=== PATIENT | male | born 1940 | race Caucasian/White ===

== ENCOUNTER 2020-01-12 14:33 | Emergency (ER) | payer MEDICARE, BC ==
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
[2020-01-12] MEDS ORDERED: Heparin Sodium 5,000 Units/ML Vial IVPUSH STA (18:16)
[2020-01-12] MEDS ORDERED: Heparin Sodium/D5W 25,000 UNITS/500 ML BAG IV SCH (18:30)
== END 2020-01-12 19:45 | disposition left against medical advice (07) ==
LOC: JD.ED 14:33
DX: I48.91 Unspecified atrial fibrillation (principal); N50.89 Other specified disorders of the male genital organs; R53.81 Other malaise; R60.0 Localized edema; E66.9 Obesity, unspecified; Z68.41 Body mass index [BMI] 40.0-44.9, adult; Z88.1 Allergy status to other antibiotic agents; Z91.012 Allergy to eggs; Z91.018 Allergy to other foods; Z87.891 Personal history of nicotine dependence
CPT/HCPCS: 36415; 51798; 80053; 81001; 82550; 83735; 84443; 85007; 85027; 85730; 93005; 93010; 99284; 99285

== ENCOUNTER 2020-01-13 11:36 | Inpatient (IN) | payer MEDICARE, BC ==
[2020-01-13] MEDS ORDERED: Sodium Chloride 0.9% 10 ML Syringe FLUSH PRN (12:09)
--- NOTE | 2020-01-13 12:40 | EDM.PDOC ---
ED HPI GENERAL MEDICAL PROBLEM - General Chief Complaint: General Stated Complaint: AFIB Time Seen by Provider: 01/13/20 12:04 Source of Information: Reports: Patient History Limitations: Reports: Other (Pt is slow to respond and confused at times ) - History of Present Illness INITIAL COMMENTS - FREE TEXT/NARRATIVE: Ger Lee is a 79 male who presents to the emergency room for admission for recent onset atrial fibrillation. Patient was seen and evaluated yesterday for generalized weakness shortness of breath and scrotal edema. He was found to have a new onset of atrial fibrillation and was recommended that he be admitted. However the patient elected to leave AMA without further work-up or treatment. He presents today with chief complaints of being more short of breath and "is ready to be admitted and treated." Patient is slow to respond to questions he appears to be somewhat confused. He denies chest pain but reports that he is short of breath if he walks short distances. Patient does have a past medical history of obesity and a malignant melanoma on his left thigh which he had excision and radiation treatment. Patient does report having a history of weakness which has progressively gotten worse over the past 2 years. He does admit to falling and is not able to get up afterwards. He does have an abrasion noted to his left knee. He reports that he fell again recently causing the abrasion. Patient also reports that he developed swelling in the scrotum with difficulty urinating a few weeks ago. Patient was seen at the [facility] yesterday and was instructed to come to the emergency room where he was evaluated yesterday. He denies any chest pain sinus congestion, fever, cough, fever or chills. He reports he does not have any pain unless he sits for long periods of time and then has testicular pain. Patient is hemodynamically stable at this time afebrile saturations 96% on room air, monitoring and evaluation advisor reveals atrial fib rate of 110. Onset: Unknown/Unsure Severity: Mild Improves with: Reports: None Worsens with: Reports: Breathing, Movement Associated Symptoms: Reports: Confusion, Shortness of Breath, Weakness. 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 1 dose TOP DAILY PRN 01/12/20 [History] Past Medical History Cardiovascular History: Reports: Hypertension Other Cardiovascular History: pts states this HTN was from the 80s and he is not on any medications Genitourinary History: Reports: Renal Calculus Endocrine/Metabolic History: Reports: Obesity/BMI 30+ Oncologic (Cancer) History: Reports: Malignant Melanoma - Past Surgical History HEENT Surgical History: Reports: Oral Surgery, Tonsillectomy Male Surgical History: Reports: Lithotripsy (ESWL) Oncologic Surgical History: Reports: Other (See Below) Dermatological Surgical History: Reports: Skin Biopsy, Other (See Below) Social & Family History - Tobacco Use Smoking Status *Q: Never Smoker - Recreational Drug Use Recreational Drug Use: No - Living Situation & Occupation Living situation: Reports: , with Spouse Occupation: Retired ED ROS GENERAL - Review of Systems Review Of Systems: See Below Constitutional: Reports: Weakness, Fatigue. Denies: Fever, Chills HEENT: Reports: Hearing Loss Respiratory: Reports: Shortness of Breath Cardiovascular: Reports: Edema. Denies: Chest Pain Endocrine: Reports: Fatigue GI/Abdominal: Denies: Constipation, Diarrhea, Nausea, Vomiting : Reports: Other (swollen scrotum) Skin: Reports: Other (old left knee abrasion) Neurological: Reports: Confusion, Weakness. Denies: Dizziness, Syncope, Change in Speech Psychiatric: Reports: Confusion Hematologic/Lymphatic: Reports: No Symptoms Immunologic: Reports: No Symptoms ED EXAM, GENERAL - Physical Exam Exam: See Below Exam Limited By: No Limitations General Appearance: Alert, WD/WN, No Apparent Distress, Other (Patient is slow to respond and appears confused at times) Throat/Mouth: Normal Inspection, Normal Lips, Normal Teeth, Normal Gums, Normal Oropharynx, Normal Voice, No Airway Compromise Head: Atraumatic, Normocephalic Neck: Normal Inspection, Supple, Non-Tender, Full Range of Motion Respiratory/Chest: No Respiratory Distress, Lungs Clear, Normal Breath Sounds, No Accessory Muscle Use, Chest Non-Tender Cardiovascular: Normal Peripheral Pulses, No Gallop, No JVD, No Murmur, No Rub, Irregularly Irregular, Other (Atrial fib with RVR rate 115) GI/Abdominal: Normal Bowel Sounds, Soft, Non-Tender (Male) Exam: Scrotal Swelling, Other (penile swelling) Back Exam: Normal Inspection, Full Range of Motion Extremities: Non-Tender, Normal Capillary Refill, Pedal Edema (+ 3 ) Neurological: Alert, Oriented, Slow to Respond Psychiatric: Normal Affect, Normal Mood Skin Exam: Warm, Dry, Intact, Normal Color, No Rash, Other (old left knee abrasion) Lymphatic: No Adenopathy EKG INTERPRETATION EKG Date: 01/13/20 Time: 12:03 Rhythm: A-Fib Rate (Beats/Min): 136 Course - Vital Signs Last Recorded V/S: Last Vital Signs Temp 97.8 F 01/13/20 12:01 Pulse 115 H 01/13/20 12:01 Resp 17 01/13/20 12:01 BP 133/75 01/13/20 12:01 Pulse Ox 93 L 01/13/20 12:01 - Orders/Labs/Meds Orders: Active Orders 24 hr Category Date Time Status Sodium Chloride 0.9% [Saline Flush] Med 01/13/20 12:09 Active 10 ml FLUSH ASDIRECTED PRN Saline Lock Insert [OM.PC] Routine Oth 01/13/20 12:09 Ordered Medication Orders Sodium Chloride (Saline Flush) 10 ml FLUSH ASDIRECTED PRN PRN Reason: Keep Vein Open Last Admin: 01/13/20 12:19 Dose: 10 ml Labs: Laboratory Tests 01/13/20 01/13/20 01/13/20 Range/Units 12:17 12:17 12:17 WBC 13.83 H (4.23-9.07) K/mm3 RBC 5.62 (4.63-6.08) M/mm3 Hgb 16.0 (13.7-17.5) gm/dl Hct 48.1 (40.1-51.0) % MCV 85.6 (79.0-92.2) fl MCH 28.5 (25.7-32.2) pg MCHC 33.3 (32.2-35.5) g/dl RDW Std Deviation 43.7 (35.1-43.9) fL Plt Count 388 H (163-337) K/mm3 MPV 9.8 (9.4-12.3) fl Neut % (Auto) 81.9 H (34.0-67.9) % Lymph % (Auto) 7.4 L (21.8-53.1) % Stanley % (Auto) 8.7 (5.3-12.2) % Eos % (Auto) 1.0 (0.8-7.0) Baso % (Auto) 0.3 (0.1-1.2) % Neut # (Auto) 11.34 H (1.78-5.38) K/mm3 Lymph # (Auto) 1.02 L (1.32-3.57) K/mm3 Stanley # (Auto) 1.20 H (0.30-0.82) K/mm3 Eos # (Auto) 0.14 (0.04-0.54) K/mm3 Baso # (Auto) 0.04 (0.01-0.08) K/mm3 Manual Slide Review Abnormal smear PT 11.0 (9.7-12.0) SECONDS INR 1.01 Sodium 138 (136-145) mEq/L Potassium 3.9 (3.5-5.1) mEq/L Chloride 101 (98-107) mEq/L Carbon Dioxide 26 (21-32) mEq/L Anion Gap 14.9 (5-15) BUN 18 (7-18) mg/dL Creatinine 1.1 (0.7-1.3) mg/dL Est Cr Clr Drug Dosing 60.75 mL/min Estimated GFR (MDRD) > 60 (>60) mL/min BUN/Creatinine Ratio 16.4 (14-18) Glucose 144 H (83-115) mg/dL Calcium 9.1 (8.5-10.1) mg/dL Total Bilirubin 1.1 H (0.2-1.0) mg/dL AST 32 (15-37) U/L ALT 47 (16-63) U/L Alkaline Phosphatase 64 (46-116) U/L Total Protein 7.2 (6.4-8.2) g/dl Albumin 3.4 (3.4-5.0) g/dl Globulin 3.8 gm/dL Albumin/Globulin Ratio 0.9 L (1-2) Meds: Medications Generic Name Dose Route Start Last Admin Trade Name Freq PRN Reason Stop Dose Admin Sodium Chloride 10 ml 01/13/20 12:09 01/13/20 12:19 Saline Flush FLUSH 10 ml ASDIRECTED PRN Administration Keep Vein Open Discontinued Medications Generic Name Dose Route Start Last Admin Trade Name Radha PRN Reason Stop Dose Admin Rivaroxaban 10 mg 01/13/20 13:12 01/13/20 13:26 Xarelto PO 01/13/20 13:13 10 mg ONETIME ONE Administration - Re-Assessments/Exams Free Text/Narrative Re-Assessment/Exam: 01/13/20 1230 Ger Lee is a 79-year-old male who presents the emergency room for evaluation and treatment of new onset atrial fibrillation. The patient was seen and evaluated yesterday for progressively worsening weakness for the past 2 years. He presented with chief complaints of swollen scrotum and decreased urine output. He was seen and evaluated at that time and recommended that he be admitted for new onset atrial fibrillation. The patient elected to leave [facility]. He presents today wanting to be evaluated and treated. He denies chest pain but does report being short of breath. Patient reports having increased weakness and edema to his lower extremities which has been progressively getting worse over the past 2 years. Patient does admit to having multiple falls resulting in abrasion to his left knee. I will order an EKG, CBC, Chem-7 and PT/INR. I did consult Dr. Sneha Marroquin to evaluate patient for admission for new set atrial fibrillation. Patient is in agreement for admission at this time. 01/13/20 13:[address] Marroquin she will admit patient. I will start on Xarelto 10 mg. BBC is 13.83 this is down from yesterday. H&H is 16.0 and 48.1 platelet count 388, PT 11 INR 1.01, sodium 138, potassium 3.9, chloride 101, CO2 26, BUN 18, creatinine 1.1 and glucose 144. He is stable at time of admission. Departure - Departure Time of Disposition: 13:18 Disposition: Admitted As Inpatient 66 Condition: Good Clinical Impression: Atrial fibrillation Qualifiers: Atrial fibrillation type: unspecified Qualified Code(s): I48.91 - Unspecified atrial fibrillation - Discharge Information Referrals: PCP,None [Primary Care Provider] - Forms: ED Department Discharge Sepsis Event Note - Evaluation Sepsis Screening Result: No Definite Risk - Focused Exam Vital Signs: Vital Signs Temp Pulse Resp BP Pulse Ox 01/13/20 12:01 97.8 F 115 H 17 133/75 93 L Date Exam was Performed: 01/13/20 Time Exam was Performed: 14:11 - My Orders Last 24 Hours: My Active Orders 01/13/20 12:09 Sodium Chloride 0.9% [Saline Flush] 10 ml FLUSH ASDIRECTED PRN Saline Lock Insert [OM.PC] Routine - Assessment/Plan Last 24 Hours: My Active Orders 01/13/20 12:09 Sodium Chloride 0.9% [Saline Flush] 10 ml FLUSH ASDIRECTED PRN Saline Lock Insert [OM.PC] Routine
[2020-01-13] MEDS ORDERED: Rivaroxaban 10 MG Tab PO ONE (13:12)
--- NOTE | 2020-01-13 15:05 | PCM.HP.2 ---
H&P History of Present Illness - General Date of Service: 01/13/20 Admit Problem/Dx: Admission Diagnosis/Problem Admission Diagnosis/Problem Atrial fibrillation - History of Present Illness Initial Comments - Free Text/Narative: --Patient is a very poor historian-- This is a 79 year old male with past medical history of hypotension who comes to the ED stating he has been having increasinf frequency of falls secondary to leg weaknes, last fall yesterday. Last night he got up and was unable to get up from bed. 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 1 dose TOP DAILY PRN 01/12/20 [History] Past Medical History Cardiovascular History: Reports: Hypertension Other Cardiovascular History: pts states this HTN was from the 80s and he is not on any medications Genitourinary History: Reports: Renal Calculus Endocrine/Metabolic History: Reports: Obesity/BMI 30+ Oncologic (Cancer) History: Reports: Malignant Melanoma - Past Surgical History HEENT Surgical History: Reports: Oral Surgery, Tonsillectomy Male Surgical History: Reports: Lithotripsy (ESWL) Oncologic Surgical History: Reports: Other (See Below) Dermatological Surgical History: Reports: Skin Biopsy, Other (See Below) Social & Family History - Tobacco Use Smoking Status *Q: Never Smoker - Recreational Drug Use Recreational Drug Use: No - Living Situation & Occupation Living situation: Reports: , with Spouse Occupation: Retired H&P Review of Systems - Review of Systems: Review Of Systems: Unable To Obtain Reason Not Obtained: Patient does not give any clear answers to any question Exam - Exam Exam: See Below - Vital Signs Vital Signs: Last Vital Signs Temp 97.8 F 01/13/20 12:01 Pulse 115 H 01/13/20 12:01 Resp 17 01/13/20 12:01 BP 133/75 01/13/20 12:01 Pulse Ox 93 L 01/13/20 12:01 Weight: 145.15 kg - Exam Quality Assessment: Other (CONFOUNDED BY BODY HABITUS). No: Supplemental Oxygen General: Alert, Oriented, Cooperative. No: Mild Distress HEENT: Conjunctiva Clear, Mucosa Moist & [place] Lungs: Decreased Breath Sounds. No: Crackles, Rales, Rhonchi, Rub, Stridor, Wheezing Cardiovascular: Regular Rate, Irregular Rhythm, Bradycardia, Tachycardia. No: Systolic Murmur, Diastolic Murmur, Rubs, Gallop/S3, Gallop/S4 GI/Abdominal Exam: Distended. No: Guarding, Rigid, Rebound, Tender Extremities: Other (BL LE edema, worse on left, scar tissue is evident on medial left thigh, non-pitting on L foot but 2+ on lef; RLE 2+ pitting edema ) Skin: Other (unkept, flaking throughout the toes, onychogryphosis, ) - Patient Data Result Diagrams: 01/13/20 12:17 01/13/20 12:17 Sepsis Event Note - Evaluation Sepsis Screening Result: No Definite Risk - Focused Exam Vital Signs: Vital Signs Temp Pulse Resp BP Pulse Ox 01/13/20 12:01 97.8 F 115 H 17 133/75 93 L Date Exam was Performed: 01/13/20 Time Exam was Performed: 18:05 - Problem List (1) Atrial fibrillation with rapid ventricular response SNOMED Code(s): 430852296471171 ICD Code: I48.91 - UNSPECIFIED ATRIAL FIBRILLATION Status: Acute Current Visit: Yes (2) Hypoalbuminemia SNOMED Code(s): 792469175 ICD Code: E88.09 - OTH DISORDERS OF PLASMA-PROTEIN METABOLISM, NEC Status: Acute Current Visit: Yes (3) Weakness generalized SNOMED Code(s): 55842702 ICD Code: R53.1 - WEAKNESS Status: Acute Current Visit: Yes (4) Frequent falls SNOMED Code(s): 905851807 ICD Code: R29.6 - REPEATED FALLS Status: Acute Current Visit: Yes (5) New onset atrial fibrillation SNOMED Code(s): 37337469 ICD Code: I48.91 - UNSPECIFIED ATRIAL FIBRILLATION Status: Acute Current Visit: No (6) Physical deconditioning SNOMED Code(s): 33348258512179 ICD Code: R53.81 - OTHER MALAISE Status: Acute Current Visit: No (7) Scrotal edema SNOMED Code(s): 99000700 ICD Code: N50.89 - OTHER SPECIFIED DISORDERS OF THE MALE GENITAL ORGANS Status: Acute Current Visit: No (8) Hypertension SNOMED Code(s): 74723412 ICD Code: I10 - ESSENTIAL (PRIMARY) HYPERTENSION Status: Acute Current Visit: Yes (9) Lymphedema of left lower extremity SNOMED Code(s): 50795512012667939 ICD Code: I89.0 - LYMPHEDEMA, NOT ELSEWHERE CLASSIFIED Status: Acute Current Visit: Yes (10) Bilateral lower extremity edema SNOMED Code(s): 687212322, 29465090, 128586071 ICD Code: R60.0 - LOCALIZED EDEMA Status: Acute Current Visit: No Problem List Initiated/Reviewed/Updated: Yes Assessment/Plan Comment:: New onset atrial fibrillation with rapid ventricular response Scrotal edema Bilateral lower extremity edema Lymphedema of left lower extremity Came in yesterday complaining of scrotal edema but left AMA Today with complaint of generalized weakness and inability to ambulate on his own He does have worsening lower extremity edema, left edema is chronic as per patient In ED was found to have HR 144 PLAN - Start Xarelto - Echocardiogram - Lasix 40mg IV BID - Strict I/O - Daily weights Hypertension BP on admission 129/70 Does not take any medications PLAN - Monitor BP with VS - PRN Hydralazine Frequent falls Physical deconditioning Weakness generalized Hypoalbuminemia Progressively worsening weakness Unable to ambulate Prior to this ambulated with 2 canes (since 80's) Unable to obtain information regarding his eating habits and sleep PLAN - B12, folic acid and MMA level - Prealbumin level - Dietary evaluation with malnutrition screen PROPHYLAXIS DVT- Xarelto GI- not indicated CODE STATUS: FULL CODE, entered by default since I was unable to get clear answer from him DISPOSITION: Patient will be admitted for IV diuresis, nutritional evaluation as well as PT/ OT evaluation with possible need for placement on discharge - Mortality Measure Prognosis:: Poor
[2020-01-13] MEDS ORDERED: Ondansetron 4 MG/2 ML SDV IV PRN (15:06)
[2020-01-13] MEDS ORDERED: Acetaminophen 325 MG Tab PO PRN (15:06)
[2020-01-13] MEDS ORDERED: Ondansetron 4 MG Tab.DIS PO PRN (15:06)
[2020-01-13 16:21] LABS: HEMOGLOBIN A1C 6.4 % (4.50-6.20)
[2020-01-13] MEDS ORDERED: Furosemide 20 MG/2 ML VIAL IVPUSH ONE (17:40)
[2020-01-14] MEDS: Furosemide 40 MG/4 ML VIAL IVPUSH SCH ×2 (06:46→15:13)
--- NOTE | 2020-01-14 08:40 | PCM.PN ---
- General Info Date of Service: 01/14/20 Admission Dx/Problem (Free Text): Admission Diagnosis/Problem Admission Diagnosis/Problem Atrial fibrillation Subjective Update: Patient was seen by me at the bedside and the case was discussed with Dr. Marroquin. Patient reports he feels improved since time of admission. In fact, he states he wants to go home today, and threatens to leave AMA. He complains of some dizziness but otherwise the rest of his review of system is negative. He remains obviously fluid overloaded with 3-4+ pitting edema in the lower extremity bilaterally, but breath sounds are cleared. VS are stable. ECHO is pending. No acute issues reported overnight. Functional Status: Reports: Pain Controlled - Review of Systems General: Reports: No Symptoms, Weakness, Other (Dizziness) HEENT: Reports: No Symptoms Pulmonary: Reports: No Symptoms Cardiovascular: Reports: No Symptoms Gastrointestinal: Reports: No Symptoms Genitourinary: Reports: No Symptoms Musculoskeletal: Reports: No Symptoms Skin: Reports: No Symptoms Neurological: Reports: Dizziness, Difficulty Walking, Weakness Psychiatric: Reports: Other (Threatens to leave AMA) - Patient Data Vitals - Most Recent: Last Vital Signs Temp 97.7 F 01/14/20 04:11 Pulse 93 01/14/20 04:11 Resp 16 01/14/20 04:11 BP 118/68 01/14/20 04:11 Pulse Ox 94 L 01/14/20 04:11 Weight - Most Recent: 333 lb 6.4 oz I&O - Last 24 Hours: Intake & Output 01/13/20 01/14/20 01/14/20 22:59 06:59 14:59 Intake Total 60 200 Output Total 200 600 Balance -140 -400 Lab Results Last 24 Hours: Laboratory Results - last 24 hr 01/13/20 01/13/20 01/13/20 Range/Units 12:17 12:17 12:17 WBC 13.83 H (4.23-9.07) K/mm3 RBC 5.62 (4.63-6.08) M/mm3 Hgb 16.0 (13.7-17.5) gm/dl Hct 48.1 (40.1-51.0) % MCV 85.6 (79.0-92.2) fl MCH 28.5 (25.7-32.2) pg MCHC 33.3 (32.2-35.5) g/dl RDW Std Deviation 43.7 (35.1-43.9) fL Plt Count 388 H (163-337) K/mm3 MPV 9.8 (9.4-12.3) fl Neut % (Auto) 81.9 H (34.0-67.9) % Lymph % (Auto) 7.4 L (21.8-53.1) % [place] % (Auto) 8.7 (5.3-12.2) % Eos % (Auto) 1.0 (0.8-7.0) Baso % (Auto) 0.3 (0.1-1.2) % Neut # (Auto) 11.34 H (1.78-5.38) K/mm3 Lymph # (Auto) 1.02 L (1.32-3.57) K/mm3 [place] # (Auto) 1.20 H (0.30-0.82) K/mm3 Eos # (Auto) 0.14 (0.04-0.54) K/mm3 Baso # (Auto) 0.04 (0.01-0.08) K/mm3 Manual Slide Review Abnormal smear PT 11.0 (9.7-12.0) SECONDS INR 1.01 Sodium 138 (136-145) mEq/L Potassium 3.9 (3.5-5.1) mEq/L Chloride 101 (98-107) mEq/L Carbon Dioxide 26 (21-32) mEq/L Anion Gap 14.9 (5-15) BUN 18 (7-18) mg/dL Creatinine 1.1 (0.7-1.3) mg/dL Est Cr Clr Drug Dosing 60.75 mL/min Estimated GFR (MDRD) > 60 (>60) mL/min BUN/Creatinine Ratio 16.4 (14-18) Glucose 144 H (83-115) mg/dL Hemoglobin A1c (4.50-6.20) % Calcium 9.1 (8.5-10.1) mg/dL Phosphorus (2.6-4.7) mg/dL Magnesium (1.8-2.4) mg/dl Total Bilirubin 1.1 H (0.2-1.0) mg/dL AST 32 (15-37) U/L ALT 47 (16-63) U/L Alkaline Phosphatase 64 (46-116) U/L Total Protein 7.2 (6.4-8.2) g/dl Albumin 3.4 (3.4-5.0) g/dl Globulin 3.8 gm/dL Albumin/Globulin Ratio 0.9 L (1-2) Vitamin B12 (193-986) pg/ml Folate (8.6-58.9) ng/mL Urine Color (Yellow) Urine Appearance (Clear) Urine pH (5.0-8.0) Ur Specific [place] (1.005-1.030) Urine Protein (Negative) Urine Glucose (UA) (Negative) Urine Ketones (Negative) Urine Occult Blood (Negative) Urine Nitrite (Negative) Urine Bilirubin (Negative) Urine Urobilinogen (0.2-1.0) Ur Leukocyte Esterase (Negative) Urine RBC (0-5) /hpf Urine WBC (0-5) /hpf Ur Squamous Epith Cells (0-5) /hpf Urine Bacteria (FEW) /hpf Urine Mucus (FEW) /hpf 01/13/20 01/13/20 01/13/20 Range/Units 16:00 16:00 18:19 WBC (4.23-9.07) K/mm3 RBC (4.63-6.08) M/mm3 Hgb (13.7-17.5) gm/dl Hct (40.1-51.0) % MCV (79.0-92.2) fl MCH (25.7-32.2) pg MCHC (32.2-35.5) g/dl RDW Std Deviation (35.1-43.9) fL Plt Count (163-337) K/mm3 MPV (9.4-12.3) fl Neut % (Auto) (34.0-67.9) % Lymph % (Auto) (21.8-53.1) % [place] % (Auto) (5.3-12.2) % Eos % (Auto) (0.8-7.0) Baso % (Auto) (0.1-1.2) % Neut # (Auto) (1.78-5.38) K/mm3 Lymph # (Auto) (1.32-3.57) K/mm3 [place] # (Auto) (0.30-0.82) K/mm3 Eos # (Auto) (0.04-0.54) K/mm3 Baso # (Auto) (0.01-0.08) K/mm3 Manual Slide Review PT (9.7-12.0) SECONDS INR Sodium (136-145) mEq/L Potassium (3.5-5.1) mEq/L Chloride (98-107) mEq/L Carbon Dioxide (21-32) mEq/L Anion Gap (5-15) BUN (7-18) mg/dL Creatinine (0.7-1.3) mg/dL Est Cr Clr Drug Dosing mL/min Estimated GFR (MDRD) (>60) mL/min BUN/Creatinine Ratio (14-18) Glucose (83-115) mg/dL Hemoglobin A1c 6.40 H (4.50-6.20) % Calcium (8.5-10.1) mg/dL Phosphorus (2.6-4.7) mg/dL Magnesium (1.8-2.4) mg/dl Total Bilirubin (0.2-1.0) mg/dL AST (15-37) U/L ALT (16-63) U/L Alkaline Phosphatase (46-116) U/L Total Protein (6.4-8.2) g/dl Albumin (3.4-5.0) g/dl Globulin gm/dL Albumin/Globulin Ratio (1-2) Vitamin B12 711 (193-986) pg/ml Folate 3.6 L (8.6-58.9) ng/mL Urine Color Yellow (Yellow) Urine Appearance Clear (Clear) Urine pH 6.0 (5.0-8.0) Ur Specific [place] > or = 1.030 (1.005-1.030) Urine Protein Negative (Negative) Urine Glucose (UA) Negative (Negative) Urine Ketones Trace H (Negative) Urine Occult Blood 1+ H (Negative) Urine Nitrite Negative (Negative) Urine Bilirubin Negative (Negative) Urine Urobilinogen 1.0 (0.2-1.0) Ur Leukocyte Esterase 1+ H (Negative) Urine RBC 5-10 H (0-5) /hpf Urine WBC 10-20 H (0-5) /hpf Ur Squamous Epith Cells 0-5 (0-5) /hpf Urine Bacteria Few (FEW) /hpf Urine Mucus Few (FEW) /hpf 05/02/20 05/02/20 Range/Units 06:02 06:02 WBC 9.71 H (4.23-9.07) K/mm3 RBC 5.61 (4.63-6.08) M/mm3 Hgb 16.2 (13.7-17.5) gm/dl Hct 48.4 (40.1-51.0) % MCV 86.3 (79.0-92.2) fl MCH 28.9 (25.7-32.2) pg MCHC 33.5 (32.2-35.5) g/dl RDW Std Deviation 44.9 H (35.1-43.9) fL Plt Count 348 H (163-337) K/mm3 MPV 9.8 (9.4-12.3) fl Neut % (Auto) 72.5 H (34.0-67.9) % Lymph % (Auto) 13.0 L (21.8-53.1) % [place] % (Auto) 11.4 (5.3-12.2) % Eos % (Auto) 2.2 (0.8-7.0) Baso % (Auto) 0.3 (0.1-1.2) % Neut # (Auto) 7.04 H (1.78-5.38) K/mm3 Lymph # (Auto) 1.26 L (1.32-3.57) K/mm3 [place] # (Auto) 1.11 H (0.30-0.82) K/mm3 Eos # (Auto) 0.21 (0.04-0.54) K/mm3 Baso # (Auto) 0.03 (0.01-0.08) K/mm3 Manual Slide Review PT (9.7-12.0) SECONDS INR Sodium 140 (136-145) mEq/L Potassium 3.8 (3.5-5.1) mEq/L Chloride 103 (98-107) mEq/L Carbon Dioxide 28 (21-32) mEq/L Anion Gap 12.8 (5-15) BUN 16 (7-18) mg/dL Creatinine 1.1 (0.7-1.3) mg/dL Est Cr Clr Drug Dosing 60.75 mL/min Estimated GFR (MDRD) > 60 (>60) mL/min BUN/Creatinine Ratio 14.5 (14-18) Glucose 128 H (83-115) mg/dL Hemoglobin A1c (4.50-6.20) % Calcium 9.1 (8.5-10.1) mg/dL Phosphorus 4.5 (2.6-4.7) mg/dL Magnesium 2.1 (1.8-2.4) mg/dl Total Bilirubin (0.2-1.0) mg/dL AST (15-37) U/L ALT (16-63) U/L Alkaline Phosphatase (46-116) U/L Total Protein (6.4-8.2) g/dl Albumin (3.4-5.0) g/dl Globulin gm/dL Albumin/Globulin Ratio (1-2) Vitamin B12 (193-986) pg/ml Folate (8.6-58.9) ng/mL Urine Color (Yellow) Urine Appearance (Clear) Urine pH (5.0-8.0) Ur Specific [place] (1.005-1.030) Urine Protein (Negative) Urine Glucose (UA) (Negative) Urine Ketones (Negative) Urine Occult Blood (Negative) Urine Nitrite (Negative) Urine Bilirubin (Negative) Urine Urobilinogen (0.2-1.0) Ur Leukocyte Esterase (Negative) Urine RBC (0-5) /hpf Urine WBC (0-5) /hpf Ur Squamous Epith Cells (0-5) /hpf Urine Bacteria (FEW) /hpf Urine Mucus (FEW) /hpf Med Orders - Current: Current Medications Acetaminophen (Tylenol) 650 mg PO Q4H PRN PRN Reason: Pain (Mild 1-3)/fever Furosemide (Lasix) 40 mg IVPUSH BIDDIURETIC [facility] Last Admin: 01/14/20 06:46 Dose: 40 mg Nystatin (Nystop) 0 gm TOP BID [facility] Ondansetron HCl (Zofran Odt) 4 mg PO Q6H PRN PRN Reason: nausea, able to take PO Ondansetron HCl (Zofran) 4 mg IV Q6H PRN PRN Reason: Nausea/Vomiting Rivaroxaban (Xarelto) 20 mg PO DAILY [facility] Sodium Chloride (Saline Flush) 10 ml FLUSH ASDIRECTED PRN PRN Reason: Keep Vein Open Last Admin: 01/13/20 12:19 Dose: 10 ml Discontinued Medications Furosemide (Lasix) 40 mg IVPUSH ONETIME ONE Stop: 01/13/20 17:41 Last Admin: 01/13/20 18:06 Dose: 40 mg Furosemide (Lasix) 40 mg IVPUSH BID [facility] Rivaroxaban (Xarelto) 10 mg PO ONETIME ONE Stop: 01/13/20 13:13 Last Admin: 01/13/20 13:26 Dose: 10 mg Comments:: Labs remain pending this morning. Will review upon resulting - Exam General: Alert, Oriented, Cooperative HEENT: Pupils Equal, Pupils Reactive, Mucous Membr. Moist/[place] Neck: Supple Lungs: Clear to Auscultation, Normal Respiratory Effort Cardiovascular: Regular Rate, Regular Rhythm GI/Abdominal Exam: Normal Bowel Sounds, Soft, Non-Tender (Male) Exam: Deferred Back Exam: Normal Inspection Extremities: Pedal Edema (3-4+ bilaterally ) Skin: Warm, Dry, Intact Neurological: No New Focal Deficit Psy/Mental Status: Alert, Normal Affect, Normal Mood Sepsis Event Note - Evaluation Sepsis Screening Result: No Definite Risk - Focused Exam Vital Signs: Vital Signs Temp Pulse Resp BP Pulse Ox 01/14/20 04:11 97.7 F 93 16 118/68 94 L 01/14/20 00:30 97.2 F 91 20 143/82 H 93 L 01/13/20 22:30 97.7 F Date Exam was Performed: 01/14/20 Time Exam was Performed: 08:34 - Problem List Review Problem List Initiated/Reviewed/Updated: Yes - My Orders Last 24 Hours: My Active Orders 01/15/20 05:00 CBC WITH AUTO DIFF [HEME] Routine COMPREHENSIVE METABOLIC PN,CMP [CHEM] Routine - Assessment Assessment:: New onset atrial fibrillation with rapid ventricular response Scrotal edema bilateral lower extremity edema lymphedema of left lower extremity HTN Physical deconditioning/weakness - Plan Plan:: New onset atrial fibrillation with rapid ventricular response Scrotal edema Bilateral lower extremity edema Lymphedema of left lower extremity Came in 2 days ago complaining of scrotal edema but left AMA Remains with generalized weakness and inability to ambulate on his own Remains with pitting edema in the lower extremities, left edema is chronic as per patient In ED was found to have HR 144, but has improved since admission with no recurrent events PLAN - Continue Xarelto - Echocardiogram pending - Continue Lasix 40mg IV BID, and may considere Metolazone 10 mg PO x1 today for further diuresis - Replace electrolytes as needed - Strict I/O - Daily weights Hypertension BP on admission 129/70, BP remains stable Does not take any medications PLAN - Continue to monitor BP with VS - PRN Hydralazine Frequent falls Physical deconditioning Weakness generalized Hypoalbuminemia Progressively worsening weakness Unable to ambulate Prior to this ambulated with 2 canes (since 's) Unable to obtain information regarding his eating habits and sleep PLAN - B12 711, Folate 3.6 - Prealbumin level pending - Dietary evaluation with malnutrition screen Folate deficiency Folate 3.6 PLAN - Start folic acid 1 mg po daily PROPHYLAXIS DVT- Xarelto GI- not indicated CODE STATUS: FULL CODE, entered by default since I was unable to get clear answer from him DISPOSITION: Patient remains fluid overloaded, and debilitated. Will continue IV diuresis, nutritional evaluation as well as PT/OT evaluation with possible need for placement on discharge
[2020-01-14] MEDS: Rivaroxaban 10 MG Tab PO SCH (08:41)
[2020-01-14] MEDS: Nystatin Topical Powder 15 GM Bottle TOP SCH ×2 (08:44→21:29)
[2020-01-14] MEDS ORDERED: Furosemide 40 MG/4 ML VIAL IVPUSH SCH (09:00)
[2020-01-14] MEDS ORDERED: Rivaroxaban 10 MG Tab PO SCH (09:00)
[2020-01-14] MEDS: Folic Acid 1 MG Tab PO SCH (10:24)
[2020-01-15] MEDS: Furosemide 40 MG/4 ML VIAL IVPUSH SCH ×2 (06:35→14:18)
[2020-01-15] MEDS: Folic Acid 1 MG Tab PO SCH (08:33)
[2020-01-15] MEDS: Rivaroxaban 10 MG Tab PO SCH (08:33)
[2020-01-15] MEDS ORDERED: Potassium Chloride 20 MEQ Tab.ER PO ONE (09:21)
--- NOTE | 2020-01-15 09:31 | PCM.PN ---
- General Info Date of Service: 01/15/20 Admission Dx/Problem (Free Text): Patient was seen by me at the bedside, and the case was consulted with Dr. Marroquin. Patient is improving since time of admission. He is more awake, alert , and oriented. He is now ambulating with the use of a walker, but he is still requiring some assistance- 1 person assist. His breath sound are clear but remains with pitting edema 1-2+ bilaterally. WBC trended down to WNL. Patient is found deficient in vitamin D- 16.8. Will start cholecalciferol 5000 units daily today. Potassium 3.4 which will be corrected. ECHO shows normal LVEF, 60- 65%. VS are relatively stable. No BM since time of admssion but flatus per nursing staff- will try soap lora enema with mineral X1 and consider lactulose 30 ml x 1. No acute issues reported overnight. Functional Status: Reports: Pain Controlled, Tolerating Diet, Ambulating (with walker ) - Review of Systems General: Reports: No Symptoms, Weakness, Fatigue HEENT: Reports: No Symptoms Pulmonary: Reports: No Symptoms Cardiovascular: Reports: No Symptoms Gastrointestinal: Reports: Constipation, Flatus Genitourinary: Reports: No Symptoms Musculoskeletal: Reports: No Symptoms Skin: Reports: No Symptoms Neurological: Reports: No Symptoms Psychiatric: Reports: No Symptoms - Patient Data Vitals - Most Recent: Last Vital Signs Temp 97.5 F 01/15/20 08:34 Pulse 77 01/15/20 08:34 Resp 16 01/15/20 08:34 BP 123/71 01/15/20 08:34 Pulse Ox 94 L 01/15/20 08:34 Weight - Most Recent: 322 lb 12.8 oz I&O - Last 24 Hours: Intake & Output 01/14/20 01/15/20 01/15/20 22:59 06:59 14:59 Intake Total 1040 500 Output Total 850 Balance 190 500 Med Orders - Current: Current Medications Acetaminophen (Tylenol) 650 mg PO Q4H PRN PRN Reason: Pain (Mild 1-3)/fever Cholecalciferol (Vitamin D3) 5,000 unit PO DAILY [facility] Folic Acid (Folic Acid) 1 mg PO DAILY [facility] Last Admin: 01/15/20 08:33 Dose: 1 mg Furosemide (Lasix) 40 mg IVPUSH BIDDIURETIC ULYSSES Last Admin: 01/15/20 06:35 Dose: 40 mg Nystatin (Nystop) 0 gm TOP BID [facility] Last Admin: 01/14/20 21:29 Dose: 1 applic Ondansetron HCl (Zofran Odt) 4 mg PO Q6H PRN PRN Reason: nausea, able to take PO Ondansetron HCl (Zofran) 4 mg IV Q6H PRN PRN Reason: Nausea/Vomiting Rivaroxaban (Xarelto) 20 mg PO DAILY [facility] Last Admin: 01/15/20 08:33 Dose: 20 mg Sodium Chloride (Saline Flush) 10 ml FLUSH ASDIRECTED PRN PRN Reason: Keep Vein Open Last Admin: 01/13/20 12:19 Dose: 10 ml - Exam General: Alert, Oriented, Cooperative HEENT: Pupils Equal, Pupils Reactive, EOMI Neck: Supple, Trachea Midline Lungs: Clear to Auscultation, Normal Respiratory Effort Cardiovascular: Regular Rate, Regular Rhythm GI/Abdominal Exam: Normal Bowel Sounds, Soft, Non-Tender, No Distention (Male) Exam: Deferred Extremities: Normal Inspection, Non-Tender, Pedal Edema Skin: Warm, Dry, Intact Neurological: No New Focal Deficit Psy/Mental Status: Alert, Normal Affect, Normal Mood Sepsis Event Note - Evaluation Sepsis Screening Result: No Definite Risk - Focused Exam Vital Signs: Vital Signs Temp Pulse Resp BP Pulse Ox 01/15/20 08:34 97.5 F 77 16 123/71 94 L 01/15/20 02:31 98.1 F 105 H 14 136/76 94 L Date Exam was Performed: 01/15/20 Time Exam was Performed: 09:24 - Problem List Review Problem List Initiated/Reviewed/Updated: Yes - My Orders Last 24 Hours: My Active Orders 01/14/20 09:00 Folic Acid 1 mg PO DAILY 01/15/20 09:30 Cholecalciferol (Vitamin D3) [Vitamin D3] 5,000 unit PO DAILY - Assessment Assessment:: New onset atrial fibrillation with rapid ventricular response Scrotal edema bilateral lower extremity edema lymphedema of left lower extremity HTN Physical deconditioning/weakness - Plan Plan:: New onset atrial fibrillation with rapid ventricular response Scrotal edema Bilateral lower extremity edema Lymphedema of left lower extremity Came in 2 days ago complaining of scrotal edema but left AMA Remains with generalized weakness and inability to ambulate on his own Remains with pitting edema in the lower extremities, left edema is chronic as per patient In ED was found to have HR 144, but has improved since admission with no recurrent events ECHO shows normal LVEF, 60-65% PLAN - Continue Xarelto - Continue Lasix 40mg IV BID - Replace electrolytes as needed - Strict I/O - Daily weights Hypertension BP on admission 129/70, BP remains stable- today 136/76 Does not take any medications PLAN - Continue to monitor BP with VS - PRN Hydralazine Frequent falls Physical deconditioning Weakness generalized Hypoalbuminemia Progressively worsening weakness Unable to ambulate Prior to this ambulated with 2 canes (since 's) Unable to obtain information regarding his eating habits and sleep PLAN - B12 711, Folate 3.6 - Prealbumin level pending - Dietary evaluation with malnutrition screen - OT/PT assessment and treatment - Case management consultation for possible LTCF placement Folate deficiency Folate 3.6 PLAN - Continue folic acid 1 mg po daily Vitamin D deficiency Vitamin D 16.8 PLAN - Start cholecalciferol 5000 units daily PROPHYLAXIS DVT- Xarelto GI- not indicated CODE STATUS: FULL CODE, entered by default since I was unable to get clear answer from him DISPOSITION: Patient remains fluid overloaded with pitting edema +1 bilaterally but improved since admission. Remains weak and debilitated but already ambulating with the use of walker. PT/OT assessment and case management consultation prior to discharge. Anticipate hospital discharge within 24-48 hours.
[2020-01-15] MEDS: Cholecalciferol (Vitamin D3) 5,000 UNIT Tab PO SCH (11:28)
[2020-01-15] MEDS: Nystatin Topical Powder 15 GM Bottle TOP SCH ×2 (11:28→20:50)
[2020-01-15] MEDS ORDERED: Diltiazem 50 MG/10 ML SDV IVPUSH ONE (18:55)
[2020-01-16] MEDS: Furosemide 40 MG/4 ML VIAL IVPUSH SCH ×2 (07:29→14:16)
--- NOTE | 2020-01-16 08:26 | PCM.PN ---
- General Info Date of Service: 01/16/20 Admission Dx/Problem (Free Text): Atrial Fibrillation Subjective Update: In to see Ger. Patient also examined by Dr. Marroquin. BM 01/15/20 after soap suds enema Reports feeing need to void but unable Nursing has been monitoring output but patient is incontinent Nursing reports significant incontinent urine output. Noted increased weakness over past 12-24 hrs. Functional Status: Reports: Pain Controlled, Tolerating Diet, Ambulating, Urinating (incontinent ), New Symptoms - Review of Systems General: Reports: Weakness. Denies: Fever, Fatigue, Malaise, Chills HEENT: Reports: No Symptoms Pulmonary: Reports: No Symptoms. Denies: Shortness of Breath, Cough, Sputum Cardiovascular: Reports: Edema. Denies: Chest Pain Gastrointestinal: Reports: No Symptoms. Denies: Abdominal Pain, Constipation, Diarrhea, Nausea, Vomiting Genitourinary: Reports: Incontinence, Other (Feels like he has retained urine) Musculoskeletal: Reports: No Symptoms Skin: Reports: No Symptoms. Denies: Cyanosis Neurological: Reports: Confusion (occasionally ), Difficulty Walking, Weakness, Gait Disturbance Psychiatric: Reports: No Symptoms - Patient Data Vitals - Most Recent: Last Vital Signs Temp 97.9 F 01/15/20 20:36 Pulse 76 01/15/20 20:36 Resp 22 H 01/15/20 20:36 BP 97/84 01/15/20 20:36 Pulse Ox 92 L 01/15/20 20:36 Weight - Most Recent: 136 lb 4.8 oz I&O - Last 24 Hours: Intake & Output 01/15/20 01/16/20 01/16/20 22:59 06:59 14:59 Intake Total 720 150 Output Total 200 Balance 720 -50 Lab Results Last 24 Hours: Laboratory Results - last 24 hr 01/16/20 01/16/20 Range/Units 05:35 05:35 WBC 8.75 (4.23-9.07) K/mm3 RBC 5.71 (4.63-6.08) M/mm3 Hgb 15.9 (13.7-17.5) gm/dl Hct 48.5 (40.1-51.0) % MCV 84.9 (79.0-92.2) fl MCH 27.8 (25.7-32.2) pg MCHC 32.8 (32.2-35.5) g/dl RDW Std Deviation 42.4 (35.1-43.9) fL Plt Count 387 H (163-337) K/mm3 MPV 9.9 (9.4-12.3) fl Neut % (Auto) 70.8 H (34.0-67.9) % Lymph % (Auto) 14.7 L (21.8-53.1) % Hughes % (Auto) 10.6 (5.3-12.2) % Eos % (Auto) 3.0 (0.8-7.0) Baso % (Auto) 0.3 (0.1-1.2) % Neut # (Auto) 6.19 H (1.78-5.38) K/mm3 Lymph # (Auto) 1.29 L (1.32-3.57) K/mm3 Hughes # (Auto) 0.93 H (0.30-0.82) K/mm3 Eos # (Auto) 0.26 (0.04-0.54) K/mm3 Baso # (Auto) 0.03 (0.01-0.08) K/mm3 Sodium 140 (136-145) mEq/L Potassium 3.5 (3.5-5.1) mEq/L Chloride 101 (98-107) mEq/L Carbon Dioxide 29 (21-32) mEq/L Anion Gap 13.5 (5-15) BUN 23 H (7-18) mg/dL Creatinine 1.2 (0.7-1.3) mg/dL Est Cr Clr Drug Dosing 44.36 mL/min Estimated GFR (MDRD) 59 (>60) mL/min BUN/Creatinine Ratio 19.2 H (14-18) Glucose 127 H (83-115) mg/dL Calcium 9.0 (8.5-10.1) mg/dL Total Bilirubin 1.0 (0.2-1.0) mg/dL AST 39 H (15-37) U/L ALT 50 (16-63) U/L Alkaline Phosphatase 56 (46-116) U/L Total Protein 6.8 (6.4-8.2) g/dl Albumin 3.2 L (3.4-5.0) g/dl Globulin 3.6 gm/dL Albumin/Globulin Ratio 0.9 L (1-2) Bogdan Results Last 24 Hours: Microbiology 01/13/20 18:19 Urine Culture - Final Urine, Clean Catch MIXED CHEYANNE SUGGESTIVE OF CONTAMINATION. Med Orders - Current: Current Medications Acetaminophen (Tylenol) 650 mg PO Q4H PRN PRN Reason: Pain (Mild 1-3)/fever Cholecalciferol (Vitamin D3) 5,000 unit PO DAILY [facility] Last Admin: 01/15/20 11:28 Dose: 5,000 unit Folic Acid (Folic Acid) 1 mg PO DAILY [facility] Last Admin: 01/15/20 08:33 Dose: 1 mg Furosemide (Lasix) 40 mg IVPUSH BIDDIURETIC [facility] Last Admin: 01/16/20 07:29 Dose: 40 mg Nystatin (Nystop) 0 gm TOP BID [facility] Last Admin: 01/15/20 20:50 Dose: 1 applic Ondansetron HCl (Zofran Odt) 4 mg PO Q6H PRN PRN Reason: nausea, able to take PO Ondansetron HCl (Zofran) 4 mg IV Q6H PRN PRN Reason: Nausea/Vomiting Potassium Chloride (Klor-Con M20) 40 meq PO BID [facility] Stop: 01/16/20 21:01 Rivaroxaban (Xarelto) 20 mg PO DAILY [facility] Last Admin: 01/15/20 08:33 Dose: 20 mg Sodium Chloride (Saline Flush) 10 ml FLUSH ASDIRECTED PRN PRN Reason: Keep Vein Open Last Admin: 01/13/20 12:19 Dose: 10 ml Discontinued Medications Diltiazem HCl (Cardizem) 35 mg IVPUSH ONETIME ONE Stop: 01/15/20 18:56 Last Admin: 01/15/20 20:14 Dose: 35 mg Furosemide (Lasix) 40 mg IVPUSH ONETIME ONE Stop: 01/13/20 17:41 Last Admin: 01/13/20 18:06 Dose: 40 mg Furosemide (Lasix) 40 mg IVPUSH BID [facility] Potassium Chloride (Klor-Con M20) 40 meq PO ONETIME ONE Stop: 01/15/20 09:22 Last Admin: 01/15/20 11:29 Dose: 40 meq Rivaroxaban (Xarelto) 10 mg PO ONETIME ONE Stop: 01/13/20 13:13 Last Admin: 05/01/20 13:26 Dose: 10 mg - Exam Quality Assessment: DVT Prophylaxis General: Alert, Cooperative, No Acute Distress. No: Oriented (waxes and wanes. ) HEENT: Pupils Equal, Pupils Reactive Neck: Supple, Trachea Midline Lungs: Clear to Auscultation, Normal Respiratory Effort Cardiovascular: Regular Rate, Regular Rhythm GI/Abdominal Exam: Normal Bowel Sounds, Soft, Non-Tender, No Distention (Male) Exam: Other (Improved testicular edema ) Back Exam: Decreased Range of Motion Extremities: Non-Tender, Pedal Edema (improved. Chronic lymphedema in left leg 2 /2 melanoma resection. ), Limited Range of Motion, Other (Scattered bruising and healing wounds throughout extremites. Discoloration to back of left thigh. ) Peripheral Pulses: 0: Dorsalis Pedis (L), Dorsalis Pedis (R) Skin: Warm, Dry Wound/Incisions: Other (multiple healing wounds throughout arms and legs) Neurological: No New Focal Deficit Psy/Mental Status: Alert Sepsis Event Note - Evaluation Sepsis Screening Result: No Definite Risk - Focused Exam Vital Signs: Vital Signs Temp Pulse Resp BP Pulse Ox 01/15/20 20:36 97.9 F 76 22 H 97/84 92 L 01/15/20 20:34 76 136/113 H 93 L Date Exam was Performed: 01/16/20 Time Exam was Performed: 11:47 - Problem List & Annotations (1) Atrial fibrillation SNOMED Code(s): 95842822 Code(s): I48.91 - UNSPECIFIED ATRIAL FIBRILLATION Status: Acute Priority : Medium Current Visit: Yes Qualifiers: Atrial fibrillation type: unspecified Qualified Code(s): I48.91 - Unspecified atrial fibrillation (2) Atrial fibrillation with rapid ventricular response SNOMED Code(s): 075516404208517 Code(s): I48.91 - UNSPECIFIED ATRIAL FIBRILLATION Status: Resolved Priority: High Current Visit: Yes (3) Frequent falls SNOMED Code(s): 581752737 Code(s): R29.6 - REPEATED FALLS Status: Chronic Priority: High Current Visit: Yes (4) Hypertension SNOMED Code(s): 44579887 Code(s): I10 - ESSENTIAL (PRIMARY) HYPERTENSION Status: Chronic Priority : Medium Current Visit: No Qualifiers: Hypertension type: unspecified Qualified Code(s): I10 - Essential (primary ) hypertension (5) Hypoalbuminemia SNOMED Code(s): 760173400 Code(s): E88.09 - OTH DISORDERS OF PLASMA-PROTEIN METABOLISM, NEC Status: Acute Priority: Medium Current Visit: Yes (6) Lymphedema of left lower extremity SNOMED Code(s): 83436439031020011 Code(s): I89.0 - LYMPHEDEMA, NOT ELSEWHERE CLASSIFIED Status: Chronic Priority: Medium Current Visit: Yes (7) Weakness generalized SNOMED Code(s): 34992743 Code(s): R53.1 - WEAKNESS Status: Acute Priority: High Current Visit: Yes (8) Bilateral lower extremity edema SNOMED Code(s): 530966264, 98403085, 591700901 Code(s): R60.0 - LOCALIZED EDEMA Status: Acute Priority: High Current Visit: Yes (9) New onset atrial fibrillation SNOMED Code(s): 19747236 Code(s): I48.91 - UNSPECIFIED ATRIAL FIBRILLATION Status: Acute Priority : High Current Visit: Yes (10) Physical deconditioning SNOMED Code(s): 87892607050693 Code(s): R53.81 - OTHER MALAISE Status: Acute Priority: High Current Visit: Yes (11) Scrotal edema SNOMED Code(s): 80707235 Code(s): N50.89 - OTHER SPECIFIED DISORDERS OF THE MALE GENITAL ORGANS Status: Acute Priority: High Current Visit: Yes - Problem List Review Problem List Initiated/Reviewed/Updated: Yes - My Orders Last 24 Hours: My Active Orders 01/16/20 09:00 Potassium Chloride [Klor-Con M20] 40 meq PO BID - Assessment Assessment:: New onset atrial fibrillation with rapid ventricular response Scrotal edema bilateral lower extremity edema lymphedema of left lower extremity HTN Physical deconditioning/weakness - Plan Plan:: New onset atrial fibrillation with rapid ventricular response Scrotal edema Bilateral lower extremity edema Lymphedema of left lower extremity Came in on 01/12/20 ago complaining of scrotal edema but left AMA Remains with generalized weakness and inability to ambulate on his own Remains with pitting edema in the lower extremities, left edema is chronic as per patient In ED was found to have HR 144, Has been up to 140's with activity on floor in A -fib ECHO shows normal LVEF, 60-65% PLAN - Continue Xarelto - Continue Lasix 40mg IV BID - Replace electrolytes as needed - Strict I/O - Daily weights - Start 30mg Cardizem Q8Hr for rate control Hypertension BP on admission 129/70, BP remains stable- today 97/84 Does not take any medications PLAN - Continue to monitor BP with VS - Caution with starting Cardizem - PRN Hydralazine Frequent falls Physical deconditioning Weakness generalized Hypoalbuminemia Progressively worsening weakness Unable to ambulate Prior to this ambulated with 2 canes (since 's) Unable to obtain information regarding his eating habits and sleep PLAN - B12 711, Folate 3.6 - Prealbumin level pending - Dietary evaluation with malnutrition screen - OT/PT assessment and treatment - Case management consultation for possible LTCF placement - 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 Remains weak and debilitated ambulating to bathroom and with therapies. PT/OT assessment and case management consultation prior to discharge. Anticipate hospital discharge within 24-48 hours. COVID-19 test ordered due to SNF requirements. No current concerns or symptoms for COVID-19.
[2020-01-16] MEDS: Rivaroxaban 10 MG Tab PO SCH (08:28)
[2020-01-16] MEDS: Potassium Chloride 20 MEQ Tab.ER PO SCH ×2 (08:28→21:13)
[2020-01-16] MEDS: Folic Acid 1 MG Tab PO SCH (08:29)
[2020-01-16] MEDS: Cholecalciferol (Vitamin D3) 5,000 UNIT Tab PO SCH (08:29)
[2020-01-16] MEDS: Nystatin Topical Powder 15 GM Bottle TOP SCH ×2 (08:32→21:13)
[2020-01-16] MEDS: Diltiazem IR 30 MG Tab PO SCH ×2 (11:30→17:14)
[2020-01-17] MEDS: Diltiazem IR 30 MG Tab PO SCH ×3 (01:56→17:16)
[2020-01-17] MEDS: Furosemide 40 MG Tab PO SCH ×2 (06:04→13:45)
--- NOTE | 2020-01-17 07:24 | PCM.PN ---
- General Info Date of Service: 01/17/20 Admission Dx/Problem (Free Text): Atrial Fibrillation Subjective Update: Last BM today No patient concerns Pending COVID testing Sleeping ok Functional Status: Reports: Pain Controlled, Tolerating Diet, Ambulating, Urinating. Denies: New Symptoms - Review of Systems General: Reports: No Symptoms, Weakness. Denies: Fever, Fatigue, Malaise, Chills HEENT: Reports: No Symptoms. Denies: Headaches, Sore Throat Pulmonary: Reports: No Symptoms. Denies: Shortness of Breath, Cough, Wheezing Cardiovascular: Reports: Edema (Chronic left foot lymphedema ). Denies: Chest Pain, Palpitations Gastrointestinal: Reports: No Symptoms. Denies: Abdominal Pain, Constipation, Diarrhea, Nausea, Vomiting Genitourinary: Reports: No Symptoms. Denies: Pain Musculoskeletal: Reports: No Symptoms Skin: Reports: No Symptoms. Denies: Cyanosis Neurological: Reports: Confusion (comes and goes ), Difficulty Walking, Weakness , Gait Disturbance Psychiatric: Reports: No Symptoms - Patient Data Vitals - Most Recent: Last Vital Signs Temp 97.9 F 01/17/20 00:53 Pulse 87 01/17/20 00:53 Resp 18 01/17/20 00:53 BP 112/87 01/17/20 00:53 Pulse Ox 93 L 01/17/20 00:53 Weight - Most Recent: 318 lb I&O - Last 24 Hours: Intake & Output 01/16/20 01/17/20 01/17/20 22:59 06:59 14:59 Intake Total 240 400 Output Total 200 Balance 240 200 Bogdan Results Last 24 Hours: Microbiology 01/13/20 18:19 Urine Culture - Final Urine, Clean Catch MIXED [place]NE SUGGESTIVE OF CONTAMINATION. Med Orders - Current: Current Medications Acetaminophen (Tylenol) 650 mg PO Q4H PRN PRN Reason: Pain (Mild 1-3)/fever Cholecalciferol (Vitamin D3) 5,000 unit PO DAILY [facility] Last Admin: 01/16/20 08:29 Dose: 5,000 unit Diltiazem HCl (Cardizem) 30 mg PO Q8H [facility] Last Admin: 01/17/20 01:56 Dose: 30 mg Folic Acid (Folic Acid) 1 mg PO DAILY [facility] Last Admin: 01/16/20 08:29 Dose: 1 mg Furosemide (Lasix) 40 mg PO BIDDIURETIC [facility] Last Admin: 01/17/20 06:04 Dose: 40 mg Nystatin (Nystop) 0 gm TOP BID [facility] Last Admin: 01/16/20 21:13 Dose: 1 applic Ondansetron HCl (Zofran Odt) 4 mg PO Q6H PRN PRN Reason: nausea, able to take PO Ondansetron HCl (Zofran) 4 mg IV Q6H PRN PRN Reason: Nausea/Vomiting Rivaroxaban (Xarelto) 20 mg PO DAILY [facility] Last Admin: 01/16/20 08:28 Dose: 20 mg Sodium Chloride (Saline Flush) 10 ml FLUSH ASDIRECTED PRN PRN Reason: Keep Vein Open Last Admin: 01/13/20 12:19 Dose: 10 ml Temazepam (Restoril) 15 mg PO BEDTIME [facility] Discontinued Medications Diltiazem HCl (Cardizem) 35 mg IVPUSH ONETIME ONE Stop: 01/15/20 18:56 Last Admin: 01/15/20 20:14 Dose: 35 mg Furosemide (Lasix) 40 mg IVPUSH ONETIME ONE Stop: 01/13/20 17:41 Last Admin: 01/13/20 18:06 Dose: 40 mg Furosemide (Lasix) 40 mg IVPUSH BID [facility] Furosemide (Lasix) 40 mg IVPUSH BIDDIURETIC [facility] Last Admin: 01/16/20 14:16 Dose: 40 mg Potassium Chloride (Klor-Con M20) 40 meq PO ONETIME ONE Stop: 01/15/20 09:22 Last Admin: 01/15/20 11:29 Dose: 40 meq Potassium Chloride (Klor-Con M20) 40 meq PO BID [facility] Stop: 01/16/20 21:01 Last Admin: 01/16/20 21:13 Dose: 40 meq Rivaroxaban (Xarelto) 10 mg PO ONETIME ONE Stop: 01/13/20 13:13 Last Admin: 01/13/20 13:26 Dose: 10 mg - Exam Quality Assessment: DVT Prophylaxis. No: Supplemental Oxygen General: Alert, Cooperative. No: Oriented (at times but waxes and wanes ) HEENT: Pupils Equal, Pupils Reactive Neck: Supple, Trachea Midline Lungs: Clear to Auscultation, Normal Respiratory Effort Cardiovascular: Irregular Rhythm GI/Abdominal Exam: Normal Bowel Sounds, Soft, Non-Tender, No Distention, No Abnormal Bruit (Male) Exam: Deferred Extremities: Non-Tender, Pedal Edema (L>R - much improved ) Skin: Warm, Dry, Intact, Ecchymosis (scattered ) Neurological: No New Focal Deficit Psy/Mental Status: Alert Sepsis Event Note - Evaluation Sepsis Screening Result: No Definite Risk - Focused Exam Vital Signs: Vital Signs Temp Pulse Resp BP Pulse Ox 01/17/20 00:53 97.9 F 87 18 112/87 93 L 01/16/20 21:07 97.5 F 103 H 20 122/61 93 L Date Exam was Performed: 01/17/20 Time Exam was Performed: 13:20 - Problem List & Annotations (1) Atrial fibrillation SNOMED Code(s): 75054234 Code(s): I48.91 - UNSPECIFIED ATRIAL FIBRILLATION Status: Acute Priority : Medium Current Visit: Yes Qualifiers: Atrial fibrillation type: unspecified Qualified Code(s): I48.91 - Unspecified atrial fibrillation (2) Atrial fibrillation with rapid ventricular response SNOMED Code(s): 123943546148727 Code(s): I48.91 - UNSPECIFIED ATRIAL FIBRILLATION Status: Resolved Priority: High Current Visit: Yes (3) Frequent falls SNOMED Code(s): 941092897 Code(s): R29.6 - REPEATED FALLS Status: Chronic Priority: High Current Visit: Yes (4) Hypertension SNOMED Code(s): 25089731 Code(s): I10 - ESSENTIAL (PRIMARY) HYPERTENSION Status: Chronic Priority : Medium Current Visit: No Qualifiers: Hypertension type: unspecified Qualified Code(s): I10 - Essential (primary ) hypertension (5) Hypoalbuminemia SNOMED Code(s): 513004425 Code(s): E88.09 - [facility] DISORDERS OF PLASMA-PROTEIN METABOLISM, NEC Status: Acute Priority: Medium Current Visit: Yes (6) Lymphedema of left lower extremity SNOMED Code(s): 79396311168289597 Code(s): I89.0 - LYMPHEDEMA, NOT ELSEWHERE CLASSIFIED Status: Chronic Priority: Medium Current Visit: Yes (7) Weakness generalized SNOMED Code(s): 55737184 Code(s): R53.1 - WEAKNESS Status: Acute Priority: High Current Visit: Yes (8) Bilateral lower extremity edema SNOMED Code(s): 339136163, 66173215, 559773499 Code(s): R60.0 - LOCALIZED EDEMA Status: Acute Priority: High Current Visit: Yes (9) New onset atrial fibrillation SNOMED Code(s): 92588041 Code(s): I48.91 - UNSPECIFIED ATRIAL FIBRILLATION Status: Acute Priority : High Current Visit: Yes (10) Physical deconditioning SNOMED Code(s): 59991621617450 Code(s): R53.81 - OTHER MALAISE Status: Acute Priority: High Current Visit: Yes (11) Scrotal edema SNOMED Code(s): 09852321 Code(s): N50.89 - OTHER SPECIFIED DISORDERS OF THE MALE GENITAL ORGANS Status: Acute Priority: High Current Visit: Yes - Problem List Review Problem List Initiated/Reviewed/Updated: Yes - My Orders Last 24 Hours: My Active Orders 01/16/20 Dinner Gluten Free Diet [DIET] 01/17/20 07:16 BASIC METABOLIC PANEL,BMP [CHEM] Routine MAGNESIUM [CHEM] Routine PHOSPHORUS [CHEM] Routine - Assessment Assessment:: New onset atrial fibrillation with rapid ventricular response Scrotal edema bilateral lower extremity edema lymphedema of left lower extremity HTN Physical deconditioning/weakness - Plan Plan:: New onset atrial fibrillation with rapid ventricular response Scrotal edema Bilateral lower extremity edema Lymphedema of left lower extremity Came in on 01/12/20 ago complaining of scrotal edema but left AMA Remains with generalized weakness and inability to ambulate on his own Remains with pitting edema in the lower extremities, left edema is chronic as per patient In ED was found to have HR 144, Has been up to 140's with activity on floor in A -fib ECHO shows normal LVEF, 60-65% Down 13 lbs today PLAN - Continue Xarelto - Continue Lasix 40mg IV BID - Replace electrolytes as needed - Strict I/O - Daily weights - Start 30mg Cardizem Q8Hr for rate control Hypertension BP on admission 129/70, BP remains stable- today 97/84 Does not take any medications PLAN - Continue to monitor BP with VS - Caution with starting Cardizem - PRN Hydralazine Frequent falls Physical deconditioning Weakness generalized Hypoalbuminemia Progressively worsening weakness Unable to ambulate Prior to this ambulated with 2 canes (since 80's) Unable to obtain information regarding his eating habits and 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 PLAN - B12 711, Folate 3.6 - Prealbumin level pending - Dietary evaluation with malnutrition screen - OT/PT assessment and treatment - Case management consultation for possible SNF placement Folate deficiency Folate 3.6 PLAN - Continue folic acid 1 mg po daily Vitamin D deficiency Vitamin D 16.8 PLAN - Start cholecalciferol 5000 units daily PROPHYLAXIS DVT- Xarelto GI- not indicated CODE STATUS: FULL CODE, entered by default since I was unable to get clear answer from him DISPOSITION: Patient remains fluid overloaded with pitting edema +1 bilaterally but improved since admission. Remains weak and debilitated ambulating to bathroom and with therapies. PT/OT assessment and case management consultation prior to discharge. Anticipate hospital discharge within 24-48 hours. COVID-19 test x2 ordered due to SNF requirements. No current concerns or symptoms for COVID-19. LOS>96 due to SNF placement, Need for negative COVID-19 tests due to SNF requirement.
[2020-01-17] MEDS: Rivaroxaban 10 MG Tab PO SCH (08:18)
[2020-01-17] MEDS: Potassium Chloride 20 MEQ Tab.ER PO SCH ×2 (08:19→20:31)
[2020-01-17] MEDS: Cholecalciferol (Vitamin D3) 5,000 UNIT Tab PO SCH (08:19)
[2020-01-17] MEDS: Folic Acid 1 MG Tab PO SCH (08:19)
[2020-01-17] MEDS: Nystatin Topical Powder 15 GM Bottle TOP SCH ×2 (09:14→20:32)
[2020-01-17] MEDS: Temazepam 15 MG Cap PO SCH (20:33)
[2020-01-18] MEDS: Diltiazem IR 30 MG Tab PO SCH ×3 (03:38→17:24)
[2020-01-18] MEDS: Furosemide 20 MG Tab PO SCH ×2 (06:35→13:40)
--- NOTE | 2020-01-18 09:19 | PCM.DCSUM1 ---
Discharge Summary - Hospital Course HPI Initial Comments: --Patient is a very poor historian-- This is a 79 year old male with past medical history of hypotension who comes to the ED stating he has been having increasinf frequency of falls secondary to leg weaknes, last fall yesterday. Last night he got up and was unable to get up from bed. Unable to get any more information Diagnosis: Stroke: No - Discharge Data Discharge Date: 01/18/20 (Admit date: 01/13/20) Discharge Disposition: DC/Tfer to SNF 03 Condition: Good - Referral to Home Health Primary Care Physician: PCP None - Discharge Diagnosis/Problem(s) (1) Atrial fibrillation SNOMED Code(s): 48042037 ICD Code: I48.91 - UNSPECIFIED ATRIAL FIBRILLATION Status: Acute Priority : Medium Current Visit: Yes Qualifiers: Atrial fibrillation type: unspecified Qualified Code(s): I48.91 - Unspecified atrial fibrillation (2) Atrial fibrillation with rapid ventricular response SNOMED Code(s): 159866836866211 ICD Code: I48.91 - UNSPECIFIED ATRIAL FIBRILLATION Status: Resolved Priority: High Current Visit: Yes (3) Frequent falls SNOMED Code(s): 463119517 ICD Code: R29.6 - REPEATED FALLS Status: Chronic Priority: High Current Visit: Yes (4) Hypertension SNOMED Code(s): 80795937 ICD Code: I10 - ESSENTIAL (PRIMARY) HYPERTENSION Status: Chronic Priority : Medium Current Visit: No Qualifiers: Hypertension type: unspecified Qualified Code(s): I10 - Essential (primary ) hypertension (5) Hypoalbuminemia SNOMED Code(s): 636883509 ICD Code: E88.09 - OTH DISORDERS OF PLASMA-PROTEIN METABOLISM, NEC Status: Acute Priority: Medium Current Visit: Yes (6) Lymphedema of left lower extremity SNOMED Code(s): 06093774169879545 ICD Code: I89.0 - LYMPHEDEMA, NOT ELSEWHERE CLASSIFIED Status: Chronic Priority: Medium Current Visit: Yes (7) Weakness generalized SNOMED Code(s): 82895666 ICD Code: R53.1 - WEAKNESS Status: Acute Priority: High Current Visit: Yes (8) Bilateral lower extremity edema SNOMED Code(s): 502231228, 35344981, 667669881 ICD Code: R60.0 - LOCALIZED EDEMA Status: Acute Priority: High Current Visit: Yes (9) New onset atrial fibrillation SNOMED Code(s): 18478963 ICD Code: I48.91 - UNSPECIFIED ATRIAL FIBRILLATION Status: Acute Priority : High Current Visit: Yes (10) Physical deconditioning SNOMED Code(s): 69923359923661 ICD Code: R53.81 - OTHER MALAISE Status: Acute Priority: High Current Visit: Yes (11) Scrotal edema SNOMED Code(s): 49492201 ICD Code: N50.89 - OTHER SPECIFIED DISORDERS OF THE MALE GENITAL ORGANS Status: Acute Priority: High Current Visit: Yes - Patient Summary/Data Consults: Consultations 01/13/20 15:06 Consult to Case Management/Real Estate Loan Processor [CONS] Routine Consult to Supervisor Money Room [CONS] Routine OT Evaluation and Treatment [CONS] Routine PT Evaluation and Treatment [CONS] Routine 01/13/20 15:13 MACHINE STRIPPER Eval and Treat [MACHINE STRIPPER Evaluation and Treatment] [CONS] Routine Labs Pending at D/C: Methylmalonic acid Recommended Follow-up Testing/Procedures: Follow-up with PCP within 5-7 days of discharge, sooner if needed. -Recommend re-check CBC, CMP, Magnesium and phosphorous at that appointment -Recommend review patients weight and BP logs at that time. Hospital Course: Ger was admitted to the floor due to significant edema and new onset A. fib with RVR noted in the ED. He had significant bilateral lower extremity edema and scrotal edema. He does report chronic left lower extremity lymphedema however this was much more severe than normal. Was on no prior heart agents or diuretics. He started on Xarelto and 40 mg twice daily IV push Lasix. This was gently decreased and ultimately he will be discharged on 20 mg twice daily Lasix. His edema did significantly improve. His A. fib did tend to come and go and was noted to resolve in the ED with minimal intervention. He was started on 30 mg Cardizem every 8 hour for rate control as he was noted to be in the low 100s on the floor, increasing significantly when he got up to go the bathroom, etc. Good rate control was achieved with this. His potassium did remain low and he was started on 40 mEq twice daily potassium. This will continue for 4 days. Blood pressure remained stable. He was instructed to take his weight daily and blood pressure twice a day, recording this in a journal and bring this with to all medical appointments. He was given a as needed 20 mg dose of Lasix which she should take if he notices a 2 pound weight gain in 1 day or 5 pounds in 1 week. He was instructed to contact his primary care provider after taking this medication. Ultimately lost 12 pounds while here. While here patient was also noted to have had several falls from his 's report. He is been very weak and struggling with ambulation. He did work with PT/OT who recommended SNF placement for rehab stay. His reported that she was unable to care for him at home anymore and supported this plan. Ger was reluctant but ultimately did agree to this plan. MACHINE STRIPPER cog eval was obtained showing moderate impairment and recommending assistance with all ADLs. He was noted to have a mental status that did wax and wane, with confusion in the evenings suggestive of sundowning. His albumin was low and dietary was brought in. 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 This should continue at SNF. Folate was low at 3.6 and he was started on 1 mg p.o. daily folic supplementation. Vitamin D was also obtained and was low at 16.8. He was started on 5000 units daily. COVID testing was obtained and was negative. There were no concerns of any symptoms, however [facility] was requiring this prior to admission of the patient. Initially there was some confusion it was believed that there would need to be 2- COVID test however [place] ultimately decided that one negative test would be fine. Rapid test was obtained and was negative. We should note that PCR testing was obtained and sent and the results of that had not returned. He was instructed to follow-up with his primary care provider within 5 to 7 days, or sooner if needed. He should elevate his extremities when not ambulating. PT/OT should continue at SNF. He was started on vitamin D supplementation, Cardizem 30 mg p.o. q. 8, folic acid, Lasix, and 4 days of BID potassium supplementation as noted prior. He was started on 20 mg daily Xarelto for clot prevention due to his proximal A. fib. He was also started on nystatin and this was prescribed on discharge. And rechecking CBC, CMP, magnesium, and phosphorus at follow-up appointment with PCP. Also recommend PCP review patient's blood pressure and weight journal. Patient was instructed to contact primary care provider or return the emergency room should symptoms return or worsen. He was discharged to [facility] today. - Patient Instructions Diet: Heart Healthy Diet Diet, Other: Gluten free diet Activity: As Tolerated Driving: Do Not Drive Showering/Bathing: May Shower Notify Provider of: Fever, Increased Pain, Nausea and/or Vomiting Other/Special Instructions: Follow-up with primary care provider within 5-7 days of discharge, sooner if needed. Take all new medications as precribed. Take blood pressure twice daily and record it in a journal. Take this with to all medical appointments. Weigh yourself daily. If you notice a 2lb weight gain over a day or a 5lb weight gain over a week take the extra 20mg of lasix as prescribed and contact your primary care provider. Elevate your extremities whenever possible. Should symptoms return or worsen contact your primary care provider or return to the emergency department. - Discharge Plan *PRESCRIPTION DRUG MONITORING PROGRAM REVIEWED*: No *COPY OF PRESCRIPTION DRUG MONITORING REPORT IN PATIENT DAVINA: No Prescriptions/Med Rec: Cholecalciferol (Vitamin D3) [Vitamin D3] 5,000 unit PO DAILY #20 tablet Diltiazem IR [Cardizem] 30 mg PO Q8H #90 tablet Folic Acid 1 mg PO DAILY #20 tablet Furosemide [Lasix] 20 mg PO ASDIRECTED PRN #5 tab PRN Reason: Swelling Furosemide [Lasix] 20 mg PO BIDDIURETIC #60 tablet Nystatin [Nystop] 1 gm TOP BID #3 bottle Potassium Chloride [Klor-Con M20] 40 meq PO BID #8 tab.er Rivaroxaban [Xarelto] 20 mg PO DAILY #30 tablet Home Medications: Home Meds Incident Manager Lotion 1 dose TOP DAILY PRN 01/12/20 [History] Cholecalciferol (Vitamin D3) [Vitamin D3] 5,000 unit PO DAILY #20 tablet [Rx] Diltiazem IR [Cardizem] 30 mg PO Q8H #90 tablet 01/18/20 [Rx] Folic Acid 1 mg PO DAILY #20 tablet 01/18/20 [Rx] Furosemide [Lasix] 20 mg PO ASDIRECTED PRN #5 tab 01/18/20 [Rx] Furosemide [Lasix] 20 mg PO BIDDIURETIC #60 tablet 01/18/20 [Rx] Nystatin [Nystop] 1 gm TOP BID #3 bottle 01/18/20 [Rx] Potassium Chloride [Klor-Con M20] 40 meq PO BID #8 tab.er 01/18/20 [Rx] Rivaroxaban [Xarelto] 20 mg PO DAILY #30 tablet 01/18/20 [Rx] Oxygen Therapy Mode: Room Air Forms: ED Department Discharge Referrals: Tyler Drake MD [Physician] - 01/25/20 10:30 am (please attend the scheduled follow up appointment with your primary care provider as listed) - Discharge Summary/Plan Comment DC Time >30 min.: Yes (45 mins ) - General Info Date of Service: 01/18/20 Admission Dx/Problem (Free Text: Atrial Fibrillation Functional Status: Reports: Pain Controlled, Tolerating Diet, Ambulating, Urinating. Denies: New Symptoms - Review of Systems General: Reports: Weakness. Denies: Fever, Fatigue, Malaise, Chills HEENT: Reports: No Symptoms. Denies: Headaches, Sore Throat Pulmonary: Reports: No Symptoms. Denies: Shortness of Breath, Cough, Sputum, Wheezing Cardiovascular: Reports: Edema. Denies: Chest Pain, Palpitations, Dyspnea on Exertion Gastrointestinal: Reports: No Symptoms. Denies: Abdominal Pain, Constipation, Diarrhea, Nausea, Vomiting Genitourinary: Reports: No Symptoms. Denies: Pain Musculoskeletal: Reports: No Symptoms Skin: Reports: Bruising (scattered ). Denies: Cyanosis Neurological: Reports: Confusion, Difficulty Walking, Weakness, Gait Disturbance Psychiatric: Reports: No Symptoms - Patient Data Vitals - Most Recent: Last Vital Signs Temp 97.3 F 01/18/20 07:40 Pulse 78 01/18/20 07:40 Resp 18 01/18/20 07:40 BP 109/67 01/18/20 07:40 Pulse Ox 94 L 01/18/20 07:40 Weight - Most Recent: 319 lb 14.4 oz I&O - Last 24 hours: Intake & Output 01/17/20 01/18/20 01/18/20 22:59 06:59 14:59 Intake Total 2050 600 Output Total 600 Balance 1450 600 Lab Results - Last 24 hrs: Laboratory Results - last 24 hr 01/16/20 01/18/20 Range/Units 05:35 05:56 Sodium 139 (136-145) mEq/L Potassium 3.9 (3.5-5.1) mEq/L Chloride 102 (98-107) mEq/L Carbon Dioxide 27 (21-32) mEq/L Anion Gap 13.9 (5-15) BUN 24 H (7-18) mg/dL Creatinine 1.0 (0.7-1.3) mg/dL Est Cr Clr Drug Dosing 66.82 mL/min Estimated GFR (MDRD) > 60 (>60) mL/min BUN/Creatinine Ratio 24.0 H (14-18) Glucose 133 H (83-115) mg/dL Calcium 9.0 (8.5-10.1) mg/dL Prealbumin 17.5 (17.0-34.0) mg/dL Med Orders - Current: Current Medications Acetaminophen (Tylenol) 650 mg PO Q4H PRN PRN Reason: Pain (Mild 1-3)/fever Cholecalciferol (Vitamin D3) 5,000 unit PO DAILY [facility] Last Admin: 01/17/20 08:19 Dose: 5,000 unit Diltiazem HCl (Cardizem) 30 mg PO Q8H [facility] Last Admin: 01/18/20 03:38 Dose: 30 mg Folic Acid (Folic Acid) 1 mg PO DAILY [facility] Last Admin: 01/17/20 08:19 Dose: 1 mg Furosemide (Lasix) 20 mg PO BIDDIURETIC [facility] Last Admin: 01/18/20 06:35 Dose: 20 mg Nystatin (Nystop) 0 gm TOP BID [facility] Last Admin: 01/17/20 20:32 Dose: 1 applic Ondansetron HCl (Zofran Odt) 4 mg PO Q6H PRN PRN Reason: nausea, able to take PO Ondansetron HCl (Zofran) 4 mg IV Q6H PRN PRN Reason: Nausea/Vomiting Potassium Chloride (Klor-Con M20) 40 meq PO BID [facility] Last Admin: 01/17/20 20:31 Dose: 40 meq Rivaroxaban (Xarelto) 20 mg PO DAILY [facility] Last Admin: 01/17/20 08:18 Dose: 20 mg Sodium Chloride (Saline Flush) 10 ml FLUSH ASDIRECTED PRN PRN Reason: Keep Vein Open Last Admin: 01/13/20 12:19 Dose: 10 ml Temazepam (Restoril) 15 mg PO BEDTIME [facility] Last Admin: 01/17/20 20:33 Dose: 15 mg Discontinued Medications Diltiazem HCl (Cardizem) 35 mg IVPUSH ONETIME ONE Stop: 01/15/20 18:56 Last Admin: 01/15/20 20:14 Dose: 35 mg Furosemide (Lasix) 40 mg IVPUSH ONETIME ONE Stop: 01/13/20 17:41 Last Admin: 01/13/20 18:06 Dose: 40 mg Furosemide (Lasix) 40 mg IVPUSH BID [facility] Furosemide (Lasix) 40 mg IVPUSH BIDDIURETIC [facility] Last Admin: 01/16/20 14:16 Dose: 40 mg Furosemide (Lasix) 40 mg PO BIDDIURETIC [facility] Last Admin: 01/17/20 13:45 Dose: 40 mg Potassium Chloride (Klor-Con M20) 40 meq PO ONETIME ONE Stop: 01/15/20 09:22 Last Admin: 01/15/20 11:29 Dose: 40 meq Potassium Chloride (Klor-Con M20) 40 meq PO BID [facility] Stop: 01/16/20 21:01 Last Admin: 01/16/20 21:13 Dose: 40 meq Rivaroxaban (Xarelto) 10 mg PO ONETIME ONE Stop: 01/13/20 13:13 Last Admin: 01/13/20 13:26 Dose: 10 mg - Exam Quality Assessment: Reports: DVT Prophylaxis. Denies: Supplemental Oxygen General: Reports: Alert, Cooperative, No Acute Distress. Denies: Oriented ( waxes and wanes ) HEENT: Reports: Pupils Equal, Pupils Reactive, Mucous Membr. Moist/[place]: Reports: Supple, Trachea Midline Lungs: Reports: Clear to Auscultation, Normal Respiratory Effort Cardiovascular: Reports: Irregular Rhythm GI/Abdominal Exam: Normal Bowel Sounds, Soft, Non-Tender, No Distention (Male) Exam: Deferred Rectal (Males) Exam: Deferred Extremities: Normal Inspection, Normal Range of Motion, Pedal Edema Skin: Reports: Warm, Dry, Intact, Ecchymosis (scattered ), Other (Scattered healing wounds, this is especially evident on legs. ) Neurological: Reports: No New Focal Deficit Psy/Mental Status: Reports: Alert, Other (Noted confusion that does wax and wane. This is especially apparent in the evening.) *Q Meaningful Use (DIS) - VTE *Q VTE Anticoagulation Contraindications: Medical/Procedure Contrai
[2020-01-18] MEDS: Folic Acid 1 MG Tab PO SCH (09:46)
[2020-01-18] MEDS: Rivaroxaban 10 MG Tab PO SCH (09:47)
[2020-01-18] MEDS: Potassium Chloride 20 MEQ Tab.ER PO SCH ×2 (09:47→21:13)
[2020-01-18] MEDS: Cholecalciferol (Vitamin D3) 5,000 UNIT Tab PO SCH (09:47)
[2020-01-18] MEDS: Nystatin Topical Powder 15 GM Bottle TOP SCH ×2 (10:00→21:16)
[2020-01-18] MEDS: Temazepam 15 MG Cap PO SCH (21:13)
[2020-01-19] MEDS: Diltiazem IR 30 MG Tab PO SCH ×2 (04:31→09:37)
[2020-01-19] MEDS: Furosemide 20 MG Tab PO SCH ×2 (06:33→13:43)
[2020-01-19] MEDS: Folic Acid 1 MG Tab PO SCH (09:35)
[2020-01-19] MEDS: Cholecalciferol (Vitamin D3) 5,000 UNIT Tab PO SCH (09:36)
[2020-01-19] MEDS: Rivaroxaban 10 MG Tab PO SCH (09:36)
[2020-01-19] MEDS: Potassium Chloride 20 MEQ Tab.ER PO SCH (09:37)
[2020-01-19] MEDS: Nystatin Topical Powder 15 GM Bottle TOP SCH (09:43)
--- NOTE | 2020-01-19 11:48 | PCM.PN ---
- General Info Date of Service: 01/19/20 Admission Dx/Problem (Free Text): Atrial Fibrillation Functional Status: Reports: Pain Controlled, Tolerating Diet, Ambulating (to restroom), Urinating. Denies: New Symptoms - Review of Systems General: Reports: Weakness (improving ), Fatigue. Denies: Fever, Malaise, Chills HEENT: Reports: No Symptoms. Denies: Headaches, Sore Throat Pulmonary: Reports: No Symptoms. Denies: Shortness of Breath, Cough, Sputum, Wheezing Cardiovascular: Reports: Edema. Denies: Chest Pain, Palpitations Gastrointestinal: Reports: No Symptoms. Denies: Abdominal Pain, Constipation, Diarrhea, Nausea, Vomiting Genitourinary: Reports: No Symptoms. Denies: Pain Musculoskeletal: Reports: No Symptoms Skin: Reports: No Symptoms. Denies: Cyanosis Neurological: Reports: Confusion (waxes and wanes ), Difficulty Walking, Weakness, Gait Disturbance Psychiatric: Reports: No Symptoms - Patient Data Vitals - Most Recent: Last Vital Signs Temp 97.7 F 01/19/20 08:33 Pulse 72 01/19/20 08:33 Resp 16 01/19/20 08:33 BP 116/56 L 01/19/20 08:33 Pulse Ox 94 L 01/19/20 08:33 Weight - Most Recent: 319 lb 1.6 oz I&O - Last 24 Hours: Intake & Output 01/18/20 01/19/20 01/19/20 22:59 06:59 14:59 Intake Total 1080 600 540 Output Total 200 Balance 880 600 540 Lab Results Last 24 Hours: Laboratory Results - last 24 hr 01/16/20 Range/Units 11:08 COVID-19 PCR Not detected (NOT DETECT) Med Orders - Current: Current Medications Acetaminophen (Tylenol) 650 mg PO Q4H PRN PRN Reason: Pain (Mild 1-3)/fever Cholecalciferol (Vitamin D3) 5,000 unit PO DAILY [facility] Last Admin: 01/19/20 09:36 Dose: 5,000 unit Diltiazem HCl (Cardizem) 30 mg PO Q8H [facility] Last Admin: 01/19/20 09:37 Dose: 30 mg Folic Acid (Folic Acid) 1 mg PO DAILY [facility] Last Admin: 01/19/20 09:35 Dose: 1 mg Furosemide (Lasix) 20 mg PO BIDDIURETIC [facility] Last Admin: 01/19/20 06:33 Dose: 20 mg Nystatin (Nystop) 0 gm TOP BID [facility] Last Admin: 01/19/20 09:43 Dose: 1 applic Ondansetron HCl (Zofran Odt) 4 mg PO Q6H PRN PRN Reason: nausea, able to take PO Ondansetron HCl (Zofran) 4 mg IV Q6H PRN PRN Reason: Nausea/Vomiting Potassium Chloride (Klor-Con M20) 40 meq PO BID [facility] Last Admin: 01/19/20 09:37 Dose: 40 meq Rivaroxaban (Xarelto) 20 mg PO DAILY [facility] Last Admin: 01/19/20 09:36 Dose: 20 mg Sodium Chloride (Saline Flush) 10 ml FLUSH ASDIRECTED PRN PRN Reason: Keep Vein Open Last Admin: 01/13/20 12:19 Dose: 10 ml Temazepam (Restoril) 15 mg PO BEDTIME [facility] Last Admin: 01/18/20 21:13 Dose: 15 mg Discontinued Medications Diltiazem HCl (Cardizem) 35 mg IVPUSH ONETIME ONE Stop: 01/15/20 18:56 Last Admin: 01/15/20 20:14 Dose: 35 mg Furosemide (Lasix) 40 mg IVPUSH ONETIME ONE Stop: 01/13/20 17:41 Last Admin: 01/13/20 18:06 Dose: 40 mg Furosemide (Lasix) 40 mg IVPUSH BID [facility] Furosemide (Lasix) 40 mg IVPUSH BIDDIURETIC [facility] Last Admin: 01/16/20 14:16 Dose: 40 mg Furosemide (Lasix) 40 mg PO BIDDIURETIC [facility] Last Admin: 01/17/20 13:45 Dose: 40 mg Potassium Chloride (Klor-Con M20) 40 meq PO ONETIME ONE Stop: 01/15/20 09:22 Last Admin: 01/15/20 11:29 Dose: 40 meq Potassium Chloride (Klor-Con M20) 40 meq PO BID [facility] Stop: 01/16/20 21:01 Last Admin: 01/16/20 21:13 Dose: 40 meq Rivaroxaban (Xarelto) 10 mg PO ONETIME ONE Stop: 01/13/20 13:13 Last Admin: 01/13/20 13:26 Dose: 10 mg - Exam Quality Assessment: DVT Prophylaxis. No: Supplemental Oxygen, Urine Catheter General: Alert, Oriented (Waxes and wanes but currently orientated ), Cooperative, No Acute Distress HEENT: Pupils Equal, Pupils Reactive Neck: Supple, Trachea Midline Lungs: Clear to Auscultation, Normal Respiratory Effort Cardiovascular: Regular Rate, Regular Rhythm GI/Abdominal Exam: Normal Bowel Sounds, Soft, Non-Tender, No Organomegaly, No Distention (Male) Exam: Deferred Extremities: Pedal Edema (improved L>R (Chronic left leg lymphedema) ), Other ( Scattered buruising and scabs - especially prevelent on lower extremities. ). No: Increased Warmth, Redness Skin: Warm, Dry, Intact, Ecchymosis (scattered ) Neurological: No New Focal Deficit Psy/Mental Status: Alert Sepsis Event Note - Evaluation Sepsis Screening Result: No Definite Risk - Focused Exam Vital Signs: Vital Signs Temp Pulse Resp BP Pulse Ox 01/19/20 08:33 97.7 F 72 16 116/56 L 94 L 01/19/20 04:31 97.9 F 74 16 125/58 L 92 L Date Exam was Performed: 01/19/20 Time Exam was Performed: 11:39 - Problem List & Annotations (1) Atrial fibrillation SNOMED Code(s): 08838683 Code(s): I48.91 - UNSPECIFIED ATRIAL FIBRILLATION Status: Acute Priority : Medium Current Visit: Yes Qualifiers: Atrial fibrillation type: unspecified Qualified Code(s): I48.91 - Unspecified atrial fibrillation (2) Atrial fibrillation with rapid ventricular response SNOMED Code(s): 846938747100182 Code(s): I48.91 - UNSPECIFIED ATRIAL FIBRILLATION Status: Resolved Priority: High Current Visit: Yes (3) Frequent falls SNOMED Code(s): 108684329 Code(s): R29.6 - REPEATED FALLS Status: Chronic Priority: High Current Visit: Yes (4) Hypertension SNOMED Code(s): 48588230 Code(s): I10 - ESSENTIAL (PRIMARY) HYPERTENSION Status: Chronic Priority : Medium Current Visit: No Qualifiers: Hypertension type: unspecified Qualified Code(s): I10 - Essential (primary ) hypertension (5) Hypoalbuminemia SNOMED Code(s): 285585279 Code(s): E88.09 - OTH DISORDERS OF PLASMA-PROTEIN METABOLISM, NEC Status: Acute Priority: Medium Current Visit: Yes (6) Lymphedema of left lower extremity SNOMED Code(s): 71399479037648693 Code(s): I89.0 - LYMPHEDEMA, NOT ELSEWHERE CLASSIFIED Status: Chronic Priority: Medium Current Visit: Yes (7) Weakness generalized SNOMED Code(s): 84696705 Code(s): R53.1 - WEAKNESS Status: Acute Priority: High Current Visit: Yes (8) Bilateral lower extremity edema SNOMED Code(s): 256351787, 39153788, 507847851 Code(s): R60.0 - LOCALIZED EDEMA Status: Acute Priority: High Current Visit: Yes (9) New onset atrial fibrillation SNOMED Code(s): 04308086 Code(s): I48.91 - UNSPECIFIED ATRIAL FIBRILLATION Status: Acute Priority : High Current Visit: Yes (10) Physical deconditioning SNOMED Code(s): 72368990952758 Code(s): R53.81 - OTHER MALAISE Status: Acute Priority: High Current Visit: Yes (11) Scrotal edema SNOMED Code(s): 00780701 Code(s): N50.89 - OTHER SPECIFIED DISORDERS OF THE MALE GENITAL ORGANS Status: Acute Priority: High Current Visit: Yes - Problem List Review Problem List Initiated/Reviewed/Updated: Yes - Assessment Assessment:: New onset atrial fibrillation with rapid ventricular response Scrotal edema bilateral lower extremity edema lymphedema of left lower extremity HTN Physical deconditioning/weakness - Plan Plan:: New onset atrial fibrillation with rapid ventricular response Scrotal edema Bilateral lower extremity edema Lymphedema of left lower extremity Came in on 01/12/20 ago complaining of scrotal edema but left AMA Remains with generalized weakness and inability to ambulate on his own Remains with pitting edema in the lower extremities, left edema is chronic as per patient In ED was found to have HR 144, Has been up to 140's with activity on floor in A -fib ECHO shows normal LVEF, 60-65% PLAN - Continue Xarelto - Continue Lasix 20 mg PO BID - 40mg PO potassium as ordered - Monitor I/O - Daily weights - Continue 30mg Cardizem Q8Hr for rate control Hypertension BP on admission 129/70, BP remains stable- today 116/56 Does not take any medications PLAN - Continue to monitor BP with VS - Caution with starting Cardizem - PRN Hydralazine Frequent falls Physical deconditioning Weakness generalized Hypoalbuminemia Progressively worsening weakness Unable to ambulate other than to bathroom Prior to this ambulated with 2 canes (since 80's) Unable to obtain information regarding his eating habits and sleep CANDY BUTCHER cog evaluation shows moderate impairment - recommending assistance with all ADLs. PLAN - B12 711, Folate 3.6 - Prealbumin level pending - Dietary evaluation with malnutrition screen - OT/PT assessment and treatment - Case management consultation for possible SNF placement Folate deficiency Folate 3.6 PLAN - Continue folic acid 1 mg po daily Vitamin D deficiency Vitamin D 16.8 PLAN - Start cholecalciferol 5000 units daily PROPHYLAXIS DVT- Xarelto GI- not indicated CODE STATUS: FULL CODE, entered by default since I was unable to get clear answer from him DISPOSITION: Patient is improved and cleared for discharge. COVID-19 test x2 obtained and negative due to SNF requirements. No current concerns or symptoms for COVID-19. Original plan was for patient to discharge on 01/19/20 but bed was lost due to issues outside our control. He will remain hospitalized until bed opens up. Hopeful for discharge in next 24 hours. LOS>96 due to SNF placement, loss of bed availability.
--- NOTE | 2020-01-19 12:36 | PCM.DCSUM1 ---
Discharge Summary - Hospital Course HPI Initial Comments: --Patient is a very poor historian-- This is a 79 year old male with past medical history of hypotension who comes to the ED stating he has been having increasinf frequency of falls secondary to leg weaknes, last fall yesterday. Last night he got up and was unable to get up from bed. Unable to get any more information Diagnosis: Stroke: No - Discharge Data Discharge Date: 01/19/20 (Admit date: 01/13/20) Discharge Disposition: DC/Tfer to SNF 03 Condition: Good - Referral to Home Health Primary Care Physician: PCP None - Discharge Diagnosis/Problem(s) (1) Atrial fibrillation SNOMED Code(s): 57099105 ICD Code: I48.91 - UNSPECIFIED ATRIAL FIBRILLATION Status: Acute Priority : Medium Current Visit: Yes Qualifiers: Atrial fibrillation type: unspecified Qualified Code(s): I48.91 - Unspecified atrial fibrillation (2) Atrial fibrillation with rapid ventricular response SNOMED Code(s): 958790195453696 ICD Code: I48.91 - UNSPECIFIED ATRIAL FIBRILLATION Status: Resolved Priority: High Current Visit: Yes (3) Frequent falls SNOMED Code(s): 262709870 ICD Code: R29.6 - REPEATED FALLS Status: Acute Priority: High Current Visit: Yes (4) Hypertension SNOMED Code(s): 78187037 ICD Code: I10 - ESSENTIAL (PRIMARY) HYPERTENSION Status: Chronic Priority : Medium Current Visit: No Qualifiers: Hypertension type: unspecified Qualified Code(s): I10 - Essential (primary ) hypertension (5) Hypoalbuminemia SNOMED Code(s): 466403353 ICD Code: E88.09 - OTH DISORDERS OF PLASMA-PROTEIN METABOLISM, NEC Status: Acute Priority: Medium Current Visit: Yes (6) Lymphedema of left lower extremity SNOMED Code(s): 38911885454061173 ICD Code: I89.0 - LYMPHEDEMA, NOT ELSEWHERE CLASSIFIED Status: Chronic Priority: Medium Current Visit: Yes (7) Weakness generalized SNOMED Code(s): 51803167 ICD Code: R53.1 - WEAKNESS Status: Acute Priority: High Current Visit: Yes (8) Bilateral lower extremity edema SNOMED Code(s): 930865070, 51564499, 965094030 ICD Code: R60.0 - LOCALIZED EDEMA Status: Acute Priority: High Current Visit: Yes (9) New onset atrial fibrillation SNOMED Code(s): 88394695 ICD Code: I48.91 - UNSPECIFIED ATRIAL FIBRILLATION Status: Acute Priority : High Current Visit: Yes (10) Physical deconditioning SNOMED Code(s): 72561302118542 ICD Code: R53.81 - OTHER MALAISE Status: Acute Priority: High Current Visit: Yes (11) Scrotal edema SNOMED Code(s): 81788117 ICD Code: N50.89 - OTHER SPECIFIED DISORDERS OF THE MALE GENITAL ORGANS Status: Acute Priority: High Current Visit: Yes - Patient Summary/Data Consults: Consultations 01/13/20 15:06 Consult to Case Management/Corporate Quality Assurance Manager [CONS] Routine Consult to Ampoule Sealer [CONS] Routine OT Evaluation and Treatment [CONS] Routine PT Evaluation and Treatment [CONS] Routine 01/13/20 15:13 ROBOTICS SPECIALIST Eval and Treat [ROBOTICS SPECIALIST Evaluation and Treatment] [CONS] Routine Labs Pending at D/C: Methylmalonic acid Recommended Follow-up Testing/Procedures: Follow-up with PCP within 5-7 days of discharge. Sooner if needed. Hospital Course: Ger was admitted to the floor due to significant edema and new onset A. fib with RVR noted in the ED. He had significant bilateral lower extremity edema and scrotal edema. He does report chronic left lower extremity lymphedema however this was much more severe than normal. Was on no prior heart agents or diuretics. He started on Xarelto and 40 mg twice daily IV push Lasix. This was gently decreased and ultimately he will be discharged on 20 mg twice daily Lasix. His edema did significantly improve. His A. fib did tend to come and go and was noted to resolve in the ED with minimal intervention. He was started on 30 mg Cardizem every 8 hour for rate control as he was noted to be in the low 100s on the floor, increasing significantly when he got up to go the bathroom, etc. Good rate control was achieved with this. His potassium did remain low and he was started on 40 mEq twice daily potassium. This will be decreased to 40mEq daily and continue for 3 days on discharge. Blood pressure remained stable. He was instructed to take his weight daily and blood pressure twice a day, recording this in a journal and bring this with to all medical appointments. He was given a as needed 20 mg dose of Lasix which she should take if he notices a 2 pound weight gain in 1 day or 5 pounds in 1 week. He was instructed to contact his primary care provider after taking this medication. Ultimately lost 12 pounds while here. While here patient was also noted to have had several falls from his 's report. He is been very weak and struggling with ambulation. He did work with PT/OT who recommended SNF placement for rehab stay. His reported that she was unable to care for him at home anymore and supported this plan. Ger was reluctant but ultimately did agree to this plan. ROBOTICS SPECIALIST cog eval was obtained showing moderate impairment and recommending assistance with all ADLs. He was noted to have a mental status that did wax and wane, with confusion in the evenings suggestive of sundowning. His albumin was low and dietary was brought in. 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 This should continue at SNF. Folate was low at 3.6 and he was started on 1 mg p.o. daily folic supplementation. Vitamin D was also obtained and was low at 16.8. He was started on 5000 units daily. COVID testing was obtained and was negative. There were no concerns of any symptoms, however group home was requiring this prior to admission of the patient. Initially there was some confusion it was believed that there would need to be 2- COVID test however [facility] ultimately decided that one negative test would be fine. Rapid test was obtained and was negative. PCR testing was obtained and was negative as well. He was instructed to follow-up with his primary care provider within 5 to 7 days, or sooner if needed. He should elevate his extremities when not ambulating. PT/OT should continue at SNF. He was started on vitamin D supplementation, Cardizem 30 mg p.o. q. 8, folic acid, Lasix, and 3 days of potassium supplementation as noted prior. He was started on 20 mg daily Xarelto for clot prevention due to his proximal A. fib. He was also started on nystatin and this was prescribed on discharge. Recommend rechecking CBC, CMP, magnesium, and phosphorus at follow-up appointment with PCP. Also recommend PCP review patient's blood pressure and weight journal. Patient was instructed to contact primary care provider or return the emergency room should symptoms return or worsen. Of Note: Original plan was for discharge on 01/18/2020, however due to situations be under control with bed availability at the group home this discharge was ultimately canceled. He remained admitted to the medical floor overnight and was ultimately accepted today, 01/19/2020 up to [facility] in [place]. He was ultimately discharged today. - Patient Instructions Diet: Heart Healthy Diet Diet, Other: Gluten free diet Activity: As Tolerated Driving: Do Not Drive Showering/Bathing: May Shower Notify Provider of: Fever, Increased Pain, Nausea and/or Vomiting Other/Special Instructions: Follow-up with primary care provider within 5-7 days of discharge, sooner if needed. Take all new medications as precribed. Take blood pressure twice daily and record it in a journal. Take this with to all medical appointments. Weigh yourself daily. If you notice a 2lb weight gain over a day or a 5lb weight gain over a week take the extra 20mg of lasix as prescribed and contact your primary care provider. Elevate your extremities whenever possible. Should symptoms return or worsen contact your primary care provider or return to the emergency department. - Discharge Plan *PRESCRIPTION DRUG MONITORING PROGRAM REVIEWED*: No *COPY OF PRESCRIPTION DRUG MONITORING REPORT IN PATIENT DAVINA: No Prescriptions/Med Rec: Cholecalciferol (Vitamin D3) [Vitamin D3] 5,000 unit PO DAILY #20 tablet Diltiazem IR [Cardizem] 30 mg PO Q8H #90 tablet Folic Acid 1 mg PO DAILY #20 tablet Furosemide [Lasix] 20 mg PO ASDIRECTED PRN #5 tab PRN Reason: Swelling Furosemide [Lasix] 20 mg PO BIDDIURETIC #60 tablet Nystatin [Nystop] 1 gm TOP BID #3 bottle Potassium Chloride [Klor-Con M20] 40 meq PO DAILY #3 tab.er Rivaroxaban [Xarelto] 20 mg PO DAILY #30 tablet Home Medications: Home Meds Cycle Specialist Lotion 1 dose TOP DAILY PRN 01/12/20 [History] Cholecalciferol (Vitamin D3) [Vitamin D3] 5,000 unit PO DAILY #20 tablet [Rx] Diltiazem IR [Cardizem] 30 mg PO Q8H #90 tablet 01/18/20 [Rx] Folic Acid 1 mg PO DAILY #20 tablet 01/18/20 [Rx] Furosemide [Lasix] 20 mg PO ASDIRECTED PRN #5 tab 01/18/20 [Rx] Furosemide [Lasix] 20 mg PO BIDDIURETIC #60 tablet 01/18/20 [Rx] Nystatin [Nystop] 1 gm TOP BID #3 bottle 01/18/20 [Rx] Rivaroxaban [Xarelto] 20 mg PO DAILY #30 tablet 01/18/20 [Rx] Potassium Chloride [Klor-Con M20] 40 meq PO DAILY #3 tab.er 01/19/20 [Rx] Oxygen Therapy Mode: Room Air Forms: ED Department Discharge Referrals: Tyler Drake MD [Physician] - 01/25/20 10:30 am (please attend the scheduled follow up appointment with your primary care provider as listed) - Discharge Summary/Plan Comment DC Time >30 min.: Yes (45 mins ) - General Info Date of Service: 01/19/20 Admission Dx/Problem (Free Text: Atrial Fibrillation Functional Status: Reports: Pain Controlled, Tolerating Diet, Ambulating (To bathroom but minimally ), Urinating. Denies: New Symptoms - Review of Systems General: Reports: Weakness, Fatigue. Denies: Fever, Malaise, Chills HEENT: Reports: No Symptoms. Denies: Headaches, Sore Throat Pulmonary: Reports: No Symptoms. Denies: Shortness of Breath, Cough, Sputum, Wheezing Cardiovascular: Reports: Edema. Denies: Chest Pain, Palpitations Gastrointestinal: Reports: No Symptoms. Denies: Abdominal Pain, Constipation, Diarrhea, Nausea, Vomiting Genitourinary: Reports: No Symptoms. Denies: Pain Musculoskeletal: Reports: No Symptoms Skin: Reports: No Symptoms. Denies: Cyanosis Neurological: Reports: Confusion (waxes and wanes ), Difficulty Walking, Weakness, Gait Disturbance Psychiatric: Reports: No Symptoms - Patient Data Vitals - Most Recent: Last Vital Signs Temp 97.7 F 01/19/20 08:33 Pulse 72 01/19/20 08:33 Resp 16 01/19/20 08:33 BP 116/56 L 01/19/20 08:33 Pulse Ox 94 L 01/19/20 08:33 Weight - Most Recent: 319 lb 1.6 oz I&O - Last 24 hours: Intake & Output 05/03/0301/19/20 01/19/20 22:59 06:59 14:59 Intake Total 1080 600 540 Output Total 200 Balance 880 600 540 Lab Results - Last 24 hrs: Laboratory Results - last 24 hr 01/16/20 Range/Units 11:08 COVID-19 PCR Not detected (NOT DETECT) Med Orders - Current: Current Medications Acetaminophen (Tylenol) 650 mg PO Q4H PRN PRN Reason: Pain (Mild 1-3)/fever Cholecalciferol (Vitamin D3) 5,000 unit PO DAILY [facility] Last Admin: 01/19/20 09:36 Dose: 5,000 unit Diltiazem HCl (Cardizem) 30 mg PO Q8H [facility] Last Admin: 01/19/20 09:37 Dose: 30 mg Folic Acid (Folic Acid) 1 mg PO DAILY [facility] Last Admin: 01/19/20 09:35 Dose: 1 mg Furosemide (Lasix) 20 mg PO BIDDIURETIC [facility] Last Admin: 01/19/20 06:33 Dose: 20 mg Nystatin (Nystop) 0 gm TOP BID [facility] Last Admin: 01/19/20 09:43 Dose: 1 applic Ondansetron HCl (Zofran Odt) 4 mg PO Q6H PRN PRN Reason: nausea, able to take PO Ondansetron HCl (Zofran) 4 mg IV Q6H PRN PRN Reason: Nausea/Vomiting Potassium Chloride (Klor-Con M20) 40 meq PO BID [facility] Last Admin: 01/19/20 09:37 Dose: 40 meq Rivaroxaban (Xarelto) 20 mg PO DAILY [facility] Last Admin: 01/19/20 09:36 Dose: 20 mg Sodium Chloride (Saline Flush) 10 ml FLUSH ASDIRECTED PRN PRN Reason: Keep Vein Open Last Admin: 01/13/20 12:19 Dose: 10 ml Temazepam (Restoril) 15 mg PO BEDTIME [facility] Last Admin: 01/18/20 21:13 Dose: 15 mg Discontinued Medications Diltiazem HCl (Cardizem) 35 mg IVPUSH ONETIME ONE Stop: 01/15/20 18:56 Last Admin: 01/15/20 20:14 Dose: 35 mg Furosemide (Lasix) 40 mg IVPUSH ONETIME ONE Stop: 01/13/20 17:41 Last Admin: 01/13/20 18:06 Dose: 40 mg Furosemide (Lasix) 40 mg IVPUSH BID ULYSSES Furosemide (Lasix) 40 mg IVPUSH BIDDIURETIC [facility] Last Admin: 01/16/20 14:16 Dose: 40 mg Furosemide (Lasix) 40 mg PO BIDDIURETIC [facility] Last Admin: 01/17/20 13:45 Dose: 40 mg Potassium Chloride (Klor-Con M20) 40 meq PO ONETIME ONE Stop: 01/15/20 09:22 Last Admin: 01/15/20 11:29 Dose: 40 meq Potassium Chloride (Klor-Con M20) 40 meq PO BID ULYSSES Stop: 01/16/20 21:01 Last Admin: 01/16/20 21:13 Dose: 40 meq Rivaroxaban (Xarelto) 10 mg PO ONETIME ONE Stop: 01/13/20 13:13 Last Admin: 01/13/20 13:26 Dose: 10 mg - Exam Quality Assessment: Reports: DVT Prophylaxis General: Reports: Alert, Oriented, Cooperative HEENT: Reports: Pupils Equal, Pupils Reactive, Mucous Membr. Moist/[place]: Reports: Supple, Trachea Midline Lungs: Reports: Clear to Auscultation, Normal Respiratory Effort Cardiovascular: Reports: Regular Rate, Regular Rhythm GI/Abdominal Exam: Normal Bowel Sounds, Soft, Non-Tender, No Distention (Male) Exam: Deferred Rectal (Males) Exam: Deferred Extremities: Non-Tender, Pedal Edema (Left > right. Chronic left lymphedema. ), Other (Scattered bruising and scabs present bilaterally on lower extremities ) Skin: Reports: Warm, Dry, Intact, Ecchymosis (Scattered ) Neurological: Reports: No New Focal Deficit Psy/Mental Status: Reports: Alert *Q Meaningful Use (DIS) - VTE *Q VTE Anticoagulation Contraindications: Medical/Procedure Contrai
== END 2020-01-19 14:57 | DRG 309 ==
LOC: JD.ED 11:36 → JD.MS 14:22 → JD.ED 14:39 → JD.MS 01-19 12:32
PROVIDERS: ADMIT Internal Medicine; ATTEND Internal Medicine
DX: I48.91 Unspecified atrial fibrillation (principal); I48.0 Paroxysmal atrial fibrillation; Z68.41 Body mass index [BMI] 40.0-44.9, adult; Z92.3 Personal history of irradiation; Z87.442 Personal history of urinary calculi; N50.89 Other specified disorders of the male genital organs; R53.1 Weakness; R29.6 Repeated falls; S80.212A Abrasion, left knee, initial encounter; W19.XXXA Unspecified fall, initial encounter; I89.0 Lymphedema, not elsewhere classified; Z11.59 Encounter for screening for other viral diseases; Z91.02 Food additives allergy status; E88.09 Other disorders of plasma-protein metabolism, not elsewhere classified; R53.81 Other malaise; E66.9 Obesity, unspecified; E55.9 Vitamin D deficiency, unspecified; E53.8 Deficiency of other specified B group vitamins; Z88.1 Allergy status to other antibiotic agents; Z91.012 Allergy to eggs; Z91.018 Allergy to other foods; Z85.820 Personal history of malignant melanoma of skin
CPT/HCPCS: 36415; 80048; 80053; 81001; 82306; 82607; 82746; 83036; 83735; 83921; 84100; 84134; 85025; 85610; 87086; 92523-GN; 93005; 93010; 93306; 97110-GO; 97110-GP; 97162-GP; 97167-GO; 97530-GO; 97530-GP; 97535-GO; 99285; 99285-25; A9270-GY; J1940; J3490; U0002

== ENCOUNTER 2020-03-11 22:15 | Inpatient (IN) | payer MEDICARE, BC ==
--- NOTE | 2020-03-11 22:33 | EDM.PDOC ---
ED HPI GENERAL MEDICAL PROBLEM - General Chief Complaint: General Stated Complaint: [facility] Time Seen by Provider: 03/11/20 22:33 - History of Present Illness INITIAL COMMENTS - FREE TEXT/NARRATIVE: 79-year-old male presents the emergency room with multiple problems. He is brought in by EMS from home. Main problem is the patient just cannot take care of himself he recently was discharged from [facility] and he just is not able to take care of himself he has difficulty getting out of the chair at times he slides out of the chair. He is unable to care for himself and he is too much for his to handle. He has had increased swelling in his groin and in the perineal area. Patient denies any pain or discomfort he just is very weak he says at times he can get up out of the chair but does not have any energy to go anywhere. At other times he just slides out of the chair. Patient denies hitting his head. - Related Data Allergies Allergy/AdvReac Type Severity Reaction Status Date / Time ciprofloxacin [From Cipro] AdvReac Severe Other Verified 03/11/20 22:23 gluten AdvReac Severe Pain Verified 03/11/20 22:23 Home Meds: Home Meds Feltmaker And Weigher Lotion 1 dose TOP DAILY PRN 01/12/20 [History] Cholecalciferol (Vitamin D3) [Vitamin D3] 5,000 unit PO DAILY #20 tablet 01/18/20 [Rx] Folic Acid 1 mg PO DAILY #20 tablet 01/18/20 [Rx] Nystatin [Nystop] 1 gm TOP BID #3 bottle 01/18/20 [Rx] Rivaroxaban [Xarelto] 20 mg PO DAILY #30 tablet 01/18/20 [Rx] Furosemide [Lasix] 20 mg PO QPM 03/11/20 [History] Furosemide [Lasix] 40 mg PO QAM 03/11/20 [History] Potassium Chloride [Klor-Con M20] 20 meq PO DAILY 03/11/20 [History] dilTIAZem HCL [Cardizem] 120 mg PO DAILY 03/11/20 [History] Past Medical History Cardiovascular History: Reports: Afib, Hypertension Other Cardiovascular History: pts states this HTN was from the 80s and he is not on any medications Respiratory History: Reports: None Gastrointestinal History: Reports: Hemorrhoids Genitourinary History: Reports: Renal Calculus Musculoskeletal History: Reports: Back Pain, Chronic Other Musculoskeletal History: since , walks with cane. Psychiatric History: Reports: Other (See Below) Other Psychiatric History: confusion Endocrine/Metabolic History: Reports: Obesity/BMI 30+ Oncologic (Cancer) History: Reports: Malignant Melanoma - Infectious Disease History Infectious Disease History: Reports: None - Past Surgical History HEENT Surgical History: Reports: Oral Surgery, Tonsillectomy Male Surgical History: Reports: Lithotripsy ([facility]) Oncologic Surgical History: Reports: Other (See Below) Dermatological Surgical History: Reports: Skin Biopsy, Other (See Below) Social & Family History - Tobacco Use Smoking Status *Q: Former Smoker Used Tobacco, but Quit: Yes Month/Year Tobacco Last Used: 1959 - Caffeine Use Caffeine Use: Reports: Coffee Caffeine Use Comment: states was drinking Pepsi everyday - Recreational Drug Use Recreational Drug Use: No - Living Situation & Occupation Living situation: Reports: , with Spouse Occupation: Retired ED ROS GENERAL - Review of Systems Review Of Systems: See Below Constitutional: Reports: Malaise, Weakness, Fatigue HEENT: Reports: No Symptoms Respiratory: Reports: No Symptoms Cardiovascular: Reports: No Symptoms Endocrine: Reports: No Symptoms GI/Abdominal: Reports: No Symptoms : Reports: Other (He has some irritation down here from unable to clean himself in the area properly) Musculoskeletal: Reports: Muscle Pain, Muscle Stiffness Neurological: Reports: No Symptoms Psychiatric: Reports: No Symptoms ED EXAM, GENERAL - Physical Exam Exam: See Below Exam Limited By: Other (He is very slow to move around and seems very stiff it was difficult for him to sit up in the exam table and needed 2 person to assist) General Appearance: Alert, No Apparent Distress Eye Exam: Bilateral Eye: Normal Inspection Ears: Normal External Exam, Normal Canal, Hearing Grossly Normal, Normal TMs Nose: Normal Inspection, Normal Mucosa, No Blood Throat/Mouth: Normal Inspection, Normal Lips, Normal Teeth, Normal Gums, Normal Oropharynx, Normal Voice, No Airway Compromise Head: Atraumatic, Normocephalic Respiratory/Chest: No Respiratory Distress, Lungs Clear, Normal Breath Sounds, Other (He had a few basilar crackles that cleared with deep inspiration) Cardiovascular: Normal Peripheral Pulses, Regular Rate, Rhythm, Other (He has pedal and lower extremity edema). No: No Edema GI/Abdominal: Normal Bowel Sounds, Soft, Non-Tender (Male) Exam: Other (He is overdue for fazal-care lots of drainage in the folds) Extremities: Pedal Edema Course - Vital Signs Last Recorded V/S: Last Vital Signs Temp 37.4 C 03/11/20 22:19 Pulse 83 03/11/20 22:19 Resp 21 H 03/11/20 22:19 BP 127/85 03/11/20 22:19 Pulse Ox 94 L 03/11/20 22:19 - Orders/Labs/Meds Orders: Active Orders 24 hr Category Date Time Status EKG Documentation Completion [RC] STAT Care 03/11/20 22:51 Active Ortez Catheter Insertion [Insert Urinary Catheter] [OM. Care 03/12/20 01:15 Ordered PC] Q24H Urinary Catheter Assessment [RC] ASDIRECTED Care 03/12/20 01:08 Active Chest 1V Frontal [CR] Stat Exams 03/11/20 22:57 Taken Head wo Cont [CT] Stat Exams 03/12/20 00:05 Taken Labs: Laboratory Tests 03/11/20 03/11/20 03/12/20 Range/Units 23:56 23:56 01:15 WBC 18.17 H (4.23-9.07) K/mm3 RBC 5.59 (4.63-6.08) M/mm3 Hgb 15.9 (13.7-17.5) gm/dl Hct 48.1 (40.1-51.0) % MCV 86.0 (79.0-92.2) fl MCH 28.4 (25.7-32.2) pg MCHC 33.1 (32.2-35.5) g/dl RDW Std Deviation 44.5 H (35.1-43.9) fL Plt Count 329 (163-337) K/mm3 MPV 9.6 (9.4-12.3) fl Neut % (Auto) 86.0 H (34.0-67.9) % Lymph % (Auto) 4.8 L (21.8-53.1) % [place] % (Auto) 7.9 (5.3-12.2) % Eos % (Auto) 0.6 L (0.8-7.0) Baso % (Auto) 0.3 (0.1-1.2) % Neut # (Auto) 15.62 H (1.78-5.38) K/mm3 Lymph # (Auto) 0.88 L (1.32-3.57) K/mm3 [place] # (Auto) 1.44 H (0.30-0.82) K/mm3 Eos # (Auto) 0.11 (0.04-0.54) K/mm3 Baso # (Auto) 0.05 (0.01-0.08) K/mm3 Manual Slide Review Abnormal smear Sodium 137 (136-145) mEq/L Potassium 3.7 (3.5-5.1) mEq/L Chloride 100 (98-107) mEq/L Carbon Dioxide 28 (21-32) mEq/L Anion Gap 12.7 (5-15) BUN 13 (7-18) mg/dL Creatinine 1.1 (0.7-1.3) mg/dL Est Cr Clr Drug Dosing 62.55 mL/min Estimated GFR (MDRD) > 60 (>60) mL/min BUN/Creatinine Ratio 11.8 L (14-18) Glucose 146 H (83-115) mg/dL Calcium 9.6 (8.5-10.1) mg/dL Total Bilirubin 1.0 (0.2-1.0) mg/dL AST 30 (15-37) U/L ALT 44 (16-63) U/L Alkaline Phosphatase 72 (46-116) U/L Troponin I < 0.017 (0.00-0.056) ng/mL Total Protein 7.3 (6.4-8.2) g/dl Albumin 3.2 L (3.4-5.0) g/dl Globulin 4.1 gm/dL Albumin/Globulin Ratio 0.8 L (1-2) Urine Color Yellow (Yellow) Urine Appearance Clear (Clear) Urine pH 7.0 (5.0-8.0) Ur Specific [place] 1.025 (1.005-1.030) Urine Protein Negative (Negative) Urine Glucose (UA) Negative (Negative) Urine Ketones Negative (Negative) Urine Occult Blood 1+ H (Negative) Urine Nitrite Negative (Negative) Urine Bilirubin Negative (Negative) Urine Urobilinogen 1.0 (0.2-1.0) Ur Leukocyte Esterase Negative (Negative) Urine RBC 0-5 (0-5) /hpf Urine WBC 0-5 (0-5) /hpf Ur Epithelial Cells Not seen (0-5) /hpf Urine Bacteria Few (FEW) /hpf Urine Mucus Not seen (FEW) /hpf - Re-Assessments/Exams Free Text/Narrative Re-Assessment/Exam: 03/12/20 03:54 Work-up is essentially unremarkable he is got an elevated white count. He is in desperate need of appropriate fazal-care. Situation discussed with Dr. Marroquin the patient will be placed on observation Departure - Departure Time of Disposition: 03:54 Disposition: Refer to Observation Clinical Impression: Failure to thrive in adult - Discharge Information Forms: ED Department Discharge Sepsis Event Note (ED) - Evaluation Sepsis Screening Result: No Definite Risk - Focused Exam Vital Signs: Vital Signs Temp Pulse Resp BP Pulse Ox 03/11/20 22:19 37.4 C 83 21 H 127/85 94 L - My Orders Last 24 Hours: My Active Orders 03/11/20 22:51 EKG Documentation Completion [RC] STAT 03/11/20 22:57 Chest 1V Frontal [CR] Stat 03/12/20 00:05 Head wo Cont [CT] Stat 03/12/20 01:08 Urinary Catheter Assessment [RC] ASDIRECTED 03/12/20 01:15 Ortez Catheter Insertion [Insert Urinary Catheter] [OM.PC] Q24H - Assessment/Plan Last 24 Hours: My Active Orders 03/11/20 22:51 EKG Documentation Completion [RC] STAT 03/11/20 22:57 Chest 1V Frontal [CR] Stat 03/12/20 00:05 Head wo Cont [CT] Stat 03/12/20 01:08 Urinary Catheter Assessment [RC] ASDIRECTED 03/12/20 01:15 Ortez Catheter Insertion [Insert Urinary Catheter] [OM.PC] Q24H
[2020-03-12] MEDS ORDERED: Furosemide 20 MG Tab PO SCH ×3 (08:00→18:00)
[2020-03-12] MEDS ORDERED: Ondansetron 4 MG/2 ML SDV IV PRN (08:30)
--- NOTE | 2020-03-12 08:33 | PCM.HP.2 ---
H&P History of Present Illness - General Date of Service: 03/12/20 Admit Problem/Dx: Admission Diagnosis/Problem Admission Diagnosis/Problem Failure to thrive Source of Information: Patient, Old Records, Provider, RN, RN Notes Reviewed History Limitations: Reports: No Limitations - History of Present Illness Initial Comments - Free Text/Narative: Ger Lee is a 9-year-old male who presents to ED on 03/11/2020 via a [facility] with multiple medical problems. Reports biggest complaint is that he cannot take care of himself. He was recently discharged from [facility] and he oftentimes cannot get out of his chair, and is unable to care for himself. He reports he is too much for his to handle. He also notes increased swelling in his groin and needle area. Denies any pain or discomfort but says he is weak and cannot get out of the chair because he has no energy. Denies hitting his head. Of note, patient was hospitalized from 01/12/2022 01/19/2020 due to A. fib with RVR. Time he was started on Xarelto, vitamin D supplementation, Cardizem, folic acid, and Lasix. He was also prescribed nystatin for his groin vitamin D supplementation. At that time he was diuresed while here and lost 12 pounds. During that visit he was also noted to be very weak and have several falls due to difficulty with ambulation. PT/OT at that time recommended SNF placement. [facility] cog eval was obtained showing moderate impairment and recommending assistance with all ADLs. He was noted to have worsening confusion in the evening. 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 The ED he was afebrile with a temp of 37.4. Pulse was 83. Respirations were 21. Blood pressure 127/85. Pulse ox 94%. WBC was noted to be elevated 18.7. CBC was unremarkable. Electrolytes looked good and troponin was negative. Albumin is slightly low at 3.2. UA was negative. Head CT was obtained showing generalized atrophy but no acute intracranial abnormality. Chest x-ray was obtained showing slight within the left lung base but nothing acute. Ortez was placed in ED. He carries 3 of A. fib, hypertension not requiring any medications. Hemorrhoi ds, chronic back pain, obesity, malignant melanoma. He is a former smoker. PCP is Dr. Drake. He is subsequently admitted to the medical floor inpatient status for failure to thrive and need for SNF placement. - Related Data Allergies/Adverse Reactions: Allergies Allergy/AdvReac Type Severity Reaction Status Date / Time ciprofloxacin [From Cipro] AdvReac Intermediate Other Verified 03/12/20 10:57 gluten AdvReac Intermediate Pain Verified 03/12/20 10:57 Home Medications: Home Meds Inlayer Silver Lotion 1 dose TOP DAILY PRN 01/12/20 [History] Cholecalciferol (Vitamin D3) [Vitamin D3] 5,000 unit PO DAILY #20 tablet 01/18/20 [Rx] Folic Acid 1 mg PO DAILY #20 tablet 01/18/20 [Rx] Nystatin [Nystop] 1 gm TOP BID #3 bottle 01/18/20 [Rx] Rivaroxaban [Xarelto] 20 mg PO DAILY #30 tablet 01/18/20 [Rx] Furosemide [Lasix] 20 mg PO 1400 03/11/20 [History] Furosemide [Lasix] 40 mg PO QAM 03/11/20 [History] Potassium Chloride [Klor-Con M20] 20 meq PO DAILY 03/11/20 [History] dilTIAZem HCL [Cardizem] 120 mg PO DAILY 03/11/20 [History] Past Medical History HEENT History: Reports: Impaired Vision, Other (See Below) Other HEENT History: wears glasses Cardiovascular History: Reports: Afib, Hypertension Other Cardiovascular History: pts states this HTN was from the 80s and he is not on any medications Respiratory History: Reports: None Gastrointestinal History: Reports: Hemorrhoids Genitourinary History: Reports: Renal Calculus Musculoskeletal History: Reports: Back Pain, Chronic Other Musculoskeletal History: since , walks with cane. Psychiatric History: Reports: Other (See Below) Other Psychiatric History: confusion Endocrine/Metabolic History: Reports: Obesity/BMI 30+ Do You Have Enough Pump Supplies for Your Hospital Stay: No Do You Give Correction Boluses or Sliding Scale: No Hematologic History: Reports: B12 Deficiency Oncologic (Cancer) History: Reports: Malignant Melanoma Dermatologic History: Reports: Other (See Below) - Infectious Disease History Infectious Disease History: Reports: None - Past Surgical History HEENT Surgical History: Reports: Oral Surgery, Tonsillectomy Cardiovascular Surgical History: Reports: None GI Surgical History: Reports: None Male Surgical History: Reports: Lithotripsy (ESWL) Musculoskeletal Surgical History: Reports: None Oncologic Surgical History: Reports: None, Other (See Below) Dermatological Surgical History: Reports: Skin Biopsy, Other (See Below) Social & Family History - Family History Family Medical History: Noncontributory - Tobacco Use Smoking Status *Q: Unknown Ever Smoked Used Tobacco, but Quit: Yes Month/Year Tobacco Last Used: 1959 Second Hand Smoke Exposure: No - Caffeine Use Caffeine Use: Reports: Coffee Caffeine Use Comment: states was drinking Pepsi everyday - Recreational Drug Use Recreational Drug Use: No - Living Situation & Occupation Living situation: Reports: , with Spouse Occupation: Retired H&P Review of Systems - Review of Systems: Review Of Systems: See Below General: Reports: Malaise, Weakness, Fatigue. Denies: Fever, Chills HEENT: Reports: No Symptoms. Denies: Headaches Pulmonary: Reports: No Symptoms. Denies: Shortness of Breath, Wheezing, Pleuritic Chest Pain, Cough, Sputum Cardiovascular: Reports: Edema. Denies: Chest Pain, Palpitations, Dyspnea on Exertion Gastrointestinal: Reports: No Symptoms. Denies: Abdominal Pain, Constipation, Diarrhea, Nausea, Vomiting Genitourinary: Reports: Other (Irritation ) Musculoskeletal: Reports: No Symptoms Skin: Reports: No Symptoms. Denies: Cyanosis Psychiatric: Reports: No Symptoms. Denies: Confusion Neurological: Reports: Confusion (mild), Difficulty Walking, Weakness, Gait Disturbance. Denies: Dizziness, Numbness, Seizure, Syncope, Tingling, Tremors, Trouble Speaking Hematologic/Lymphatic: Reports: No Symptoms Immunologic: Reports: No Symptoms Exam - Exam Exam: See Below - Vital Signs Vital Signs: Last Vital Signs Temp 98.4 F 03/12/20 05:20 Pulse 90 03/12/20 05:20 Resp 24 H 03/12/20 05:20 BP 137/51 L 03/12/20 05:20 Pulse Ox 95 03/12/20 05:20 Weight: 327 lb 6.4 oz - Exam Quality Assessment: Urinary Catheter, DVT Prophylaxis, Skin Breakdown (groin ) General: Alert, Oriented (mild confusion noted ), Cooperative. No: Mild Di stress HEENT: Conjunctiva Clear, Hearing Intact, Mucosa Moist & [place], Posterior Pharynx Clear, PERRLA Neck: Supple, Trachea Midline Lungs: Clear to Auscultation, Normal Respiratory Effort, Decreased Breath Sounds Cardiovascular: Regular Rate, Regular Rhythm GI/Abdominal Exam: Normal Bowel Sounds, Soft, Non-Tender, No Distention (Male) Exam: Scrotal Swelling (mild), Other (Significant redness and excoriatoin to groin. Very foul odor. ) Rectal (Males) Exam: Deferred Back Exam: Decreased Range of Motion Extremities: Non-Tender, Pedal Edema (Significant peadal and lower extremity), Limited Range of Motion, Other (Bilateral lower extremity discoloration ) Skin: Warm, Dry, Intact, Other (Irritation to scrotal and perineal area. ) Neurological: Cranial Nerves Intact (Grossly ) Neuro Extensive - Mental Status: Alert, Oriented x3 (But mild confusion noted ). No: Normal Cognition - Patient Data Lab Results Last 24 hrs: Laboratory Results - last 24 hr 03/11/20 03/11/20 03/12/20 Range/Units 23:56 23:56 01:15 WBC 18.17 H (4.23-9.07) K/mm3 RBC 5.59 (4.63-6.08) M/mm3 Hgb 15.9 (13.7-17.5) gm/dl Hct 48.1 (40.1-51.0) % MCV 86.0 (79.0-92.2) fl MCH 28.4 (25.7-32.2) pg MCHC 33.1 (32.2-35.5) g/dl RDW Std Deviation 44.5 H (35.1-43.9) fL Plt Count 329 (163-337) K/mm3 MPV 9.6 (9.4-12.3) fl Neut % (Auto) 86.0 H (34.0-67.9) % Lymph % (Auto) 4.8 L (21.8-53.1) % [place] % (Auto) 7.9 (5.3-12.2) % Eos % (Auto) 0.6 L (0.8-7.0) Baso % (Auto) 0.3 (0.1-1.2) % Neut # (Auto) 15.62 H (1.78-5.38) K/mm3 Lymph # (Auto) 0.88 L (1.32-3.57) K/mm3 [place] # (Auto) 1.44 H (0.30-0.82) K/mm3 Eos # (Auto) 0.11 (0.04-0.54) K/mm3 Baso # (Auto) 0.05 (0.01-0.08) K/mm3 Manual Slide Review Abnormal smear Sodium 137 (136-145) mEq/L Potassium 3.7 (3.5-5.1) mEq/L Chloride 100 (98-107) mEq/L Carbon Dioxide 28 (21-32) mEq/L Anion Gap 12.7 (5-15) BUN 13 (7-18) mg/dL Creatinine 1.1 (0.7-1.3) mg/dL Est Cr Clr Drug Dosing 62.55 mL/min Estimated GFR (MDRD) > 60 (>60) mL/min BUN/Creatinine Ratio 11.8 L (14-18) Glucose 146 H (83-115) mg/dL Calcium 9.6 (8.5-10.1) mg/dL Total Bilirubin 1.0 (0.2-1.0) mg/dL AST 30 (15-37) U/L ALT 44 (16-63) U/L Alkaline Phosphatase 72 (46-116) U/L Troponin I < 0.017 (0.00-0.056) ng/mL Total Protein 7.3 (6.4-8.2) g/dl Albumin 3.2 L (3.4-5.0) g/dl Globulin 4.1 gm/dL Albumin/Globulin Ratio 0.8 L (1-2) Urine Color Yellow (Yellow) Urine Appearance Clear (Clear) Urine pH 7.0 (5.0-8.0) Ur Specific [place] 1.025 (1.005-1.030) Urine Protein Negative (Negative) Urine Glucose (UA) Negative (Negative) Urine Ketones Negative (Negative) Urine Occult Blood 1+ H (Negative) Urine Nitrite Negative (Negative) Urine Bilirubin Negative (Negative) Urine Urobilinogen 1.0 (0.2-1.0) Ur Leukocyte Esterase Negative (Negative) Urine RBC 0-5 (0-5) /hpf Urine WBC 0-5 (0-5) /hpf Ur Epithelial Cells Not seen (0-5) /hpf Urine Bacteria Few (FEW) /hpf Urine Mucus Not seen (FEW) /hpf SARS-CoV-2 RNA (RT-PCR) (NEGATIVE) 03/12/20 03/12/20 Range/Units 04:10 07:35 WBC 11.95 H (4.23-9.07) K/mm3 RBC 5.16 (4.63-6.08) M/mm3 Hgb 14.9 (13.7-17.5) gm/dl Hct 44.6 (40.1-51.0) % MCV 86.4 (79.0-92.2) fl MCH 28.9 (25.7-32.2) pg MCHC 33.4 (32.2-35.5) g/dl RDW Std Deviation 45.0 H (35.1-43.9) fL Plt Count 337 (163-337) K/mm3 MPV 9.6 (9.4-12.3) fl Neut % (Auto) 80.0 H (34.0-67.9) % Lymph % (Auto) 8.5 L (21.8-53.1) % [place] % (Auto) 9.7 (5.3-12.2) % Eos % (Auto) 1.2 (0.8-7.0) Baso % (Auto) 0.2 (0.1-1.2) % Neut # (Auto) 9.56 H (1.78-5.38) K/mm3 Lymph # (Auto) 1.02 L (1.32-3.57) K/mm3 [place] # (Auto) 1.16 H (0.30-0.82) K/mm3 Eos # (Auto) 0.14 (0.04-0.54) K/mm3 Baso # (Auto) 0.02 (0.01-0.08) K/mm3 Manual Slide Review Sodium (136-145) mEq/L Potassium (3.5-5.1) mEq/L Chloride (98-107) mEq/L Carbon Dioxide (21-32) mEq/L Anion Gap (5-15) BUN (7-18) mg/dL Creatinine (0.7-1.3) mg/dL Est Cr Clr Drug Dosing mL/min Estimated GFR (MDRD) (>60) mL/min BUN/Creatinine Ratio (14-18) Glucose (83-115) mg/dL Calcium (8.5-10.1) mg/dL Total Bilirubin (0.2-1.0) mg/dL AST (15-37) U/L ALT (16-63) U/L Alkaline Phosphatase (46-116) U/L Troponin I (0.00-0.056) ng/mL Total Protein (6.4-8.2) g/dl Albumin (3.4-5.0) g/dl Globulin gm/dL Albumin/Globulin Ratio (1-2) Urine Color (Yellow) Urine Appearance (Clear) Urine pH (5.0-8.0) Ur Specific [place] (1.005-1.030) Urine Protein (Negative) Urine Glucose (UA) (Negative) Urine Ketones (Negative) Urine Occult Blood (Negative) Urine Nitrite (Negative) Urine Bilirubin (Negative) Urine Urobilinogen (0.2-1.0) Ur Leukocyte Esterase (Negative) Urine RBC (0-5) /hpf Urine WBC (0-5) /hpf Ur Epithelial Cells (0-5) /hpf Urine Bacteria (FEW) /hpf Urine Mucus (FEW) /hpf SARS-CoV-2 RNA (RT-PCR) Negative (NEGATIVE) Result Diagrams: 03/12/20 07:35 03/11/20 23:56 Sepsis Event Note - Evaluation Sepsis Screening Result: No Definite Risk - Focused Exam Vital Signs: Vital Signs Temp Temp Pulse Pulse Resp BP BP 03/12/20 05:20 98.4 F 90 24 H 137/51 L 03/12/20 05:09 88 16 148/90 H 03/11/20 22:19 99.3 F 83 21 H 127/85 Pulse Ox 03/12/20 05:20 95 03/12/20 05:09 96 03/11/20 22:19 94 L Date Exam was Performed: 03/12/20 Time Exam was Performed: 14:01 - Problem List (1) Hospital admission due to social situation SNOMED Code(s): 470646078 ICD Code: Z60.9 - PROBLEM RELATED TO SOCIAL ENVIRONMENT, UNSPECIFIED Status: Acute Priority: High Current Visit: Yes (2) Failure to thrive in adult SNOMED Code(s): 293132999 ICD Code: R62.7 - ADULT FAILURE TO THRIVE Status: Acute Priority: High Current Visit: Yes (3) Atrial fibrillation SNOMED Code(s): 18779467 ICD Code: I48.91 - UNSPECIFIED ATRIAL FIBRILLATION Status: Chronic Priority: Medium Current Visit: No Qualifiers: Atrial fibrillation type: unspecified Qualified Code(s): I48.91 - Unspecified atrial fibrillation (4) Bilateral lower extremity edema SNOMED Code(s): 777258740, 22183276, 007069792 ICD Code: R60.0 - LOCALIZED EDEMA Status: Chronic Priority: Medium Current Visit: No (5) Frequent falls SNOMED Code(s): 499159347 ICD Code: R29.6 - REPEATED FALLS Status: Acute Priority: High Current Visit: Yes (6) Hypoalbuminemia SNOMED Code(s): 748468634 ICD Code: E88.09 - OTH DISORDERS OF PLASMA-PROTEIN METABOLISM, NEC Status: Chronic Priority: Medium Current Visit: No (7) Physical deconditioning SNOMED Code(s): 59844803088026 ICD Code: R53.81 - OTHER MALAISE Status: Acute Priority: High Current Visit: Yes (8) Scrotal edema SNOMED Code(s): 45824340 ICD Code: N50.89 - OTHER SPECIFIED DISORDERS OF THE MALE GENITAL ORGANS Status: Chronic Priority: Medium Current Visit: Yes (9) Weakness generalized SNOMED Code(s): 65828746 ICD Code: R53.1 - WEAKNESS Status: Chronic Priority: High Current Visit: Yes (10) Hypertension SNOMED Code(s): 53016062 ICD Code: I10 - ESSENTIAL (PRIMARY) HYPERTENSION Status: Chronic Priority: Medium Current Visit: No Qualifiers: Hypertension type: unspecified Qualified Code(s): I10 - Essential (primary) hypertension (11) Lymphedema of left lower extremity SNOMED Code(s): 70397478351660695 ICD Code: I89.0 - LYMPHEDEMA, NOT ELSEWHERE CLASSIFIED Status: Chronic Priority: Medium Current Visit: No (12) Chronic back pain SNOMED Code(s): 848602625 ICD Code: M54.9 - DORSALGIA, UNSPECIFIED; G89.29 - OTHER CHRONIC PAIN Status: Chronic Priority: Medium Current Visit: No Qualifiers: Back pain location: back pain in unspecified location Back pain laterality: unspecified Qualified Code(s): M54.9 - Dorsalgia, unspecified; G89.29 - Other chronic pain (13) Obesity SNOMED Code(s): 146095209, 288336229 ICD Code: E66.9 - OBESITY, UNSPECIFIED Status: Acute Current Visit: Yes Qualifiers: Obesity type: unspecified obesity type Obesity classification: adult class 3 (BMI >= 40) Serious obesity comorbidity presence: unspecified whether serious comorbidity present Body mass index: BMI 40.0-44.9 Qualified Code(s): E66.01 - Morbid (severe) obesity due to excess calories; Z68.41 - Body mass index (BMI) 40.0-44.9, adult (14) Cellulitis of perineum SNOMED Code(s): 50069563 ICD Code: L03.315 - CELLULITIS OF PERINEUM Status: Acute Priority: High Current Visit: Yes Problem List Initiated/Reviewed/Updated: Yes Orders Last 24hrs: Active Orders 24 hr Category Date Time Status Admission Status [Patient Status] [ADT] Routine ADT 03/12/20 04:11 Active Ortez Catheter Insertion [Insert Urinary Catheter] [OM. Care 03/12/20 01:15 Ordered PC] Q24H Height and Weight [RC] DAILY Care 03/12/20 08:30 Ordered Intake and Output [RC] QSHIFT Care 03/12/20 08:31 Ordered Oxygen Therapy [RC] PRN Care 03/12/20 08:30 Ordered Up With Assistance [RC] ASDIRECTED Care 03/12/20 06:28 Active Urinary Catheter Assessment [RC] ASDIRECTED Care 03/12/20 01:08 Active VTE/DVT Education [RC] PER UNIT ROUTINE Care 03/12/20 08:30 Ordered Vital Signs [RC] Q4H Care 03/12/20 08:30 Ordered Consult to Case Management/Fixer Boarding Room [CONS] Cons 03/12/20 08:30 Ordered Routine Consult to Spiritual Care [CONS] Routine Cons 03/12/20 08:30 Ordered OT Evaluation and Treatment [CONS] Routine Cons 03/12/20 08:30 Ordered PT Evaluation and Treatment [CONS] Routine Cons 03/12/20 08:30 Ordered Regular Diet [DIET] Diet 03/12/20 Breakfast Active Chest 1V Frontal [CR] Stat Exams 03/11/20 22:57 Taken Head wo Cont [CT] Stat Exams 03/12/20 00:05 Taken CBC WITH AUTO DIFF [HEME] Routine Lab 03/12/20 07:35 Results Cholecalciferol (Vitamin D3) [Vitamin D3] Med 03/12/20 09:00 Ordered 5,000 unit PO DAILY Diltiazem [Cardizem CD] Med 03/12/20 09:00 Active 120 mg PO DAILY Folic Acid Med 03/12/20 09:00 Active 1 mg PO DAILY Furosemide [Lasix] Med 03/12/20 18:00 Active 20 mg PO QPM Furosemide [Lasix] Med 03/12/20 08:00 Active 40 mg PO QAM Nystatin [Nystop] Med 03/12/20 09:00 Active 0 gm TOP BID Ondansetron [Zofran] Med 03/12/20 08:30 Ordered 4 mg IV Q6H PRN Potassium Chloride [Klor-Con M20] Med 03/12/20 09:00 Active 20 meq PO DAILY Rivaroxaban [Xarelto] Med 03/12/20 09:00 Active 20 mg PO DAILY Medication Orders Cholecalciferol (Vitamin D3) 5,000 unit PO DAILY ULYSSES Diltiazem HCl (Cardizem Cd) 120 mg PO DAILY ULYSSES Folic Acid (Folic Acid) 1 mg PO DAILY ULYSSES Furosemide (Lasix) 20 mg PO QPM ULYSSES Furosemide (Lasix) 40 mg PO QAM ULYSSES Nystatin (Nystop) 0 gm TOP BID ULYSSES Ondansetron HCl (Zofran) 4 mg IV Q6H PRN PRN Reason: Nausea/Vomiting Potassium Chloride (Klor-Con M20) 20 meq PO DAILY ULYSSES Rivaroxaban (Xarelto) 20 mg PO DAILY ULYSSES Assessment/Plan Comment:: Hospital admission due to social situation Failure to thrive in adult Physical deconditioning Weakness generalized Frequent falls Hypoalbuminemia Chronic back pain Presented to ED on 03/11/20 with multiple complaints Stated cannot take care of him anymore, generalized weakness, unable to get up form chair Hospitalized 01/13/20-01/19/20 with similar symptoms, A-fib with RVR; Discharged to [facility] Discharged from [facility] last week Albumin 3.2 on admission History of moderate cognitive deficient noted on [facility] cog evaluation during last admission. Were recommending assistance with all ADS at that time. PLAN - PT/OT - Radiology Assistant consult - Consult CM/SW for discharge planning - SNF placement Cellulitis of perineum Bilateral lower extremity edema Lymphedema of left lower extremity Scrotal edema Obesity On home Cardizem and Lasix History of significant scrotal edema Very red, excoriated, and foul smelling perineal area Significant pedal and lower extremity edema Mild scrotal edema- carries hx/o significant scrotal edema Ortez catheter in place BMI of 44.4 Discharge weight was 319lbs on 01/19/20. Admission weight of 327lbs On home 40mg AM and 20mg PO Lasix Echo from 01/13/20 showed normal LVEF of 60-65% PLAN - Given history of recent SNF residence, Leukocytosis and obvious inflammation in groin will start vancomycin - pharmacy to dose - Obtain procalcitonin from admission blood and Q48 hrs - Increase Lasix to 40mg BID - Monitor electrolytes - Ortez in place for I&O measuring, to keep perineal area dry - Monitor daily weights, I&Os - Radiology Assistant consult - Elevate extremities Atrial fibrillation Hypertension On home Cardizem, Xarelto and Lasix BP 137/51 on admission PLAN - Increase Lasix as above - Continue home Cardizem and Xarelto - No need for telemetry at this time DVT propylaxis: Home Xarelto GI Prophylaxis: Not indicated Code Status: Full code (Confirmed with patient on 03/12/20) PCP: Dr. Drake Social: Recently discharged from [facility] back home. reports he is too much for her to handle at home. Disposition: Admit to inpatient for SNF placement and treatment of perineal cellulitis with IV Antibiotics. - Mortality Measure Prognosis:: Good
[2020-03-12] MEDS ORDERED: Nystatin Topical Powder 15 GM Bottle TOP SCH (09:00)
[2020-03-12] MEDS ORDERED: Potassium Chloride 20 MEQ Tab.ER PO SCH (09:00)
[2020-03-12] MEDS: Rivaroxaban 10 MG Tab PO SCH (09:13)
[2020-03-12] MEDS: Folic Acid 1 MG Tab PO SCH (09:14)
[2020-03-12] MEDS: Diltiazem 120 MG Cap.CD PO SCH (09:17)
[2020-03-12] MEDS: Nystatin Topical Powder 15 GM Bottle TOP SCH ×2 (09:18→21:45)
[2020-03-12] MEDS: Cholecalciferol (Vitamin D3) 5,000 UNIT Tab PO SCH (09:29)
--- NOTE | 2020-03-12 09:49 | CT ---
Head CT Technique: Multiple axial sections through the brain were obtained. Intravenous contrast was not utilized. Comparison: No prior intracranial imaging is available. Findings: Ventricles along with basal cisterns and sulci over the convexities are mildly prominent. No abnormal parenchymal densities are seen. No evidence of intracranial hemorrhage. No midline shift or mass-effect is seen. Bone window settings were reviewed. Mild mucosal thickening is noted within the ethmoid sinuses. No acute mastoid sinus findings are seen. No acute calvarial abnormality is appreciated. Mild atherosclerotic calcification is seen within the carotid siphon. Impression: 1. Generalized atrophy. 2. No acute intracranial abnormality is appreciated. Diagnostic code #2 This report was dictated in MDT I agree with preliminary report from [facility], finalized on 03/12/20, 4:04 AM Central Daylight Time
--- NOTE | 2020-03-12 09:49 | CR ---
Chest: Portable view of the chest was obtained. Comparison: Prior chest x-ray of 04/18/12. Heart size and mediastinum are within normal limits for portable technique. Lungs are clear with no acute parenchymal change. Slight scarring is noted within the left base. Bony structures are grossly intact. Impression: 1. Slight scarring within the left base. 2. Nothing acute is appreciated on portable chest x-ray. Diagnostic code #2 This report was dictated in MDT
[2020-03-12] MEDS ORDERED: Furosemide 40 MG/4 ML VIAL IVPUSH ONE (12:30)
[2020-03-12] MEDS ORDERED: Vancomycin 2 GM in Sodium Chloride 0.9% 500 ML IV ONE ×2 (13:00→15:00)
[2020-03-12] MEDS: Furosemide 20 MG/2 ML VIAL IVPUSH ONE ×2 (13:17→14:59)
[2020-03-12] MEDS: Furosemide 40 MG/4 ML VIAL IVPUSH SCH (15:54)
--- NOTE | 2020-03-12 15:57 | PCM.SN.2 ---
- Free Text/Narrative Note: Anesthesia Note: Start: 1430 Stop: 1545 IV start requested by nursing staff. 3 attempts noted without US guidance, patient sleeping during attempts. 1 attempt noted via US guidance, with 20 gauge to left upper arm. Blood return noted and site flushed with 30ml's of Normal saline.
[2020-03-12] MEDS ORDERED: Lidocaine 1% 4 ML ONE (16:01)
[2020-03-13] MEDS: Vancomycin 1 GM, Vancomycin 500 MG in Sodium Chloride 0.9% 500 ML IV SCH ×2 (03:36→15:33)
[2020-03-13] MEDS: Furosemide 40 MG/4 ML VIAL IVPUSH SCH ×2 (05:11→13:01)
--- NOTE | 2020-03-13 07:19 | PCM.PN ---
- General Info Date of Service: 03/13/20 Admission Dx/Problem (Free Text): Admission Diagnosis/Problem Admission Diagnosis/Problem Failure to thrive Subjective Update: Last BM is unknown Reports he feels better today Slept pretty good. Much more alert and interactive. Functional Status: Reports: Pain Controlled, Tolerating Diet, Ambulating, Urinating. Denies: New Symptoms - Review of Systems General: Reports: Weakness (improving ). Denies: Fever, Fatigue, Malaise, Chills HEENT: Reports: No Symptoms. Denies: Headaches, Sore Throat Pulmonary: Reports: No Symptoms. Denies: Shortness of Breath, Cough, Sputum, Wheezing Cardiovascular: Reports: Edema. Denies: Chest Pain, Palpitations, Dyspnea on Exertion Gastrointestinal: Reports: No Symptoms. Denies: Abdominal Pain, Constipation, Diarrhea, Nausea, Vomiting Genitourinary: Reports: Other (Continued groin irritation ). Denies: Pain Musculoskeletal: Reports: No Symptoms Skin: Reports: No Symptoms. Denies: Cyanosis Neurological: Reports: Confusion (occasional ), Difficulty Walking (2/2 weakness ), Weakness, Gait Disturbance. Denies: Dizziness, Headache, Numbness, Tingling Psychiatric: Reports: No Symptoms - Patient Data Vitals - Most Recent: Last Vital Signs Temp 98.1 F 03/13/20 03:41 Pulse 84 03/13/20 03:41 Resp 16 03/13/20 03:41 BP 125/67 03/13/20 03:41 Pulse Ox 93 L 03/13/20 03:41 Weight - Most Recent: 318 lb 3.2 oz I&O - Last 24 Hours: Intake & Output 03/12/20 03/13/20 03/13/20 22:59 06:59 14:59 Intake Total 1160 700 Output Total 3000 900 Balance -1840 -200 Lab Results Last 24 Hours: Laboratory Results - last 24 hr 03/12/20 03/13/20 03/13/20 Range/Units 07:35 05:43 05:43 WBC 11.95 H 11.29 H (4.23-9.07) K/mm3 RBC 5.16 5.10 (4.63-6.08) M/mm3 Hgb 14.9 14.5 (13.7-17.5) gm/dl Hct 44.6 44.3 (40.1-51.0) % MCV 86.4 86.9 (79.0-92.2) fl MCH 28.9 28.4 (25.7-32.2) pg MCHC 33.4 32.7 (32.2-35.5) g/dl RDW Std Deviation 45.0 H 44.4 H (35.1-43.9) fL Plt Count 337 339 H (163-337) K/mm3 MPV 9.6 9.9 (9.4-12.3) fl Neut % (Auto) 80.0 H 77.1 H (34.0-67.9) % Lymph % (Auto) 8.5 L 10.2 L (21.8-53.1) % [place] % (Auto) 9.7 9.7 (5.3-12.2) % Eos % (Auto) 1.2 2.3 (0.8-7.0) Baso % (Auto) 0.2 0.3 (0.1-1.2) % Neut # (Auto) 9.56 H 8.72 H (1.78-5.38) K/mm3 Lymph # (Auto) 1.02 L 1.15 L (1.32-3.57) K/mm3 [place] # (Auto) 1.16 H 1.09 H (0.30-0.82) K/mm3 Eos # (Auto) 0.14 0.26 (0.04-0.54) K/mm3 Baso # (Auto) 0.02 0.03 (0.01-0.08) K/mm3 Manual Slide Review Abnormal smear Sodium 139 (136-145) mEq/L Potassium 3.5 (3.5-5.1) mEq/L Chloride 102 (98-107) mEq/L Carbon Dioxide 28 (21-32) mEq/L Anion Gap 12.5 (5-15) BUN 15 (7-18) mg/dL Creatinine 1.0 (0.7-1.3) mg/dL Est Cr Clr Drug Dosing 68.80 mL/min Estimated GFR (MDRD) > 60 (>60) mL/min BUN/Creatinine Ratio 15.0 (14-18) Glucose 131 H (83-115) mg/dL Calcium 8.9 (8.5-10.1) mg/dL Phosphorus 4.0 (2.6-4.7) mg/dL Magnesium 1.9 (1.8-2.4) mg/dl Med Orders - Current: Current Medications Cholecalciferol (Vitamin D3) 5,000 unit PO DAILY [facility] Last Admin: 03/12/20 09:29 Dose: 5,000 unit Documented by: Diltiazem HCl (Cardizem Cd) 120 mg PO DAILY [facility] Last Admin: 03/12/20 09:17 Dose: 120 mg Documented by: Folic Acid (Folic Acid) 1 mg PO DAILY [facility] Last Admin: 03/12/20 09:14 Dose: 1 mg Documented by: Furosemide (Lasix) 40 mg IVPUSH BIDDIURETIC [facility] Last Admin: 03/13/20 05:11 Dose: 40 mg Documented by: Vancomycin HCl 1 gm/Vancomycin HCl 500 mg/ Sodium Chloride 500 mls @ 250 mls/hr IV Q12H [facility] Last Admin: 03/13/20 03:36 Dose: 250 mls/hr Documented by: Nystatin (Nystop) 0 gm TOP BID [facility] Last Admin: 03/12/20 21:45 Dose: 1 applic Documented by: Ondansetron HCl (Zofran) 4 mg IV Q6H PRN PRN Reason: Nausea/Vomiting Rivaroxaban (Xarelto) 20 mg PO DAILY [facility] Last Admin: 03/12/20 09:13 Dose: 20 mg Documented by: Vancomycin HCl (Pharmacy To Dose - Vancomycin) 0 dose .XX ASDIRECTED PRN PRN Reason: RX TO DOSE VANCOMYCIN Discontinued Medications Furosemide (Lasix) 20 mg PO QPM [facility] Furosemide (Lasix) 40 mg PO QAM [facility] Last Admin: 03/12/20 09:14 Dose: 40 mg Documented by: Furosemide (Lasix) 20 mg PO DAILY@1400 [facility] Furosemide (Lasix) 40 mg PO QAM [facility] Furosemide (Lasix) 40 mg IVPUSH NOW ONE Stop: 03/12/20 12:31 Furosemide (Lasix) 20 mg IVPUSH NOW ONE Stop: 03/12/20 12:31 Last Admin: 03/12/20 14:59 Dose: Not Given Documented by: Vancomycin HCl 2 gm/ Sodium (Chloride) 500 mls @ 250 mls/hr IV ONETIME ONE Stop: 03/12/20 14:59 Last Admin: 03/12/20 15:53 Dose: Not Given Documented by: Vancomycin HCl 2 gm/ Sodium (Chloride) 500 mls @ 250 mls/hr IV ONETIME ONE Stop: 03/12/20 16:59 Last Admin: 03/12/20 15:57 Dose: 250 mls/hr Documented by: Lidocaine HCl (Xylocaine-Mpf 1%) Confirm Administered Dose 4 mls @ as directed .ROUTE .STK-MED ONE Stop: 03/12/20 16:02 Potassium Chloride (Klor-Con M20) 20 meq PO DAILY [facility] Last Admin: 03/12/20 09:17 Dose: 20 meq Documented by: - Exam Quality Assessment: Urine Catheter, DVT Prophylaxis General: Alert, Oriented (mostly ), Cooperative, No Acute Distress HEENT: Pupils Equal, Pupils Reactive, Mucous Membr. Moist/Two Strike Neck: Supple, Trachea Midline Lungs: Clear to Auscultation, Normal Respiratory Effort Cardiovascular: Regular Rate, Regular Rhythm GI/Abdominal Exam: Normal Bowel Sounds, Soft, Non-Tender, No Distention (Male) Exam: Scrotal Swelling, Other (continued excoriatoin to groin with foul smelling drainage. Nursing provided shower to the patient ) Back Exam: Normal Inspection, Decreased Range of Motion Extremities: Pedal Edema (significant ), Limited Range of Motion Skin: Warm, Dry, Intact Neurological: No New Focal Deficit Psy/Mental Status: Alert, Normal Affect Sepsis Event Note - Evaluation Sepsis Screening Result: No Definite Risk - Focused Exam Vital Signs: Vital Signs Temp Pulse Resp BP Pulse Ox 03/13/20 03:41 98.1 F 84 16 125/67 93 L 03/13/20 00:35 98.8 F 76 24 H 149/74 H 95 03/12/20 20:40 97.2 F 77 20 141/68 H 95 Date Exam was Performed: 03/13/20 Time Exam was Performed: 13:23 - Problem List & Annotations (1) Hospital admission due to social situation SNOMED Code(s): 216623461 Code(s): Z60.9 - PROBLEM RELATED TO SOCIAL ENVIRONMENT, UNSPECIFIED Status: Acute Priority: High Current Visit: Yes (2) Failure to thrive in adult SNOMED Code(s): 319813401 Code(s): R62.7 - ADULT FAILURE TO THRIVE Status: Acute Priority: High Current Visit: Yes (3) Atrial fibrillation SNOMED Code(s): 07592201 Code(s): I48.91 - UNSPECIFIED ATRIAL FIBRILLATION Status: Chronic Priority: Medium Current Visit: No Qualifiers: Atrial fibrillation type: unspecified Qualified Code(s): I48.91 - Unspecified atrial fibrillation (4) Bilateral lower extremity edema SNOMED Code(s): 423629731, 84048375, 870149353 Code(s): R60.0 - LOCALIZED EDEMA Status: Chronic Priority: Medium Current Visit: No (5) Frequent falls SNOMED Code(s): 636838973 Code(s): R29.6 - REPEATED FALLS Status: Acute Priority: High Current Visit: Yes (6) Hypoalbuminemia SNOMED Code(s): 468658343 Code(s): E88.09 - OTH DISORDERS OF PLASMA-PROTEIN METABOLISM, NEC Status: Chronic Priority: Medium Current Visit: No (7) Physical deconditioning SNOMED Code(s): 34078458263789 Code(s): R53.81 - OTHER MALAISE Status: Acute Priority: High Current Visit: Yes (8) Scrotal edema SNOMED Code(s): 23859422 Code(s): N50.89 - OTHER SPECIFIED DISORDERS OF THE MALE GENITAL ORGANS Status: Chronic Priority: Medium Current Visit: Yes (9) Weakness generalized SNOMED Code(s): 90430916 Code(s): R53.1 - WEAKNESS Status: Chronic Priority: High Current Visit: Yes (10) Hypertension SNOMED Code(s): 36738552 Code(s): I10 - ESSENTIAL (PRIMARY) HYPERTENSION Status: Chronic Priority: Medium Current Visit: No Qualifiers: Hypertension type: unspecified Qualified Code(s): I10 - Essential (primary) hypertension (11) Lymphedema of left lower extremity SNOMED Code(s): 96068186849186555 Code(s): I89.0 - LYMPHEDEMA, NOT ELSEWHERE CLASSIFIED Status: Chronic Priority: Medium Current Visit: No (12) Chronic back pain SNOMED Code(s): 409082562 Code(s): M54.9 - DORSALGIA, UNSPECIFIED; G89.29 - OTHER CHRONIC PAIN Status: Chronic Priority: Medium Current Visit: No Qualifiers: Back pain location: back pain in unspecified location Back pain laterality: unspecified Qualified Code(s): M54.9 - Dorsalgia, unspecified; G89.29 - Other chronic pain (13) Obesity SNOMED Code(s): 605042229, 053430155 Code(s): E66.9 - OBESITY, UNSPECIFIED Status: Acute Current Visit: Yes Qualifiers: Obesity type: unspecified obesity type Obesity classification: adult class 3 (BMI >= 40) Serious obesity comorbidity presence: unspecified whether serious comorbidity present Body mass index: BMI 40.0-44.9 Qualified Code(s): E66.01 - Morbid (severe) obesity due to excess calories; Z68.41 - Body mass index (BMI) 40.0-44.9, adult (14) Cellulitis of perineum SNOMED Code(s): 02775066 Code(s): L03.315 - CELLULITIS OF PERINEUM Status: Acute Priority: High Current Visit: Yes - Problem List Review Problem List Initiated/Reviewed/Updated: Yes - My Orders Last 24 Hours: My Active Orders 03/12/20 08:30 Height and Weight [RC] 04 Oxygen Therapy [RC] PRN VTE/DVT Education [RC] PER UNIT ROUTINE Vital Signs [RC] Q4HR Consult to Case Management/Cosmetic Sales Assistant [CONS] Routine Consult to Spiritual Care [CONS] Routine OT Evaluation and Treatment [CONS] Routine PT Evaluation and Treatment [CONS] Routine Ondansetron [Zofran] 4 mg IV Q6H PRN 03/12/20 08:31 Intake and Output [RC] 04,16 03/12/20 09:00 Cholecalciferol (Vitamin D3) [Vitamin D3] 5,000 unit PO DAILY 03/12/20 10:17 Consult to Fringing Machine Operator [CONS] Routine 03/12/20 12:30 Pharmacy to Dose - Vancomycin 0 dose .XX ASDIRECTED PRN 03/12/20 12:33 PROCALCITONIN [REF] Routine 03/12/20 14:00 Furosemide [Lasix] 40 mg IVPUSH BIDDIURETIC Code Status [Resuscitation Status] Routine 03/12/20 14:04 Elevate Extremity [RC] BID 03/12/20 Dinner Heart Healthy Diet [DIET] 03/13/20 03:00 Vancomycin 1 gm Vancomycin 500 mg Sodium Chloride 0.9% [Normal Saline] 500 ml IV Q12H 03/14/20 08:00 PROCALCITONIN [REF] Routine 03/14/20 14:00 VANCOMYCIN TROUGH [CHEM] Timed - Plan Plan:: Hospital admission due to social situation Failure to thrive in adult Physical deconditioning Weakness generalized Frequent falls Hypoalbuminemia Chronic back pain Presented to ED on 03/11/20 with multiple complaints Stated cannot take care of him anymore, generalized weakness, unable to get up form chair Hospitalized 01/13/20-01/19/20 with similar symptoms, A-fib with RVR; Discharged to [facility] Discharged from [facility] last week Albumin 3.2 on admission History of moderate cognitive deficient noted on [employer]IVER cog evaluation during last admission. Were recommending assistance with all ADS at that time. PLAN - PT/OT - Fringing Machine Operator consult - Consult CM/SW for discharge planning - SNF placement Cellulitis of perineum Bilateral lower extremity edema Lymphedema of left lower extremity Scrotal edema Obesity On home Cardizem and Lasix History of significant scrotal edema Very red, excoriated, and foul smelling perineal area Significant pedal and lower extremity edema Mild scrotal edema- carries hx/o significant scrotal edema Ortez catheter in place BMI of 44.4 Discharge weight was 319lbs on 01/19/20. Admission weight of 327lbs On home 40mg AM and 20mg PO Lasix Echo from 01/13/20 showed normal LVEF of 60-65% PLAN - Given history of recent SNF residence, Leukocytosis and obvious inflammation in groin will continue vancomycin - pharmacy to dose - Obtain procalcitonin repeat tomorrow - Continue Lasix 40mg BID - Monitor electrolytes - Ortez in place for I&O measuring, to keep perineal area dry - Monitor daily weights, I&Os - Fringing Machine Operator consult - Elevate extremities Atrial fibrillation Hypertension On home Cardizem, Xarelto and Lasix BP 137/51 on admission; Trend 149-115/79-51 PLAN - Increase Lasix as above - Continue home Cardizem and Xarelto - No need for telemetry at this time DVT propylaxis: Home Xarelto GI Prophylaxis: Not indicated Code Status: Full code (Confirmed with patient on 03/12/20) PCP: Dr. Drake Social: Recently discharged from [facility] back home. reports he is too much for her to handle at home. Disposition: Admit to inpatient for SNF placement and treatment of perineal cellulitis with IV Antibiotics. Will require COVID-19 screen prior to placement.
[2020-03-13] MEDS ORDERED: Furosemide 40 MG Tab PO SCH (08:00)
[2020-03-13] MEDS: Rivaroxaban 10 MG Tab PO SCH (08:52)
[2020-03-13] MEDS: Diltiazem 120 MG Cap.CD PO SCH (08:52)
[2020-03-13] MEDS: Cholecalciferol (Vitamin D3) 5,000 UNIT Tab PO SCH (08:53)
[2020-03-13] MEDS: Folic Acid 1 MG Tab PO SCH (08:54)
[2020-03-13] MEDS: Nystatin Topical Powder 15 GM Bottle TOP SCH ×2 (08:54→23:18)
[2020-03-13] MEDS ORDERED: Magnesium Hydroxide 400 MG/5 ML Susp 30 ML Cup PO ONE (12:07)
[2020-03-14] MEDS: Vancomycin 1 GM, Vancomycin 500 MG in Sodium Chloride 0.9% 500 ML IV SCH (03:37)
[2020-03-14] MEDS: Furosemide 40 MG/4 ML VIAL IVPUSH SCH ×2 (08:33→16:30)
[2020-03-14] MEDS: Diltiazem 120 MG Cap.CD PO SCH (08:33)
[2020-03-14] MEDS: Cholecalciferol (Vitamin D3) 5,000 UNIT Tab PO SCH (08:34)
[2020-03-14] MEDS: Rivaroxaban 10 MG Tab PO SCH (08:34)
[2020-03-14] MEDS: Nystatin Topical Powder 15 GM Bottle TOP SCH ×2 (08:35→21:22)
[2020-03-14] MEDS: Folic Acid 1 MG Tab PO SCH (08:42)
--- NOTE | 2020-03-14 14:29 | PCM.PN ---
- General Info Date of Service: 03/14/20 Admission Dx/Problem (Free Text): Admission Diagnosis/Problem Admission Diagnosis/Problem Failure to thrive Functional Status: Reports: Pain Controlled, Tolerating Diet, Ambulating, Urinating. Denies: New Symptoms - Review of Systems General: Reports: No Symptoms, Weakness. Denies: Fever, Fatigue, Malaise, Chills HEENT: Reports: No Symptoms. Denies: Headaches, Sore Throat Pulmonary: Reports: No Symptoms. Denies: Shortness of Breath, Pleuritic Chest Pain, Cough, Sputum, Wheezing Cardiovascular: Reports: No Symptoms. Denies: Chest Pain, Palpitations, Edema Gastrointestinal: Reports: No Symptoms. Denies: Abdominal Pain, Constipation, Diarrhea, Nausea, Vomiting Genitourinary: Reports: No Symptoms. Denies: Pain Musculoskeletal: Reports: No Symptoms Skin: Reports: No Symptoms. Denies: Cyanosis Neurological: Reports: Confusion, Difficulty Walking, Weakness, Gait Disturbance. Denies: Headache, Numbness, Pre-Existing Deficit, Syncope, Tingling Psychiatric: Reports: No Symptoms - Patient Data Vitals - Most Recent: Last Vital Signs Temp 97.9 F 03/13/20 23:20 Pulse 79 03/14/20 08:33 Resp 22 H 03/13/20 23:20 BP 135/65 03/14/20 08:33 Pulse Ox 97 03/13/20 23:20 Weight - Most Recent: 317 lb 12.8 oz I&O - Last 24 Hours: Intake & Output 03/13/20 03/14/20 03/14/20 22:59 06:59 14:59 Intake Total 1440 600 Output Total 2950 875 Balance -1510 -275 Lab Results Last 24 Hours: Laboratory Results - last 24 hr 03/12/20 03/13/20 03/14/20 Range/Units 12:33 23:40 06:30 WBC 11.27 H (4.23-9.07) K/mm3 RBC 5.23 (4.63-6.08) M/mm3 Hgb 14.6 (13.7-17.5) gm/dl Hct 45.4 (40.1-51.0) % MCV 86.8 (79.0-92.2) fl MCH 27.9 (25.7-32.2) pg MCHC 32.2 (32.2-35.5) g/dl RDW Std Deviation 43.8 (35.1-43.9) fL Plt Count 341 H (163-337) K/mm3 MPV 9.6 (9.4-12.3) fl Neut % (Auto) 77.6 H (34.0-67.9) % Lymph % (Auto) 10.8 L (21.8-53.1) % [place] % (Auto) 6.6 (5.3-12.2) % Eos % (Auto) 4.0 (0.8-7.0) Baso % (Auto) 0.3 (0.1-1.2) % Neut # (Auto) 8.75 H (1.78-5.38) K/mm3 Lymph # (Auto) 1.22 L (1.32-3.57) K/mm3 [place] # (Auto) 0.74 (0.30-0.82) K/mm3 Eos # (Auto) 0.45 (0.04-0.54) K/mm3 Baso # (Auto) 0.03 (0.01-0.08) K/mm3 Sodium (136-145) mEq/L Potassium (3.5-5.1) mEq/L Chloride (98-107) mEq/L Carbon Dioxide (21-32) mEq/L Anion Gap (5-15) BUN (7-18) mg/dL Creatinine (0.7-1.3) mg/dL Est Cr Clr Drug Dosing mL/min Estimated GFR (MDRD) (>60) mL/min BUN/Creatinine Ratio (14-18) Glucose (83-115) mg/dL POC Glucose 97 (83-110) mg/dL Calcium (8.5-10.1) mg/dL Magnesium (1.8-2.4) mg/dl Procalcitonin 0.06 (<0.10) ng/mL 03/14/20 03/14/20 03/14/20 Range/Units 06:30 06:57 11:39 WBC (4.23-9.07) K/mm3 RBC (4.63-6.08) M/mm3 Hgb (13.7-17.5) gm/dl Hct (40.1-51.0) % MCV (79.0-92.2) fl MCH (25.7-32.2) pg MCHC (32.2-35.5) g/dl RDW Std Deviation (35.1-43.9) fL Plt Count (163-337) K/mm3 MPV (9.4-12.3) fl Neut % (Auto) (34.0-67.9) % Lymph % (Auto) (21.8-53.1) % [place] % (Auto) (5.3-12.2) % Eos % (Auto) (0.8-7.0) Baso % (Auto) (0.1-1.2) % Neut # (Auto) (1.78-5.38) K/mm3 Lymph # (Auto) (1.32-3.57) K/mm3 [place] # (Auto) (0.30-0.82) K/mm3 Eos # (Auto) (0.04-0.54) K/mm3 Baso # (Auto) (0.01-0.08) K/mm3 Sodium 139 (136-145) mEq/L Potassium 3.7 (3.5-5.1) mEq/L Chloride 102 (98-107) mEq/L Carbon Dioxide 27 (21-32) mEq/L Anion Gap 13.7 (5-15) BUN 20 H (7-18) mg/dL Creatinine 0.9 (0.7-1.3) mg/dL Est Cr Clr Drug Dosing 76.45 mL/min Estimated GFR (MDRD) > 60 (>60) mL/min BUN/Creatinine Ratio 22.2 H (14-18) Glucose 128 H (83-115) mg/dL POC Glucose 128 H 123 H (83-110) mg/dL Calcium 8.7 (8.5-10.1) mg/dL Magnesium 2.3 (1.8-2.4) mg/dl Procalcitonin (<0.10) ng/mL Med Orders - Current: Current Medications Cholecalciferol (Vitamin D3) 5,000 unit PO DAILY [facility] Last Admin: 03/14/20 08:34 Dose: 5,000 unit Documented by: Diltiazem HCl (Cardizem Cd) 120 mg PO DAILY [facility] Last Admin: 03/14/20 08:33 Dose: 120 mg Documented by: Folic Acid (Folic Acid) 1 mg PO DAILY [facility] Last Admin: 03/14/20 08:42 Dose: 1 mg Documented by: Furosemide (Lasix) 40 mg IVPUSH BIDDIURETIC [facility] Last Admin: 03/14/20 08:33 Dose: 40 mg Documented by: Nystatin (Nystop) 0 gm TOP BID [facility] Last Admin: 03/14/20 08:35 Dose: 1 applic Documented by: Ondansetron HCl (Zofran) 4 mg IV Q6H PRN PRN Reason: Nausea/Vomiting Rivaroxaban (Xarelto) 20 mg PO DAILY [facility] Last Admin: 03/14/20 08:34 Dose: 20 mg Documented by: Discontinued Medications Furosemide (Lasix) 20 mg PO QPM [facility] Furosemide (Lasix) 40 mg PO QAM [facility] Last Admin: 03/12/20 09:14 Dose: 40 mg Documented by: Furosemide (Lasix) 20 mg PO DAILY@1400 [facility] Furosemide (Lasix) 40 mg PO QAM [facility] Furosemide (Lasix) 40 mg IVPUSH NOW ONE Stop: 03/12/20 12:31 Furosemide (Lasix) 20 mg IVPUSH NOW ONE Stop: 03/12/20 12:31 Last Admin: 03/12/20 14:59 Dose: Not Given Documented by: Vancomycin HCl 2 gm/ Sodium (Chloride) 500 mls @ 250 mls/hr IV ONETIME ONE Stop: 03/12/20 14:59 Last Admin: 03/12/20 15:53 Dose: Not Given Documented by: Vancomycin HCl 1 gm/Vancomycin HCl 500 mg/ Sodium Chloride 500 mls @ 250 mls/hr IV Q12H [facility] Last Admin: 03/14/20 03:37 Dose: 250 mls/hr Documented by: Vancomycin HCl 2 gm/ Sodium (Chloride) 500 mls @ 250 mls/hr IV ONETIME ONE Stop: 03/12/20 16:59 Last Admin: 03/12/20 15:57 Dose: 250 mls/hr Documented by: Lidocaine HCl (Xylocaine-Mpf 1%) Confirm Administered Dose 4 mls @ as directed .ROUTE .STK-MED ONE Stop: 03/12/20 16:02 Magnesium Hydroxide (Milk Of Magnesia) 30 ml PO ONETIME ONE Stop: 03/13/20 12:08 Last Admin: 03/13/20 13:01 Dose: 30 ml Documented by: Potassium Chloride (Klor-Con M20) 20 meq PO DAILY [facility] Last Admin: 03/12/20 09:17 Dose: 20 meq Documented by: Vancomycin HCl (Pharmacy To Dose - Vancomycin) 0 dose .XX ASDIRECTED PRN PRN Reason: RX TO DOSE VANCOMYCIN - Exam Quality Assessment: DVT Prophylaxis General: Alert, Cooperative, No Acute Distress. No: Oriented HEENT: Pupils Equal, Pupils Reactive, Mucous Membr. Moist/[place] Neck: Supple, Trachea Midline Lungs: Clear to Auscultation, Normal Respiratory Effort Cardiovascular: Regular Rate, Regular Rhythm GI/Abdominal Exam: Normal Bowel Sounds, Soft, Non-Tender, No Distention (Male) Exam: Deferred Extremities: Non-Tender, Pedal Edema (2-3+), Limited Range of Motion Skin: Warm, Dry, Intact Neurological: No New Focal Deficit Psy/Mental Status: Alert Sepsis Event Note - Evaluation Sepsis Screening Result: No Definite Risk - Focused Exam Vital Signs: Vital Signs Pulse BP 03/14/20 08:33 79 135/65 Date Exam was Performed: 03/14/20 Time Exam was Performed: 14:33 - Problem List & Annotations (1) Hospital admission due to social situation SNOMED Code(s): 802679520 Code(s): Z60.9 - PROBLEM RELATED TO SOCIAL ENVIRONMENT, UNSPECIFIED Status: Acute Priority: High Current Visit: Yes (2) Failure to thrive in adult SNOMED Code(s): 342796385 Code(s): R62.7 - ADULT FAILURE TO THRIVE Status: Acute Priority: High Current Visit: Yes (3) Atrial fibrillation SNOMED Code(s): 76838168 Code(s): I48.91 - UNSPECIFIED ATRIAL FIBRILLATION Status: Chronic Priority: Medium Current Visit: No Qualifiers: Atrial fibrillation type: unspecified Qualified Code(s): I48.91 - Unspecified atrial fibrillation (4) Bilateral lower extremity edema SNOMED Code(s): 543449751, 82457307, 574927756 Code(s): R60.0 - LOCALIZED EDEMA Status: Chronic Priority: Medium Current Visit: No (5) Frequent falls SNOMED Code(s): 176278310 Code(s): R29.6 - REPEATED FALLS Status: Acute Priority: High Current Visit: Yes (6) Hypoalbuminemia SNOMED Code(s): 744987200 Code(s): E88.09 - OTH DISORDERS OF PLASMA-PROTEIN METABOLISM, NEC Status: Chronic Priority: Medium Current Visit: No (7) Physical deconditioning SNOMED Code(s): 34663185658584 Code(s): R53.81 - OTHER MALAISE Status: Acute Priority: High Current Visit: Yes (8) Scrotal edema SNOMED Code(s): 72038724 Code(s): N50.89 - OTHER SPECIFIED DISORDERS OF THE MALE GENITAL ORGANS Sta tus: Chronic Priority: Medium Current Visit: Yes (9) Weakness generalized SNOMED Code(s): 02773650 Code(s): R53.1 - WEAKNESS Status: Chronic Priority: High Current Visit: Yes (10) Hypertension SNOMED Code(s): 39816006 Code(s): I10 - ESSENTIAL (PRIMARY) HYPERTENSION Status: Chronic Priority: Medium Current Visit: No Qualifiers: Hypertension type: unspecified Qualified Code(s): I10 - Essential (primary) hypertension (11) Lymphedema of left lower extremity SNOMED Code(s): 57076704908599729 Code(s): I89.0 - LYMPHEDEMA, NOT ELSEWHERE CLASSIFIED Status: Chronic Priority: Medium Current Visit: No (12) Chronic back pain SNOMED Code(s): 331901065 Code(s): M54.9 - DORSALGIA, UNSPECIFIED; G89.29 - OTHER CHRONIC PAIN Status: Chronic Priority: Medium Current Visit: No Qualifiers: Back pain location: back pain in unspecified location Back pain laterality: unspecified Qualified Code(s): M54.9 - Dorsalgia, unspecified; G89.29 - Other chronic pain (13) Obesity SNOMED Code(s): 659566566, 621163108 Code(s): E66.9 - OBESITY, UNSPECIFIED Status: Acute Current Visit: Yes Qualifiers: Obesity type: unspecified obesity type Obesity classification: adult class 3 (BMI >= 40) Serious obesity comorbidity presence: unspecified whether serious comorbidity present Body mass index: BMI 40.0-44.9 Qualified Code(s): E66.01 - Morbid (severe) obesity due to excess calories; Z68.41 - Body mass index (BMI) 40.0-44.9, adult (14) Cellulitis of perineum SNOMED Code(s): 43339238 Code(s): L03.315 - CELLULITIS OF PERINEUM Status: Acute Priority: High Current Visit: Yes - Problem List Review Problem List Initiated/Reviewed/Updated: Yes - My Orders Last 24 Hours: My Active Orders 03/14/20 06:30 PROCALCITONIN [REF] Routine - Plan Plan:: Hospital admission due to social situation Failure to thrive in adult Physical deconditioning Weakness generalized Frequent falls Hypoalbuminemia Chronic back pain Presented to ED on 03/11/20 with multiple complaints Stated cannot take care of him anymore, generalized weakness, unable to get up form chair Hospitalized 01/13/20-01/19/20 with similar symptoms, A-fib with RVR; Discharged to [facility] Discharged from [facility] last week Albumin 3.2 on admission History of moderate cognitive deficient noted on [employer] cog evaluation during last admission. Were recommending assistance with all ADS at that time. PLAN - PT/OT - Chest Painting And Sealing Supervisor consult - Consult CM/SW for discharge planning - SNF placement Cellulitis of perineum Bilateral lower extremity edema Lymphedema of left lower extremity Scrotal edema Obesity On home Cardizem and Lasix History of significant scrotal edema Very red, excoriated, and foul smelling perineal area Significant pedal and lower extremity edema Mild scrotal edema- carries hx/o significant scrotal edema Ortez catheter in place BMI of 44.4-->41.9 Discharge weight was 319lbs on 01/19/20. Admission weight of 327lbs; Down 10 lbs on 03/14/20 On home 40mg AM and 20mg PO Lasix Echo from 01/13/20 showed normal LVEF of 60-65% PLAN - Switch from vancomycin to PO doxycycline - Obtain procalcitonin repeat today - Continue Lasix 40mg BID - Monitor electrolytes - Ortez in place for I&O measuring, to keep perineal area dry - Monitor daily weights, I&Os - Chest Painting And Sealing Supervisor consult - Elevate extremities Atrial fibrillation Hypertension On home Cardizem, Xarelto and Lasix BP 137/51 on admission PLAN - Increase Lasix as above - Continue home Cardizem and Xarelto - No need for telemetry at this time DVT propylaxis: Home Xarelto GI Prophylaxis: Not indicated Code Status: Full code (Confirmed with patient on 03/12/20) PCP: Dr. Drake Social: Recently discharged from [facility] back home. reports he is too much for her to handle at home. Disposition: Admit to inpatient for SNF placement and treatment of perineal cellulitis with IV Antibiotics. COVID-19 screen pending. No current symptoms.
[2020-03-14] MEDS ORDERED: Furosemide 20 MG Tab PO ONE (14:48)
[2020-03-14] MEDS: Doxycycline 100 MG Cap PO SCH (16:15)
[2020-03-15] MEDS: Doxycycline 100 MG Cap PO SCH ×3 (03:31→23:30)
[2020-03-15] MEDS: Furosemide 20 MG Tab PO SCH (08:14)
[2020-03-15] MEDS: Cholecalciferol (Vitamin D3) 5,000 UNIT Tab PO SCH (08:14)
[2020-03-15] MEDS: Rivaroxaban 10 MG Tab PO SCH (08:14)
[2020-03-15] MEDS: Diltiazem 120 MG Cap.CD PO SCH (08:14)
[2020-03-15] MEDS: Folic Acid 1 MG Tab PO SCH (08:14)
[2020-03-15] MEDS: Nystatin Topical Powder 15 GM Bottle TOP SCH ×2 (08:15→23:40)
--- NOTE | 2020-03-15 10:46 | PCM.PN ---
- General Info Date of Service: 03/15/20 Admission Dx/Problem (Free Text): Admission Diagnosis/Problem Admission Diagnosis/Problem Failure to thrive Functional Status: Reports: Pain Controlled, Tolerating Diet, Ambulating, Urinating. Denies: New Symptoms - Review of Systems General: Reports: Weakness. Denies: Fever, Fatigue, Malaise, Chills HEENT: Reports: No Symptoms. Denies: Headaches, Sore Throat Pulmonary: Reports: No Symptoms. Denies: Shortness of Breath, Cough, Sputum, Wheezing Cardiovascular: Reports: Edema. Denies: Chest Pain, Palpitations, Dyspnea on Exertion Gastrointestinal: Reports: No Symptoms. Denies: Abdominal Pain, Constipation, Diarrhea, Nausea, Vomiting Genitourinary: Reports: No Symptoms. Denies: Pain Musculoskeletal: Reports: No Symptoms Skin: Reports: No Symptoms. Denies: Cyanosis Neurological: Reports: Confusion, Weakness. Denies: Numbness, Tingling, Difficulty Walking, Gait Disturbance Psychiatric: Reports: No Symptoms - Patient Data Vitals - Most Recent: Last Vital Signs Temp 97.9 F 03/15/20 07:50 Pulse 10 L 03/15/20 08:14 Resp 20 03/15/20 07:50 BP 134/90 03/15/20 08:14 Pulse Ox 94 L 03/15/20 07:50 Weight - Most Recent: 313 lb 14.4 oz I&O - Last 24 Hours: Intake & Output 03/14/20 03/15/20 03/15/20 22:59 06:59 14:59 Intake Total 680 400 Output Total 1200 1600 Balance -520 -1200 Lab Results Last 24 Hours: Laboratory Results - last 24 hr 03/14/20 03/14/20 03/15/20 Range/Units 06:30 11:39 01:03 POC Glucose 123 H 95 (83-110) mg/dL Procalcitonin 0.06 (<0.10) ng/mL 03/15/20 Range/Units 06:43 POC Glucose 121 H (83-110) mg/dL Procalcitonin (<0.10) ng/mL Med Orders - Current: Current Medications Cholecalciferol (Vitamin D3) 5,000 unit PO DAILY [facility] Last Admin: 03/15/20 08:14 Dose: 5,000 unit Documented by: Diltiazem HCl (Cardizem Cd) 120 mg PO DAILY [facility] Last Admin: 03/15/20 08:14 Dose: 120 mg Documented by: Doxycycline Hyclate (Vibramycin) 100 mg PO BID [facility] Folic Acid (Folic Acid) 1 mg PO DAILY [facility] Last Admin: 03/15/20 08:14 Dose: 1 mg Documented by: Furosemide (Lasix) 60 mg PO DAILY [facility] Last Admin: 03/15/20 08:14 Dose: 60 mg Documented by: Furosemide (Lasix) 40 mg PO DAILY@1400 [facility] Nystatin (Nystop) 0 gm TOP BID [facility] Last Admin: 03/15/20 08:15 Dose: 1 applic Documented by: Ondansetron HCl (Zofran) 4 mg IV Q6H PRN PRN Reason: Nausea/Vomiting Rivaroxaban (Xarelto) 20 mg PO DAILY [facility] Last Admin: 03/15/20 08:14 Dose: 20 mg Documented by: Discontinued Medications Doxycycline Hyclate (Vibramycin) 100 mg PO Q12H [facility] Last Admin: 03/15/20 03:31 Dose: Not Given Documented by: Furosemide (Lasix) 20 mg PO QPM [facility] Furosemide (Lasix) 40 mg PO QAM [facility] Last Admin: 03/12/20 09:14 Dose: 40 mg Documented by: Furosemide (Lasix) 20 mg PO DAILY@1400 [facility] Furosemide (Lasix) 40 mg PO QAM [facility] Furosemide (Lasix) 40 mg IVPUSH NOW ONE Stop: 03/12/20 12:31 Furosemide (Lasix) 40 mg IVPUSH BIDDIURETIC [facility] Last Admin: 03/14/20 16:30 Dose: Not Given Documented by: Furosemide (Lasix) 20 mg IVPUSH NOW ONE Stop: 03/12/20 12:31 Last Admin: 03/12/20 14:59 Dose: Not Given Documented by: Furosemide (Lasix) 60 mg PO ONETIME ONE Stop: 03/14/20 14:49 Last Admin: 03/14/20 16:16 Dose: 60 mg Documented by: Vancomycin HCl 2 gm/ Sodium (Chloride) 500 mls @ 250 mls/hr IV ONETIME ONE Stop: 03/12/20 14:59 Last Admin: 03/12/20 15:53 Dose: Not Given Documented by: Vancomycin HCl 1 gm/Vancomycin HCl 500 mg/ Sodium Chloride 500 mls @ 250 mls/hr IV Q12H [facility] Last Admin: 03/14/20 03:37 Dose: 250 mls/hr Documented by: Vancomycin HCl 2 gm/ Sodium (Chloride) 500 mls @ 250 mls/hr IV ONETIME ONE Stop: 03/12/20 16:59 Last Admin: 03/12/20 15:57 Dose: 250 mls/hr Documented by: Lidocaine HCl (Xylocaine-Mpf 1%) Confirm Administered Dose 4 mls @ as directed .ROUTE .STK-MED ONE Stop: 03/12/20 16:02 Magnesium Hydroxide (Milk Of Magnesia) 30 ml PO ONETIME ONE Stop: 03/13/20 12:08 Last Admin: 03/13/20 13:01 Dose: 30 ml Documented by: Potassium Chloride (Klor-Con M20) 20 meq PO DAILY [facility] Last Admin: 03/12/20 09:17 Dose: 20 meq Documented by: Vancomycin HCl (Pharmacy To Dose - Vancomycin) 0 dose .XX ASDIRECTED PRN PRN Reason: RX TO DOSE VANCOMYCIN - Exam Quality Assessment: DVT Prophylaxis General: Alert, Oriented (at times ), Cooperative, No Acute Distress HEENT: Pupils Equal, Pupils Reactive, Mucous Membr. Moist/[place] Neck: Supple, Trachea Midline Lungs: Clear to Auscultation, Normal Respiratory Effort Cardiovascular: Regular Rate, Regular Rhythm GI/Abdominal Exam: Normal Bowel Sounds, Soft, Non-Tender, No Distention (Male) Exam: Deferred Extremities: Non-Tender, Pedal Edema Skin: Warm, Dry, Intact Neurological: No New Focal Deficit Psy/Mental Status: Alert Sepsis Event Note - Evaluation Sepsis Screening Result: No Definite Risk - Focused Exam Vital Signs: Vital Signs Temp Pulse Resp BP Pulse Ox 03/15/20 08:14 10 L 134/90 03/15/20 07:50 97.9 F 80 20 134/90 94 L 03/15/20 03:25 97.9 F 86 16 133/69 94 L 03/15/20 00:43 97.9 F 85 18 135/64 96 Date Exam was Performed: 03/15/20 Time Exam was Performed: 11:28 - Problem List & Annotations (1) Hospital admission due to social situation SNOMED Code(s): 281457584 Code(s): Z60.9 - PROBLEM RELATED TO SOCIAL ENVIRONMENT, UNSPECIFIED Status: Acute Priority: High Current Visit: Yes (2) Failure to thrive in adult SNOMED Code(s): 083055597 Code(s): R62.7 - ADULT FAILURE TO THRIVE Status: Acute Priority: High Current Visit: Yes (3) Atrial fibrillation SNOMED Code(s): 64639536 Code(s): I48.91 - UNSPECIFIED ATRIAL FIBRILLATION Status: Chronic Priority: Medium Current Visit: No Qualifiers: Atrial fibrillation type: unspecified Qualified Code(s): I48.91 - Unspecified atrial fibrillation (4) Bilateral lower extremity edema SNOMED Code(s): 234161261, 86418015, 875195660 Code(s): R60.0 - LOCALIZED EDEMA Status: Chronic Priority: Medium Current Visit: No (5) Frequent falls SNOMED Code(s): 504445829 Code(s): R29.6 - REPEATED FALLS Status: Acute Priority: High Current Visit: Yes (6) Hypoalbuminemia SNOMED Code(s): 101835635 Code(s): E88.09 - OTH DISORDERS OF PLASMA-PROTEIN METABOLISM, NEC Status: Chronic Priority: Medium Current Visit: No (7) Physical deconditioning SNOMED Code(s): 98952404802110 Code(s): R53.81 - OTHER MALAISE Status: Acute Priority: High Current Visit: Yes (8) Scrotal edema SNOMED Code(s): 68781403 Code(s): N50.89 - OTHER SPECIFIED DISORDERS OF THE MALE GENITAL ORGANS Status: Chronic Priority: Medium Current Visit: Yes (9) Weakness generalized SNOMED Code(s): 24477236 Code(s): R53.1 - WEAKNESS Status: Chronic Priority: High Current Visit: Yes (10) Hypertension SNOMED Code(s): 59042357 Code(s): I10 - ESSENTIAL (PRIMARY) HYPERTENSION Status: Chronic Priority: Medium Current Visit: No Qualifiers: Hypertension type: unspecified Qualified Code(s): I10 - Essential (primary) hypertension (11) Lymphedema of left lower extremity SNOMED Code(s): 85832972439629524 Code(s): I89.0 - LYMPHEDEMA, NOT ELSEWHERE CLASSIFIED Status: Chronic Priority: Medium Current Visit: No (12) Chronic back pain SNOMED Code(s): 580818000 Code(s): M54.9 - DORSALGIA, UNSPECIFIED; G89.29 - OTHER CHRONIC PAIN Status: Chronic Priority: Medium Current Visit: No Qualifiers: Back pain location: back pain in unspecified location Back pain laterality: unspecified Qualified Code(s): M54.9 - Dorsalgia, unspecified; G89.29 - Other chronic pain (13) Obesity SNOMED Code(s): 921029259, 239117037 Code(s): E66.9 - OBESITY, UNSPECIFIED Status: Acute Current Visit: Yes Qualifiers: Obesity type: unspecified obesity type Obesity classification: adult class 3 (BMI >= 40) Serious obesity comorbidity presence: unspecified whether serious comorbidity present Body mass index: BMI 40.0-44.9 Qualified Code(s): E66.01 - Morbid (severe) obesity due to excess calories; Z68.41 - Body mass index (BMI) 40.0-44.9, adult (14) Cellulitis of perineum SNOMED Code(s): 88999988 Code(s): L03.315 - CELLULITIS OF PERINEUM Status: Acute Priority: High Current Visit: Yes (15) Exposure to COVID-19 virus SNOMED Code(s): 911746957 Code(s): Z20.828 - CONTACT W AND EXPOSURE TO OTH VIRAL COMMUNICABLE DISEASES Status: Acute Priority: High Current Visit: Yes - Problem List Review Problem List Initiated/Reviewed/Updated: Yes - My Orders Last 24 Hours: My Active Orders 03/15/20 09:00 Furosemide [Lasix] 60 mg PO DAILY 03/15/20 09:30 Doxycycline [Vibramycin] 100 mg PO BID 03/15/20 14:00 Furosemide [Lasix] 40 mg PO DAILY@1400 - Plan Plan:: Hospital admission due to social situation Failure to thrive in adult Physical deconditioning Weakness generalized Frequent falls Hypoalbuminemia Chronic back pain Presented to ED on 03/11/20 with multiple complaints Stated cannot take care of him anymore, generalized weakness, unable to get up form chair Hospitalized 01/13/20-01/19/20 with similar symptoms, A-fib with RVR; Discharged to [facility] Discharged from 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 Were recommending assistance with all ADS at that time. PLAN - PT/OT - Machine Tool Operator consult - Consult CM/SW for discharge planning - SNF placement Cellulitis of perineum Bilateral lower extremity edema Lymphedema of left lower extremity Scrotal edema Obesity On home Cardizem and Lasix History of significant scrotal edema Very red, excoriated, and foul smelling perineal area Significant pedal and lower extremity edema Mild scrotal edema- carries hx/o significant scrotal edema Ortez catheter in place BMI of 44.4-->41.9-->41.4 Discharge weight was 319lbs on 01/19/20. Admission weight of 327lbs; Down 10 lbs on 03/14/20 On home 40mg AM and 20mg PO Lasix Echo from 01/13/20 showed normal LVEF of 60-65% Switched from vancomycin to PO doxycycline PLAN - Continue PO doxycycline - Repeat procalcitonin pending - Lasix as ordered - Monitor electrolytes - Ortez in place for I&O measuring, to keep perineal area dry - Monitor daily weights, I&Os - Machine Tool Operator consult - Elevate extremities Atrial fibrillation Hypertension On home Cardizem, Xarelto and Lasix BP 137/51 on admission PLAN - Increase Lasix as above - Continue home Cardizem and Xarelto - No need for telemetry at this time Exposure to COVID-19 Low risk exposure to COVID-19 Admission COVID-[address] [facility] requesting COVID-19 test from [facility] - pending Per Coy - they report they will take patient on Thursday if we have negative state and repeat in-house COVID-19 test No current symptoms or concerns for infection PLAN - Awaiting State COVID-19 test - In-house COVID-19 test prior to discharge Thursday DVT propylaxis: Home Xarelto GI Prophylaxis: Not indicated Code Status: Full code (Confirmed with patient on 03/12/20) PCP: Dr. Drake Social: Recently discharged from [facility] back home. reports he is too much for her to handle at home. Disposition: Admit to inpatient for SNF placement and treatment of perineal cellulitis with IV Antibiotics. COVID-19 screen pending. No current symptoms. LOS >96Hrs pending SNF placement, Repeat COVID-19 testing required by SNF
[2020-03-15] MEDS ORDERED: Haloperidol Lactate 5 MG/ML SDV IM STA (13:13)
[2020-03-15] MEDS ORDERED: LORazepam 2 MG/ML SDV ONE (13:17)
[2020-03-15] MEDS ORDERED: Haloperidol 5 MG Tab PO ONE (13:53)
[2020-03-15] MEDS: Furosemide 40 MG Tab PO SCH (15:41)
[2020-03-15] MEDS: OLANZapine 5 MG Tab PO SCH (23:32)
[2020-03-16] MEDS: Doxycycline 100 MG Cap PO SCH ×2 (09:08→21:17)
[2020-03-16] MEDS: OLANZapine 5 MG Tab PO SCH (09:08)
[2020-03-16] MEDS: Cholecalciferol (Vitamin D3) 5,000 UNIT Tab PO SCH (09:09)
[2020-03-16] MEDS: Diltiazem 120 MG Cap.CD PO SCH (09:09)
[2020-03-16] MEDS: Folic Acid 1 MG Tab PO SCH (09:10)
[2020-03-16] MEDS: Furosemide 20 MG Tab PO SCH (09:10)
[2020-03-16] MEDS: Rivaroxaban 10 MG Tab PO SCH (09:11)
[2020-03-16] MEDS: Nystatin Topical Powder 15 GM Bottle TOP SCH ×2 (09:23→21:16)
--- NOTE | 2020-03-16 09:30 | PCM.PN ---
- General Info Date of Service: 03/16/20 Admission Dx/Problem (Free Text): Admission Diagnosis/Problem Admission Diagnosis/Problem Failure to thrive Subjective Update: Last BM is unknown Reports he feels better today Slept pretty good. Much more alert and interactive. Functional Status: Reports: Pain Controlled, Tolerating Diet, Ambulating, Urinating. Denies: New Symptoms - Review of Systems General: Reports: No Symptoms, Weakness, Fatigue. Denies: Fever, Malaise, Chills HEENT: Reports: No Symptoms. Denies: Headaches, Sore Throat Pulmonary: Reports: No Symptoms. Denies: Shortness of Breath, Pleuritic Chest Pain, Cough, Sputum, Wheezing Cardiovascular: Reports: No Symptoms. Denies: Chest Pain, Palpitations Gastrointestinal: Reports: No Symptoms. Denies: Abdominal Pain, Constipation, Diarrhea, Nausea, Vomiting Genitourinary: Reports: No Symptoms. Denies: Pain Musculoskeletal: Reports: No Symptoms Skin: Reports: No Symptoms. Denies: Cyanosis Neurological: Reports: Confusion, Difficulty Walking, Weakness, Gait Disturbance. Denies: Numbness, Tingling Psychiatric: Reports: No Symptoms - Patient Data Vitals - Most Recent: Last Vital Signs Temp 98.1 F 03/15/20 16:15 Pulse 65 03/16/20 09:09 Resp 16 03/15/20 23:37 BP 128/68 03/16/20 09:09 Pulse Ox 96 03/15/20 23:37 Weight - Most Recent: 313 lb 14.4 oz I&O - Last 24 Hours: Intake & Output 03/15/20 03/16/20 03/16/20 22:59 06:59 14:59 Intake Total 540 0 Output Total 750 200 Balance -210 -200 Lab Results Last 24 Hours: Laboratory Results - last 24 hr 03/13/20 03/15/20 Range/Units 13:53 11:14 POC Glucose 169 H (83-110) mg/dL COVID-19 PCR Not detected (NOT DETECT) Med Orders - Current: Current Medications Cholecalciferol (Vitamin D3) 5,000 unit PO DAILY [facility] Last Admin: 03/16/20 09:09 Dose: 5,000 unit Documented by: Diltiazem HCl (Cardizem Cd) 120 mg PO DAILY [facility] Last Admin: 03/16/20 09:09 Dose: 120 mg Documented by: Doxycycline Hyclate (Vibramycin) 100 mg PO BID [facility] Last Admin: 03/16/20 09:08 Dose: 100 mg Documented by: Folic Acid (Folic Acid) 1 mg PO DAILY [facility] Last Admin: 03/16/20 09:10 Dose: 1 mg Documented by: Furosemide (Lasix) 60 mg PO DAILY [facility] Last Admin: 03/16/20 09:10 Dose: 60 mg Documented by: Furosemide (Lasix) 40 mg PO DAILY@1400 [facility] Last Admin: 03/15/20 15:41 Dose: Not Given Documented by: Nystatin (Nystop) 0 gm TOP BID [facility] Last Admin: 03/16/20 09:23 Dose: 1 applic Documented by: Olanzapine (Zyprexa) 2.5 mg PO BID [facility] Last Admin: 03/16/20 09:08 Dose: 2.5 mg Documented by: Ondansetron HCl (Zofran) 4 mg IV Q6H PRN PRN Reason: Nausea/Vomiting Rivaroxaban (Xarelto) 20 mg PO DAILY [facility] Last Admin: 03/16/20 09:11 Dose: 20 mg Documented by: Discontinued Medications Doxycycline Hyclate (Vibramycin) 100 mg PO Q12H [facility] Last Admin: 03/15/20 03:31 Dose: Not Given Documented by: Furosemide (Lasix) 20 mg PO QPM [facility] Furosemide (Lasix) 40 mg PO QAM [facility] Last Admin: 03/12/20 09:14 Dose: 40 mg Documented by: Furosemide (Lasix) 20 mg PO DAILY@1400 [facility] Furosemide (Lasix) 40 mg PO QAM [facility] Furosemide (Lasix) 40 mg IVPUSH NOW ONE Stop: 03/12/20 12:31 Furosemide (Lasix) 40 mg IVPUSH BIDDIURETIC [facility] Last Admin: 03/14/20 16:30 Dose: Not Given Documented by: Furosemide (Lasix) 20 mg IVPUSH NOW ONE Stop: 03/12/20 12:31 Last Admin: 03/12/20 14:59 Dose: Not Given Documented by: Furosemide (Lasix) 60 mg PO ONETIME ONE Stop: 03/14/20 14:49 Last Admin: 03/14/20 16:16 Dose: 60 mg Documented by: Haloperidol (Haldol) 5 mg PO ONETIME ONE Stop: 03/15/20 13:54 Last Admin: 03/15/20 20:28 Dose: Not Given Documented by: Haloperidol Lactate (Haldol) 2 mg IM ONETIME STA Stop: 03/15/20 13:14 Last Admin: 03/15/20 20:29 Dose: Not Given Documented by: Vancomycin HCl 2 gm/ Sodium (Chloride) 500 mls @ 250 mls/hr IV ONETIME ONE Stop: 03/12/20 14:59 Last Admin: 03/12/20 15:53 Dose: Not Given Documented by: Vancomycin HCl 1 gm/Vancomycin HCl 500 mg/ Sodium Chloride 500 mls @ 250 mls/hr IV Q12H [facility] Last Admin: 03/14/20 03:37 Dose: 250 mls/hr Documented by: Vancomycin HCl 2 gm/ Sodium (Chloride) 500 mls @ 250 mls/hr IV ONETIME ONE Stop: 03/12/20 16:59 Last Admin: 03/12/20 15:57 Dose: 250 mls/hr Documented by: Lidocaine HCl (Xylocaine-Mpf 1%) Confirm Administered Dose 4 mls @ as directed .ROUTE .STK-MED ONE Stop: 03/12/20 16:02 Lorazepam (Ativan) Confirm Administered Dose 4 mg .ROUTE .STK-MED ONE Stop: 03/15/20 13:18 Last Admin: 03/15/20 20:28 Dose: Not Given Documented by: Magnesium Hydroxide (Milk Of Magnesia) 30 ml PO ONETIME ONE Stop: 03/13/20 12:08 Last Admin: 03/13/20 13:01 Dose: 30 ml Documented by: Potassium Chloride (Klor-Con M20) 20 meq PO DAILY [facility] Last Admin: 03/12/20 09:17 Dose: 20 meq Documented by: Vancomycin HCl (Pharmacy To Dose - Vancomycin) 0 dose .XX ASDIRECTED PRN PRN Reason: RX TO DOSE VANCOMYCIN - Exam Quality Assessment: DVT Prophylaxis General: Alert, Cooperative, No Acute Distress. No: Oriented HEENT: Pupils Equal, Pupils Reactive, Mucous Membr. Moist/[place] Neck: Supple, Trachea Midline Lungs: Clear to Auscultation, Normal Respiratory Effort, Decreased Breath Sounds Cardiovascular: Regular Rate, Regular Rhythm GI/Abdominal Exam: Normal Bowel Sounds, Soft, Non-Tender, No Distention (Male) Exam: Deferred Back Exam: Normal Inspection, Full Range of Motion Extremities: Pedal Edema (improved ). No: Leg Pain Peripheral Pulses: 2+: Radial (L), Radial (R), Dorsalis Pedis (L), Dorsalis Pedis (R) Skin: Warm, Dry, Intact Neurological: No New Focal Deficit Psy/Mental Status: Alert. No: Labile Mood, Anxious, Depressed, Agitated Sepsis Event Note - Evaluation Sepsis Screening Result: No Definite Risk - Focused Exam Vital Signs: Vital Signs Pulse Resp BP Pulse Ox 03/16/20 09:09 65 128/68 03/15/20 23:37 82 16 143/78 H 96 Date Exam was Performed: 03/16/20 Time Exam was Performed: 14:29 - Problem List & Annotations (1) Hospital admission due to social situation SNOMED Code(s): 091562804 Code(s): Z60.9 - PROBLEM RELATED TO SOCIAL ENVIRONMENT, UNSPECIFIED Status: Acute Priority: High Current Visit: Yes (2) Failure to thrive in adult SNOMED Code(s): 737293373 Code(s): R62.7 - ADULT FAILURE TO THRIVE Status: Acute Priority: High Current Visit: Yes (3) Atrial fibrillation SNOMED Code(s): 36747702 Code(s): I48.91 - UNSPECIFIED ATRIAL FIBRILLATION Status: Chronic Priority: Medium Current Visit: No Qualifiers: Atrial fibrillation type: unspecified Qualified Code(s): I48.91 - Unspecified atrial fibrillation (4) Bilateral lower extremity edema SNOMED Code(s): 675421274, 18923404, 692646508 Code(s): R60.0 - LOCALIZED EDEMA Status: Chronic Priority: Medium Current Visit: No (5) Frequent falls SNOMED Code(s): 770887757 Code(s): R29.6 - REPEATED FALLS Status: Acute Priority: High Current Visit: Yes (6) Hypoalbuminemia SNOMED Code(s): 829398361 Code(s): E88.09 - OTH DISORDERS OF PLASMA-PROTEIN METABOLISM, NEC Status: Chronic Priority: Medium Current Visit: No (7) Physical deconditioning SNOMED Code(s): 01464213757194 Code(s): R53.81 - OTHER MALAISE Status: Acute Priority: High Current Visit: Yes (8) Scrotal edema SNOMED Code(s): 17655141 Code(s): N50.89 - OTHER SPECIFIED DISORDERS OF THE MALE GENITAL ORGANS Status: Chronic Priority: Medium Current Visit: Yes (9) Weakness generalized SNOMED Code(s): 74187892 Code(s): R53.1 - WEAKNESS Status: Chronic Priority: High Current Visit: Yes (10) Hypertension SNOMED Code(s): 32053408 Code(s): I10 - ESSENTIAL (PRIMARY) HYPERTENSION Status: Chronic Priority: Medium Current Visit: No Qualifiers: Hypertension type: unspecified Qualified Code(s): I10 - Essential (primary) hypertension (11) Lymphedema of left lower extremity SNOMED Code(s): 00204290433646146 Code(s): I89.0 - LYMPHEDEMA, NOT ELSEWHERE CLASSIFIED Status: Chronic Priority: Medium Current Visit: No (12) Chronic back pain SNOMED Code(s): 808233967 Code(s): M54.9 - DORSALGIA, UNSPECIFIED; G89.29 - OTHER CHRONIC PAIN Status: Chronic Priority: Medium Current Visit: No Qualifiers: Back pain location: back pain in unspecified location Back pain laterality: unspecified Qualified Code(s): M54.9 - Dorsalgia, unspecified; G89.29 - Other chronic pain (13) Obesity SNOMED Code(s): 100003896, 771323000 Code(s): E66.9 - OBESITY, UNSPECIFIED Status: Acute Current Visit: Yes Qualifiers: Obesity type: unspecified obesity type Obesity classification: adult class 3 (BMI >= 40) Serious obesity comorbidity presence: unspecified whether serious comorbidity present Body mass index: BMI 40.0-44.9 Qualified Code(s): E66.01 - Morbid (severe) obesity due to excess calories; Z68.41 - Body mass index (BMI) 40.0-44.9, adult (14) Cellulitis of perineum SNOMED Code(s): 08396822 Code(s): L03.315 - CELLULITIS OF PERINEUM Status: Acute Priority: High Current Visit: Yes (15) Exposure to COVID-19 virus SNOMED Code(s): 518428195 Code(s): Z20.828 - CONTACT W AND EXPOSURE TO OTH VIRAL COMMUNICABLE DISEASES Status: Acute Priority: High Current Visit: Yes (16) Acute psychosis SNOMED Code(s): 73450078, 34643798 Code(s): F23 - BRIEF PSYCHOTIC DISORDER Status: Acute Priority: High Current Visit: Yes (17) Confusion SNOMED Code(s): 043224165 Code(s): R41.0 - DISORIENTATION, UNSPECIFIED Status: Chronic Priority: High Current Visit: Yes (18) Hallucination SNOMED Code(s): 7958440 Code(s): R44.3 - HALLUCINATIONS, UNSPECIFIED Status: Acute Priority: High Current Visit: Yes (19) Paranoia SNOMED Code(s): 841249423 Code(s): F22 - DELUSIONAL DISORDERS Status: Acute Priority: High Current Visit: Yes - Problem List Review Problem List Initiated/Reviewed/Updated: Yes - My Orders Last 24 Hours: My Active Orders 03/15/20 09:00 Furosemide [Lasix] 60 mg PO DAILY 03/15/20 09:30 Doxycycline [Vibramycin] 100 mg PO BID 03/15/20 13:57 One To One Therapy [BH] Routine 03/15/20 14:00 Furosemide [Lasix] 40 mg PO DAILY@1400 03/18/20 05:11 BASIC METABOLIC PANEL,BMP [CHEM] Routine CBC WITH AUTO DIFF [HEME] Routine MAGNESIUM [CHEM] Routine 03/18/20 08:00 CORONAVIRUS COVID-19 PCR [facility] Urgent - Plan Plan:: Acute psychosis Contusion Hallucinations Paranoia Acute episode of paranoia on 03/15/20 with hallucinations and refusal to take medications Has been confused since admission but suddenly was not agreeable and was upset reports prior episode at SNF but was able to be talked down by staff Haldol and ativan ordered but not given Attempted to remove whaley catheter himself -> nursing ultimately removed. Threatening legal action, refusing to answer questions 1:1 sitter initiated able to get patient to take medications Started on Zyprexa 2.5mg BID PLAN - Psychiatry consultation - Continue Zyprexa as ordered - Discontinue 1:1 sitter as patient is now agreeable and friendly - Continue to monitor Hospital admission due to social situation Failure to thrive in adult Physical deconditioning Weakness generalized Frequent falls Hypoalbuminemia Chronic back pain Presented to ED on 03/11/20 with multiple complaints Stated cannot take care of him anymore, generalized weakness, unable to get up form chair Hospitalized 01/13/20-01/19/20 with similar symptoms, A-fib with RVR; Discharged to [facility] Discharged from 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 Were recommending assistance with all ADS at that time. PLAN - PT/OT - Regulatory Analyst consult - Consult CM/SW for discharge planning - SNF placement Cellulitis of perineum Bilateral lower extremity edema Lymphedema of left lower extremity Scrotal edema Obesity On home Cardizem and Lasix History of significant scrotal edema Very red, excoriated, and foul smelling perineal area Significant pedal and lower extremity edema Mild scrotal edema- carries hx/o significant scrotal edema Whaley catheter in place BMI of 44.4-->41.9-->41.4 Discharge weight was 319lbs on 01/19/20. Admission weight of 327lbs; Down 10 lbs on 03/14/20 On home 40mg AM and 20mg PO Lasix Echo from 01/13/20 showed normal LVEF of 60-65% Switched from vancomycin to PO doxycycline PLAN - Continue PO doxycycline - Repeat procalcitonin pending - Lasix as ordered - Monitor electrolytes - Whaley in place for I&O measuring, to keep perineal area dry - Monitor daily weights, I&Os - Regulatory Analyst consult - Elevate extremities Atrial fibrillation Hypertension On home Cardizem, Xarelto and Lasix BP 137/51 on admission PLAN - Increase Lasix as above - Continue home Cardizem and Xarelto - No need for telemetry at this time Exposure to COVID-19 Low risk exposure to COVID-19 Admission COVID-[address] [facility] requesting COVID-[address] [facility] - pending Per [place] - they report they will take patient on Thursday if we have negative state and repeat in-house COVID-19 test No current symptoms or concerns for infection State COVID-19 testing negative PLAN - In-house COVID-19 test prior to discharge DVT propylaxis: Home Xarelto GI Prophylaxis: Not indicated Code Status: Full code (Confirmed with patient on 03/12/20) PCP: Dr. Drake Social: Recently discharged from [facility] back home. reports he is too much for her to handle at home. Disposition: Admit to inpatient for SNF placement and treatment of perineal cellulitis with IV Antibiotics. COVID-19 screen pending. No current symptoms. LOS >96Hrs pending SNF placement, Repeat COVID-19 testing required by SNF
[2020-03-16] MEDS: Furosemide 40 MG Tab PO SCH (15:00)
[2020-03-16] MEDS ORDERED: OLANZapine 5 MG Tab PO SCH (21:00)
[2020-03-17] MEDS: Doxycycline 100 MG Cap PO SCH ×2 (08:37→19:59)
[2020-03-17] MEDS: Rivaroxaban 10 MG Tab PO SCH (08:37)
[2020-03-17] MEDS: Furosemide 20 MG Tab PO SCH (08:37)
[2020-03-17] MEDS: Cholecalciferol (Vitamin D3) 5,000 UNIT Tab PO SCH (08:37)
[2020-03-17] MEDS: Diltiazem 120 MG Cap.CD PO SCH (08:37)
[2020-03-17] MEDS: Folic Acid 1 MG Tab PO SCH (08:37)
[2020-03-17] MEDS: Nystatin Topical Powder 15 GM Bottle TOP SCH ×2 (09:22→19:59)
--- NOTE | 2020-03-17 13:34 | PCM.PN ---
- General Info Date of Service: 03/17/20 Admission Dx/Problem (Free Text): Admission Diagnosis/Problem Admission Diagnosis/Problem Failure to thrive Functional Status: Reports: Pain Controlled, Tolerating Diet, Ambulating, Urinating. Denies: New Symptoms - Review of Systems General: Reports: Weakness, Fatigue. Denies: Fever, Malaise, Chills HEENT: Reports: No Symptoms. Denies: Headaches, Sore Throat Pulmonary: Reports: No Symptoms. Denies: Shortness of Breath, Cough, Sputum, Wheezing Cardiovascular: Reports: Edema. Denies: Chest Pain, Palpitations, Dyspnea on Exertion Gastrointestinal: Reports: No Symptoms. Denies: Abdominal Pain, Constipation, Diarrhea, Nausea, Vomiting Genitourinary: Reports: No Symptoms. Denies: Pain Musculoskeletal: Reports: No Symptoms Skin: Reports: No Symptoms. Denies: Cyanosis Neurological: Reports: Confusion, Pre-Existing Deficit, Difficulty Walking, Weakness, Gait Disturbance. Denies: Headache, Numbness, Syncope, Tingling Psychiatric: Reports: Mood Lability. Denies: Agitation - Patient Data Vitals - Most Recent: Last Vital Signs Temp 98.1 F 03/17/20 08:30 Pulse 73 03/17/20 08:37 Resp 14 03/17/20 08:30 BP 108/69 03/17/20 08:37 Pulse Ox 93 L 03/17/20 08:30 Weight - Most Recent: 309 lb 14.4 oz I&O - Last 24 Hours: Intake & Output 03/16/20 03/17/20 03/17/20 22:59 06:59 14:59 Intake Total 1100 200 Output Total 600 Balance 500 200 Med Orders - Current: Current Medications Cholecalciferol (Vitamin D3) 5,000 unit PO DAILY [facility] Last Admin: 03/17/20 08:37 Dose: Not Given Documented by: Diltiazem HCl (Cardizem Cd) 120 mg PO DAILY [facility] Last Admin: 03/17/20 08:37 Dose: Not Given Documented by: Doxycycline Hyclate (Vibramycin) 100 mg PO BID [facility] Last Admin: 03/17/20 08:37 Dose: Not Given Documented by: Folic Acid (Folic Acid) 1 mg PO DAILY [facility] Last Admin: 03/17/20 08:37 Dose: Not Given Documented by: Furosemide (Lasix) 60 mg PO DAILY [facility] Last Admin: 03/17/20 08:37 Dose: Not Given Documented by: Furosemide (Lasix) 40 mg PO DAILY@1400 [facility] Last Admin: 03/16/20 15:00 Dose: 40 mg Documented by: Nystatin (Nystop) 0 gm TOP BID [facility] Last Admin: 03/17/20 09:22 Dose: 1 applic Documented by: Olanzapine (Zyprexa) 2.5 mg PO BID [facility] Ondansetron HCl (Zofran) 4 mg IV Q6H PRN PRN Reason: Nausea/Vomiting Rivaroxaban (Xarelto) 20 mg PO DAILY [facility] Last Admin: 03/17/20 08:37 Dose: Not Given Documented by: Discontinued Medications Doxycycline Hyclate (Vibramycin) 100 mg PO Q12H [facility] Last Admin: 03/15/20 03:31 Dose: Not Given Documented by: Furosemide (Lasix) 20 mg PO QPM [facility] Furosemide (Lasix) 40 mg PO QAM [facility] Last Admin: 03/12/20 09:14 Dose: 40 mg Documented by: Furosemide (Lasix) 20 mg PO DAILY@1400 [facility] Furosemide (Lasix) 40 mg PO QAM [facility] Furosemide (Lasix) 40 mg IVPUSH NOW ONE Stop: 03/12/20 12:31 Furosemide (Lasix) 40 mg IVPUSH BIDDIURETIC [facility] Last Admin: 03/14/20 16:30 Dose: Not Given Documented by: Furosemide (Lasix) 20 mg IVPUSH NOW ONE Stop: 03/12/20 12:31 Last Admin: 03/12/20 14:59 Dose: Not Given Documented by: Furosemide (Lasix) 60 mg PO ONETIME ONE Stop: 03/14/20 14:49 Last Admin: 03/14/20 16:16 Dose: 60 mg Documented by: Haloperidol (Haldol) 5 mg PO ONETIME ONE Stop: 03/15/20 13:54 Last Admin: 03/15/20 20:28 Dose: Not Given Documented by: Haloperidol Lactate (Haldol) 2 mg IM ONETIME STA Stop: 03/15/20 13:14 Last Admin: 03/15/20 20:29 Dose: Not Given Documented by: Vancomycin HCl 2 gm/ Sodium (Chloride) 500 mls @ 250 mls/hr IV ONETIME ONE Stop: 03/12/20 14:59 Last Admin: 03/12/20 15:53 Dose: Not Given Documented by: Vancomycin HCl 1 gm/Vancomycin HCl 500 mg/ Sodium Chloride 500 mls @ 250 mls/hr IV Q12H [facility] Last Admin: 03/14/20 03:37 Dose: 250 mls/hr Documented by: Vancomycin HCl 2 gm/ Sodium (Chloride) 500 mls @ 250 mls/hr IV ONETIME ONE Stop: 03/12/20 16:59 Last Admin: 03/12/20 15:57 Dose: 250 mls/hr Documented by: Lidocaine HCl (Xylocaine-Mpf 1%) Confirm Administered Dose 4 mls @ as directed .ROUTE .STK-MED ONE Stop: 03/12/20 16:02 Lorazepam (Ativan) Confirm Administered Dose 4 mg .ROUTE .STK-MED ONE Stop: 03/15/20 13:18 Last Admin: 03/15/20 20:28 Dose: Not Given Documented by: Magnesium Hydroxide (Milk Of Magnesia) 30 ml PO ONETIME ONE Stop: 03/13/20 12:08 Last Admin: 03/13/20 13:01 Dose: 30 ml Documented by: Olanzapine (Zyprexa) 2.5 mg PO BID [facility] Last Admin: 03/16/20 09:08 Dose: 2.5 mg Documented by: Olanzapine (Zyprexa) 2.5 mg PO BEDTIME [facility] Last Admin: 03/16/20 21:17 Dose: 2.5 mg Documented by: Potassium Chloride (Klor-Con M20) 20 meq PO DAILY [facility] Last Admin: 03/12/20 09:17 Dose: 20 meq Documented by: Vancomycin HCl (Pharmacy To Dose - Vancomycin) 0 dose .XX ASDIRECTED PRN PRN Reason: RX TO DOSE VANCOMYCIN - Exam Quality Assessment: DVT Prophylaxis General: Alert, Oriented (at times ), Cooperative, No Acute Distress HEENT: Pupils Equal, Pupils Reactive, Mucous Membr. Moist/[place] Neck: Supple, Trachea Midline Lungs: Clear to Auscultation, Normal Respiratory Effort Cardiovascular: Regular Rate, Regular Rhythm GI/Abdominal Exam: Normal Bowel Sounds, Soft, Non-Tender, No Distention (Male) Exam: Deferred Back Exam: Normal Inspection, Decreased Range of Motion Extremities: Normal Inspection, Pedal Edema, Limited Range of Motion. No: Leg Pain Skin: Warm, Dry, Intact Neurological: No New Focal Deficit Psy/Mental Status: Alert, Labile Mood. No: Agitated, Withdrawal Symptoms Sepsis Event Note - Evaluation Sepsis Screening Result: No Definite Risk - Focused Exam Vital Signs: Vital Signs Temp Pulse Resp BP Pulse Ox Pulse Ox 03/17/20 08:37 73 108/69 03/17/20 08:30 98.1 F 73 14 108/69 93 L 03/17/20 08:00 93 L Date Exam was Performed: 03/17/20 Time Exam was Performed: 13:29 - Problem List & Annotations (1) Hospital admission due to social situation SNOMED Code(s): 502289373 Code(s): Z60.9 - PROBLEM RELATED TO SOCIAL ENVIRONMENT, UNSPECIFIED Status: Acute Priority: High Current Visit: Yes (2) Failure to thrive in adult SNOMED Code(s): 338447136 Code(s): R62.7 - ADULT FAILURE TO THRIVE Status: Acute Priority: High Current Visit: Yes (3) Atrial fibrillation SNOMED Code(s): 22485971 Code(s): I48.91 - UNSPECIFIED ATRIAL FIBRILLATION Status: Chronic Priority: Medium Current Visit: No Qualifiers: Atrial fibrillation type: unspecified Qualified Code(s): I48.91 - Unspecified atrial fibrillation (4) Bilateral lower extremity edema SNOMED Code(s): 644362645, 18060309, 237322811 Code(s): R60.0 - LOCALIZED EDEMA Status: Chronic Priority: Medium Current Visit: No (5) Frequent falls SNOMED Code(s): 824611625 Code(s): R29.6 - REPEATED FALLS Status: Acute Priority: High Current Visit: Yes (6) Hypoalbuminemia SNOMED Code(s): 716363766 Code(s): E88.09 - OTH DISORDERS OF PLASMA-PROTEIN METABOLISM, NEC Status: Chronic Priority: Medium Current Visit: No (7) Physical deconditioning SNOMED Code(s): 58809665463831 Code(s): R53.81 - OTHER MALAISE Status: Acute Priority: High Current Visit: Yes (8) Scrotal edema SNOMED Code(s): 05672841 Code(s): N50.89 - OTHER SPECIFIED DISORDERS OF THE MALE GENITAL ORGANS Status: Chronic Priority: Medium Current Visit: Yes (9) Weakness generalized SNOMED Code(s): 88971390 Code(s): R53.1 - WEAKNESS Status: Chronic Priority: High Current Visit: Yes (10) Hypertension SNOMED Code(s): 19358471 Code(s): I10 - ESSENTIAL (PRIMARY) HYPERTENSION Status: Chronic Priority: Medium Current Visit: No Qualifiers: Hypertension type: unspecified Qualified Code(s): I10 - Essential (primary) hypertension (11) Lymphedema of left lower extremity SNOMED Code(s): 43394859098403769 Code(s): I89.0 - LYMPHEDEMA, NOT ELSEWHERE CLASSIFIED Status: Chronic Priority: Medium Current Visit: No (12) Chronic back pain SNOMED Code(s): 206318459 Code(s): M54.9 - DORSALGIA, UNSPECIFIED; G89.29 - OTHER CHRONIC PAIN Status: Chronic Priority: Medium Current Visit: No Qualifiers: Back pain location: back pain in unspecified location Back pain laterality: unspecified Qualified Code(s): M54.9 - Dorsalgia, unspecified; G89.29 - Other chronic pain (13) Obesity SNOMED Code(s): 815037887, 321966652 Code(s): E66.9 - OBESITY, UNSPECIFIED Status: Acute Current Visit: Yes Qualifiers: Obesity type: unspecified obesity type Obesity classification: adult class 3 (BMI >= 40) Serious obesity comorbidity presence: unspecified whether serious comorbidity present Body mass index: BMI 40.0-44.9 Qualified Code(s): E66.01 - Morbid (severe) obesity due to excess calories; Z68.41 - Body mass index (BMI) 40.0-44.9, adult (14) Cellulitis of perineum SNOMED Code(s): 52273785 Code(s): L03.315 - CELLULITIS OF PERINEUM Status: Acute Priority: High Current Visit: Yes (15) Exposure to COVID-19 virus SNOMED Code(s): 874605171 Code(s): Z20.828 - CONTACT W AND EXPOSURE TO OTH VIRAL COMMUNICABLE DISEASES Status: Acute Priority: High Current Visit: Yes (16) Acute psychosis SNOMED Code(s): 97365769, 21095055 Code(s): F23 - BRIEF PSYCHOTIC DISORDER Status: Acute Priority: High Current Visit: Yes (17) Confusion SNOMED Code(s): 679240792 Code(s): R41.0 - DISORIENTATION, UNSPECIFIED Status: Chronic Priority: High Current Visit: Yes (18) Hallucination SNOMED Code(s): 1739876 Code(s): R44.3 - HALLUCINATIONS, UNSPECIFIED Status: Acute Priority: High Current Visit: Yes (19) Paranoia SNOMED Code(s): 734094166 Code(s): F22 - DELUSIONAL DISORDERS Status: Acute Priority: High C urrent Visit: Yes - Problem List Review Problem List Initiated/Reviewed/Updated: Yes - My Orders Last 24 Hours: My Active Orders 03/17/20 21:00 OLANZapine [ZyPREXA] 2.5 mg PO BID 03/18/20 05:11 BASIC METABOLIC PANEL,BMP [CHEM] Routine CBC WITH AUTO DIFF [HEME] Routine MAGNESIUM [CHEM] Routine 03/18/20 08:00 CORONAVIRUS COVID-19 PCR [facility] Urgent - Plan Plan:: Acute psychosis, improved Confusion Hallucinations, resolved Paranoia, improved Acute episode of paranoia on 03/15/20 with hallucinations and refusal to take medications Has been confused since admission but suddenly was not agreeable and was upset reports prior episode at SNF but was able to be talked down by staff Haldol and ativan ordered but not given Attempted to remove whaley catheter himself -> nursing ultimately removed. Threatening legal action, refusing to answer questions 1:1 sitter initiated able to get patient to take medications Started on Zyprexa 2.5mg BID Concerned because he believes his is filing for divorce PLAN - Psychiatry consultation - Dr. Thompson agrees to Zyprexa choice - Continue Zyprexa as ordered - Continued liable mood. No agitation or anger. At times refuses medications but later becomes agreeable. - Continue to monitor Hospital admission due to social situation Failure to thrive in adult Physical deconditioning Weakness generalized Frequent falls Hypoalbuminemia Chronic back pain Presented to ED on 03/11/20 with multiple complaints Stated cannot take care of him anymore, generalized weakness, unable to get up form chair Hospitalized 01/13/20-01/19/20 with similar symptoms, A-fib with RVR; Discharged to [facility] Discharged from [facility] last week Albumin 3.2 on admission History of moderate cognitive deficient noted on [employer]AMP[employer]ACH[employer]PER[employer] cog evaluation during last admission. Were recommending assistance with all ADS at that time. PLAN - PT/OT - Food Aide consult - Consult CM/SW for discharge planning - SNF placement Cellulitis of perineum Bilateral lower extremity edema Lymphedema of left lower extremity Scrotal edema Obesity On home Cardizem and Lasix History of significant scrotal edema Very red, excoriated, and foul smelling perineal area Significant pedal and lower extremity edema Mild scrotal edema- carries hx/o significant scrotal edema Whaley catheter in place BMI of 44.4-->41.9-->41.4-->40.9 Discharge weight was 319lbs on 01/19/20. Admission weight of 327lbs; Down 10 lbs on 03/14/20 On home 40mg AM and 20mg PO Lasix Echo from 01/13/20 showed normal LVEF of 60-65% Switched from vancomycin to PO doxycycline - Repeat procalcitonin 0.06 PLAN - Continue PO doxycycline - Lasix as ordered - Monitor electrolytes - Whaley in place for I&O measuring, to keep perineal area dry - Monitor daily weights, I&Os - Food Aide consult - Elevate extremities Atrial fibrillation Hypertension On home Cardizem, Xarelto and Lasix BP 137/51 on admission PLAN - Increase Lasix as above - Continue home Cardizem and Xarelto - No need for telemetry at this time Exposure to COVID-19 Low risk exposure to COVID-19 Admission COVID-19 screen negative [facility] requesting COVID-19 test from [facility] - pending Per [facility] - they report they will take patient on Thursday if we have negative state and repeat in-house COVID-19 test No current symptoms or concerns for infection State COVID-19 testing negative PLAN - In-house COVID-19 test prior to discharge DVT propylaxis: Home Xarelto GI Prophylaxis: Not indicated Code Status: Full code (Confirmed with patient on 03/12/20) PCP: Dr. Drake Social: Recently discharged from [facility] back home. reports he is too much for her to handle at home. Disposition: Admit to inpatient for SNF placement and treatment of perineal cellulitis with IV Antibiotics. COVID-19 screen pending. No current symptoms. LOS >96Hrs pending SNF placement, Repeat COVID-19 testing required by SNF
[2020-03-17] MEDS: Furosemide 40 MG Tab PO SCH (15:05)
[2020-03-17] MEDS: OLANZapine 5 MG Tab PO SCH (19:59)
[2020-03-18] MEDS: Furosemide 20 MG Tab PO SCH (09:15)
[2020-03-18] MEDS: Doxycycline 100 MG Cap PO SCH ×2 (09:15→20:48)
[2020-03-18] MEDS: Diltiazem 120 MG Cap.CD PO SCH (09:16)
[2020-03-18] MEDS: OLANZapine 5 MG Tab PO SCH ×2 (09:19→20:49)
[2020-03-18] MEDS: Cholecalciferol (Vitamin D3) 5,000 UNIT Tab PO SCH (09:21)
[2020-03-18] MEDS: Rivaroxaban 10 MG Tab PO SCH (09:22)
[2020-03-18] MEDS: Nystatin Topical Powder 15 GM Bottle TOP SCH ×2 (09:22→20:51)
[2020-03-18] MEDS: Folic Acid 1 MG Tab PO SCH (09:22)
[2020-03-18] MEDS: Potassium Chloride 20 MEQ Tab.ER PO SCH ×2 (10:40→20:48)
--- NOTE | 2020-03-18 12:48 | PCM.PN ---
- General Info Date of Service: 03/18/20 Admission Dx/Problem (Free Text): Admission Diagnosis/Problem Admission Diagnosis/Problem Failure to thrive Functional Status: Reports: Pain Controlled, Tolerating Diet, Ambulating, Urinating. Denies: New Symptoms - Review of Systems General: Reports: No Symptoms, Weakness, Fatigue. Denies: Fever, Malaise, Chills HEENT: Reports: No Symptoms. Denies: Headaches, Sore Throat Pulmonary: Reports: No Symptoms. Denies: Shortness of Breath, Cough, Sputum, Wheezing Cardiovascular: Reports: Edema. Denies: Chest Pain, Palpitations, Dyspnea on Exertion Gastrointestinal: Reports: No Symptoms. Denies: Abdominal Pain, Constipation, Diarrhea, Nausea, Vomiting Genitourinary: Reports: No Symptoms. Denies: Pain Musculoskeletal: Reports: No Symptoms Skin: Reports: No Symptoms. Denies: Cyanosis Neurological: Reports: Confusion, Difficulty Walking, Weakness, Gait Disturbance. Denies: Numbness, Tingling Psychiatric: Reports: No Symptoms - Patient Data Vitals - Most Recent: Last Vital Signs Temp 97.4 F 03/18/20 03:00 Pulse 70 03/18/20 09:16 Resp 20 03/18/20 07:50 BP 125/63 03/18/20 09:16 Pulse Ox 94 L 03/18/20 07:50 Weight - Most Recent: 309 lb 12.732 oz I&O - Last 24 Hours: Intake & Output 03/17/20 03/18/20 03/18/20 22:59 06:59 14:59 Intake Total 1080 Output Total 450 Balance 630 Lab Results Last 24 Hours: Laboratory Results - last 24 hr 03/18/20 03/18/20 Range/Units 06:28 06:28 WBC 9.34 H (4.23-9.07) K/mm3 RBC 5.52 (4.63-6.08) M/mm3 Hgb 15.7 (13.7-17.5) gm/dl Hct 48.3 (40.1-51.0) % MCV 87.5 (79.0-92.2) fl MCH 28.4 (25.7-32.2) pg MCHC 32.5 (32.2-35.5) g/dl RDW Std Deviation 45.1 H (35.1-43.9) fL Plt Count 345 H (163-337) K/mm3 MPV 9.6 (9.4-12.3) fl Neut % (Auto) 71.4 H (34.0-67.9) % Lymph % (Auto) 13.6 L (21.8-53.1) % [place]son % (Auto) 8.9 (5.3-12.2) % Eos % (Auto) 4.4 (0.8-7.0) Baso % (Auto) 0.6 (0.1-1.2) % Neut # (Auto) 6.67 H (1.78-5.38) K/mm3 Lymph # (Auto) 1.27 L (1.32-3.57) K/mm3 Anson # (Auto) 0.83 H (0.30-0.82) K/mm3 Eos # (Auto) 0.41 (0.04-0.54) K/mm3 Baso # (Auto) 0.06 (0.01-0.08) K/mm3 Sodium 142 (136-145) mEq/L Potassium 3.4 L (3.5-5.1) mEq/L Chloride 103 (98-107) mEq/L Carbon Dioxide 33 H (21-32) mEq/L Anion Gap 9.4 (5-15) BUN 23 H (7-18) mg/dL Creatinine 1.1 (0.7-1.3) mg/dL Est Cr Clr Drug Dosing 62.55 mL/min Estimated GFR (MDRD) > 60 (>60) mL/min BUN/Creatinine Ratio 20.9 H (14-18) Glucose 114 (83-115) mg/dL Calcium 8.9 (8.5-10.1) mg/dL Magnesium 2.3 (1.8-2.4) mg/dl Med Orders - Current: Current Medications Cholecalciferol (Vitamin D3) 5,000 unit PO DAILY [facility] Last Admin: 03/18/20 09:21 Dose: 5,000 unit Documented by: Diltiazem HCl (Cardizem Cd) 120 mg PO DAILY [facility] Last Admin: 03/18/20 09:16 Dose: 120 mg Documented by: Doxycycline Hyclate (Vibramycin) 100 mg PO BID [facility] Last Admin: 03/18/20 09:15 Dose: 100 mg Documented by: Folic Acid (Folic Acid) 1 mg PO DAILY [facility] Last Admin: 03/18/20 09:22 Dose: 1 mg Documented by: Furosemide (Lasix) 60 mg PO DAILY [facility] Last Admin: 03/18/20 09:15 Dose: 60 mg Documented by: Furosemide (Lasix) 40 mg PO DAILY@1400 [facility] Last Admin: 03/17/20 15:05 Dose: 40 mg Documented by: Nystatin (Nystop) 0 gm TOP BID [facility] Last Admin: 03/18/20 09:22 Dose: 1 applic Documented by: Olanzapine (Zyprexa) 2.5 mg PO BID [facility] Last Admin: 03/18/20 09:19 Dose: 2.5 mg Documented by: Ondansetron HCl (Zofran) 4 mg IV Q6H PRN PRN Reason: Nausea/Vomiting Potassium Chloride (Klor-Con M20) 20 meq PO BID [facility] Stop: 03/19/20 09:01 Last Admin: 03/18/20 10:40 Dose: 20 meq Documented by: Rivaroxaban (Xarelto) 20 mg PO DAILY [facility] Last Admin: 03/18/20 09:22 Dose: 20 mg Documented by: Discontinued Medications Doxycycline Hyclate (Vibramycin) 100 mg PO Q12H [facility] Last Admin: 03/15/20 03:31 Dose: Not Given Documented by: Furosemide (Lasix) 20 mg PO QPM [facility] Furosemide (Lasix) 40 mg PO QAM [facility] Last Admin: 03/12/20 09:14 Dose: 40 mg Documented by: Furosemide (Lasix) 20 mg PO DAILY@1400 [facility] Furosemide (Lasix) 40 mg PO QAM [facility] Furosemide (Lasix) 40 mg IVPUSH NOW ONE Stop: 03/12/20 12:31 Furosemide (Lasix) 40 mg IVPUSH BIDDIURETIC [facility] Last Admin: 03/14/20 16:30 Dose: Not Given Documented by: Furosemide (Lasix) 20 mg IVPUSH NOW ONE Stop: 03/12/20 12:31 Last Admin: 03/12/20 14:59 Dose: Not Given Documented by: Furosemide (Lasix) 60 mg PO ONETIME ONE Stop: 03/14/20 14:49 Last Admin: 03/14/20 16:16 Dose: 60 mg Documented by: Haloperidol (Haldol) 5 mg PO ONETIME ONE Stop: 03/15/20 13:54 Last Admin: 03/15/20 20:28 Dose: Not Given Documented by: Haloperidol Lactate (Haldol) 2 mg IM ONETIME STA Stop: 03/15/20 13:14 Last Admin: 03/15/20 20:29 Dose: Not Given Documented by: Vancomycin HCl 2 gm/ Sodium (Chloride) 500 mls @ 250 mls/hr IV ONETIME ONE Stop: 03/12/20 14:59 Last Admin: 03/12/20 15:53 Dose: Not Given Documented by: Vancomycin HCl 1 gm/Vancomycin HCl 500 mg/ Sodium Chloride 500 mls @ 250 mls/hr IV Q12H [facility] Last Admin: 03/14/20 03:37 Dose: 250 mls/hr Documented by: Vancomycin HCl 2 gm/ Sodium (Chloride) 500 mls @ 250 mls/hr IV ONETIME ONE Stop: 03/12/20 16:59 Last Admin: 03/12/20 15:57 Dose: 250 mls/hr Documented by: Lidocaine HCl (Xylocaine-Mpf 1%) Confirm Administered Dose 4 mls @ as directed .ROUTE .STK-MED ONE Stop: 03/12/20 16:02 Lorazepam (Ativan) Confirm Administered Dose 4 mg .ROUTE .STK-MED ONE Stop: 03/15/20 13:18 Last Admin: 03/15/20 20:28 Dose: Not Given Documented by: Magnesium Hydroxide (Milk Of Magnesia) 30 ml PO ONETIME ONE Stop: 03/13/20 12:08 Last Admin: 03/13/20 13:01 Dose: 30 ml Documented by: Olanzapine (Zyprexa) 2.5 mg PO BID [facility] Last Admin: 03/16/20 09:08 Dose: 2.5 mg Documented by: Olanzapine (Zyprexa) 2.5 mg PO BEDTIME [facility] Last Admin: 03/16/20 21:17 Dose: 2.5 mg Documented by: Potassium Chloride (Klor-Con M20) 20 meq PO DAILY [facility] Last Admin: 03/12/20 09:17 Dose: 20 meq Documented by: Vancomycin HCl (Pharmacy To Dose - Vancomycin) 0 dose .XX ASDIRECTED PRN PRN Reason: RX TO DOSE VANCOMYCIN - Exam Quality Assessment: DVT Prophylaxis. No: Supplemental Oxygen, Urine Catheter General: Alert, Oriented (at times ), Cooperative, No Acute Distress HEENT: Pupils Equal, Pupils Reactive, Mucous Membr. Moist/[place] Neck: Supple, Trachea Midline Lungs: Clear to Auscultation, Normal Respiratory Effort Cardiovascular: Regular Rate, Regular Rhythm GI/Abdominal Exam: Normal Bowel Sounds, Soft, Non-Tender, No Distention (Male) Exam: Scrotal Swelling (minimal ), Other (Perineal inflammation. ) Back Exam: Normal Inspection, Full Range of Motion Extremities: Normal Inspection, Normal Range of Motion, Non-Tender, Normal Capillary Refill, Pedal Edema Skin: Dry, Intact Wound/Incisions: No Drainage. No: Erythema Neurological: No New Focal Deficit Psy/Mental Status: Alert, Anxious. No: Labile Mood, Agitated, Hallucinations Sepsis Event Note - Evaluation Sepsis Screening Result: No Definite Risk - Focused Exam Vital Signs: Vital Signs Temp Pulse Resp BP BP Pulse Ox 03/18/20 09:16 70 125/63 03/18/20 07:50 70 20 108/62 94 L 03/18/20 03:11 161/91 H 03/18/20 03:00 97.4 F 17 161/91 H 95 Date Exam was Performed: 03/18/20 Time Exam was Performed: 13:41 - Problem List & Annotations (1) Hospital admission due to social situation SNOMED Code(s): 940421340 Code(s): Z60.9 - PROBLEM RELATED TO SOCIAL ENVIRONMENT, UNSPECIFIED Status: Acute Priority: High Current Visit: Yes (2) Failure to thrive in adult SNOMED Code(s): 414932071 Code(s): R62.7 - ADULT FAILURE TO THRIVE Status: Acute Priority: High Current Visit: Yes (3) Atrial fibrillation SNOMED Code(s): 47678078 Code(s): I48.91 - UNSPECIFIED ATRIAL FIBRILLATION Status: Chronic Priority: Medium Current Visit: No Qualifiers: Atrial fibrillation type: unspecified Qualified Code(s): I48.91 - Unspecified atrial fibrillation (4) Bilateral lower extremity edema SNOMED Code(s): 967046586, 62582685, 741471915 Code(s): R60.0 - LOCALIZED EDEMA Status: Chronic Priority: Medium Current Visit: No (5) Frequent falls SNOMED Code(s): 790385128 Code(s): R29.6 - REPEATED FALLS Status: Acute Priority: High Current Visit: Yes (6) Hypoalbuminemia SNOMED Code(s): 545320684 Code(s): E88.09 - OTH DISORDERS OF PLASMA-PROTEIN METABOLISM, NEC Status: Chronic Priority: Medium Current Visit: No (7) Physical deconditioning SNOMED Code(s): 46715082446409 Code(s): R53.81 - OTHER MALAISE Status: Acute Priority: High Current Visit: Yes (8) Scrotal edema SNOMED Code(s): 64023759 Code(s): N50.89 - OTHER SPECIFIED DISORDERS OF THE MALE GENITAL ORGANS Status: Chronic Priority: Medium Current Visit: Yes (9) Weakness generalized SNOMED Code(s): 81457705 Code(s): R53.1 - WEAKNESS Status: Chronic Priority: High Current Visit: Yes (10) Hypertension SNOMED Code(s): 67941159 Code(s): I10 - ESSENTIAL (PRIMARY) HYPERTENSION Status: Chronic Priority: Medium Current Visit: No Qualifiers: Hypertension type: unspecified Qualified Code(s): I10 - Essential (primary) hypertension (11) Lymphedema of left lower extremity SNOMED Code(s): 00619936497023577 Code(s): I89.0 - LYMPHEDEMA, NOT ELSEWHERE CLASSIFIED Status: Chronic Priority: Medium Current Visit: No (12) Chronic back pain SNOMED Code(s): 614911201 Code(s): M54.9 - DORSALGIA, UNSPECIFIED; G89.29 - OTHER CHRONIC PAIN Status: Chronic Priority: Medium Current Visit: No Qualifiers: Back pain location: back pain in unspecified location Back pain laterality: unspecified Qualified Code(s): M54.9 - Dorsalgia, unspecified; G89.29 - Other chronic pain (13) Obesity SNOMED Code(s): 523003734, 670080155 Code(s): E66.9 - OBESITY, UNSPECIFIED Status: Acute Current Visit: Yes Qualifiers: Obesity type: unspecified obesity type Obesity classification: adult class 3 (BMI >= 40) Serious obesity comorbidity presence: unspecified whether serious comorbidity present Body mass index: BMI 40.0-44.9 Qualified Code(s): E66.01 - Morbid (severe) obesity due to excess calories; Z68.41 - Body mass index (BMI) 40.0-44.9, adult (14) Cellulitis of perineum SNOMED Code(s): 31887384 Code(s): L03.315 - CELLULITIS OF PERINEUM Status: Acute Priority: High Current Visit: Yes (15) Exposure to COVID-19 virus SNOMED Code(s): 025147952 Code(s): Z20.828 - CONTACT W AND EXPOSURE TO OTH VIRAL COMMUNICABLE DISEASES Status: Acute Priority: High Current Visit: Yes (16) Acute psychosis SNOMED Code(s): 97911232, 46421729 Code(s): F23 - BRIEF PSYCHOTIC DISORDER Status: Acute Priority: High Current Visit: Yes (17) Confusion SNOMED Code(s): 676433225 Code(s): R41.0 - DISORIENTATION, UNSPECIFIED Status: Chronic Priority: High Current Visit: Yes (18) Hallucination SNOMED Code(s): 4433412 Code(s): R44.3 - HALLUCINATIONS, UNSPECIFIED Status: Acute Priority: High Current Visit: Yes (19) Paranoia SNOMED Code(s): 606560808 Code(s): F22 - DELUSIONAL DISORDERS Status: Acute Priority: High Current Visit: Yes (20) Hypokalemia SNOMED Code(s): 57438427 Code(s): E87.6 - HYPOKALEMIA Status: Acute Priority: High Current Visit: Yes - Problem List Review Problem List Initiated/Reviewed/Updated: Yes - My Orders Last 24 Hours: My Active Orders 03/17/20 21:00 OLANZapine [ZyPREXA] 2.5 mg PO BID 03/18/20 08:00 CORONAVIRUS COVID-19 PCR [facility] Urgent 03/18/20 09:30 Potassium Chloride [Klor-Con M20] 20 meq PO BID - Plan Plan:: Acute psychosis, improved Confusion Hallucinations, resolved Paranoia, improved Acute episode of paranoia on 03/15/20 with hallucinations and refusal to take medications Has been confused since admission but suddenly was not agreeable and was upset on 03/16/20 reports prior episode at SNF but was able to be talked down by staff Haldol and ativan ordered but not given Attempted to remove whaley catheter himself -> nursing ultimately removed. Threatening legal action, refusing to answer questions -> resolved 03/17/20 1:1 sitter initiated and then discontinued next day able to get patient to take medications Started on Zyprexa 2.5mg BID Concerned because he believes his is filing for divorce Much improved on 03/17-12/18/19 Continued liable mood. No agitation or anger. Taking medications today and allowed lab draw Psychiatry consultation - Dr. Thompson agrees to Zyprexa choice PLAN - Continue Zyprexa as ordered - Continue to monitor Hospital admission due to social situation Failure to thrive in adult Physical deconditioning Weakness generalized Frequent falls Hypoalbuminemia Chronic back pain Hypokalemia Presented to ED on 03/11/20 with multiple complaints Stated cannot take care of him anymore, generalized weakness, unable to get up form chair Hospitalized 01/13/20-01/19/20 with similar symptoms, A-fib with RVR; Discharged to [facility] Discharged from [facility] last week Albumin 3.2 on admission History of moderate cognitive deficient noted on [employer] cog evaluation during last admission. Were recommending assistance with all ADS at that time. Potassium 3.4 PLAN - PT/OT - Poultry Scientist consult - Consult CM/SW for discharge planning - SNF placement - Oral potassium supplementation Cellulitis of perineum Bilateral lower extremity edema Lymphedema of left lower extremity Scrotal edema Obesity On home Cardizem and Lasix History of significant scrotal edema Very red, excoriated, and foul smelling perineal area Significant pedal and lower extremity edema Mild scrotal edema- carries hx/o significant scrotal edema Whaley catheter in place BMI of 44.4-->41.9-->41.4-->40.9 Discharge weight was 319lbs on 01/19/20. Admission weight of 327lbs; Down 10 lbs on 03/14/20 On home 40mg AM and 20mg PO Lasix Echo from 01/13/20 showed normal LVEF of 60-65% Switched from vancomycin to PO doxycycline - Repeat procalcitonin 0.06 PLAN - Continue PO doxycycline - Lasix as ordered - Monitor electrolytes - Whaley in place for I&O measuring, to keep perineal area dry - Monitor daily weights, I&Os - Poultry Scientist consult - Elevate extremities Atrial fibrillation Hypertension On home Cardizem, Xarelto and Lasix BP 137/51 on admission PLAN - Increase Lasix as above - Continue home Cardizem and Xarelto - No need for telemetry at this time Exposure to COVID-19 Low risk exposure to COVID-19 Admission COVID-19 screen negative [facility] requesting COVID-19 test from [facility] - pending Per [place] - they report they will take patient on Thursday if we have negative state and repeat in-house COVID-19 test No current symptoms or concerns for infection State COVID-19 testing negative PLAN - In-house COVID-19 test prior to discharge DVT propylaxis: Home Xarelto GI Prophylaxis: Not indicated Code Status: Full code (Confirmed with patient on 03/12/20) PCP: Dr. Drake Social: Recently discharged from [facility] back home. reports he is too much for her to handle at home. Disposition: Admit to inpatient for SNF placement and treatment of perineal cellulitis with IV Antibiotics. COVID-19 screen pending. No current symptoms. LOS >96Hrs pending SNF placement, Repeat COVID-19 testing required by SNF
[2020-03-18] MEDS: Furosemide 40 MG Tab PO SCH (14:51)
[2020-03-19] MEDS: Potassium Chloride 20 MEQ Tab.ER PO SCH (08:30)
[2020-03-19] MEDS: OLANZapine 5 MG Tab PO SCH ×2 (08:31→20:35)
[2020-03-19] MEDS: Cholecalciferol (Vitamin D3) 5,000 UNIT Tab PO SCH (08:31)
[2020-03-19] MEDS: Doxycycline 100 MG Cap PO SCH ×2 (08:33→20:35)
[2020-03-19] MEDS: Nystatin Topical Powder 15 GM Bottle TOP SCH (08:35)
[2020-03-19] MEDS: Diltiazem 120 MG Cap.CD PO SCH (08:36)
[2020-03-19] MEDS: Rivaroxaban 10 MG Tab PO SCH (08:36)
[2020-03-19] MEDS: Folic Acid 1 MG Tab PO SCH (08:36)
[2020-03-19] MEDS: Furosemide 20 MG Tab PO SCH (08:36)
--- NOTE | 2020-03-19 11:05 | PCM.PN ---
- General Info Date of Service: 03/19/20 Admission Dx/Problem (Free Text): Admission Diagnosis/Problem Admission Diagnosis/Problem Failure to thrive Functional Status: Reports: Pain Controlled, Tolerating Diet, Ambulating (with assistance ), Urinating. Denies: New Symptoms - Review of Systems General: Reports: Weakness. Denies: Fever, Fatigue, Malaise, Chills HEENT: Reports: No Symptoms. Denies: Headaches, Sore Throat Pulmonary: Reports: No Symptoms. Denies: Shortness of Breath, Cough, Sputum, Wheezing Cardiovascular: Reports: Edema. Denies: Chest Pain, Palpitations Gastrointestinal: Reports: No Symptoms. Denies: Abdominal Pain, Constipation, Diarrhea, Nausea, Vomiting Genitourinary: Reports: No Symptoms. Denies: Pain Musculoskeletal: Reports: No Symptoms Skin: Reports: Other (Prineal groin rash improved ) Neurological: Reports: Confusion, Pre-Existing Deficit, Difficulty Walking, Weakness, Gait Disturbance. Denies: Numbness, Tingling Psychiatric: Reports: No Symptoms - Patient Data Vitals - Most Recent: Last Vital Signs Temp 97.0 F 03/19/20 08:03 Pulse 73 03/19/20 08:36 Resp 20 03/19/20 08:03 BP 110/71 03/19/20 08:36 Pulse Ox 95 03/19/20 08:03 Weight - Most Recent: 308 lb 4.8 oz I&O - Last 24 Hours: Intake & Output 03/18/20 03/19/20 03/19/20 22:59 06:59 14:59 Intake Total 1120 500 360 Output Total 600 1250 Balance 520 -750 360 Med Orders - Current: Current Medications Cholecalciferol (Vitamin D3) 5,000 unit PO DAILY [facility] Last Admin: 03/19/20 08:31 Dose: 5,000 unit Documented by: Diltiazem HCl (Cardizem Cd) 120 mg PO DAILY [facility] Last Admin: 03/19/20 08:36 Dose: 120 mg Documented by: Doxycycline Hyclate (Vibramycin) 100 mg PO BID [facility] Last Admin: 03/19/20 08:33 Dose: 100 mg Documented by: Folic Acid (Folic Acid) 1 mg PO DAILY [facility] Last Admin: 03/19/20 08:36 Dose: 1 mg Documented by: Furosemide (Lasix) 60 mg PO DAILY [facility] Last Admin: 03/19/20 08:36 Dose: 60 mg Documented by: Furosemide (Lasix) 40 mg PO DAILY@1400 [facility] Last Admin: 03/18/20 14:51 Dose: 40 mg Documented by: Nystatin (Nystop) 0 gm TOP BID [facility] Last Admin: 03/19/20 08:35 Dose: 1 applic Documented by: Olanzapine (Zyprexa) 2.5 mg PO BID [facility] Last Admin: 03/19/20 08:31 Dose: 2.5 mg Documented by: Ondansetron HCl (Zofran) 4 mg IV Q6H PRN PRN Reason: Nausea/Vomiting Rivaroxaban (Xarelto) 20 mg PO DAILY [facility] Last Admin: 03/19/20 08:36 Dose: 20 mg Documented by: Discontinued Medications Doxycycline Hyclate (Vibramycin) 100 mg PO Q12H [facility] Last Admin: 03/15/20 03:31 Dose: Not Given Documented by: Furosemide (Lasix) 20 mg PO QPM [facility] Furosemide (Lasix) 40 mg PO QAM [facility] Last Admin: 03/12/20 09:14 Dose: 40 mg Documented by: Furosemide (Lasix) 20 mg PO DAILY@1400 [facility] Furosemide (Lasix) 40 mg PO QAM [facility] Furosemide (Lasix) 40 mg IVPUSH NOW ONE Stop: 03/12/20 12:31 Furosemide (Lasix) 40 mg IVPUSH BIDDIURETIC [facility] Last Admin: 03/14/20 16:30 Dose: Not Given Documented by: Furosemide (Lasix) 20 mg IVPUSH NOW ONE Stop: 03/12/20 12:31 Last Admin: 03/12/20 14:59 Dose: Not Given Documented by: Furosemide (Lasix) 60 mg PO ONETIME ONE Stop: 03/14/20 14:49 Last Admin: 03/14/20 16:16 Dose: 60 mg Documented by: Haloperidol (Haldol) 5 mg PO ONETIME ONE Stop: 03/15/20 13:54 Last Admin: 03/15/20 20:28 Dose: Not Given Documented by: Haloperidol Lactate (Haldol) 2 mg IM ONETIME STA Stop: 03/15/20 13:14 Last Admin: 03/15/20 20:29 Dose: Not Given Documented by: Vancomycin HCl 2 gm/ Sodium (Chloride) 500 mls @ 250 mls/hr IV ONETIME ONE Stop: 03/12/20 14:59 Last Admin: 03/12/20 15:53 Dose: Not Given Documented by: Vancomycin HCl 1 gm/Vancomycin HCl 500 mg/ Sodium Chloride 500 mls @ 250 mls/hr IV Q12H [facility] Last Admin: 03/14/20 03:37 Dose: 250 mls/hr Documented by: Vancomycin HCl 2 gm/ Sodium (Chloride) 500 mls @ 250 mls/hr IV ONETIME ONE Stop: 03/12/20 16:59 Last Admin: 03/12/20 15:57 Dose: 250 mls/hr Documented by: Lidocaine HCl (Xylocaine-Mpf 1%) Confirm Administered Dose 4 mls @ as directed .ROUTE .STK-MED ONE Stop: 03/12/20 16:02 Lorazepam (Ativan) Confirm Administered Dose 4 mg .ROUTE .STK-MED ONE Stop: 03/15/20 13:18 Last Admin: 03/15/20 20:28 Dose: Not Given Documented by: Magnesium Hydroxide (Milk Of Magnesia) 30 ml PO ONETIME ONE Stop: 03/13/20 12:08 Last Admin: 03/13/20 13:01 Dose: 30 ml Documented by: Olanzapine (Zyprexa) 2.5 mg PO BID [facility] Last Admin: 03/16/20 09:08 Dose: 2.5 mg Documented by: Olanzapine (Zyprexa) 2.5 mg PO BEDTIME [facility] Last Admin: 03/16/20 21:17 Dose: 2.5 mg Documented by: Potassium Chloride (Klor-Con M20) 20 meq PO DAILY [facility] Last Admin: 03/12/20 09:17 Dose: 20 meq Documented by: Potassium Chloride (Klor-Con M20) 20 meq PO BID [facility] Stop: 03/19/20 09:01 Last Admin: 03/19/20 08:30 Dose: 20 meq Documented by: Vancomycin HCl (Pharmacy To Dose - Vancomycin) 0 dose .XX ASDIRECTED PRN PRN Reason: RX TO DOSE VANCOMYCIN - Exam Quality Assessment: DVT Prophylaxis General: Alert, Oriented (at times ), Cooperative, No Acute Distress HEENT: Pupils Equal, Pupils Reactive, Mucous Membr. Moist/[place] Neck: Supple, Trachea Midline Lungs: Clear to Auscultation, Normal Respiratory Effort Cardiovascular: Regular Rate, Regular Rhythm GI/Abdominal Exam: Normal Bowel Sounds, Soft, Non-Tender, No Distention (Male) Exam: Deferred Back Exam: Normal Inspection, Full Range of Motion Extremities: Normal Inspection, Normal Range of Motion, Non-Tender, Pedal Edema Skin: Warm, Dry, Intact Wound/Incisions: No Drainage, Erythema Improving Neurological: No New Focal Deficit Psy/Mental Status: Alert. No: Anxious, Depressed, Agitated Sepsis Event Note - Evaluation Sepsis Screening Result: No Definite Risk - Focused Exam Vital Signs: Vital Signs Temp Pulse Resp BP Pulse Ox 03/19/20 08:36 73 110/71 03/19/20 08:03 97.0 F 83 20 110/71 95 03/19/20 05:40 97.9 F 73 13 123/67 96 Date Exam was Performed: 03/19/20 Time Exam was Performed: 11:01 - Problem List & Annotations (1) Hospital admission due to social situation SNOMED Code(s): 432764504 Code(s): Z60.9 - PROBLEM RELATED TO SOCIAL ENVIRONMENT, UNSPECIFIED Status: Acute Priority: High Current Visit: Yes (2) Failure to thrive in adult SNOMED Code(s): 746989955 Code(s): R62.7 - ADULT FAILURE TO THRIVE Status: Acute Priority: High Current Visit: Yes (3) Atrial fibrillation SNOMED Code(s): 59131391 Code(s): I48.91 - UNSPECIFIED ATRIAL FIBRILLATION Status: Chronic Priority: Medium Current Visit: No Qualifiers: Atrial fibrillation type: unspecified Qualified Code(s): I48.91 - Unspecified atrial fibrillation (4) Bilateral lower extremity edema SNOMED Code(s): 712873370, 61927866, 449812798 Code(s): R60.0 - LOCALIZED EDEMA Status: Chronic Priority: Medium Current Visit: No (5) Frequent falls SNOMED Code(s): 423590359 Code(s): R29.6 - REPEATED FALLS Status: Acute Priority: High Current Visit: Yes (6) Hypoalbuminemia SNOMED Code(s): 839299652 Code(s): E88.09 - OTH DISORDERS OF PLASMA-PROTEIN METABOLISM, NEC Status: Chronic Priority: Medium Current Visit: No (7) Physical deconditioning SNOMED Code(s): 84359103087993 Code(s): R53.81 - OTHER MALAISE Status: Acute Priority: High Current Visit: Yes (8) Scrotal edema SNOMED Code(s): 29175969 Code(s): N50.89 - OTHER SPECIFIED DISORDERS OF THE MALE GENITAL ORGANS Status: Chronic Priority: Medium Current Visit: Yes (9) Weakness generalized SNOMED Code(s): 86038696 Code(s): R53.1 - WEAKNESS Status: Chronic Priority: High Current Visit: Yes (10) Hypertension SNOMED Code(s): 55041932 Code(s): I10 - ESSENTIAL (PRIMARY) HYPERTENSION Status: Chronic Priority: Medium Current Visit: No Qualifiers: Hypertension type: unspecified Qualified Code(s): I10 - Essential (primary) hypertension (11) Lymphedema of left lower extremity SNOMED Code(s): 56075755645820429 Code(s): I89.0 - LYMPHEDEMA, NOT ELSEWHERE CLASSIFIED Status: Chronic Priority: Medium Current Visit: No (12) Chronic back pain SNOMED Code(s): 554938313 Code(s): M54.9 - DORSALGIA, UNSPECIFIED; G89.29 - OTHER CHRONIC PAIN Status: Chronic Priority: Medium Current Visit: No Qualifiers: Back pain location: back pain in unspecified location Back pain laterality: unspecified Qualified Code(s): M54.9 - Dorsalgia, unspecified; G89.29 - Other chronic pain (13) Obesity SNOMED Code(s): 660790619, 472912594 Code(s): E66.9 - OBESITY, UNSPECIFIED Status: Acute Current Visit: Yes Qualifiers: Obesity type: unspecified obesity type Obesity classification: adult class 3 (BMI >= 40) Serious obesity comorbidity presence: unspecified whether serious comorbidity present Body mass index: BMI 40.0-44.9 Qualified Code(s): E66.01 - Morbid (severe) obesity due to excess calories; Z68.41 - Body mass index (BMI) 40.0-44.9, adult (14) Cellulitis of perineum SNOMED Code(s): 15220329 Code(s): L03.315 - CELLULITIS OF PERINEUM Status: Acute Priority: High Current Visit: Yes (15) Exposure to COVID-19 virus SNOMED Code(s): 764033242 Code(s): Z20.828 - CONTACT W AND EXPOSURE TO OTH VIRAL COMMUNICABLE DISEASES Status: Acute Priority: High Current Visit: Yes (16) Acute psychosis SNOMED Code(s): 07587007, 53850739 Code(s): F23 - BRIEF PSYCHOTIC DISORDER Status: Acute Priority: High Current Visit: Yes (17) Confusion SNOMED Code(s): 442448381 Code(s): R41.0 - DISORIENTATION, UNSPECIFIED Status: Chronic Priority: High Current Visit: Yes (18) Hallucination SNOMED Code(s): 0607302 Code(s): R44.3 - HALLUCINATIONS, UNSPECIFIED Status: Acute Priority: High Current Visit: Yes (19) Paranoia SNOMED Code(s): 699069014 Code(s): F22 - DELUSIONAL DISORDERS Status: Acute Priority: High Current Visit: Yes (20) Hypokalemia SNOMED Code(s): 48948537 Code(s): E87.6 - HYPOKALEMIA Status: Acute Priority: High Current Visit: Yes - Problem List Review Problem List Initiated/Reviewed/Updated: Yes - Plan Plan:: Acute psychosis, improved Confusion Hallucinations, resolved Paranoia, improved Acute episode of paranoia on 03/15/20 with hallucinations and refusal to take medications Has been confused since admission but suddenly was not agreeable and was upset on 03/16/20 reports prior episode at SNF but was able to be talked down by staff Hall and ativan ordered but not given Attempted to remove whaley catheter himself -> nursing ultimately removed. Threatening legal action, refusing to answer questions -> resolved 03/17/20 1:1 sitter initiated and then discontinued next day able to get patient to take medications Started on Zyprexa 2.5mg BID Concerned because he believes his is filing for divorce Much improved on 03/17-12/18/19 Continued liable mood. No agitation or anger. Taking medications today and allowed lab draw Psychiatry consultation - Dr. Thompson agrees to Zyprexa choice PLAN - Continue Zyprexa as ordered - Continue to monitor Hospital admission due to social situation Failure to thrive in adult Physical deconditioning Weakness generalized Frequent falls Hypoalbuminemia Chronic back pain Hypokalemia Presented to ED on 03/11/20 with multiple complaints Stated cannot take care of him anymore, generalized weakness, unable to get up form chair Hospitalized 01/13/20-01/19/20 with similar symptoms, A-fib with RVR; Discharged to [facility] Discharged from [facility] last week Albumin 3.2 on admission History of moderate cognitive deficient noted 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 Were recommending assistance with all ADS at that time. Potassium 3.4 - supplemented PLAN - PT/OT - Engineering Documentation Specialist consult - Consult CM/SW for discharge planning - SNF placement - Oral potassium supplementation Cellulitis of perineum Bilateral lower extremity edema Lymphedema of left lower extremity Scrotal edema Obesity On home Cardizem and Lasix History of significant scrotal edema Very red, excoriated, and foul smelling perineal area Significant pedal and lower extremity edema Mild scrotal edema- carries hx/o significant scrotal edema Whaley catheter in place BMI of 44.4-->41.9-->41.4-->40.9-->40.7 Discharge weight was 319lbs on 01/19/20. Admission weight of 327lbs; Down 10 lbs on 03/14/20 On home 40mg AM and 20mg PO Lasix Echo from 01/13/20 showed normal LVEF of 60-65% Switched from vancomycin to PO doxycycline Repeat procalcitonin 0.06 PLAN - Continue PO doxycycline - Lasix as ordered - Monitor electrolytes - Whaley in place for I&O measuring, to keep perineal area dry - Monitor daily weights, I&Os - Engineering Documentation Specialist consult - Elevate extremities Atrial fibrillation Hypertension On home Cardizem, Xarelto and Lasix BP 137/51 on admission PLAN - Increase Lasix as above - Continue home Cardizem and Xarelto - No need for telemetry at this time Exposure to COVID-19 Low risk exposure to COVID-19 Admission COVID-19 screen negative [facility] requesting COVID-19 test from State - pending Per [place] - they report they will take patient on Thursday if we have negative state and repeat in-house COVID-19 test No current symptoms or concerns for infection State COVID-19 testing negative PLAN - In-house COVID-19 test prior to discharge DVT propylaxis: Home Xarelto GI Prophylaxis: Not indicated Code Status: Full code (Confirmed with patient on 03/12/20) PCP: Dr. Drake Social: Recently discharged from [facility] back home. reports he is too much for her to handle at home. Disposition: Admit to inpatient for SNF placement and treatment of perineal cellulitis with IV Antibiotics. COVID-19 screen pending. No current symptoms. LOS >96Hrs pending SNF placement, Repeat COVID-19 testing required by SNF being performed Thursday- likely discharge or Thursday
[2020-03-19] MEDS: Furosemide 40 MG Tab PO SCH (15:41)
[2020-03-20] MEDS: Nystatin Topical Powder 15 GM Bottle TOP SCH ×3 (00:21→21:52)
--- NOTE | 2020-03-20 07:39 | PCM.PN ---
- General Info Date of Service: 03/20/20 Admission Dx/Problem (Free Text): Admission Diagnosis/Problem Admission Diagnosis/Problem Failure to thrive Functional Status: Reports: Pain Controlled, Tolerating Diet, Ambulating, Urinating. Denies: New Symptoms - Review of Systems General: Reports: Weakness, Fatigue. Denies: Fever, Malaise, Chills HEENT: Reports: No Symptoms. Denies: Headaches, Sore Throat Pulmonary: Reports: No Symptoms. Denies: Shortness of Breath, Pleuritic Chest Pain, Cough, Sputum, Wheezing Cardiovascular: Reports: Edema. Denies: Chest Pain, Palpitations, Dyspnea on Exertion Gastrointestinal: Reports: No Symptoms. Denies: Abdominal Pain, Constipation, Diarrhea, Nausea, Vomiting Genitourinary: Reports: No Symptoms. Denies: Pain Musculoskeletal: Reports: No Symptoms Skin: Reports: No Symptoms. Denies: Cyanosis Neurological: Reports: Confusion, Difficulty Walking, Weakness, Gait Disturbance. Denies: Dizziness, Headache, Numbness, Syncope, Tingling Psychiatric: Reports: No Symptoms - Patient Data Vitals - Most Recent: Last Vital Signs Temp 98.6 F 03/20/20 02:33 Pulse 89 03/20/20 02:33 Resp 18 03/20/20 02:33 BP 129/74 03/20/20 02:33 Pulse Ox 97 03/20/20 02:33 Weight - Most Recent: 309 lb I&O - Last 24 Hours: Intake & Output 03/19/20 03/20/20 03/20/20 22:59 06:59 14:59 Intake Total 860 350 Output Total 950 Balance 860 -600 Lab Results Last 24 Hours: Laboratory Results - last 24 hr 03/20/20 Range/Units 06:36 Sodium 139 (136-145) mEq/L Potassium 3.5 (3.5-5.1) mEq/L Chloride 101 (98-107) mEq/L Carbon Dioxide 28 (21-32) mEq/L Anion Gap 13.5 (5-15) BUN 17 (7-18) mg/dL Creatinine 1.1 (0.7-1.3) mg/dL Est Cr Clr Drug Dosing 62.55 mL/min Estimated GFR (MDRD) > 60 (>60) mL/min BUN/Creatinine Ratio 15.5 (14-18) Glucose 118 H (83-115) mg/dL Calcium 9.1 (8.5-10.1) mg/dL Magnesium 2.1 (1.8-2.4) mg/dl Med Orders - Current: Current Medications Cholecalciferol (Vitamin D3) 5,000 unit PO DAILY [facility] Last Admin: 03/19/20 08:31 Dose: 5,000 unit Documented by: Diltiazem HCl (Cardizem Cd) 120 mg PO DAILY [facility] Last Admin: 03/19/20 08:36 Dose: 120 mg Documented by: Doxycycline Hyclate (Vibramycin) 100 mg PO BID [facility] Last Admin: 03/19/20 20:35 Dose: 100 mg Documented by: Folic Acid (Folic Acid) 1 mg PO DAILY [facility] Last Admin: 03/19/20 08:36 Dose: 1 mg Documented by: Furosemide (Lasix) 60 mg PO DAILY [facility] Last Admin: 03/19/20 08:36 Dose: 60 mg Documented by: Furosemide (Lasix) 40 mg PO DAILY@1400 [facility] Last Admin: 03/19/20 15:41 Dose: 40 mg Documented by: Nystatin (Nystop) 0 gm TOP BID [facility] Last Admin: 03/20/20 00:21 Dose: 1 applic Documented by: Olanzapine (Zyprexa) 2.5 mg PO BID [facility] Last Admin: 03/19/20 20:35 Dose: 2.5 mg Documented by: Ondansetron HCl (Zofran) 4 mg IV Q6H PRN PRN Reason: Nausea/Vomiting Rivaroxaban (Xarelto) 20 mg PO DAILY [facility] Last Admin: 03/19/20 08:36 Dose: 20 mg Documented by: Discontinued Medications Doxycycline Hyclate (Vibramycin) 100 mg PO Q12H [facility] Last Admin: 03/15/20 03:31 Dose: Not Given Documented by: Furosemide (Lasix) 20 mg PO QPM [facility] Furosemide (Lasix) 40 mg PO QAM [facility] Last Admin: 03/12/20 09:14 Dose: 40 mg Documented by: Furosemide (Lasix) 20 mg PO DAILY@1400 [facility] Furosemide (Lasix) 40 mg PO QAM [facility] Furosemide (Lasix) 40 mg IVPUSH NOW ONE Stop: 03/12/20 12:31 Furosemide (Lasix) 40 mg IVPUSH BIDDIURETIC [facility] Last Admin: 03/14/20 16:30 Dose: Not Given Documented by: Furosemide (Lasix) 20 mg IVPUSH NOW ONE Stop: 03/12/20 12:31 Last Admin: 03/12/20 14:59 Dose: Not Given Documented by: Furosemide (Lasix) 60 mg PO ONETIME ONE Stop: 03/14/20 14:49 Last Admin: 03/14/20 16:16 Dose: 60 mg Documented by: Haloperidol (Haldol) 5 mg PO ONETIME ONE Stop: 03/15/20 13:54 Last Admin: 03/15/20 20:28 Dose: Not Given Documented by: Haloperidol Lactate (Haldol) 2 mg IM ONETIME STA Stop: 03/15/20 13:14 Last Admin: 03/15/20 20:29 Dose: Not Given Documented by: Vancomycin HCl 2 gm/ Sodium (Chloride) 500 mls @ 250 mls/hr IV ONETIME ONE Stop: 03/12/20 14:59 Last Admin: 03/12/20 15:53 Dose: Not Given Documented by: Vancomycin HCl 1 gm/Vancomycin HCl 500 mg/ Sodium Chloride 500 mls @ 250 mls/hr IV Q12H [facility] Last Admin: 03/14/20 03:37 Dose: 250 mls/hr Documented by: Vancomycin HCl 2 gm/ Sodium (Chloride) 500 mls @ 250 mls/hr IV ONETIME ONE Stop: 03/12/20 16:59 Last Admin: 03/12/20 15:57 Dose: 250 mls/hr Documented by: Lidocaine HCl (Xylocaine-Mpf 1%) Confirm Administered Dose 4 mls @ as directed .ROUTE .STK-MED ONE Stop: 03/12/20 16:02 Lorazepam (Ativan) Confirm Administered Dose 4 mg .ROUTE .STK-MED ONE Stop: 03/15/20 13:18 Last Admin: 03/15/20 20:28 Dose: Not Given Documented by: Magnesium Hydroxide (Milk Of Magnesia) 30 ml PO ONETIME ONE Stop: 03/13/20 12:08 Last Admin: 03/13/20 13:01 Dose: 30 ml Documented by: Olanzapine (Zyprexa) 2.5 mg PO BID [facility] Last Admin: 03/16/20 09:08 Dose: 2.5 mg Documented by: Olanzapine (Zyprexa) 2.5 mg PO BEDTIME [facility] Last Admin: 03/16/20 21:17 Dose: 2.5 mg Documented by: Potassium Chloride (Klor-Con M20) 20 meq PO DAILY [facility] Last Admin: 03/12/20 09:17 Dose: 20 meq Documented by: Potassium Chloride (Klor-Con M20) 20 meq PO BID [facility] Stop: 03/19/20 09:01 Last Admin: 03/19/20 08:30 Dose: 20 meq Documented by: Vancomycin HCl (Pharmacy To Dose - Vancomycin) 0 dose .XX ASDIRECTED PRN PRN Reason: RX TO DOSE VANCOMYCIN - Exam Quality Assessment: DVT Prophylaxis General: Alert, Oriented (mostly ), Cooperative, No Acute Distress HEENT: Pupils Equal, Pupils Reactive, Mucous Membr. Moist/[place]: Supple, Trachea Midline Lungs: Clear to Auscultation, Normal Respiratory Effort Cardiovascular: Regular Rate, Regular Rhythm GI/Abdominal Exam: Normal Bowel Sounds, Soft, Non-Tender, No Distention (Male) Exam: Other (Improving perineal infection ) Back Exam: Normal Inspection, Decreased Range of Motion Extremities: Normal Range of Motion, No Pedal Edema, Pedal Edema, Other Peripheral Pulses: 2+: Radial (L), Radial (R), Dorsalis Pedis (L), Dorsalis Pedis (R) Skin: Warm, Dry, Intact Wound/Incisions: Dressing Dry and Intact Neurological: No New Focal Deficit Psy/Mental Status: Alert. No: Anxious, Depressed, Agitated Sepsis Event Note - Evaluation Sepsis Screening Result: No Definite Risk - Focused Exam Vital Signs: Vital Signs Temp Pulse Resp BP Pulse Ox 03/20/20 02:33 98.6 F 89 18 129/74 97 03/19/20 20:29 98.1 F 94 18 122/56 L 97 Date Exam was Performed: 03/20/20 Time Exam was Performed: 12:50 - Problem List & Annotations (1) Hospital admission due to social situation SNOMED Code(s): 901349944 Code(s): Z60.9 - PROBLEM RELATED TO SOCIAL ENVIRONMENT, UNSPECIFIED Status: Acute Priority: High Current Visit: Yes (2) Failure to thrive in adult SNOMED Code(s): 729296929 Code(s): R62.7 - ADULT FAILURE TO THRIVE Status: Acute Priority: High Current Visit: Yes (3) Atrial fibrillation SNOMED Code(s): 22766480 Code(s): I48.91 - UNSPECIFIED ATRIAL FIBRILLATION Status: Chronic Priority: Medium Current Visit: No Qualifiers: Atrial fibrillation type: unspecified Qualified Code(s): I48.91 - Unspecified atrial fibrillation (4) Bilateral lower extremity edema SNOMED Code(s): 365910024, 64382054, 235727271 Code(s): R60.0 - LOCALIZED EDEMA Status: Chronic Priority: Medium Current Visit: No (5) Frequent falls SNOMED Code(s): 327202559 Code(s): R29.6 - REPEATED FALLS Status: Acute Priority: High Current Visit: Yes (6) Hypoalbuminemia SNOMED Code(s): 804982826 Code(s): E88.09 - OTH DISORDERS OF PLASMA-PROTEIN METABOLISM, NEC Status: Chronic Priority: Medium Current Visit: No (7) Physical deconditioning SNOMED Code(s): 35897451912030 Code(s): R53.81 - OTHER MALAISE Status: Acute Priority: High Current Visit: Yes (8) Scrotal edema SNOMED Code(s): 81604248 Code(s): N50.89 - OTHER SPECIFIED DISORDERS OF THE MALE GENITAL ORGANS Status: Chronic Priority: Medium Current Visit: Yes (9) Weakness generalized SNOMED Code(s): 14911924 Code(s): R53.1 - WEAKNESS Status: Chronic Priority: High Current Visit: Yes (10) Hypertension SNOMED Code(s): 24859039 Code(s): I10 - ESSENTIAL (PRIMARY) HYPERTENSION Status: Chronic Priority: Medium Current Visit: No Qualifiers: Hypertension type: unspecified Qualified Code(s): I10 - Essential (primary) hypertension (11) Lymphedema of left lower extremity SNOMED Code(s): 17542342109382902 Code(s): I89.0 - LYMPHEDEMA, NOT ELSEWHERE CLASSIFIED Status: Chronic Priority: Medium Current Visit: No (12) Chronic back pain SNOMED Code(s): 412891958 Code(s): M54.9 - DORSALGIA, UNSPECIFIED; G89.29 - OTHER CHRONIC PAIN Status: Chronic Priority: Medium Current Visit: No Qualifiers: Back pain location: back pain in unspecified location Back pain laterality: unspecified Qualified Code(s): M54.9 - Dorsalgia, unspecified; G89.29 - Other chronic pain (13) Obesity SNOMED Code(s): 574540374, 727658578 Code(s): E66.9 - OBESITY, UNSPECIFIED Status: Acute Current Visit: Yes Qualifiers: Obesity type: unspecified obesity type Obesity classification: adult class 3 (BMI >= 40) Serious obesity comorbidity presence: unspecified whether serious comorbidity present Body mass index: BMI 40.0-44.9 Qualified Code(s): E66.01 - Morbid (severe) obesity due to excess calories; Z68.41 - Body mass index (BMI) 40.0-44.9, adult (14) Cellulitis of perineum SNOMED Code(s): 61662110 Code(s): L03.315 - CELLULITIS OF PERINEUM Status: Acute Priority: High Current Visit: Yes (15) Exposure to COVID-19 virus SNOMED Code(s): 976973731 Code(s): Z20.828 - CONTACT W AND EXPOSURE TO OTH VIRAL COMMUNICABLE DISEASES Status: Acute Priority: High Current Visit: Yes (16) Acute psychosis SNOMED Code(s): 64993321, 25438062 Code(s): F23 - BRIEF PSYCHOTIC DISORDER Status: Acute Priority: High Current Visit: Yes (17) Confusion SNOMED Code(s): 897579122 Code(s): R41.0 - DISORIENTATION, UNSPECIFIED Status: Chronic Priority: High Current Visit: Yes (18) Hallucination SNOMED Code(s): 1889972 Code(s): R44.3 - HALLUCINATIONS, UNSPECIFIED Status: Acute Priority: High Current Visit: Yes (19) Paranoia SNOMED Code(s): 494844908 Code(s): F22 - DELUSIONAL DISORDERS Status: Acute Priority: High Current Visit: Yes (20) Hypokalemia SNOMED Code(s): 72546808 Code(s): E87.6 - HYPOKALEMIA Status: Acute Priority: High Current Visit: Yes - Problem List Review Problem List Initiated/Reviewed/Updated: Yes - Plan Plan:: Acute psychosis, improved Confusion Hallucinations, resolved Paranoia, improved Acute episode of paranoia on 03/15/20 with hallucinations and refusal to take medications Has been confused since admission but suddenly was not agreeable and was upset on 03/16/20 reports prior episode at SNF but was able to be talked down by staff Haldol and ativan ordered but not given Attempted to remove whaley catheter himself -> nursing ultimately removed. Threatening legal action, refusing to answer questions -> resolved 03/17/20 1:1 sitter initiated and then discontinued next day able to get patient to take medications Started on Zyprexa 2.5mg BID Concerned because he believes his is filing for divorce Much improved on 03/17-12/18/19 Continued liable mood. No agitation or anger. Taking medications today and allowed lab draw Psychiatry consultation - Dr. Thompson agrees to Zyprexa choice PLAN - Continue Zyprexa as ordered - Continue to monitor Hospital admission due to social situation Failure to thrive in adult Physical deconditioning Weakness generalized Frequent falls Hypoalbuminemia Chronic back pain S/P Hypokalemia Presented to ED on 03/11/20 with multiple complaints Stated cannot take care of him anymore, generalized weakness, unable to get up form chair Hospitalized 01/13/20-01/19/20 with similar symptoms, A-fib with RVR; Discharged to [facility] Discharged from [facility] last week Albumin 3.2 on admission History of moderate cognitive deficient noted on [employer] cog evaluation during last admission. Were recommending assistance with all ADS at that time. PLAN - PT/OT - Distributor Operator consult - Consult CM/SW for discharge planning - SNF placement - Oral potassium supplementation Cellulitis of perineum Bilateral lower extremity edema Lymphedema of left lower extremity Scrotal edema Obesity On home Cardizem and Lasix History of significant scrotal edema Very red, excoriated, and foul smelling perineal area Significant pedal and lower extremity edema Mild scrotal edema- carries hx/o significant scrotal edema Whaley catheter in place BMI of 44.4-->41.9-->41.4-->40.9-->40.7-->40.8 Discharge weight was 319lbs on 01/19/20. Admission weight of 327lbs; Down 10 lbs on 03/14/20 On home 40mg AM and 20mg PO Lasix Echo from 01/13/20 showed normal LVEF of 60-65% Switched from vancomycin to PO doxycycline Repeat procalcitonin 0.06 PLAN - Continue PO doxycycline - Lasix as ordered - Monitor electrolytes - Whaley in place for I&O measuring, to keep perineal area dry - Monitor daily weights, I&Os - Distributor Operator consult - Elevate extremities Atrial fibrillation Hypertension On home Cardizem, Xarelto and Lasix BP 137/51 on admission PLAN - Increase Lasix as above - Continue home Cardizem and Xarelto - No need for telemetry at this time Exposure to COVID-19 Low risk exposure to COVID-19 Admission COVID-19 screen negative [facility] requesting COVID-19 test from [facility] - pending Per [facility] - they report they will take patient on Thursday if we have negative state and repeat in-house COVID-19 test No current symptoms or concerns for infection State COVID-19 testing negative PLAN - Repeat COVID-19 test 03/21/20 prior to discharge DVT propylaxis: Home Xarelto GI Prophylaxis: Not indicated Code Status: Full code (Confirmed with patient on 03/12/20) PCP: Dr. Drake Social: Recently discharged from [facility] back home. reports he is too much for her to handle at home. Disposition: Admit to inpatient for SNF placement and treatment of perineal cellulitis with IV Antibiotics. COVID-19 screen pending. No current symptoms. LOS >96Hrs pending SNF placement, Repeat COVID-19 testing required by SNF being performed Thursday- likely discharge or Thursday
[2020-03-20] MEDS: Doxycycline 100 MG Cap PO SCH ×2 (09:20→21:52)
[2020-03-20] MEDS: Diltiazem 120 MG Cap.CD PO SCH (09:21)
[2020-03-20] MEDS: Furosemide 20 MG Tab PO SCH (09:21)
[2020-03-20] MEDS: Folic Acid 1 MG Tab PO SCH (09:21)
[2020-03-20] MEDS: Cholecalciferol (Vitamin D3) 5,000 UNIT Tab PO SCH (09:24)
[2020-03-20] MEDS: OLANZapine 5 MG Tab PO SCH ×2 (09:25→21:51)
[2020-03-20] MEDS: Rivaroxaban 10 MG Tab PO SCH (09:25)
[2020-03-20] MEDS: Furosemide 40 MG Tab PO SCH (14:28)
--- NOTE | 2020-03-21 09:38 | PCM.PN ---
- General Info Date of Service: 03/21/20 Admission Dx/Problem (Free Text): Admission Diagnosis/Problem Admission Diagnosis/Problem Failure to thrive Subjective Update: Last BM on 03/20/20 Continues to be pretty confused. Slept pretty good. Continues to be cooperative and alert. Mood remains stable. Functional Status: Reports: Pain Controlled, Tolerating Diet, Ambulating, Urinating. Denies: New Symptoms - Review of Systems General: Reports: Weakness. Denies: Fever, Fatigue, Malaise, Chills HEENT: Reports: No Symptoms. Denies: Headaches, Sore Throat Pulmonary: Reports: No Symptoms. Denies: Shortness of Breath, Cough, Sputum, Wheezing Cardiovascular: Reports: Edema. Denies: Chest Pain, Palpitations Gastrointestinal: Reports: No Symptoms. Denies: Abdominal Pain, Constipation, Diarrhea, Nausea, Vomiting Genitourinary: Reports: No Symptoms. Denies: Pain Musculoskeletal: Reports: No Symptoms Skin: Reports: No Symptoms. Denies: Cyanosis Neurological: Reports: Confusion, Difficulty Walking, Weakness, Gait Disturbance. Denies: Headache, Numbness, Pre-Existing Deficit, Tingling Psychiatric: Reports: No Symptoms - Patient Data Vitals - Most Recent: Last Vital Signs Temp 97.0 F 03/21/20 08:23 Pulse 65 03/21/20 08:23 Resp 20 03/21/20 08:23 BP 124/58 L 03/21/20 08:23 Pulse Ox 96 03/21/20 08:23 Weight - Most Recent: 308 lb 1.6 oz I&O - Last 24 Hours: Intake & Output 03/20/20 03/21/20 03/21/20 22:59 06:59 14:59 Intake Total 590 600 Output Total 400 275 Balance 190 325 Med Orders - Current: Current Medications Cholecalciferol (Vitamin D3) 5,000 unit PO DAILY [facility] Last Admin: 03/20/20 09:24 Dose: 5,000 unit Documented by: Diltiazem HCl (Cardizem Cd) 120 mg PO DAILY [facility] Last Admin: 03/20/20 09:21 Dose: 120 mg Documented by: Doxycycline Hyclate (Vibramycin) 100 mg PO BID [facility] Last Admin: 03/20/20 21:52 Dose: 100 mg Documented by: Folic Acid (Folic Acid) 1 mg PO DAILY [facility] Last Admin: 03/20/20 09:21 Dose: 1 mg Documented by: Furosemide (Lasix) 60 mg PO DAILY [facility] Last Admin: 03/20/20 09:21 Dose: 60 mg Documented by: Furosemide (Lasix) 40 mg PO DAILY@1400 [facility] Last Admin: 03/20/20 14:28 Dose: 40 mg Documented by: Nystatin (Nystop) 0 gm TOP BID [facility] Last Admin: 03/20/20 21:52 Dose: 1 applic Documented by: Olanzapine (Zyprexa) 2.5 mg PO DAILY [facility] Last Admin: 03/20/20 09:25 Dose: 2.5 mg Documented by: Olanzapine (Zyprexa) 5 mg PO BEDTIME [facility] Last Admin: 03/20/20 21:51 Dose: 5 mg Documented by: Ondansetron HCl (Zofran) 4 mg IV Q6H PRN PRN Reason: Nausea/Vomiting Rivaroxaban (Xarelto) 20 mg PO DAILY [facility] Last Admin: 03/20/20 09:25 Dose: 20 mg Documented by: Discontinued Medications Doxycycline Hyclate (Vibramycin) 100 mg PO Q12H [facility] Last Admin: 03/15/20 03:31 Dose: Not Given Documented by: Furosemide (Lasix) 20 mg PO QPM [facility] Furosemide (Lasix) 40 mg PO QAM [facility] Last Admin: 03/12/20 09:14 Dose: 40 mg Documented by: Furosemide (Lasix) 20 mg PO DAILY@1400 [facility] Furosemide (Lasix) 40 mg PO QAM [facility] Furosemide (Lasix) 40 mg IVPUSH NOW ONE Stop: 03/12/20 12:31 Furosemide (Lasix) 40 mg IVPUSH BIDDIURETIC [facility] Last Admin: 03/14/20 16:30 Dose: Not Given Documented by: Furosemide (Lasix) 20 mg IVPUSH NOW ONE Stop: 03/12/20 12:31 Last Admin: 03/12/20 14:59 Dose: Not Given Documented by: Furosemide (Lasix) 60 mg PO ONETIME ONE Stop: 03/14/20 14:49 Last Admin: 03/14/20 16:16 Dose: 60 mg Documented by: Haloperidol (Haldol) 5 mg PO ONETIME ONE Stop: 03/15/20 13:54 Last Admin: 03/15/20 20:28 Dose: Not Given Documented by: Haloperidol Lactate (Haldol) 2 mg IM ONETIME STA Stop: 03/15/20 13:14 Last Admin: 03/15/20 20:29 Dose: Not Given Documented by: Vancomycin HCl 2 gm/ Sodium (Chloride) 500 mls @ 250 mls/hr IV ONETIME ONE Stop: 03/12/20 14:59 Last Admin: 03/12/20 15:53 Dose: Not Given Documented by: Vancomycin HCl 1 gm/Vancomycin HCl 500 mg/ Sodium Chloride 500 mls @ 250 mls/hr IV Q12H [facility] Last Admin: 03/14/20 03:37 Dose: 250 mls/hr Documented by: Vancomycin HCl 2 gm/ Sodium (Chloride) 500 mls @ 250 mls/hr IV ONETIME ONE Stop: 03/12/20 16:59 Last Admin: 03/12/20 15:57 Dose: 250 mls/hr Documented by: Lidocaine HCl (Xylocaine-Mpf 1%) Confirm Administered Dose 4 mls @ as directed .ROUTE .STK-MED ONE Stop: 03/12/20 16:02 Lorazepam (Ativan) Confirm Administered Dose 4 mg .ROUTE .STK-MED ONE Stop: 03/15/20 13:18 Last Admin: 03/15/20 20:28 Dose: Not Given Documented by: Magnesium Hydroxide (Milk Of Magnesia) 30 ml PO ONETIME ONE Stop: 03/13/20 12:08 Last Admin: 03/13/20 13:01 Dose: 30 ml Documented by: Olanzapine (Zyprexa) 2.5 mg PO BID [facility] Last Admin: 03/16/20 09:08 Dose: 2.5 mg Documented by: Olanzapine (Zyprexa) 2.5 mg PO BEDTIME [facility] Last Admin: 03/16/20 21:17 Dose: 2.5 mg Documented by: Olanzapine (Zyprexa) 2.5 mg PO BID [facility] Last Admin: 03/19/20 20:35 Dose: 2.5 mg Documented by: Potassium Chloride (Klor-Con M20) 20 meq PO DAILY [facility] Last Admin: 03/12/20 09:17 Dose: 20 meq Documented by: Potassium Chloride (Klor-Con M20) 20 meq PO BID [facility] Stop: 03/19/20 09:01 Last Admin: 03/19/20 08:30 Dose: 20 meq Documented by: Vancomycin HCl (Pharmacy To Dose - Vancomycin) 0 dose .XX ASDIRECTED PRN PRN Reason: RX TO DOSE VANCOMYCIN - Exam Quality Assessment: DVT Prophylaxis General: Alert, Oriented (mostly ), Cooperative, No Acute Distress HEENT: Pupils Equal, Pupils Reactive, Mucous Membr. Moist/[place] Neck: Supple, Trachea Midline Lungs: Clear to Auscultation, Normal Respiratory Effort Cardiovascular: Regular Rate, Regular Rhythm GI/Abdominal Exam: Normal Bowel Sounds, Soft, Non-Tender, No Distention (Male) Exam: Deferred Back Exam: Normal Inspection, Full Range of Motion Extremities: Non-Tender, Pedal Edema Skin: Warm, Dry, Intact Wound/Incisions: No Drainage, Erythema Improving Neurological: No New Focal Deficit Psy/Mental Status: Alert Sepsis Event Note - Evaluation Sepsis Screening Result: No Definite Risk - Focused Exam Vital Signs: Vital Signs Temp Pulse Resp BP Pulse Ox 03/21/20 08:23 97.0 F 65 20 124/58 L 96 03/21/20 04:21 97.3 F 82 20 130/74 93 L Date Exam was Performed: 03/21/20 Time Exam was Performed: 14:17 - Problem List & Annotations (1) Hospital admission due to social situation SNOMED Code(s): 951262269 Code(s): Z60.9 - PROBLEM RELATED TO SOCIAL ENVIRONMENT, UNSPECIFIED Status: Acute Priority: High Current Visit: Yes (2) Failure to thrive in adult SNOMED Code(s): 015921927 Code(s): R62.7 - ADULT FAILURE TO THRIVE Status: Acute Priority: High Current Visit: Yes (3) Atrial fibrillation SNOMED Code(s): 46759553 Code(s): I48.91 - UNSPECIFIED ATRIAL FIBRILLATION Status: Chronic Priority: Medium Current Visit: No Qualifiers: Atrial fibrillation type: unspecified Qualified Code(s): I48.91 - Unspecified atrial fibrillation (4) Bilateral lower extremity edema SNOMED Code(s): 186530439, 88173197, 496159331 Code(s): R60.0 - LOCALIZED EDEMA Status: Chronic Priority: Medium Current Visit: No (5) Frequent falls SNOMED Code(s): 437611019 Code(s): R29.6 - REPEATED FALLS Status: Acute Priority: High Current Visit: Yes (6) Hypoalbuminemia SNOMED Code(s): 954669946 Code(s): E88.09 - [facility] DISORDERS OF PLASMA-PROTEIN METABOLISM, NEC Status: Chronic Priority: Medium Current Visit: No (7) Physical deconditioning SNOMED Code(s): 59300979797532 Code(s): R53.81 - OTHER MALAISE Status: Acute Priority: High Current Visit: Yes (8) Scrotal edema SNOMED Code(s): 26243370 Code(s): N50.89 - OTHER SPECIFIED DISORDERS OF THE MALE GENITAL ORGANS Status: Chronic Priority: Medium Current Visit: Yes (9) Weakness generalized SNOMED Code(s): 11225775 Code(s): R53.1 - WEAKNESS Status: Chronic Priority: High Current Visit: Yes (10) Hypertension SNOMED Code(s): 04019158 Code(s): I10 - ESSENTIAL (PRIMARY) HYPERTENSION Status: Chronic Priority: Medium Current Visit: No Qualifiers: Hypertension type: unspecified Qualified Code(s): I10 - Essential (primary) hypertension (11) Lymphedema of left lower extremity SNOMED Code(s): 31132429491157455 Code(s): I89.0 - LYMPHEDEMA, NOT ELSEWHERE CLASSIFIED Status: Chronic Priority: Medium Current Visit: No (12) Chronic back pain SNOMED Code(s): 910110464 Code(s): M54.9 - DORSALGIA, UNSPECIFIED; G89.29 - OTHER CHRONIC PAIN St atus: Chronic Priority: Medium Current Visit: No Qualifiers: Back pain location: back pain in unspecified location Back pain laterality: unspecified Qualified Code(s): M54.9 - Dorsalgia, unspecified; G89.29 - Other chronic pain (13) Obesity SNOMED Code(s): 729248586, 225110352 Code(s): E66.9 - OBESITY, UNSPECIFIED Status: Acute Current Visit: Yes Qualifiers: Obesity type: unspecified obesity type Obesity classification: adult class 3 (BMI >= 40) Serious obesity comorbidity presence: unspecified whether serious comorbidity present Body mass index: BMI 40.0-44.9 Qualified Code(s): E66.01 - Morbid (severe) obesity due to excess calories; Z68.41 - Body mass index (BMI) 40.0-44.9, adult (14) Cellulitis of perineum SNOMED Code(s): 51916483 Code(s): L03.315 - CELLULITIS OF PERINEUM Status: Acute Priority: High Current Visit: Yes (15) Exposure to COVID-19 virus SNOMED Code(s): 421976538 Code(s): Z20.828 - CONTACT W AND EXPOSURE TO OTH VIRAL COMMUNICABLE DISEASES Status: Acute Priority: High Current Visit: Yes (16) Acute psychosis SNOMED Code(s): 29127675, 23987090 Code(s): F23 - BRIEF PSYCHOTIC DISORDER Status: Acute Priority: High C urrent Visit: Yes (17) Confusion SNOMED Code(s): 333817441 Code(s): R41.0 - DISORIENTATION, UNSPECIFIED Status: Chronic Priority: High Current Visit: Yes (18) Hallucination SNOMED Code(s): 3124088 Code(s): R44.3 - HALLUCINATIONS, UNSPECIFIED Status: Acute Priority: High Current Visit: Yes (19) Paranoia SNOMED Code(s): 026092459 Code(s): F22 - DELUSIONAL DISORDERS Status: Acute Priority: High Current Visit: Yes (20) Hypokalemia SNOMED Code(s): 94027009 Code(s): E87.6 - HYPOKALEMIA Status: Acute Priority: High Current Visit: Yes - Problem List Review Problem List Initiated/Reviewed/Updated: Yes - My Orders Last 24 Hours: My Active Orders 03/20/20 09:00 OLANZapine [ZyPREXA] 2.5 mg PO DAILY 03/20/20 21:00 OLANZapine [ZyPREXA] 5 mg PO BEDTIME - Plan Plan:: Acute psychosis, improved Confusion Hallucinations, resolved Paranoia, improved Acute episode of paranoia on 03/15/20 with hallucinations and refusal to take medications Has been confused since admission but suddenly was not agreeable and was upset on 03/16/20 reports prior episode at SNF but was able to be talked down by staff Haldol and ativan ordered but not given Attempted to remove whaley catheter himself -> nursing ultimately removed. Threatening legal action, refusing to answer questions -> resolved 03/17/20 1:1 sitter initiated and then discontinued next day able to get patient to take medications Started on Zyprexa Concerned because he believes his is filing for divorce Much improved on 03/17-12/18/19 Continued liable mood. No agitation or anger. Taking medications today and allowed lab draw Psychiatry consultation - Dr. Thompson agrees to Zyprexa choice PLAN - Continue Zyprexa as ordered -> dosing increased 03/20/20 to 2.5 daily and 5mg nightly - Continue to monitor Hospital admission due to social situation Failure to thrive in adult Physical deconditioning Weakness generalized Frequent falls Hypoalbuminemia Chronic back pain S/P Hypokalemia Presented to ED on 03/11/20 with multiple complaints Stated cannot take care of him anymore, generalized weakness, unable to get up form chair Hospitalized 01/13/20-01/19/20 with similar symptoms, A-fib with RVR; Discharged to [facility] Discharged from [facility] last week Albumin 3.2 on admission History of moderate cognitive deficient noted on [employer] cog evaluation during last admission. Were recommending assistance with all ADS at that time. PLAN - PT/OT - Senior Bookkeeper consult - Consult CM/SW for discharge planning - SNF placement - Oral potassium supplementation Cellulitis of perineum Bilateral lower extremity edema Lymphedema of left lower extremity Scrotal edema Obesity On home Cardizem and Lasix History of significant scrotal edema Very red, excoriated, and foul smelling perineal area Significant pedal and lower extremity edema Mild scrotal edema- carries hx/o significant scrotal edema Whaley catheter in place BMI of 44.4-->41.9-->41.4-->40.9-->40.7-->40.8-->40.6 Discharge weight was 319lbs on 01/19/20. Admission weight of 327lbs; Down 10 lbs on 03/14/20 On home 40mg AM and 20mg PO Lasix Echo from 01/13/20 showed normal LVEF of 60-65% Switched from vancomycin to PO doxycycline Repeat procalcitonin 0.06 PLAN - Discontinue PO doxycycline today - Lasix as ordered - Monitor electrolytes - Monitor daily weights, I&Os - Senior Bookkeeper consult - Elevate extremities Atrial fibrillation Hypertension On home Cardizem, Xarelto and Lasix BP 137/51 on admission PLAN - Increase Lasix as above - Continue home Cardizem and Xarelto - No need for telemetry at this time Exposure to COVID-19 Low risk exposure to COVID-19 Admission COVID-19 screen negative [facility] requesting COVID-19 test from [facility] - pending Per [facility] - they report they will take patient on Thursday if we have negative state and repeat in-house COVID-19 test No current symptoms or concerns for infection State COVID-19 testing negative PLAN - Repeat COVID-19 test prior to discharge DVT propylaxis: Home Xarelto GI Prophylaxis: Not indicated Code Status: Full code (Confirmed with patient on 03/12/20) PCP: Dr. Drake Social: Recently discharged from [facility] back home. reports he is too much for her to handle at home. Disposition: Admit to inpatient for SNF placement and treatment of perineal cellulitis with IV Antibiotics. COVID-19 screen pending. No current symptoms. LOS >96Hrs pending SNF placement, Repeat COVID-19 testing required by SNF being performed- likely discharge or Thursday
[2020-03-21] MEDS: Furosemide 20 MG Tab PO SCH (09:51)
[2020-03-21] MEDS: Folic Acid 1 MG Tab PO SCH (09:51)
[2020-03-21] MEDS: Doxycycline 100 MG Cap PO SCH (09:51)
[2020-03-21] MEDS: Diltiazem 120 MG Cap.CD PO SCH (09:52)
[2020-03-21] MEDS: OLANZapine 5 MG Tab PO SCH ×2 (09:53→22:11)
[2020-03-21] MEDS: Cholecalciferol (Vitamin D3) 5,000 UNIT Tab PO SCH (09:53)
[2020-03-21] MEDS: Rivaroxaban 10 MG Tab PO SCH (09:53)
[2020-03-21] MEDS: Nystatin Topical Powder 15 GM Bottle TOP SCH ×2 (10:32→22:12)
[2020-03-21] MEDS: Furosemide 40 MG Tab PO SCH (13:59)
[2020-03-21] MEDS ORDERED: Miconazole 2% Crm 30 GM Tube TOP SCH (21:00)
[2020-03-22] MEDS: Diltiazem 120 MG Cap.CD PO SCH (09:05)
[2020-03-22] MEDS: Furosemide 20 MG Tab PO SCH (09:06)
[2020-03-22] MEDS: Cholecalciferol (Vitamin D3) 5,000 UNIT Tab PO SCH (09:06)
[2020-03-22] MEDS: OLANZapine 5 MG Tab PO SCH ×2 (09:07→21:43)
[2020-03-22] MEDS: Rivaroxaban 10 MG Tab PO SCH (09:08)
[2020-03-22] MEDS: Folic Acid 1 MG Tab PO SCH (09:08)
[2020-03-22] MEDS: Nystatin Topical Powder 15 GM Bottle TOP SCH ×2 (09:13→21:43)
--- NOTE | 2020-03-22 12:20 | PCM.PN ---
- General Info Date of Service: 03/22/20 - Patient Data Vitals - Most Recent: Last Vital Signs Temp 97.5 F 03/22/20 07:42 Pulse 93 03/22/20 09:05 Resp 20 03/22/20 07:42 BP 131/59 L 03/22/20 09:05 Pulse Ox 96 03/22/20 07:42 Weight - Most Recent: 139.071 kg I&O - Last 24 Hours: Intake & Output 03/21/20 03/22/20 03/22/20 22:59 06:59 14:59 Intake Total 620 300 240 Output Total 400 Balance 220 300 240 Med Orders - Current: Current Medications Cholecalciferol (Vitamin D3) 5,000 unit PO DAILY [facility] Last Admin: 03/22/20 09:06 Dose: 5,000 unit Documented by: Diltiazem HCl (Cardizem Cd) 120 mg PO DAILY [facility] Last Admin: 03/22/20 09:05 Dose: 120 mg Documented by: Folic Acid (Folic Acid) 1 mg PO DAILY [facility] Last Admin: 03/22/20 09:08 Dose: 1 mg Documented by: Furosemide (Lasix) 60 mg PO DAILY [facility] Last Admin: 03/22/20 09:06 Dose: 60 mg Documented by: Furosemide (Lasix) 40 mg PO DAILY@1400 [facility] Last Admin: 03/21/20 13:59 Dose: 40 mg Documented by: Nystatin (Nystop) 0 gm TOP BID [facility] Last Admin: 03/22/20 09:13 Dose: 1 applic Documented by: Olanzapine (Zyprexa) 2.5 mg PO DAILY [facility] Last Admin: 03/22/20 09:07 Dose: 2.5 mg Documented by: Olanzapine (Zyprexa) 5 mg PO BEDTIME [facility] Last Admin: 03/21/20 22:11 Dose: 5 mg Documented by: Ondansetron HCl (Zofran) 4 mg IV Q6H PRN PRN Reason: Nausea/Vomiting Rivaroxaban (Xarelto) 20 mg PO DAILY [facility] Last Admin: 03/22/20 09:08 Dose: 20 mg Documented by: Discontinued Medications Doxycycline Hyclate (Vibramycin) 100 mg PO Q12H [facility] Last Admin: 03/15/20 03:31 Dose: Not Given Documented by: Doxycycline Hyclate (Vibramycin) 100 mg PO BID [facility] Last Admin: 03/21/20 09:51 Dose: 100 mg Documented by: Furosemide (Lasix) 20 mg PO QPM [facility] Furosemide (Lasix) 40 mg PO QAM [facility] Last Admin: 03/12/20 09:14 Dose: 40 mg Documented by: Furosemide (Lasix) 20 mg PO DAILY@1400 [facility] Furosemide (Lasix) 40 mg PO QAM [facility] Furosemide (Lasix) 40 mg IVPUSH NOW ONE Stop: 03/12/20 12:31 Furosemide (Lasix) 40 mg IVPUSH BIDDIURETIC [facility] Last Admin: 03/14/20 16:30 Dose: Not Given Documented by: Furosemide (Lasix) 20 mg IVPUSH NOW ONE Stop: 03/12/20 12:31 Last Admin: 03/12/20 14:59 Dose: Not Given Documented by: Furosemide (Lasix) 60 mg PO ONETIME ONE Stop: 03/14/20 14:49 Last Admin: 03/14/20 16:16 Dose: 60 mg Documented by: Haloperidol (Haldol) 5 mg PO ONETIME ONE Stop: 03/15/20 13:54 Last Admin: 03/15/20 20:28 Dose: Not Given Documented by: Haloperidol Lactate (Haldol) 2 mg IM ONETIME STA Stop: 03/15/20 13:14 Last Admin: 03/15/20 20:29 Dose: Not Given Documented by: Vancomycin HCl 2 gm/ Sodium (Chloride) 500 mls @ 250 mls/hr IV ONETIME ONE Stop: 03/12/20 14:59 Last Admin: 03/12/20 15:53 Dose: Not Given Documented by: Vancomycin HCl 1 gm/Vancomycin HCl 500 mg/ Sodium Chloride 500 mls @ 250 mls/hr IV Q12H [facility] Last Admin: 03/14/20 03:37 Dose: 250 mls/hr Documented by: Vancomycin HCl 2 gm/ Sodium (Chloride) 500 mls @ 250 mls/hr IV ONETIME ONE Stop: 03/12/20 16:59 Last Admin: 03/12/20 15:57 Dose: 250 mls/hr Documented by: Lidocaine HCl (Xylocaine-Mpf 1%) Confirm Administered Dose 4 mls @ as directed .ROUTE .STK-MED ONE Stop: 03/12/20 16:02 Lorazepam (Ativan) Confirm Administered Dose 4 mg .ROUTE .STK-MED ONE Stop: 03/15/20 13:18 Last Admin: 03/15/20 20:28 Dose: Not Given Documented by: Magnesium Hydroxide (Milk Of Magnesia) 30 ml PO ONETIME ONE Stop: 03/13/20 12:08 Last Admin: 03/13/20 13:01 Dose: 30 ml Documented by: Miconazole (Miconazole 2% Crm) 0 gm TOP BID [facility] Nystatin (Nystop) 0 gm TOP BID [facility] Last Admin: 03/21/20 10:32 Dose: 1 applic Documented by: Olanzapine (Zyprexa) 2.5 mg PO BID [facility] Last Admin: 03/16/20 09:08 Dose: 2.5 mg Documented by: Olanzapine (Zyprexa) 2.5 mg PO BEDTIME [facility] Last Admin: 03/16/20 21:17 Dose: 2.5 mg Documented by: Olanzapine (Zyprexa) 2.5 mg PO BID [facility] Last Admin: 03/19/20 20:35 Dose: 2.5 mg Documented by: Potassium Chloride (Klor-Con M20) 20 meq PO DAILY [facility] Last Admin: 03/12/20 09:17 Dose: 20 meq Documented by: Potassium Chloride (Klor-Con M20) 20 meq PO BID [facility] Stop: 03/19/20 09:01 Last Admin: 03/19/20 08:30 Dose: 20 meq Documented by: Vancomycin HCl (Pharmacy To Dose - Vancomycin) 0 dose .XX ASDIRECTED PRN PRN Reason: RX TO DOSE VANCOMYCIN - Exam Physical Findings Comments:: Quality Assessment: DVT Prophylaxis General: Alert, Oriented (mostly ), Cooperative, No Acute Distress HEENT: Pupils Equal, Pupils Reactive, Mucous Membr. Moist/[place] Neck: Supple, Trachea Midline Lungs: Clear to Auscultation, Normal Respiratory Effort Cardiovascular: Regular Rate, Regular Rhythm GI/Abdominal Exam: Normal Bowel Sounds, Soft, Non-Tender, No Distention (Male) Exam: Deferred Back Exam: Normal Inspection, Full Range of Motion Extremities: Non-Tender, Pedal Edema Skin: Warm, Dry, Intact Wound/Incisions: No Drainage, Erythema Improving Neurological: No New Focal Deficit Psy/Mental Status: Alert Sepsis Event Note - Evaluation Sepsis Screening Result: No Definite Risk - Problem List & Annotations (1) Acute psychosis SNOMED Code(s): 17799779, 00425082 Code(s): F23 - BRIEF PSYCHOTIC DISORDER Status: Acute Priority: High Current Visit: Yes (2) Cellulitis of perineum SNOMED Code(s): 68175291 Code(s): L03.315 - CELLULITIS OF PERINEUM Status: Acute Priority: High Current Visit: Yes (3) Exposure to COVID-19 virus SNOMED Code(s): 203240837 Code(s): Z20.828 - CONTACT W AND EXPOSURE TO OTH VIRAL COMMUNICABLE DISEASES Status: Acute Priority: High Current Visit: Yes (4) Failure to thrive in adult SNOMED Code(s): 298976052 Code(s): R62.7 - ADULT FAILURE TO THRIVE Status: Acute Priority: High Current Visit: Yes (5) Frequent falls SNOMED Code(s): 933034359 Code(s): R29.6 - REPEATED FALLS Status: Acute Priority: High Current Visit: Yes (6) Hallucination SNOMED Code(s): 9201153 Code(s): R44.3 - HALLUCINATIONS, UNSPECIFIED Status: Acute Priority: High Current Visit: Yes (7) Hospital admission due to social situation SNOMED Code(s): 150345953 Code(s): Z60.9 - PROBLEM RELATED TO SOCIAL ENVIRONMENT, UNSPECIFIED Status: Acute Priority: High Current Visit: Yes (8) Hypokalemia SNOMED Code(s): 85176653 Code(s): E87.6 - HYPOKALEMIA Status: Acute Priority: High Current Visit: Yes (9) Obesity SNOMED Code(s): 540842783, 243626173 Code(s): E66.9 - OBESITY, UNSPECIFIED Status: Acute Current Visit: Yes Qualifiers: Obesity type: unspecified obesity type Obesity classification: adult class 3 (BMI >= 40) Serious obesity comorbidity presence: unspecified whether anne us comorbidity present Body mass index: BMI 40.0-44.9 Qualified Code(s): E66.01 - Morbid (severe) obesity due to excess calories; Z68.41 - Body mass index (BMI) 40.0-44.9, adult (10) Paranoia SNOMED Code(s): 726652799 Code(s): F22 - DELUSIONAL DISORDERS Status: Acute Priority: High Current Visit: Yes (11) Physical deconditioning SNOMED Code(s): 67105388757705 Code(s): R53.81 - OTHER MALAISE Status: Acute Priority: High Current Visit: Yes (12) Confusion SNOMED Code(s): 999448182 Code(s): R41.0 - DISORIENTATION, UNSPECIFIED Status: Chronic Priority: High Current Visit: Yes (13) Scrotal edema SNOMED Code(s): 79743100 Code(s): N50.89 - OTHER SPECIFIED DISORDERS OF THE MALE GENITAL ORGANS Status: Chronic Priority: Medium Current Visit: Yes (14) Weakness generalized SNOMED Code(s): 03462892 Code(s): R53.1 - WEAKNESS Status: Chronic Priority: High Current Visit: Yes (15) Atrial fibrillation SNOMED Code(s): 23666216 Code(s): I48.91 - UNSPECIFIED ATRIAL FIBRILLATION Status: Chronic Priority: Medium Current Visit: No Qualifiers: Atrial fibrillation type: unspecified Qualified Code(s): I48.91 - Unspecified atrial fibrillation (16) Bilateral lower extremity edema SNOMED Code(s): 193150752, 62231162, 365573109 Code(s): R60.0 - LOCALIZED EDEMA Status: Chronic Priority: Medium Current Visit: No (17) Chronic back pain SNOMED Code(s): 027796459 Code(s): M54.9 - DORSALGIA, UNSPECIFIED; G89.29 - OTHER CHRONIC PAIN Status: Chronic Priority: Medium Current Visit: No Qualifiers: Back pain location: back pain in unspecified location Back pain laterality: unspecified Qualified Code(s): M54.9 - Dorsalgia, unspecified; G89.29 - Other chronic pain (18) Hypertension SNOMED Code(s): 35078505 Code(s): I10 - ESSENTIAL (PRIMARY) HYPERTENSION Status: Chronic Priority: Medium Current Visit: No Qualifiers: Hypertension type: unspecified Qualified Code(s): I10 - Essential (primary) hypertension (19) Hypoalbuminemia SNOMED Code(s): 645372360 Code(s): E88.09 - OTH DISORDERS OF PLASMA-PROTEIN METABOLISM, NEC Status: Chronic Priority: Medium Current Visit: No (20) Lymphedema of left lower extremity SNOMED Code(s): 37908418600755572 Code(s): I89.0 - LYMPHEDEMA, NOT ELSEWHERE CLASSIFIED Status: Chronic Priority: Medium Current Visit: No - Problem List Review Problem List Initiated/Reviewed/Updated: Yes - Plan Plan:: Acute psychosis, improved Confusion Hallucinations, resolved Paranoia, improved Acute episode of paranoia on 03/15/20 with hallucinations and refusal to take medications Has been confused since admission but suddenly was not agreeable and was upset on 03/16/20 reports prior episode at SNF but was able to be talked down by staff Haldol and ativan ordered but not given Attempted to remove whaley catheter himself -> nursing ultimately removed. Threatening legal action, refusing to answer questions -> resolved 03/17/20 1:1 sitter initiated and then discontinued next day able to get patient to take medications Started on Zyprexa Concerned because he believes his is filing for divorce Much improved on 03/17-12/18/19 Continued liable mood. No agitation or anger. Taking medications today and allowed lab draw Psychiatry consultation - Dr. Thompson agrees to Zyprexa choice PLAN - Continue Zyprexa as ordered -> dosing increased 03/20/20 to 2.5 daily and 5mg nightly - Continue to monitor Hospital admission due to social situation Failure to thrive in adult Physical deconditioning Weakness generalized Frequent falls Hypoalbuminemia Chronic back pain S/P Hypokalemia Presented to ED on 03/11/20 with multiple complaints Stated cannot take care of him anymore, generalized weakness, unable to get up form chair Hospitalized 01/13/20-01/19/20 with similar symptoms, A-fib with RVR; Discharged to [facility] Discharged from [facility] last week Albumin 3.2 on admission History of moderate cognitive deficient noted on [employer] cog evaluation during last admission. Were recommending assistance with all ADS at that time. PLAN - PT/OT - Cargo Service Agent consult - Consult CM/SW for discharge planning - SNF placement - Oral potassium supplementation Cellulitis of perineum Bilateral lower extremity edema Lymphedema of left lower extremity Scrotal edema Obesity On home Cardizem and Lasix History of significant scrotal edema Very red, excoriated, and foul smelling perineal area Significant pedal and lower extremity edema Mild scrotal edema- carries hx/o significant scrotal edema Whaley catheter in place BMI of 44.4-->41.9-->41.4-->40.9-->40.7-->40.8-->40.6 Discharge weight was 319lbs on 01/19/20. Admission weight of 327lbs; Down 10 lbs on 03/14/20 On home 40mg AM and 20mg PO Lasix Echo from 01/13/20 showed normal LVEF of 60-65% Switched from vancomycin to PO doxycycline Repeat procalcitonin 0.06 PLAN - Discontinue PO doxycycline today - Lasix as ordered - Monitor electrolytes - Monitor daily weights, I&Os - Cargo Service Agent consult - Elevate extremities Atrial fibrillation Hypertension On home Cardizem, Xarelto and Lasix BP 137/51 on admission PLAN - Increase Lasix as above - Continue home Cardizem and Xarelto - No need for telemetry at this time Exposure to COVID-19 Low risk exposure to COVID-19 Admission COVID-19 screen negative [facility] requesting COVID-19 test from [facility] - pending Per [facility] - they report they will take patient on Thursday if we have negative state and repeat in-house COVID-19 test No current symptoms or concerns for infection State COVID-19 testing negative PLAN - Repeat COVID-19 test prior to discharge DVT propylaxis: Home Xarelto GI Prophylaxis: Not indicated Code Status: Full code (Confirmed with patient on 03/12/20) PCP: Dr. Drake Social: Recently discharged from [facility] back home. reports he is too much for her to handle at home. Disposition: Admit to inpatient for SNF placement and treatment of perineal cellulitis with IV Antibiotics. COVID-19 screen pending. No current symptoms. LOS >96Hrs pending SNF placement, Repeat COVID-19 testing required by SNF being performed- likely discharge or Thursday
[2020-03-22] MEDS: Furosemide 40 MG Tab PO SCH (13:36)
[2020-03-23] MEDS: Folic Acid 1 MG Tab PO SCH (09:16)
[2020-03-23] MEDS: Rivaroxaban 10 MG Tab PO SCH (09:16)
[2020-03-23] MEDS: Furosemide 20 MG Tab PO SCH (09:16)
[2020-03-23] MEDS: Cholecalciferol (Vitamin D3) 5,000 UNIT Tab PO SCH (09:16)
[2020-03-23] MEDS: Diltiazem 120 MG Cap.CD PO SCH (09:16)
[2020-03-23] MEDS: OLANZapine 5 MG Tab PO SCH (09:17)
[2020-03-23] MEDS: Nystatin Topical Powder 15 GM Bottle TOP SCH (09:25)
--- NOTE | 2020-03-23 11:23 | PCM.DCSUM1 ---
Discharge Summary - Hospital Course Free Text/Narrative:: Chronic back pain S/P Hypokalemia Presented to ED on 03/11/20 with multiple complaints Stated cannot take care of him anymore, generalized weakness, unable to get up form chair Hospitalized 01/13/20-01/19/20 with similar symptoms, A-fib with RVR; Discharged to [facility] Discharged from [facility] last week Albumin 3.2 on admission History of moderate cognitive deficient noted on [employer] cog evaluation during last admission. Were recommending assistance with all ADS at that time. PLAN - PT/OT - [employer] consult - Consult CM/SW for discharge planning - SNF placement - Oral potassium supplementation Cellulitis of perineum Bilateral lower extremity edema Lymphedema of left lower extremity Scrotal edema Obesity On home Cardizem and Lasix History of significant scrotal edema Very red, excoriated, and foul smelling perineal area Significant pedal and lower extremity edema Mild scrotal edema- carries hx/o significant scrotal edema Ortez catheter in place BMI of 44.4-->41.9-->41.4-->40.9-->40.7-->40.8-->40.6 Discharge weight was 319lbs on 01/19/20. Admission weight of 327lbs; Down 10 lbs on 03/14/20 On home 40mg AM and 20mg PO Lasix Echo from 01/13/20 showed normal LVEF of 60-65% Switched from vancomycin to PO doxycycline Repeat procalcitonin 0.06 PLAN - Discontinue PO doxycycline today - Lasix as ordered - Monitor electrolytes - Monitor daily weights, I&Os - Fire [employer] consult - Elevate extremities Atrial fibrillation Hypertension On home Cardizem, Xarelto and Lasix BP 137/51 on admission PLAN - Increase Lasix as above - Continue home Cardizem and Xarelto - No need for telemetry at this time Exposure to COVID-19 Low risk exposure to COVID-19 Admission COVID-19 screen negative [facility] requesting COVID-19 test from [facility] - pending Per [place] - they report they will take patient on Thursday if we have negative state and repeat in-house COVID-19 test No current symptoms or concerns for infection State COVID-19 testing negative PLAN - Repeat COVID-19 test prior to discharge DVT propylaxis: Home Xarelto GI Prophylaxis: Not indicated Code Status: Full code (Confirmed with patient on 03/12/20) PCP: Dr. Drake Social: Recently discharged from [facility] back home. reports he is too much for her to handle at home. Disposition: Admit to inpatient for SNF placement and treatment of perineal cellulitis with IV Antibiotics. COVID-19 screen pending. No current symptoms. LOS >96Hrs pending SNF placement, Repeat COVID-19 testing required by SNF being performed- likely discharge or Thursday HPI Initial Comments: hosp course chf stable on lasix and cardizem. hypoxia resolved. weakness profound and needs retraining/ impulsive and cog. decline and confusion evident. paranoid at times. renal function stable / scrotal edema better cellulitis resolved. b.s borderline but losing weight with treatments . covid negative x 2 - Discharge Data Discharge Date: 03/23/20 Discharge Disposition: DC/Tfer to [facility] Condition: Good - Referral to Home Health Date of Face to Face Encounter: 03/23/20 Reason for Homebound Status: requires skilled p.t and o.t and long term . Primary Care Physician: PCP None Skilled Need: patient 79 year old male with dementia and weakness and high fall risk sec to cognitive impairment . requires medication managment . he has need of rehab for strengthening and cuing and to decrease fall risk. he need neuromuscular retraining - Discharge Diagnosis/Problem(s) (1) Acute psychosis SNOMED Code(s): 36717353, 93358514 ICD Code: F23 - BRIEF PSYCHOTIC DISORDER Status: Acute Priority: Medium Current Visit: Yes Onset Date: ~03/14/20 Problem Details: patient should be considered for arecept per primary care provider (2) Cellulitis of perineum SNOMED Code(s): 55983938 ICD Code: L03.315 - CELLULITIS OF PERINEUM Status: Acute Priority: Low Current Visit: Yes Onset Date: ~03/14/20 Problem Details: resolved (3) Exposure to COVID-19 virus SNOMED Code(s): 491517719 ICD Code: Z20.828 - CONTACT W AND EXPOSURE TO OTH VIRAL COMMUNICABLE DISEASES Status: Acute Priority: High Current Visit: Yes (4) Failure to thrive in adult SNOMED Code(s): 265999846 ICD Code: R62.7 - ADULT FAILURE TO THRIVE Status: Acute Priority: Medium Current Visit: Yes Onset Date: ~03/14/20 Problem Details: much better with zyerexia and cog. decline on evaluation c/w dementia (5) Frequent falls SNOMED Code(s): 349062303 ICD Code: R29.6 - REPEATED FALLS Status: Acute Priority: Low Current Visit: Yes Onset Date: ~03/14/20 Problem Details: cog. impaiment and understanding requires freq cuing (6) Hallucination SNOMED Code(s): 0375103 ICD Code: R44.3 - HALLUCINATIONS, UNSPECIFIED Status: Acute Priority: High Current Visit: Yes (7) Hospital admission due to social situation SNOMED Code(s): 214423395 ICD Code: Z60.9 - PROBLEM RELATED TO SOCIAL ENVIRONMENT, UNSPECIFIED Status: Acute Priority: Low Current Visit: Yes Onset Date: ~03/14/20 Problem Details: better with reorientation and hx of prev. decline and episodic paranoia (8) Hypokalemia SNOMED Code(s): 58695876 ICD Code: E87.6 - HYPOKALEMIA Status: Acute Priority: Low Current Visit: Yes Onset Date: ~03/14/20 Problem Details: low dose arb and potassium - Patient Summary/Data Consults: Consultations 03/12/20 08:30 Consult to Case Management/Form Setter Helper [CONS] Routine Consult to Spiritual Care [CONS] Routine OT Evaluation and Treatment [CONS] Routine PT Evaluation and Treatment [CONS] Routine 03/12/20 10:17 Consult to Fire Patrol [CONS] Routine 03/16/20 09:30 Consult to Physician [CONS] Routine - Patient Instructions Diet: Heart Healthy Diet, Low Sodium Activity: Apply Ice, As Tolerated - Discharge Plan *PRESCRIPTION DRUG MONITORING PROGRAM REVIEWED*: No *COPY OF PRESCRIPTION DRUG MONITORING REPORT IN PATIENT DAVINA: No Home Medications: Home Meds Automotive Drivability Technician Lotion 1 dose TOP DAILY PRN 01/12/20 [History] Cholecalciferol (Vitamin D3) [Vitamin D3] 5,000 unit PO DAILY #20 tablet 01/18/20 [Rx] Rivaroxaban [Xarelto] 20 mg PO DAILY #30 tablet 01/18/20 [Rx] Furosemide [Lasix] 40 mg PO QAM 03/11/20 [History] Potassium Chloride [Klor-Con M20] 20 meq PO DAILY 03/11/20 [History] Cholecalciferol (Vitamin D3) [Vitamin D3] 5,000 unit PO DAILY tablet 03/23/20 [Rx] Furosemide [Lasix] 40 mg PO DAILY@1400 tablet 03/23/20 [Rx] Nystatin [Nystop] 0 gm TOP BID bottle 03/23/20 [Rx] OLANZapine [ZyPREXA] 2.5 mg PO DAILY tablet 03/23/20 [Rx] OLANZapine [ZyPREXA] 5 mg PO BEDTIME tablet 03/23/20 [Rx] Rivaroxaban [Xarelto] 20 mg PO DAILY tablet 03/23/20 [Rx] Oxygen Therapy Mode: Room Air Patient Handouts: Understanding Your Risk for Falls Referrals: Tyler Drake MD [Physician] - Yariel Metz MD [Ordering Only Provider] - 03/23/20 (Dr. Metz office informed us of appt being scheduled March 23 - january cancel or change date if needed.) - Discharge Summary/Plan Comment DC Time >30 min.: Yes - General Info Date of Service: 03/23/20 Admission Dx/Problem (Free Text: weakness/falling /confusion Subjective Update: Chronic back pain S/P Hypokalemia Presented to ED on 03/11/20 with multiple complaints Stated cannot take care of him anymore, generalized weakness, unable to get up form chair Hospitalized 01/13/20-01/19/20 with similar symptoms, A-fib with RVR; Discharged to [facility] Discharged from [facility] last week Albumin 3.2 on admission History of moderate cognitive deficient noted on [employer] cog evaluation during last admission. Were recommending assistance with all ADS at that time. PLAN - PT/OT - [employer] consult - Consult CM/SW for discharge planning - SNF placement - Oral potassium supplementation Cellulitis of perineum Bilateral lower extremity edema Lymphedema of left lower extremity Scrotal edema Obesity On home Cardizem and Lasix History of significant scrotal edema Very red, excoriated, and foul smelling perineal area Significant pedal and lower extremity edema Mild scrotal edema- carries hx/o significant scrotal edema Ortez catheter in place BMI of 44.4-->41.9-->41.4-->40.9-->40.7-->40.8-->40.6 Discharge weight was 319lbs on 01/19/20. Admission weight of 327lbs; Down 10 lbs on 03/14/20 On home 40mg AM and 20mg PO Lasix Echo from 01/13/20 showed normal LVEF of 60-65% Switched from vancomycin to PO doxycycline Repeat procalcitonin 0.06 PLAN - Discontinue PO doxycycline today - Lasix as ordered - Monitor electrolytes - Monitor daily weights, I&Os - [employer] consult - Elevate extremities Atrial fibrillation Hypertension On home Cardizem, Xarelto and Lasix BP 137/51 on admission PLAN - Increase Lasix as above - Continue home Cardizem and Xarelto - No need for telemetry at this time Exposure to COVID-19 Low risk exposure to COVID-19 Admission COVID-19 screen negative [facility] requesting COVID-19 test from [facility] - pending Per [place] - they report they will take patient on Thursday if we have negative state and repeat in-house COVID-19 test No current symptoms or concerns for infection State COVID-19 testing negative PLAN - Repeat COVID-19 test prior to discharge DVT propylaxis: Home Xarelto GI Prophylaxis: Not indicated Code Status: Full code (Confirmed with patient on 03/12/20) PCP: Dr. Drake Social: Recently discharged from [facility] back home. reports he is too much for her to handle at home. Disposition: Admit to inpatient for SNF placement and treatment of perineal cellulitis with IV Antibiotics. COVID-19 screen pending. No current symptoms. LOS >96Hrs pending SNF placement, Repeat COVID-19 testing required by SNF being performed- likely discharge or Thursday Functional Status: Reports: Pain Controlled, Tolerating Diet, Ambulating, Urinating - Review of Systems General: Reports: No Symptoms HEENT: Reports: No Symptoms Pulmonary: Reports: No Symptoms Cardiovascular: Reports: No Symptoms Gastrointestinal: Reports: No Symptoms Genitourinary: Reports: No Symptoms Musculoskeletal: Reports: No Symptoms Skin: Reports: No Symptoms Neurological: Reports: No Symptoms, Tremors, Weakness Psychiatric: Reports: No Symptoms, Confusion - Patient Data Vitals - Most Recent: Last Vital Signs Temp 36.1 C 03/23/20 08:19 Pulse 74 03/23/20 09:16 Resp 20 07/10/20 08:19 BP 133/69 03/23/20 09:16 Pulse Ox 97 03/23/20 08:19 Weight - Most Recent: 139.752 kg I&O - Last 24 hours: Intake & Output 03/22/20 03/23/20 03/23/20 22:59 06:59 14:59 Intake Total 1360 300 240 Output Total 400 Balance 960 300 240 Med Orders - Current: Current Medications Cholecalciferol (Vitamin D3) 5,000 unit PO DAILY [facility] Last Admin: 03/23/20 09:16 Dose: 5,000 unit Documented by: Diltiazem HCl (Cardizem Cd) 120 mg PO DAILY [facility] Last Admin: 03/23/20 09:16 Dose: 120 mg Documented by: Folic Acid (Folic Acid) 1 mg PO DAILY [facility] Last Admin: 03/23/20 09:16 Dose: 1 mg Documented by: Furosemide (Lasix) 60 mg PO DAILY [facility] Last Admin: 03/23/20 09:16 Dose: 60 mg Documented by: Furosemide (Lasix) 40 mg PO DAILY@1400 [facility] Last Admin: 03/22/20 13:36 Dose: 40 mg Documented by: Nystatin (Nystop) 0 gm TOP BID [facility] Last Admin: 03/23/20 09:25 Dose: Not Given Documented by: Olanzapine (Zyprexa) 2.5 mg PO DAILY [facility] Last Admin: 03/23/20 09:17 Dose: 2.5 mg Documented by: Olanzapine (Zyprexa) 5 mg PO BEDTIME [facility] Last Admin: 03/22/20 21:43 Dose: 5 mg Documented by: Ondansetron HCl (Zofran) 4 mg IV Q6H PRN PRN Reason: Nausea/Vomiting Rivaroxaban (Xarelto) 20 mg PO DAILY [facility] Last Admin: 03/23/20 09:16 Dose: 20 mg Documented by: Discontinued Medications Doxycycline Hyclate (Vibramycin) 100 mg PO Q12H [facility] Last Admin: 03/15/20 03:31 Dose: Not Given Documented by: Doxycycline Hyclate (Vibramycin) 100 mg PO BID [facility] Last Admin: 03/21/20 09:51 Dose: 100 mg Documented by: Furosemide (Lasix) 20 mg PO QPM [facility] Furosemide (Lasix) 40 mg PO QAM [facility] Last Admin: 03/12/20 09:14 Dose: 40 mg Documented by: Furosemide (Lasix) 20 mg PO DAILY@1400 [facility] Furosemide (Lasix) 40 mg PO QAM [facility] Furosemide (Lasix) 40 mg IVPUSH NOW ONE Stop: 03/12/20 12:31 Furosemide (Lasix) 40 mg IVPUSH BIDDIURETIC [facility] Last Admin: 03/14/20 16:30 Dose: Not Given Documented by: Furosemide (Lasix) 20 mg IVPUSH NOW ONE Stop: 03/12/20 12:31 Last Admin: 03/12/20 14:59 Dose: Not Given Documented by: Furosemide (Lasix) 60 mg PO ONETIME ONE Stop: 03/14/20 14:49 Last Admin: 03/14/20 16:16 Dose: 60 mg Documented by: Haloperidol (Haldol) 5 mg PO ONETIME ONE Stop: 03/15/20 13:54 Last Admin: 03/15/20 20:28 Dose: Not Given Documented by: Haloperidol Lactate (Haldol) 2 mg IM ONETIME STA Stop: 03/15/20 13:14 Last Admin: 03/15/20 20:29 Dose: Not Given Documented by: Vancomycin HCl 2 gm/ Sodium (Chloride) 500 mls @ 250 mls/hr IV ONETIME ONE Stop: 03/12/20 14:59 Last Admin: 03/12/20 15:53 Dose: Not Given Documented by: Vancomycin HCl 1 gm/Vancomycin HCl 500 mg/ Sodium Chloride 500 mls @ 250 mls/hr IV Q12H [facility] Last Admin: 03/14/20 03:37 Dose: 250 mls/hr Documented by: Vancomycin HCl 2 gm/ Sodium (Chloride) 500 mls @ 250 mls/hr IV ONETIME ONE Stop: 03/12/20 16:59 Last Admin: 03/12/20 15:57 Dose: 250 mls/hr Documented by: Lidocaine HCl (Xylocaine-Mpf 1%) Confirm Administered Dose 4 mls @ as directed .ROUTE .STK-MED ONE Stop: 03/12/20 16:02 Lorazepam (Ativan) Confirm Administered Dose 4 mg .ROUTE .STK-MED ONE Stop: 03/15/20 13:18 Last Admin: 03/15/20 20:28 Dose: Not Given Documented by: Magnesium Hydroxide (Milk Of Magnesia) 30 ml PO ONETIME ONE Stop: 03/13/20 12:08 Last Admin: 03/13/20 13:01 Dose: 30 ml Documented by: Miconazole (Miconazole 2% Crm) 0 gm TOP BID [facility] Nystatin (Nystop) 0 gm TOP BID [facility] Last Admin: 03/21/20 10:32 Dose: 1 applic Documented by: Olanzapine (Zyprexa) 2.5 mg PO BID [facility] Last Admin: 03/16/20 09:08 Dose: 2.5 mg Documented by: Olanzapine (Zyprexa) 2.5 mg PO BEDTIME [facility] Last Admin: 03/16/20 21:17 Dose: 2.5 mg Documented by: Olanzapine (Zyprexa) 2.5 mg PO BID [facility] Last Admin: 03/19/20 20:35 Dose: 2.5 mg Documented by: Potassium Chloride (Klor-Con M20) 20 meq PO DAILY [facility] Last Admin: 03/12/20 09:17 Dose: 20 meq Documented by: Potassium Chloride (Klor-Con M20) 20 meq PO BID [facility] Stop: 03/19/20 09:01 Last Admin: 03/19/20 08:30 Dose: 20 meq Documented by: Vancomycin HCl (Pharmacy To Dose - Vancomycin) 0 dose .XX ASDIRECTED PRN PRN Reason: RX TO DOSE VANCOMYCIN - Exam General: Reports: Alert, Oriented HEENT: Reports: Pupils Equal, Pupils Reactive, EOMI, Mucous Membr. Moist/[place]ck: Reports: Supple Lungs: Reports: Clear to Auscultation, Normal Respiratory Effort Cardiovascular: Reports: Regular Rate, Regular Rhythm GI/Abdominal Exam: Normal Bowel Sounds, Soft, Non-Tender, No Organomegaly, No Distention, No Abnormal Bruit, No Mass, Pelvis Stable (Male) Exam: No Hernia, Normal Inspection, Normal Prostate, Circumcised Rectal (Males) Exam: Normal Exam, Normal Rectal Tone, Prostate Normal Back Exam: Reports: Normal Inspection, Full Range of Motion Extremities: Normal Inspection, Normal Range of Motion, Non-Tender, No Pedal Edema, Normal Capillary Refill Skin: Reports: Warm, Dry, Intact Wound/Incisions: Reports: Healing Well Neurological: Reports: No New Focal Deficit Psy/Mental Status: Reports: Alert, Normal Affect, Normal Mood
== END 2020-03-23 12:45 | DRG 641 ==
LOC: JD.ED 22:15 → JD.MS 03-12 04:11
PROVIDERS: ADMIT Internal Medicine; ATTEND Internal Medicine
DX: R62.7 Adult failure to thrive (principal); L03.315 Cellulitis of perineum; I10 Essential (primary) hypertension; Z68.41 Body mass index [BMI] 40.0-44.9, adult; F23 Brief psychotic disorder; E66.9 Obesity, unspecified; Z87.442 Personal history of urinary calculi; Z85.820 Personal history of malignant melanoma of skin; Z87.891 Personal history of nicotine dependence; E87.6 Hypokalemia; Z91.02 Food additives allergy status; Z79.01 Long term (current) use of anticoagulants; M54.9 Dorsalgia, unspecified; Z20.828 Contact with and (suspected) exposure to other viral communicable diseases; G89.29 Other chronic pain; I48.91 Unspecified atrial fibrillation; I89.0 Lymphedema, not elsewhere classified; R29.6 Repeated falls; E88.09 Other disorders of plasma-protein metabolism, not elsewhere classified; R53.1 Weakness; E66.01 Morbid (severe) obesity due to excess calories; I11.0 Hypertensive heart disease with heart failure; I50.9 Heart failure, unspecified; Z60.9 Problem related to social environment, unspecified; Z88.1 Allergy status to other antibiotic agents; Z91.09 Other allergy status, other than to drugs and biological substances; Z79.899 Other long term (current) drug therapy
CPT/HCPCS: 36415; 51702; 70450; 71045; 80053; 81001; 84484; 85025; 93005; 99285; U0002; 80048; 82962; 83735; 84100; 84145; 97110-GO; 97110-GP; 97116-GP; 97162-GP; 97167-GO; 97530-GO; 97530-GP; 97535-GO; A9270-GY; J1940; J2001; J3370; J7040

== ENCOUNTER 2020-05-15 20:41 | Inpatient (IN) | payer MEDICARE, BC ==
--- NOTE | 2020-05-15 20:52 | EDM.PDOC ---
ED HPI GENERAL MEDICAL PROBLEM - General Chief Complaint: Lower Extremity Injury/Pain Stated Complaint: [facility] Time Seen by Provider: 05/15/20 20:51 Source of Information: Reports: Patient History Limitations: Reports: No Limitations - History of Present Illness INITIAL COMMENTS - FREE TEXT/NARRATIVE: 80-year-old male from [facility] in [place], [place] presents to the ED per ambulance from the same city. History is that of acute onset of a fever noted by staff today. Also be appreciated that the left lower extremity is markedly erythematous and diffusely tender to touch. Patient has a history of chronic severe dependent edema and is currently on Lasix 40 in the morning and 1020 mg in the p.m. History from the patient is difficult to ascertain as he is a very poor historian. Answers to questions from the patient are unreliable. Patient is definitely febrile with a temperature reported 37.6 by nursing staff. He has a history of recent diagnosis of atrial fibrillation with RVR in January of this year and has chronic hypertension. He is also on Xarelto 20 mg once daily due to the A. fib. He comments that the left leg is perhaps more tender than normal. He denies fever or chills. Again very poor historian. Patient used to walk with a cane. Appears that he is so disabled at this point time and he is non-ambulatory. Prone to falls. Also remote history of malignant melanoma but not clear where the biopsy was done but I suspect it was the medial aspect of the left thigh. Onset: Unknown/Unsure Onset Date: 05/15/20 (senior living staff reports fever today. ) Duration: Day(s):, Chronic (Acute on chronic.), Getting Worse Quality: Reports: Ache, Burning, Throbbing Severity: Moderate Improves with: Reports: Rest Worsens with: Reports: Movement Context: Reports: Other (Spontaneous occurrence.). Denies: Activity, Exercise, Lifting, Sick Contact, Trauma Associated Symptoms: Reports: Confusion, Loss of Appetite, Malaise, Shortness of Breath. 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 MANAGEMENT MANAGER: Reports: Other (see below) (Apparently has not had any medication for fever relief.) - Related Data Allergies Allergy/AdvReac Type Severity Reaction Status Date / Time egg Allergy Cannot Verified 05/16/20 13:17 Remember ciprofloxacin [From Cipro] AdvReac Intermediate Other Verified 05/16/20 13:17 gluten AdvReac Intermediate Pain Verified 05/16/20 13:17 Home Meds: Home Meds Furosemide [Lasix] 40 mg PO QAM 03/11/20 [History] Potassium Chloride [Klor-Con M20] 20 meq PO DAILY 03/11/20 [History] Cholecalciferol (Vitamin D3) [Vitamin D3] 5,000 unit PO DAILY tablet 03/23/20 [Rx] Losartan [Cozaar] 25 mg PO DAILY #30 tab 03/23/20 [Rx] Nystatin [Nystop] 0 gm TOP BID bottle 03/23/20 [Rx] Rivaroxaban [Xarelto] 20 mg PO DAILY tablet 03/23/20 [Rx] OLANZapine [ZyPREXA] 5 mg PO BID 05/15/20 [History] Furosemide [Lasix] 40 mg PO DAILY 05/16/20 [History] Past Medical History HEENT History: Reports: Impaired Vision, Other (See Below) Other HEENT History: wears glasses Cardiovascular History: Reports: Afib, Hypertension Other Cardiovascular History: pts states this HTN was from the 80s and he is not on any medications Respiratory History: Reports: None Gastrointestinal History: Reports: Hemorrhoids Genitourinary History: Reports: Renal Calculus Musculoskeletal History: Reports: Back Pain, Chronic Other Musculoskeletal History: since 1980s, walks with cane. Psychiatric History: Reports: Hallucinations ( visual. He is on Olanzaprine 5mg BID for this. hx of parnoid ideation.), Other (See Below) Other Psychiatric History: confusion Endocrine/Metabolic History: Reports: Obesity/BMI 30+ Hematologic History: Reports: B12 Deficiency Oncologic (Cancer) History: Reports: Malignant Melanoma (Suspect it may have been resected from the medial aspect of his left thigh on examination.) Dermatologic History: Reports: Other (See Below) - Infectious Disease History Infectious Disease History: Reports: None - Past Surgical History HEENT Surgical History: Reports: Oral Surgery, Tonsillectomy Cardiovascular Surgical History: Reports: None GI Surgical History: Reports: None Male Surgical History: Reports: Lithotripsy (ESWL) Musculoskeletal Surgical History: Reports: None Oncologic Surgical History: Reports: None, Other (See Below) Dermatological Surgical History: Reports: Skin Biopsy, Other (See Below) Social & Family History - Family History Family Medical History: Noncontributory - Tobacco Use Smoking Status *Q: Never Smoker - Caffeine Use Caffeine Use: Reports: Coffee Caffeine Use Comment: states was drinking Pepsi everyday - Recreational Drug Use Recreational Drug Use: No - Living Situation & Occupation Living situation: Reports: , Extended Care Facility (Currently living at [facility] in [place].) Occupation: Retired Review of Systems - Review of Systems Review Of Systems: See Below Constitutional: Reports: Fever, Weakness. Denies: Chills, Diaphoresis Eyes: Reports: No Symptoms Ears: Reports: No Symptoms Nose: Reports: No Symptoms Mouth/Throat: Reports: Other Respiratory: Reports: Shortness of Breath (Dry mouth. Especially on exertion.). Denies: Wheezing, Pleuritic Chest Pain, Cough, Sputum Cardiovascular: Reports: Edema (Chronic severe), Irregular Heart Rate ( dependent edema both lower extremities. Diagnosed with atrial fibrillation with RVR January 12 of this year. Currently on Xarelto 20 mg daily) GI/Abdominal: Reports: Other (There is no problems with constipation). Denies: Abdominal Pain Genitourinary: Reports: Incontinence (Early wearing a depends.) Musculoskeletal: Reports: Back Pain, Joint Pain (Chronic low back pain lower extremity weakness and pain knees hips and neck at times) Skin: Reports: Other (Pain left lower extremity over the last couple of days. Has chronic severe dependent edema.) Neurological: Reports: Difficulty Walking (No longer walks due to weakness in lower extremities. Used to walk with a cane.) Psychiatric: Reports: Hallucinations (Visual) ED EXAM, GENERAL - Physical Exam Exam: See Below Exam Limited By: Other (And cannot provide any clear history either past or present.) General Appearance: Lethargic, Mild Distress, Other (Temperature is 37.6. Heart rate 101 and irregular irregular. Respiratory 16 with O2 sats 99% on room air BP 134/66.) Eye Exam: Bilateral Eye: Normal Inspection Throat/Mouth: Normal Inspection, Normal Oropharynx, Other (Tongue is moderately dry and fissured.) Head: No: Atraumatic, Normocephalic Neck: Limited Range of Motion. No: Lymphadenopathy (L), Lymphadenopathy (R) Respiratory/Chest: No Respiratory Distress, No Accessory Muscle Use, Decreased Breath Sounds (Decreased air entry to both lower lung askew due to his size and poor inspiration.). No: Rales, Rhonchi, Wheezing Cardiovascular: No Gallop, No Murmur, No Rub, Irregularly Irregular (Atrial fibrillation on the monitor at 123/min.). No: Normal Peripheral Pulses, Regular Rate, Rhythm Peripheral Pulses: 0: Posterior Tibial (L) (Lower extremity pulses are obscured by severe edema.), Posterior Tibial (R), Dorsalis Pedis (L), Dorsalis Pedis (R), 1+: Femoral (L), Femoral (R), 2+: Carotid (L), Carotid (R), Radial (L), Radial (R) GI/Abdominal: Normal Bowel Sounds, Non-Tender, No Abnormal Bruit, No Mass, Other (Morbidly obese. No surgical scars appreciated. Umbilical hernia which does not seem to bother him. It is easily reducible. Abdominal girth limits ability to palpate solid organs.) (Male) Exam: Other (There is diffuse edema of the scrotum and penis.) Back Exam: Other (Not examined.) Extremities: Redness (Diffuse erythema of the entire left lower extremity particularly from the knee to the ankle. Redness is worse on the thigh medial aspect. There is an area of previous surgical scars medial left thigh with some fluctuation around the surgical scars suggesting possible underlying abscess versus edema fluid. I cannot palpate any obvious inguinal adenopathy on either side. The right lower extremity extremity is grossly edematous up to the groin as well as a 4+ pitting edema. He cannot lift either leg off the gurney on his own volition.) Neurological: CN II-XII Intact, Other (Not able to assess for any motor or sensory deficits in the lower extremities as he is unable to lift either leg off the gurney.). No: Oriented (Is oriented to time.) Psychiatric: Flat Affect, Other (Appears lethargic.) Skin Exam: Erythema (Left lower extremity completely with cellulitis of the left lower extremity from groin to ankle.), Increased Warmth EKG INTERPRETATION EKG Date: 05/15/20 Time: 21:57 Rhythm: A-Fib (With rate of 75 to 150/min.) Rate (Beats/Min): 110 [place]: Normal P-Wave: Variable QRS: Other (Decreased voltage both limb and precordial leads.) ST-T: Other (This line is irregular irregular due to atrial fib.) QT: Normal EKG Interpretation Comments: Abnormal ECG Course - Vital Signs Last Recorded V/S: Last Vital Signs Temp 36.6 C 05/18/20 01:18 Pulse 74 05/18/20 01:18 Resp 16 05/18/20 01:18 BP 130/73 05/18/20 01:18 Pulse Ox 96 05/18/20 01:18 - Orders/Labs/Meds Orders: Medication Orders Cholecalciferol (Vitamin D3) 5,000 unit PO DAILY [facility] Last Admin: 05/17/20 08:12 Dose: 5,000 unit Documented by: GWEN Diltiazem HCl (Cardizem) 30 mg PO Q12HR [facility] Last Admin: 05/17/20 20:30 Dose: 30 mg Documented by: Admin: 05/17/20 08:13 Dose: 30 mg Documented by: Admin: 05/16/20 20:24 Dose: 30 mg Documented by: MADI Furosemide (Lasix) 40 mg PO BIDDIURETIC [facility] Last Admin: 05/18/20 06:34 Dose: 40 mg Documented by: Admin: 05/17/20 15:37 Dose: 40 mg Documented by: Admin: 05/17/20 07:00 Dose: 40 mg Documented by: MADI Ceftriaxone Sodium 2 gm/ (Sodium Chloride) 100 mls @ 200 mls/hr IV Q24H [facility] Last Admin: 05/17/20 23:45 Dose: 200 mls/hr Documented by: Infusion: 05/16/20 22:36 Dose: 200 mls/hr Documented by: Admin: 05/16/20 22:06 Dose: 200 mls/hr Documented by: MADI Vancomycin HCl 1 gm/Vancomycin HCl 500 mg/ Sodium Chloride 500 mls @ 250 mls/hr IV Q12H [facility] Last Admin: 05/18/20 02:45 Dose: 250 mls/hr Documented by: Infusion: 05/17/20 17:37 Dose: 250 mls/hr Documented by: Admin: 05/17/20 15:37 Dose: 250 mls/hr Documented by: Infusion: 05/17/20 05:22 Dose: 250 mls/hr Documented by: Admin: 05/17/20 03:22 Dose: 250 mls/hr Documented by: Infusion: 05/16/20 17:12 Dose: 250 mls/hr Documented by: Admin: 05/16/20 15:12 Dose: 250 mls/hr Documented by: MAYLIN Losartan Potassium (Cozaar) 25 mg PO BEDTIME [facility] Last Admin: 05/17/20 20:31 Dose: 25 mg Documented by: Admin: 05/16/20 20:19 Dose: 25 mg Documented by: MADI Nystatin (Nystop) 0 gm TOP BID [facility] Last Admin: 05/17/20 20:45 Dose: 1 applic Documented by: Admin: 05/17/20 08:14 Dose: 1 applic Documented by: Admin: 05/16/20 22:05 Dose: 1 applic Documented by: MADI Olanzapine (Zyprexa) 5 mg PO BID [facility] Last Admin: 05/17/20 20:31 Dose: 5 mg Documented by: Admin: 05/17/20 08:12 Dose: 5 mg Documented by: Admin: 05/16/20 20:24 Dose: 5 mg Documented by: MADI Ondansetron HCl (Zofran) 4 mg IV Q6H PRN PRN Reason: Nausea/Vomiting Rivaroxaban (Xarelto) 20 mg PO DAILY [facility] Last Admin: 05/17/20 08:12 Dose: 20 mg Documented by: GWEN Vancomycin HCl (Pharmacy To Dose - Vancomycin) 1 dose .XX ASDIRECTED PRN PRN Reason: RX TO DOSE VANCO Labs: Laboratory Tests 05/15/20 05/15/20 05/15/20 Range/Units 21:10 21:15 21:15 WBC 16.97 H (4.23-9.07) K/mm3 RBC 5.32 (4.63-6.08) M/mm3 Hgb 15.2 (13.7-17.5) gm/dl Hct 46.5 (40.1-51.0) % MCV 87.4 (79.0-92.2) fl MCH 28.6 (25.7-32.2) pg MCHC 32.7 (32.2-35.5) g/dl RDW Std Deviation 47.2 H (35.1-43.9) fL Plt Count 246 D (163-337) K/mm3 MPV 10.2 (9.4-12.3) fl Neutrophils % (Manual) 92 H (40-60) % Band Neutrophils % 0 (0-10) % Lymphocytes % (Manual) 4 L (20-40) % Atypical Lymphs % 0 % Monocytes % (Manual) 4 (2-10) % Eosinophils % (Manual) 0 L (0.8-7.0) % Basophils % (Manual) 0 L (0.2-1.2) Platelet Estimate Adequate Plt Morphology Comment Normal RBC Morph Comment Normal ESR (0-15) mm/hr PT 13.2 H (9.7-11.7) SECONDS INR 1.24 APTT 32 H (22-31) SECONDS Sodium (136-145) mEq/L Potassium (3.5-5.1) mEq/L Chloride (98-107) mEq/L Carbon Dioxide (21-32) mEq/L Anion Gap (5-15) BUN (7-18) mg/dL Creatinine (0.7-1.3) mg/dL Est Cr Clr Drug Dosing Estimated GFR (MDRD) (>60) mL/min BUN/Creatinine Ratio (14-18) Glucose (83-115) mg/dL POC Glucose (83-110) mg/dL Lactic Acid (0.4-2.0) mmol/L Calcium (8.5-10.1) mg/dL Magnesium (1.8-2.4) mg/dl Total Bilirubin (0.2-1.0) mg/dL AST (15-37) U/L ALT (16-63) U/L Alkaline Phosphatase (46-116) U/L Troponin I (0.00-0.056) ng/mL C-Reactive Protein (<1.0) mg/dL NT-Pro-B Natriuret Pep (0-450) pg/mL Total Protein (6.4-8.2) g/dl Albumin (3.4-5.0) g/dl Globulin gm/dL Albumin/Globulin Ratio (1-2) Urine Color (Yellow) Urine Appearance (Clear) Urine pH (5.0-8.0) Ur Specific [place] (1.005-1.030) Urine Protein (Negative) Urine Glucose (UA) (Negative) Urine Ketones (Negative) Urine Occult Blood (Negative) Urine Nitrite (Negative) Urine Bilirubin (Negative) Urine Urobilinogen (0.2-1.0) Ur Leukocyte Esterase (Negative) Urine RBC (0-5) /hpf Urine WBC (0-5) /hpf Ur Squamous Epith Cells (0-5) /hpf Amorphous Sediment (NOT SEEN) /hpf Urine Bacteria (FEW) /hpf Urine Mucus (FEW) /hpf SARS Virus RNA (PCR) Negative (NEGATIVE) 05/15/20 05/15/20 05/15/20 Range/Units 21:15 21:15 21:15 WBC (4.23-9.07) K/mm3 RBC (4.63-6.08) M/mm3 Hgb (13.7-17.5) gm/dl Hct (40.1-51.0) % MCV (79.0-92.2) fl MCH (25.7-32.2) pg MCHC (32.2-35.5) g/dl RDW Std Deviation (35.1-43.9) fL Plt Count (163-337) K/mm3 MPV (9.4-12.3) fl Neutrophils % (Manual) (40-60) % Band Neutrophils % (0-10) % Lymphocytes % (Manual) (20-40) % Atypical Lymphs % % Monocytes % (Manual) (2-10) % Eosinophils % (Manual) (0.8-7.0) % Basophils % (Manual) (0.2-1.2) Platelet Estimate Plt Morphology Comment RBC Morph Comment ESR 20 H (0-15) mm/hr PT (9.7-11.7) SECONDS INR APTT (22-31) SECONDS Sodium 139 (136-145) mEq/L Potassium 3.6 (3.5-5.1) mEq/L Chloride 102 (98-107) mEq/L Carbon Dioxide 29 (21-32) mEq/L Anion Gap 11.6 (5-15) BUN 19 H (7-18) mg/dL Creatinine 1.1 (0.7-1.3) mg/dL Est Cr Clr Drug Dosing TNP Estimated GFR (MDRD) > 60 (>60) mL/min BUN/Creatinine Ratio 17.3 (14-18) Glucose 163 H (83-115) mg/dL POC Glucose (83-110) mg/dL Lactic Acid (0.4-2.0) mmol/L Calcium 9.2 (8.5-10.1) mg/dL Magnesium 2.2 (1.8-2.4) mg/dl Total Bilirubin 0.8 (0.2-1.0) mg/dL AST 33 (15-37) U/L ALT 47 (16-63) U/L Alkaline Phosphatase 92 (46-116) U/L Troponin I < 0.017 (0.00-0.056) ng/mL C-Reactive Protein 21.3 H* (<1.0) mg/dL NT-Pro-B Natriuret Pep 415 (0-450) pg/mL Total Protein 6.9 (6.4-8.2) g/dl Albumin 2.9 L (3.4-5.0) g/dl Globulin 4.0 gm/dL Albumin/Globulin Ratio 0.7 L (1-2) Urine Color (Yellow) Urine Appearance (Clear) Urine pH (5.0-8.0) Ur Specific [place] (1.005-1.030) Urine Protein (Negative) Urine Glucose (UA) (Negative) Urine Ketones (Negative) Urine Occult Blood (Negative) Urine Nitrite (Negative) Urine Bilirubin (Negative) Urine Urobilinogen (0.2-1.0) Ur Leukocyte Esterase (Negative) Urine RBC (0-5) /hpf Urine WBC (0-5) /hpf Ur Squamous Epith Cells (0-5) /hpf Amorphous Sediment (NOT SEEN) /hpf Urine Bacteria (FEW) /hpf Urine Mucus (FEW) /hpf SARS Virus RNA (PCR) (NEGATIVE) 05/15/20 05/15/20 05/15/20 Range/Units 21:15 21:28 21:49 WBC (4.23-9.07) K/mm3 RBC (4.63-6.08) M/mm3 Hgb (13.7-17.5) gm/dl Hct (40.1-51.0) % MCV (79.0-92.2) fl MCH (25.7-32.2) pg MCHC (32.2-35.5) g/dl RDW Std Deviation (35.1-43.9) fL Plt Count (163-337) K/mm3 MPV (9.4-12.3) fl Neutrophils % (Manual) (40-60) % Band Neutrophils % (0-10) % Lymphocytes % (Manual) (20-40) % Atypical Lymphs % % Monocytes % (Manual) (2-10) % Eosinophils % (Manual) (0.8-7.0) % Basophils % (Manual) (0.2-1.2) Platelet Estimate Plt Morphology Comment RBC Morph Comment ESR (0-15) mm/hr PT (9.7-11.7) SECONDS INR APTT (22-31) SECONDS Sodium (136-145) mEq/L Potassium (3.5-5.1) mEq/L Chloride (98-107) mEq/L Carbon Dioxide (21-32) mEq/L Anion Gap (5-15) BUN (7-18) mg/dL Creatinine (0.7-1.3) mg/dL Est Cr Clr Drug Dosing Estimated GFR (MDRD) (>60) mL/min BUN/Creatinine Ratio (14-18) Glucose (83-115) mg/dL POC Glucose 150 H (83-110) mg/dL Lactic Acid 1.8 (0.4-2.0) mmol/L Calcium (8.5-10.1) mg/dL Magnesium (1.8-2.4) mg/dl Total Bilirubin (0.2-1.0) mg/dL AST (15-37) U/L ALT (16-63) U/L Alkaline Phosphatase (46-116) U/L Troponin I (0.00-0.056) ng/mL C-Reactive Protein (<1.0) mg/dL NT-Pro-B Natriuret Pep (0-450) pg/mL Total Protein (6.4-8.2) g/dl Albumin (3.4-5.0) g/dl Globulin gm/dL Albumin/Globulin Ratio (1-2) Urine Color Yellow (Yellow) Urine Appearance Clear (Clear) Urine pH 7.5 (5.0-8.0) Ur Specific [place] 1.020 (1.005-1.030) Urine Protein Trace H (Negative) Urine Glucose (UA) Negative (Negative) Urine Ketones Negative (Negative) Urine Occult Blood Trace-intact H (Negative) Urine Nitrite Negative (Negative) Urine Bilirubin Negative (Negative) Urine Urobilinogen 2.0 H (0.2-1.0) Ur Leukocyte Esterase Negative (Negative) Urine RBC 0-5 (0-5) /hpf Urine WBC Not seen (0-5) /hpf Ur Squamous Epith Cells 0-5 (0-5) /hpf Amorphous Sediment Few H (NOT SEEN) /hpf Urine Bacteria Rare (FEW) /hpf Urine Mucus Not seen (FEW) /hpf SARS Virus RNA (PCR) (NEGATIVE) Meds: Medications Generic Name Dose Route Start Last Admin Trade Name Freq PRN Reason Stop Dose Admin Cholecalciferol 5,000 unit 05/17/20 09:00 05/17/20 08:12 Vitamin D3 PO 5,000 unit DAILY [facility] Administration Diltiazem HCl 30 mg 05/16/20 21:00 05/17/20 20:30 Cardizem PO 30 mg Q12HR [facility] Administration Furosemide 40 mg 05/17/20 06:00 05/18/20 06:34 Lasix PO 40 mg BIDDIURETIC [facility] Administration Ceftriaxone Sodium 2 gm/ 100 mls @ 200 mls/hr 05/16/20 22:00 05/17/20 23:45 Sodium Chloride IV 200 mls/hr Q24H [facility] Administration Vancomycin HCl 1 gm/ 500 mls @ 250 mls/hr 05/16/20 15:00 05/18/20 02:45 Vancomycin HCl 500 mg/ Sodium IV 250 mls/hr Chloride Q12H [facility] Administration Losartan Potassium 25 mg 05/16/20 21:00 05/17/20 20:31 Cozaar PO 25 mg BEDTIME [facility] Administration Nystatin 0 gm 05/16/20 21:00 05/17/20 20:45 Nystop TOP 1 applic BID [facility] Administration Olanzapine 5 mg 05/16/20 21:00 05/17/20 20:31 Zyprexa PO 5 mg BID [facility] Administration Ondansetron HCl 4 mg 05/16/20 14:10 Zofran IV Q6H PRN Nausea/Vomiting Rivaroxaban 20 mg 05/17/20 09:00 05/17/20 08:12 Xarelto PO 20 mg DAILY [facility] Administration Vancomycin HCl 1 dose 05/16/20 14:15 Pharmacy To Dose - Vancomycin .XX ASDIRECTED PRN RX TO DOSE VANCO Discontinued Medications Generic Name Dose Route Start Last Admin Trade Name Freq PRN Reason Stop Dose Admin Acetaminophen 975 mg 05/15/20 20:57 05/15/20 21:13 Tylenol PO 05/15/20 20:58 975 mg ONETIME ONE Administration Diltiazem HCl 10 mg 05/15/20 21:19 05/15/20 21:22 Cardizem IVPUSH 05/15/20 21:20 10 mg ONETIME ONE Administration Furosemide 40 mg 05/16/20 21:00 05/16/20 20:24 Lasix PO 40 mg BID [facility] Administration Sodium Chloride 1,000 mls @ 150 mls/hr 05/15/20 21:00 05/15/20 21:13 Normal Saline IV 150 mls/hr ASDIRECTED [facility] Administration Ceftriaxone Sodium 2 gm/ 100 mls @ 200 mls/hr 05/15/20 21:22 05/15/20 22:13 Sodium Chloride IV 05/15/20 21:51 200 mls/hr ONETIME ONE Administration Vancomycin HCl 2 gm/ Sodium 500 mls @ 250 mls/hr 05/15/20 21:23 05/15/20 22:13 Chloride IV 05/15/20 21:24 250 mls/hr ONETIME ONE Administration Vancomycin HCl 1 gm/ Sodium 250 mls @ 250 mls/hr 05/16/20 14:15 05/16/20 14:31 Chloride IV Not Given Q24H [facility] Lorazepam 1 mg 05/16/20 05:58 05/16/20 06:05 Ativan IV 05/16/20 05:59 1 mg ONETIME ONE Administration Metoprolol Succinate 50 mg 05/15/20 21:37 05/15/20 22:13 Toprol Xl PO 05/15/20 21:38 50 mg ONETIME ONE Administration Olanzapine 5 mg 05/15/20 22:56 05/15/20 23:15 Zyprexa PO 05/15/20 22:57 5 mg ONETIME ONE Administration Potassium Chloride 40 meq 05/17/20 10:00 05/17/20 12:00 Klor-Con M20 PO 05/17/20 10:01 40 meq ONETIME ONE Administration - Radiology Interpretation Free Text/Narrative:: 80-year-old male presents from [facility] in [facility] per [place] ambulance. History of acute fever acording to nursing staff. Patient has a history of bilateral chronic severe dependent edema both lower extremities. He has been admitted to hospital in the past for diuresis. Diagnosed with A. fib with RVR in January of this year. So far, apparently he has not required medication for rate control. He presents today with a tachycardia anywhere from 110 to 137/min due to A. fib. He will be given 1 dose of Cardizem 10 mg IV bolus. If further medication is required for rate control he will be placed on metoprolol as he is currently on Xarelto with potential interaction between Cardizem and Xarelto. Patient is already on anticoagulants i.e. Xarelto 20 mg once daily. He presents with an acute febrile illness and indeed is febrile on examination and appears volume depleted. Tongue is very dry and coated. He has an obvious cellulitis of his left lower extremity from ankle to groin. There is an area of previous surgical scarring medial aspect of his left thigh. Unclear if this was a site of previous resection of a malignant melanoma. There is fluctuation around the scars in the left lower extremity eit her due to fluid or possible abscess. An ultrasound of his left lower extremity will be obtained.. Septic work up to be done. Given Tylenol 975mg po for fever relief. Covid 19 screen as itappears he will require admission to hospital. Will be given Vancomycin 2gm IV as soon as blood cultures are obtained. Rocephin 2gm IV as well. - Re-Assessments/Exams Free Text/Narrative Re-Assessment/Exam: 05/15/20 22:22: Chest x-ray done portably reveals mild cardiomegaly. There appears to be basilar atelectasis in both lower lung askew most notable left lower lung base. No definitive pneumonia identified. 05/15/20 22:44 White blood cell count is elevated at 16.97 with 92% neutrophils no bands cells reported. Hemoglobin is 15.2 with hematocrit of 46.5. Platelet count is 246,000. PT is 13.2 INR is elevated at 1.24 with a PTT of 32. Sodium 139 with a potassium of 3.6. Chloride 102 with a bicarb of 29. Anion gap is 11.6. BUN is 19 with a creatinine of 1.1. GFR remains greater than 60. Glucose is elevated at 163. It was 150 at the bedside. Lactic acid is 1.8. Calcium 9.2. Magnesium 2.2. Liver function normal. Troponin I is less than 0.017. C-reactive protein is elevated at 21.3. BNP is 415 with a total protein of 6.9 and albumin fraction low at 2.9. Urinalysis is revealing a trace of occult blood and trace of protein on the dip. 2.0 urobilinogen leukocyte Estrace negative. Micro does not show any red cells or white blood cells. COVID-19 test is negative. 05/15/20 22:[address] Marroquin--studio operations engineer in charge hospitalist and she has agreed to admission to the hospital per telemetry due to need for rate control of his atrial fibrillation. He will be admitted to the med surgery floor. Diagnosis is cellulits of the Lt lower extremity. Doppler ultrasound of the Lt leg reveals no DVT in the left deep veins. The common femoral femoral and proximal profunda femoral and popliteal veins are patent without any thrombus. Normal Doppler waveforms normal compressibility and or augmentation response. Left superficial veins unremarkable soft femoral femoral junction is patent without thrombus. Extensive subcutaneous edema and swelling throughout the whole entire left extremity. No visualized abscess appreciated. 05/15/20 23:01 He remains in atrial fibrillation around 195 to 105/min. BP is 112/70. 02 Sats are 94 to 96% on room air. Patient is currently sleeping.Bridge orders have been written for admission to [facility] surgery on telemetry. Code staus per senior living orders is DNR. 05/16/20 01:44 for some reason patient is still in the ED. Apparently there is limited bed availability on med surgery floor at this time. 05/16/20 03:57 patient has been able to sleep. BP is currently 115/75 and his heart remains atrial fibrillation in the 80s. 05/16/20 05:59 patient is becoming somewhat agitated due to a feeling of need to defecate. He is feeling quite restless. Give Ativan 1 mg IV. 05/16/20 06:54 Patient remains in the ED due to lack of bed on med surgery floor. Hopefully bed will open up around 0800 hrs. this morning. To remain in the ED until that time. Case discussed with as it is change of shift. Departure - Departure Time of Disposition: 10:00 Disposition: Admitted As Inpatient 67 Condition: Fair Clinical Impression: Acute febrile illness, Cellulitis of left lower extremity, Chronic atrial fibrillation with RVR, Morbid obesity, Dependent edema CHF (congestive heart failure) Qualifiers: Heart failure type: unspecified Heart failure chronicity: acute on chronic Qualified Code(s): I50.9 - Heart failure, unspecified Obesity Qualifiers: Obesity type: unspecified obesity type Obesity classification: adult class 3 (BMI >= 40) Serious obesity comorbidity presence: unspecified whether serious comorbidity present Body mass index: BMI 40.0-44.9 Qualified Code(s): E66.01 - Morbid (severe) obesity due to excess calories - Discharge Information *PRESCRIPTION DRUG MONITORING PROGRAM REVIEWED*: Not Applicable *COPY OF PRESCRIPTION DRUG MONITORING REPORT IN PATIENT DAVINA: Not Applicable Sepsis Event Note (ED) - Evaluation Sepsis Screening Result: No Definite Risk
[2020-05-15] MEDS ORDERED: Acetaminophen 325 MG Tab PO ONE (20:57)
[2020-05-15] MEDS ORDERED: Sodium Chloride 0.9% 1,000 ML IV SCH (21:00)
[2020-05-15] MEDS ORDERED: Diltiazem 50 MG/10 ML SDV IVPUSH ONE (21:19)
[2020-05-15] MEDS ORDERED: cefTRIAXone 2 GM in Sodium Chloride 0.9% 100 ML IV ONE (21:22)
[2020-05-15] MEDS ORDERED: Vancomycin 2 GM in Sodium Chloride 0.9% 500 ML IV ONE (21:23)
[2020-05-15] MEDS ORDERED: Metoprolol Succinate 50 MG Tab.ER PO ONE (21:37)
[2020-05-15] MEDS ORDERED: OLANZapine 5 MG Tab PO ONE (22:56)
[2020-05-16] MEDS ORDERED: LORazepam 2 MG/ML SDV IV ONE (05:58)
--- NOTE | 2020-05-16 06:20 | CR ---
Chest: Portable view of the chest was obtained. Comparison: Prior chest x-ray of 03/11/20. Heart size is normal. Tortuous thoracic aorta is seen. Mild left basilar atelectasis is noted. Lungs otherwise are clear. Scattered scoliosis and degenerative change is seen within the spine. Impression: 1. Left basilar atelectasis. Other findings as noted above. 2. Nothing acute is seen. Diagnostic code #2 Study was dictated in MDT
--- NOTE | 2020-05-16 06:22 | US ---
Left lower extremity deep venous ultrasound: Duplex and color Doppler evaluation was obtained of the left common femoral, superficial femoral, proximal greater saphenous, popliteal, posterior tibial and peroneal veins. Right common femoral vein was also evaluated. Findings: Soft tissue finding is seen within the left thigh. This finding measures about 3.5 cm and uncertain if this is due to soft tissue mass or hematoma or even representing focal infection. Subcutaneous edema is seen within the left lower extremity. Distal superficial femoral, popliteal and peroneal veins are not well seen for compression although normal phasic flow and augmentation is seen. Other veins show normal compression, augmentation and phasic flow. Impression: 1. No definite findings of deep venous thrombosis within left lower extremity. 2. Diffuse subcutaneous edema most likely relating to cellulitis with history of fever. 3. 3.5 cm hypoechoic area within the soft tissues of the left thigh. This could represent hematoma or soft tissue mass although if patient has infectious symptoms within the thigh this could also represent focal infection. Diagnostic code #3 Agree with preliminary report issued by [facility] ([facility] preliminary report dictated on 05/15/20, 11:11 PM Central Daylight Time) Study was dictated in MDT
--- NOTE | 2020-05-16 12:23 | PCM.HP.2 ---
H&P History of Present Illness - General Date of Service: 05/16/20 Admit Problem/Dx: Admission Diagnosis/Problem Admission Diagnosis/Problem Fever - History of Present Illness Initial Comments - Free Text/Narative: 80-year-old male from [facility] in [place], [place] presents to the ED per ambulance from the same city. History is that of acute onset of a fever noted by staff today. Also be appreciated that the left lower extremity is markedly erythematous and diffusely tender to touch. Patient has a history of chronic severe dependent edema and is currently on Lasix 40 in the morning and 1020 mg in the p.m. History from the patient is difficult to ascertain as he is a very poor historian. Answers to questions from the patient are unreliable. Patient is definitely febrile with a temperature reported 37.6 by nursing staff. He has a history of recent diagnosis of atrial fibrillation with RVR in January of this year and has chronic hypertension. He is also on Xarelto 20 mg once daily due to the A. fib. He comments that the left leg is perhaps more tender than normal. He denies fever or chills. Again very poor historian. Patient used to walk with a cane. Appears that he is so disabled at this point time and he is non-ambulatory. Prone to falls. Also remote history of malignant melanoma but not clear where the biopsy was done but I suspect it was the medial aspect of the left thigh. Onset: Unknown/Unsure Onset Date: 05/15/20 (senior living staff reports fever today. ) Duration: Day(s):, Chronic (Acute on chronic.), Getting Worse Quality: Reports: Ache, Burning, Throbbing Severity: Moderate Improves with: Reports: Rest Worsens with: Reports: Movement Context: Reports: Other (Spontaneous occurrence.). Denies: Activity, Exercise, Lifting, Sick Contact, Trauma Associated Symptoms: Reports: Confusion, Loss of Appetite, Malaise, Shortness of Breath. Denies: Chest Pain, Cough, cough w sputum, Diaphoresis, Fever/Chills, Headaches, Nausea/Vomiting, Syncope (Chronically on exertion.) Treatments REPRODUCTIVE SURGEON: Reports: Other (see below) (Apparently has not had any medication for fever relief.) - Related Data Allergies/Adverse Reactions: Allergies Allergy/AdvReac Type Severity Reaction Status Date / Time egg Allergy Cannot Verified 05/16/20 13:17 Remember ciprofloxacin [From Cipro] AdvReac Intermediate Other Verified 05/16/20 13:17 gluten AdvReac Intermediate Pain Verified 05/16/20 13:17 Home Medications: Home Meds Furosemide [Lasix] 40 mg PO QAM 03/11/20 [History] Potassium Chloride [Klor-Con M20] 20 meq PO DAILY 03/11/20 [History] Cholecalciferol (Vitamin D3) [Vitamin D3] 5,000 unit PO DAILY tablet 03/23/20 [Rx] Losartan [Cozaar] 25 mg PO DAILY #30 tab 03/23/20 [Rx] Nystatin [Nystop] 0 gm TOP BID bottle 03/23/20 [Rx] Rivaroxaban [Xarelto] 20 mg PO DAILY tablet 03/23/20 [Rx] OLANZapine [ZyPREXA] 5 mg PO BID 05/15/20 [History] Furosemide [Lasix] 40 mg PO DAILY 05/16/20 [History] Past Medical History HEENT History: Reports: Impaired Vision, Other (See Below) Other HEENT History: wears glasses Cardiovascular History: Reports: Afib, Hypertension Other Cardiovascular History: pts states this HTN was from the 80s and he is not on any medications Respiratory History: Reports: None Gastrointestinal History: Reports: Hemorrhoids Genitourinary History: Reports: Renal Calculus Musculoskeletal History: Reports: Back Pain, Chronic Other Musculoskeletal History: since 1980s, walks with cane. Psychiatric History: Reports: Hallucinations ( visual. He is on Olanzaprine 5mg BID for this. hx of parnoid ideation.), Other (See Below) Other Psychiatric History: confusion Endocrine/Metabolic History: Reports: Obesity/BMI 30+ Hematologic History: Reports: B12 Deficiency Oncologic (Cancer) History: Reports: Malignant Melanoma (Suspect it may have been resected from the medial aspect of his left thigh on examination.) Dermatologic History: Reports: Other (See Below) - Infectious Disease History Infectious Disease History: Reports: None - Past Surgical History HEENT Surgical History: Reports: Oral Surgery, Tonsillectomy Cardiovascular Surgical History: Reports: None GI Surgical History: Reports: None Male Surgical History: Reports: Lithotripsy (ESWL) Musculoskeletal Surgical History: Reports: None Oncologic Surgical History: Reports: None, Other (See Below) Dermatological Surgical History: Reports: Skin Biopsy, Other (See Below) Social & Family History - Family History Family Medical History: Noncontributory - Tobacco Use Smoking Status *Q: Unknown Ever Smoked - Caffeine Use Caffeine Use: Reports: Coffee Caffeine Use Comment: states was drinking Pepsi everyday - Recreational Drug Use Recreational Drug Use: No - Living Situation & Occupation Living situation: Reports: , Extended Care Facility (Currently living at [facility] in [place].) Occupation: Retired H&P Review of Systems - Review of Systems: Review Of Systems: See Below Review of Systems Comment:: Constitutional: Reports: Fever, Weakness. Denies: Chills, Diaphoresis Eyes: Reports: No Symptoms Ears: Reports: No Symptoms Nose: Reports: No Symptoms Mouth/Throat: Reports: Other Respiratory: Reports: Shortness of Breath (Dry mouth. Especially on exertion.). Denies: Wheezing, Pleuritic Chest Pain, Cough, Sputum Cardiovascular: Reports: Edema (Chronic severe), Irregular Heart Rate ( dependent edema both lower extremities. Diagnosed with atrial fibrillation with RVR January 12 of this year. Currently on Xarelto 20 mg daily) GI/Abdominal: Reports: Other (There is no problems with constipation). Denies: Abdominal Pain Genitourinary: Reports: Incontinence (Early wearing a depends.) Musculoskeletal: Reports: Back Pain, Joint Pain (Chronic low back pain lower extremity weakness and pain knees hips and neck at times) Skin: Reports: Other (Pain left lower extremity over the last couple of days. Has chronic severe dependent edema.) Neurological: Reports: Difficulty Walking (No longer walks due to weakness in lower extremities. Used to walk with a cane.) Psychiatric: Reports: Hallucinations (Visual) Exam - Exam Exam: See Below - Vital Signs Vital Signs: Last Vital Signs Temp 97.3 F 05/16/20 11:28 Pulse 82 05/16/20 11:28 Resp 20 05/16/20 11:28 BP 100/60 05/16/20 11:28 Pulse Ox 93 L 05/16/20 11:28 Weight: 143.925 kg - Exam Physical Exam Comments:: Exam Limited By: Other (And cannot provide any clear history either past or present.) General Appearance: Lethargic, Mild Distress, Other (Temperature is 37.6. Heart rate 101 and irregular irregular. Respiratory 16 with O2 sats 99% on room air BP 134/66.) Eye Exam: Bilateral Eye: Normal Inspection Throat/Mouth: Normal Inspection, Normal Oropharynx, Other (Tongue is moderately dry and fissured.) Head: No: Atraumatic, Normocephalic Neck: Limited Range of Motion. No: Lymphadenopathy (L), Lymphadenopathy (R) Respiratory/Chest: No Respiratory Distress, No Accessory Muscle Use, Decreased Breath Sounds (Decreased air entry to both lower lung askew due to his size and poor inspiration.). No: Rales, Rhonchi, Wheezing Cardiovascular: No Gallop, No Murmur, No Rub, Irregularly Irregular (Atrial fibrillation on the monitor at 123/min.). No: Normal Peripheral Pulses, Regular Rate, Rhythm Peripheral Pulses: 0: Posterior Tibial (L) (Lower extremity pulses are obscured by severe edema.), Posterior Tibial (R), Dorsalis Pedis (L), Dorsalis Pedis (R), 1+: Femoral (L), Femoral (R), 2+: Carotid (L), Carotid (R), Radial (L), Radial (R) GI/Abdominal: Normal Bowel Sounds, Non-Tender, No Abnormal Bruit, No Mass, Other (Morbidly obese. No surgical scars appreciated. Umbilical hernia which does not seem to bother him. It is easily reducible. Abdominal girth limits ability to palpate solid organs.) (Male) Exam: Other (There is diffuse edema of the scrotum and penis.) Back Exam: Other (Not examined.) Extremities: Redness (Diffuse erythema of the entire left lower extremity particularly from the knee to the ankle. Redness is worse on the thigh medial aspect. There is an area of previous surgical scars medial left thigh with some fluctuation around the surgical scars suggesting possible underlying abscess versus edema fluid. I cannot palpate any obvious inguinal adenopathy on either side. The right lower extremity extremity is grossly edematous up to the groin as well as a 4+ pitting edema. He cannot lift either leg off the gurney on his own volition.) Neurological: CN II-XII Intact, Other (Not able to assess for any motor or sensory deficits in the lower extremities as he is unable to lift either leg off the gurney.). No: Oriented (Is oriented to time.) Psychiatric: Flat Affect, Other (Appears lethargic.) Skin Exam: Erythema (Left lower extremity completely with cellulitis of the left lower extremity from groin to ankle.), Increased Warmth - Patient Data Result Diagrams: 05/16/20 13:17 05/16/20 13:17 Sepsis Event Note - Evaluation Sepsis Screening Result: No Definite Risk - Problem List (1) Tachycardia SNOMED Code(s): 4588507 ICD Code: R00.0 - TACHYCARDIA, UNSPECIFIED Status: Acute Current Visit: Yes (2) Leukocytosis SNOMED Code(s): 572656762, 291127210 ICD Code: D72.829 - ELEVATED WHITE BLOOD CELL COUNT, UNSPECIFIED Status: Acute Current Visit: Yes (3) Morbid obesity SNOMED Code(s): 873755071 ICD Code: E66.01 - MORBID (SEVERE) OBESITY DUE TO EXCESS CALORIES Status: Acute Current Visit: Yes (4) Hypertension SNOMED Code(s): 01089869 ICD Code: I10 - ESSENTIAL (PRIMARY) HYPERTENSION Status: Chronic Priority: Medium Current Visit: No Qualifiers: Hypertension type: unspecified Qualified Code(s): I10 - Essential (primary) hypertension (5) Failure to thrive in adult SNOMED Code(s): 009060918 ICD Code: R62.7 - ADULT FAILURE TO THRIVE Status: Acute Priority: Medium Current Visit: No Onset Date: ~03/14/20 Problem Details: much better with zyerexia and cog. decline on evaluation c/w dementia (6) Dependent edema SNOMED Code(s): 750950245 ICD Code: R60.9 - EDEMA, UNSPECIFIED Status: Acute Current Visit: Yes (7) Chronic back pain SNOMED Code(s): 368638177 ICD Code: M54.9 - DORSALGIA, UNSPECIFIED; G89.29 - OTHER CHRONIC PAIN Status: Chronic Priority: Medium Current Visit: No Qualifiers: Back pain location: back pain in unspecified location Back pain laterality: unspecified Qualified Code(s): M54.9 - Dorsalgia, unspecified; G89.29 - Other chronic pain (8) Chronic atrial fibrillation with RVR SNOMED Code(s): 013810139, 959344929148021 ICD Code: I48.20 - CHRONIC ATRIAL FIBRILLATION, UNSPECIFIED Status: Acute Current Visit: Yes (9) Cellulitis of left lower extremity SNOMED Code(s): 620103001 ICD Code: L03.116 - CELLULITIS OF LEFT LOWER LIMB Status: Acute Current Visit: Yes Problem List Initiated/Reviewed/Updated: Yes Assessment/Plan Comment:: ASSESSMENT - Brought in from senior living due to new onset fever - Tachycardic on admission--> given 10mg IV Cardizem - ED physician found area around thigh scar fluctuating--> US ruled out abscess and DVT - CXR with mild cardiomegaly, basilar atelectasis in both lower lung askew most notable left lower lung base. No pneumonia - Lab results - White blood cell count 16.97 with 92% neutrophils no bands cells reported. Hemoglobin is 15.2 with hematocrit of 46.5. Platelet count is 246,000. - PT is 13.2 INR is elevated at 1.24 with a PTT of 32. - Na 139, K 3.6, Cl 102, bicarb 29, GFR >60, glucose 163, LA 1.8, Ca 9.2, Mag 2.2 - Normal LFTs - CRP 21.3 - UA trace of occult blood and protein, 2.0 urobilinogen, negative leukocyte esterase, micro negative for RBC and WBC - COVID 19 negative - Extensive subcutaneous edema of entire LLE on US - Still in a fib despite Cardizem --> rate between 105-195 PLAN Cellulitis of left lower extremity Chronic LE edema - Continue Rocephin and vancomycin - Trend temperature - Panculture if febrile - Continue Furosemide Chronic atrial fibrillation with RVR - Continue Xarelto - Telemetry - Diltiazem 30PO Q6h Hypertension - Continue home Losartan - PRN Hydralazine History of psychotic episode - Continue home Olanzapine PROPHYLAXIS DVT- Lovenox GI- not indicated CODE STATUS: FULL CODE DISPOSITION: Patient will be admitted on IV antibiotics and rate control medications. Discharge likely in 48-72h. - Mortality Measure Prognosis:: Poor
[2020-05-16] MEDS ORDERED: Ondansetron 4 MG/2 ML SDV IV PRN (14:10)
[2020-05-16] MEDS: Vancomycin 1 GM, Vancomycin 500 MG in Sodium Chloride 0.9% 500 ML IV SCH (15:12)
[2020-05-16] MEDS: Losartan 25 MG Tab PO SCH (20:19)
[2020-05-16] MEDS: Diltiazem IR 30 MG Tab PO SCH (20:24)
[2020-05-16] MEDS: OLANZapine 5 MG Tab PO SCH (20:24)
[2020-05-16] MEDS ORDERED: Furosemide 40 MG Tab PO SCH (21:00)
[2020-05-16] MEDS: Nystatin Topical Powder 15 GM Bottle TOP SCH (22:05)
[2020-05-16] MEDS: cefTRIAXone 2 GM in Sodium Chloride 0.9% 100 ML IV SCH (22:06)
[2020-05-17] MEDS: Vancomycin 1 GM, Vancomycin 500 MG in Sodium Chloride 0.9% 500 ML IV SCH ×2 (03:22→15:37)
[2020-05-17] MEDS: Furosemide 40 MG Tab PO SCH ×2 (07:00→15:37)
--- NOTE | 2020-05-17 07:59 | PCM.PN ---
- General Info Date of Service: 05/17/20 Admission Dx/Problem (Free Text): Admission Diagnosis/Problem Admission Diagnosis/Problem Fever Functional Status: Reports: Pain Controlled, Tolerating Diet, Urinating. Denies: Ambulating, New Symptoms - Review of Systems General: Reports: Weakness, Fatigue. Denies: Fever, Malaise, Chills HEENT: Reports: No Symptoms. Denies: Headaches, Visual Changes Pulmonary: Reports: No Symptoms. Denies: Shortness of Breath, Pleuritic Chest Pain, Cough, Sputum, Wheezing Cardiovascular: Reports: Edema (significant chronic ). Denies: Chest Pain, Palpitations Gastrointestinal: Reports: No Symptoms. Denies: Abdominal Pain, Constipation, Diarrhea, Nausea, Vomiting Genitourinary: Reports: No Symptoms. Denies: Pain Musculoskeletal: Reports: Back Pain, Leg Pain, Joint Pain Skin: Reports: No Symptoms. Denies: Cyanosis Neurological: Reports: Confusion, Difficulty Walking, Weakness, Gait Disturbance Psychiatric: Reports: No Symptoms - Patient Data Vitals - Most Recent: Last Vital Signs Temp 97.2 F 05/17/20 03:35 Pulse 59 L 05/17/20 03:35 Resp 16 05/17/20 03:35 BP 109/58 L 05/17/20 03:35 Pulse Ox 94 L 05/17/20 03:35 Weight - Most Recent: 320 lb 11.2 oz I&O - Last 24 Hours: Intake & Output 05/16/20 05/17/20 05/17/20 22:59 06:59 14:59 Intake Total 500 839 Balance 500 839 Lab Results Last 24 Hours: Laboratory Results - last 24 hr 05/16/20 05/16/20 05/16/20 Range/Units 13:17 13:17 13:54 WBC 13.23 H (4.23-9.07) K/mm3 RBC 5.00 (4.63-6.08) M/mm3 Hgb 14.4 (13.7-17.5) gm/dl Hct 44.3 (40.1-51.0) % MCV 88.6 (79.0-92.2) fl MCH 28.8 (25.7-32.2) pg MCHC 32.5 (32.2-35.5) g/dl RDW Std Deviation 47.5 H (35.1-43.9) fL Plt Count 213 (163-337) K/mm3 MPV 10.0 (9.4-12.3) fl Neut % (Auto) 86.7 H (34.0-67.9) % Lymph % (Auto) 6.0 L (21.8-53.1) % [place] % (Auto) 6.3 (5.3-12.2) % Eos % (Auto) 0.4 L (0.8-7.0) Baso % (Auto) 0.2 (0.1-1.2) % Neut # (Auto) 11.48 H (1.78-5.38) K/mm3 Lymph # (Auto) 0.79 L (1.32-3.57) K/mm3 [place] # (Auto) 0.84 H (0.30-0.82) K/mm3 Eos # (Auto) 0.05 (0.04-0.54) K/mm3 Baso # (Auto) 0.02 (0.01-0.08) K/mm3 Manual Slide Review Abnormal smear Sodium 143 (136-145) mEq/L Potassium 3.7 (3.5-5.1) mEq/L Chloride 105 (98-107) mEq/L Carbon Dioxide 27 (21-32) mEq/L Anion Gap 14.7 (5-15) BUN 16 (7-18) mg/dL Creatinine 0.9 (0.7-1.3) mg/dL Est Cr Clr Drug Dosing TNP Estimated GFR (MDRD) > 60 (>60) mL/min BUN/Creatinine Ratio 17.8 (14-18) Glucose 122 H (83-115) mg/dL Calcium 8.8 (8.5-10.1) mg/dL Phosphorus 3.5 (2.6-4.7) mg/dL Magnesium 2.3 (1.8-2.4) mg/dl MRSA (PCR) Negative 05/17/20 05/17/20 Range/Units 05:26 05:26 WBC 9.50 H (4.23-9.07) K/mm3 RBC 4.82 (4.63-6.08) M/mm3 Hgb 13.8 (13.7-17.5) gm/dl Hct 42.6 (40.1-51.0) % MCV 88.4 (79.0-92.2) fl MCH 28.6 (25.7-32.2) pg MCHC 32.4 (32.2-35.5) g/dl RDW Std Deviation 47.2 H (35.1-43.9) fL Plt Count 223 (163-337) K/mm3 MPV 10.6 (9.4-12.3) fl Neut % (Auto) (34.0-67.9) % Lymph % (Auto) (21.8-53.1) % [place] % (Auto) (5.3-12.2) % Eos % (Auto) (0.8-7.0) Baso % (Auto) (0.1-1.2) % Neut # (Auto) (1.78-5.38) K/mm3 Lymph # (Auto) (1.32-3.57) K/mm3 [place] # (Auto) (0.30-0.82) K/mm3 Eos # (Auto) (0.04-0.54) K/mm3 Baso # (Auto) (0.01-0.08) K/mm3 Manual Slide Review Sodium 142 (136-145) mEq/L Potassium 3.4 L (3.5-5.1) mEq/L Chloride 105 (98-107) mEq/L Carbon Dioxide 29 (21-32) mEq/L Anion Gap 11.4 (5-15) BUN 18 (7-18) mg/dL Creatinine 0.9 (0.7-1.3) mg/dL Est Cr Clr Drug Dosing 75.21 Estimated GFR (MDRD) > 60 (>60) mL/min BUN/Creatinine Ratio 20.0 H (14-18) Glucose 112 (83-115) mg/dL Calcium 8.7 (8.5-10.1) mg/dL Phosphorus 3.6 (2.6-4.7) mg/dL Magnesium 2.2 (1.8-2.4) mg/dl MRSA (PCR) Bogdan Results Last 24 Hours: Microbiology 05/15/20 22:07 Aerobic Blood Culture - Preliminary Blood - Venous - Lab Draw NO GROWTH AFTER 1 DAY Anaerobic Blood Culture - Final 05/15/20 21:30 Aerobic Blood Culture - Preliminary Blood - Venous NO GROWTH AFTER 1 DAY Anaerobic Blood Culture - Preliminary NO GROWTH AFTER 1 DAY Med Orders - Current: Current Medications Cholecalciferol (Vitamin D3) 5,000 unit PO DAILY [facility] Diltiazem HCl (Cardizem) 30 mg PO Q12HR [facility] Last Admin: 05/16/20 20:24 Dose: 30 mg Documented by: Furosemide (Lasix) 40 mg PO BIDDIURETIC [facility] Last Admin: 05/17/20 07:00 Dose: 40 mg Documented by: Ceftriaxone Sodium 2 gm/ (Sodium Chloride) 100 mls @ 200 mls/hr IV Q24H [facility] Last Admin: 05/16/20 22:06 Dose: 200 mls/hr Documented by: Vancomycin HCl 1 gm/Vancomycin HCl 500 mg/ Sodium Chloride 500 mls @ 250 mls/hr IV Q12H [facility] Last Admin: 05/17/20 03:22 Dose: 250 mls/hr Documented by: Losartan Potassium (Cozaar) 25 mg PO BEDTIME [facility] Last Admin: 05/16/20 20:19 Dose: 25 mg Documented by: Nystatin (Nystop) 0 gm TOP BID [facility] Last Admin: 05/16/20 22:05 Dose: 1 applic Documented by: Olanzapine (Zyprexa) 5 mg PO BID [facility] Last Admin: 05/16/20 20:24 Dose: 5 mg Documented by: Ondansetron HCl (Zofran) 4 mg IV Q6H PRN PRN Reason: Nausea/Vomiting Rivaroxaban (Xarelto) 20 mg PO DAILY [facility] Vancomycin HCl (Pharmacy To Dose - Vancomycin) 1 dose .XX ASDIRECTED PRN PRN Reason: RX TO DOSE VANCO Discontinued Medications Acetaminophen (Tylenol) 975 mg PO ONETIME ONE Stop: 05/15/20 20:58 Last Admin: 05/15/20 21:13 Dose: 975 mg Documented by: Diltiazem HCl (Cardizem) 10 mg IVPUSH ONETIME ONE Stop: 05/15/20 21:20 Last Admin: 05/15/20 21:22 Dose: 10 mg Documented by: Furosemide (Lasix) 40 mg PO BID [facility] Last Admin: 05/16/20 20:24 Dose: 40 mg Documented by: Sodium Chloride (Normal Saline) 1,000 mls @ 150 mls/hr IV ASDIRECTED [facility] Last Admin: 05/15/20 21:13 Dose: 150 mls/hr Documented by: Ceftriaxone Sodium 2 gm/ (Sodium Chloride) 100 mls @ 200 mls/hr IV ONETIME ONE Stop: 05/15/20 21:51 Last Admin: 05/15/20 22:13 Dose: 200 mls/hr Documented by: Vancomycin HCl 2 gm/ Sodium (Chloride) 500 mls @ 250 mls/hr IV ONETIME ONE Stop: 05/15/20 21:24 Last Admin: 05/15/20 22:13 Dose: 250 mls/hr Documented by: Vancomycin HCl 1 gm/ Sodium (Chloride) 250 mls @ 250 mls/hr IV Q24H [facility] Last Admin: 05/16/20 14:31 Dose: Not Given Documented by: Lorazepam (Ativan) 1 mg IV ONETIME ONE Stop: 05/16/20 05:59 Last Admin: 05/16/20 06:05 Dose: 1 mg Documented by: Metoprolol Succinate (Toprol Xl) 50 mg PO ONETIME ONE Stop: 05/15/20 21:38 Last Admin: 05/15/20 22:13 Dose: 50 mg Documented by: Olanzapine (Zyprexa) 5 mg PO ONETIME ONE Stop: 05/15/20 22:57 Last Admin: 05/15/20 23:15 Dose: 5 mg Documented by: - Exam Quality Assessment: DVT Prophylaxis. No: Supplemental Oxygen General: Alert, Cooperative, No Acute Distress, Other (Morbidly obease ). No: Oriented HEENT: Pupils Equal, Pupils Reactive, Mucous Membr. Moist/[place] Neck: Supple, Trachea Midline Lungs: Clear to Auscultation, Normal Respiratory Effort Cardiovascular: Irregular Rhythm GI/Abdominal Exam: Normal Bowel Sounds, Soft, Non-Tender, No Distention (Male) Exam: Deferred Back Exam: Decreased Range of Motion Extremities: Pedal Edema (Significant LLE 4+), Leg Pain, Limited Range of Motion, Redness (groin to ankleimproving ), Other. No: Normal Capillary Refill Skin: Warm, Dry, Intact Neurological: No New Focal Deficit Psy/Mental Status: Alert, Other (paranoid ). No: Agitated Sepsis Event Note - Evaluation Sepsis Screening Result: No Definite Risk - Focused Exam Vital Signs: Vital Signs Temp Pulse Resp BP Pulse Ox 05/17/20 03:35 97.2 F 59 L 16 109/58 L 94 L 05/16/20 20:22 96.8 F L 63 16 124/78 97 05/16/20 20:19 [id number] - Problem List & Annotations (1) Cellulitis of left lower extremity SNOMED Code(s): 417163035 Code(s): L03.116 - CELLULITIS OF LEFT LOWER LIMB Status: Acute Priority: High Current Visit: Yes (2) Chronic atrial fibrillation with RVR SNOMED Code(s): 336058518, 442778644049406 Code(s): I48.20 - CHRONIC ATRIAL FIBRILLATION, UNSPECIFIED Status: Resolved Priority: High Current Visit: Yes (3) Dependent edema SNOMED Code(s): 488875618 Code(s): R60.9 - EDEMA, UNSPECIFIED Status: Acute Priority: High Current Visit: Yes (4) Leukocytosis SNOMED Code(s): 841863568, 733538948 Code(s): D72.829 - ELEVATED WHITE BLOOD CELL COUNT, UNSPECIFIED Status: Acute Priority: High Current Visit: Yes Qualifiers: Leukocytosis type: unspecified Qualified Code(s): D72.829 - Elevated white blood cell count, unspecified (5) Morbid obesity SNOMED Code(s): 060959772 Code(s): E66.01 - MORBID (SEVERE) OBESITY DUE TO EXCESS CALORIES Status: Chronic Priority: Medium Current Visit: Yes (6) Tachycardia SNOMED Code(s): 5574800 Code(s): R00.0 - TACHYCARDIA, UNSPECIFIED Status: Resolved Priority: High Current Visit: Yes (7) Failure to thrive in adult SNOMED Code(s): 366988221 Code(s): R62.7 - ADULT FAILURE TO THRIVE Status: Acute Priority: High Current Visit: Yes (8) Atrial fibrillation SNOMED Code(s): 21005691 Code(s): I48.91 - UNSPECIFIED ATRIAL FIBRILLATION Status: Chronic Priority: Medium Current Visit: No Qualifiers: Atrial fibrillation type: unspecified Qualified Code(s): I48.91 - Unspecified atrial fibrillation (9) Chronic back pain SNOMED Code(s): 071116520 Code(s): M54.9 - DORSALGIA, UNSPECIFIED; G89.29 - OTHER CHRONIC PAIN Status: Chronic Priority: Medium Current Visit: No Qualifiers: Back pain location: back pain in unspecified location Back pain laterality: unspecified Qualified Code(s): M54.9 - Dorsalgia, unspecified; G89.29 - Other chronic pain (10) Hypertension SNOMED Code(s): 79085239 Code(s): I10 - ESSENTIAL (PRIMARY) HYPERTENSION Status: Chronic Priority: Medium Current Visit: No Qualifiers: Hypertension type: unspecified Qualified Code(s): I10 - Essential (primary) hypertension - Problem List Review Problem List Initiated/Reviewed/Updated: Yes - Assessment Assessment:: ASSESSMENT ON ADMISSION - 05/16/20 - Brought in from skilled nursing due to new onset fever - Tachycardic on admission--> given 10mg IV Cardizem - ED physician found area around thigh scar fluctuating--> US ruled out abscess and DVT - CXR with mild cardiomegaly, basilar atelectasis in both lower lung askew most notable left lower lung base. No pneumonia - Lab results - White blood cell count 16.97 with 92% neutrophils no bands cells reported. Hemoglobin is 15.2 with hematocrit of 46.5. Platelet count is 246,000. - PT is 13.2 INR is elevated at 1.24 with a PTT of 32. - Na 139, K 3.6, Cl 102, bicarb 29, GFR >60, glucose 163, LA 1.8, Ca 9.2, Mag 2.2 - Normal LFTs - CRP 21.3 - UA trace of occult blood and protein, 2.0 urobilinogen, negative leukocyte esterase, micro negative for RBC and WBC - COVID 19 negative - Extensive subcutaneous edema of entire LLE on US - Still in a fib despite Cardizem --> rate between 105-195 05/17/2020 -Mild improvement to erythema -Rate now controlled -Remains confused and quite paranoid -Labs -WBC down to 9.5 from 16.97 -Potassium down to 3.4 from 3.7. 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 Drake PROPHYLAXIS DVT- Home Xarelto GI- not indicated CODE STATUS: DNR DISPOSITION: Patient will be admitted on IV antibiotics and rate control medications. Discharge likely in 48-72h.
[2020-05-17] MEDS: Cholecalciferol (Vitamin D3) 5,000 UNIT Tab PO SCH (08:12)
[2020-05-17] MEDS: Rivaroxaban 10 MG Tab PO SCH (08:12)
[2020-05-17] MEDS: OLANZapine 5 MG Tab PO SCH ×2 (08:12→20:31)
[2020-05-17] MEDS: Diltiazem IR 30 MG Tab PO SCH ×2 (08:13→20:30)
[2020-05-17] MEDS: Nystatin Topical Powder 15 GM Bottle TOP SCH ×2 (08:14→20:45)
[2020-05-17] MEDS: Potassium Chloride 20 MEQ Tab.ER PO ONE ×2 (11:14→12:00)
[2020-05-17] MEDS: Losartan 25 MG Tab PO SCH (20:31)
[2020-05-17] MEDS: cefTRIAXone 2 GM in Sodium Chloride 0.9% 100 ML IV SCH (23:45)
[2020-05-18] MEDS: Vancomycin 1 GM, Vancomycin 500 MG in Sodium Chloride 0.9% 500 ML IV SCH ×2 (02:45→15:35)
[2020-05-18] MEDS: Furosemide 40 MG Tab PO SCH ×2 (06:34→15:35)
[2020-05-18] MEDS: Cholecalciferol (Vitamin D3) 5,000 UNIT Tab PO SCH (09:17)
[2020-05-18] MEDS: Rivaroxaban 10 MG Tab PO SCH (09:17)
[2020-05-18] MEDS: Diltiazem IR 30 MG Tab PO SCH ×2 (09:17→23:25)
[2020-05-18] MEDS: OLANZapine 5 MG Tab PO SCH ×2 (09:17→23:27)
[2020-05-18] MEDS: Nystatin Topical Powder 15 GM Bottle TOP SCH ×2 (09:22→23:26)
--- NOTE | 2020-05-18 09:24 | PCM.PN ---
- General Info Date of Service: 05/18/20 Admission Dx/Problem (Free Text): Admission Diagnosis/Problem Admission Diagnosis/Problem Fever Functional Status: Reports: Pain Controlled, Tolerating Diet, Urinating. Denies: Ambulating, New Symptoms - Review of Systems General: Reports: Weakness. Denies: Fever, Fatigue, Malaise, Chills HEENT: Reports: No Symptoms. Denies: Headaches, Sore Throat Pulmonary: Reports: No Symptoms. Denies: Shortness of Breath, Cough, Sputum, Wheezing Cardiovascular: Reports: No Symptoms. Denies: Chest Pain, Palpitations Gastrointestinal: Reports: No Symptoms. Denies: Abdominal Pain, Constipation, Diarrhea, Nausea, Vomiting Genitourinary: Reports: No Symptoms. Denies: Pain Musculoskeletal: Reports: Leg Pain (improving ) Skin: Reports: No Symptoms. Denies: Cyanosis Neurological: Reports: Confusion (baseline ), Pre-Existing Deficit, Difficulty Walking, Weakness, Gait Disturbance Psychiatric: Reports: No Symptoms - Patient Data Vitals - Most Recent: Last Vital Signs Temp 98.1 F 05/18/20 08:02 Pulse 72 05/18/20 08:02 Resp 20 05/18/20 08:02 BP 107/56 L 05/18/20 08:02 Pulse Ox 96 05/18/20 08:02 Weight - Most Recent: 324 lb 3.2 oz I&O - Last 24 Hours: Intake & Output 05/17/20 05/18/20 05/18/20 22:59 06:59 14:59 Intake Total 830 1111 Balance 830 1111 Lab Results Last 24 Hours: Laboratory Results - last 24 hr 05/17/20 05/18/20 05/18/20 Range/Units 14:10 05:25 05:25 WBC 9.93 H (4.23-9.07) K/mm3 RBC 4.80 (4.63-6.08) M/mm3 Hgb 13.7 (13.7-17.5) gm/dl Hct 42.1 (40.1-51.0) % MCV 87.7 (79.0-92.2) fl MCH 28.5 (25.7-32.2) pg MCHC 32.5 (32.2-35.5) g/dl RDW Std Deviation 45.6 H (35.1-43.9) fL Plt Count 276 (163-337) K/mm3 MPV 10.5 (9.4-12.3) fl Neut % (Auto) 80.2 H (34.0-67.9) % Lymph % (Auto) 8.7 L (21.8-53.1) % [place] % (Auto) 7.5 (5.3-12.2) % Eos % (Auto) 2.9 (0.8-7.0) Baso % (Auto) 0.2 (0.1-1.2) % Neut # (Auto) 7.97 H (1.78-5.38) K/mm3 Lymph # (Auto) 0.86 L (1.32-3.57) K/mm3 [place] # (Auto) 0.74 (0.30-0.82) K/mm3 Eos # (Auto) 0.29 (0.04-0.54) K/mm3 Baso # (Auto) 0.02 (0.01-0.08) K/mm3 Manual Slide Review Normal smear Sodium 139 (136-145) mEq/L Potassium 3.5 (3.5-5.1) mEq/L Chloride 104 (98-107) mEq/L Carbon Dioxide 26 (21-32) mEq/L Anion Gap 12.5 (5-15) BUN 18 (7-18) mg/dL Creatinine 0.8 (0.7-1.3) mg/dL Est Cr Clr Drug Dosing 84.62 mL/min Estimated GFR (MDRD) > 60 (>60) mL/min BUN/Creatinine Ratio 22.5 H (14-18) Glucose 131 H (83-115) mg/dL Calcium 8.3 L (8.5-10.1) mg/dL Vancomycin Trough 13.3 (10.0-20.0) Bogdan Results Last 24 Hours: Microbiology 05/15/20 22:07 Aerobic Blood Culture - Preliminary Blood - Venous - Lab Draw NO GROWTH AFTER 2 DAYS Anaerobic Blood Culture - Final 05/15/20 21:30 Aerobic Blood Culture - Preliminary Blood - Venous NO GROWTH AFTER 2 DAYS Anaerobic Blood Culture - Preliminary NO GROWTH AFTER 2 DAYS Med Orders - Current: Current Medications Cholecalciferol (Vitamin D3) 5,000 unit PO DAILY [facility] Last Admin: 05/18/20 09:17 Dose: 5,000 unit Documented by: Diltiazem HCl (Cardizem) 30 mg PO Q12HR [facility] Last Admin: 05/18/20 09:17 Dose: 30 mg Documented by: Furosemide (Lasix) 40 mg PO BIDDIURETIC [facility] Last Admin: 05/18/20 06:34 Dose: 40 mg Documented by: Ceftriaxone Sodium 2 gm/ (Sodium Chloride) 100 mls @ 200 mls/hr IV Q24H [facility] Last Admin: 05/17/20 23:45 Dose: 200 mls/hr Documented by: Vancomycin HCl 1 gm/Vancomycin HCl 500 mg/ Sodium Chloride 500 mls @ 250 mls/hr IV Q12H [facility] Last Admin: 05/18/20 02:45 Dose: 250 mls/hr Documented by: Losartan Potassium (Cozaar) 25 mg PO BEDTIME [facility] Last Admin: 05/17/20 20:31 Dose: 25 mg Documented by: Nystatin (Nystop) 0 gm TOP BID [facility] Last Admin: 05/18/20 09:22 Dose: 1 applic Documented by: Olanzapine (Zyprexa) 5 mg PO BID [facility] Last Admin: 05/18/20 09:17 Dose: 5 mg Documented by: Ondansetron HCl (Zofran) 4 mg IV Q6H PRN PRN Reason: Nausea/Vomiting Rivaroxaban (Xarelto) 20 mg PO DAILY [facility] Last Admin: 05/18/20 09:17 Dose: 20 mg Documented by: Vancomycin HCl (Pharmacy To Dose - Vancomycin) 1 dose .XX ASDIRECTED PRN PRN Reason: RX TO DOSE VANCO Discontinued Medications Acetaminophen (Tylenol) 975 mg PO ONETIME ONE Stop: 05/15/20 20:58 Last Admin: 05/15/20 21:13 Dose: 975 mg Documented by: Diltiazem HCl (Cardizem) 10 mg IVPUSH ONETIME ONE Stop: 05/15/20 21:20 Last Admin: 05/15/20 21:22 Dose: 10 mg Documented by: Furosemide (Lasix) 40 mg PO BID [facility] Last Admin: 05/16/20 20:24 Dose: 40 mg Documented by: Sodium Chloride (Normal Saline) 1,000 mls @ 150 mls/hr IV ASDIRECTED [facility] Last Admin: 05/15/20 21:13 Dose: 150 mls/hr Documented by: Ceftriaxone Sodium 2 gm/ (Sodium Chloride) 100 mls @ 200 mls/hr IV ONETIME ONE Stop: 05/15/20 21:51 Last Admin: 05/15/20 22:13 Dose: 200 mls/hr Documented by: Vancomycin HCl 2 gm/ Sodium (Chloride) 500 mls @ 250 mls/hr IV ONETIME ONE Stop: 05/15/20 21:24 Last Admin: 05/15/20 22:13 Dose: 250 mls/hr Documented by: Vancomycin HCl 1 gm/ Sodium (Chloride) 250 mls @ 250 mls/hr IV Q24H [facility] Last Admin: 05/16/20 14:31 Dose: Not Given Documented by: Lorazepam (Ativan) 1 mg IV ONETIME ONE Stop: 05/16/20 05:59 Last Admin: 05/16/20 06:05 Dose: 1 mg Documented by: Metoprolol Succinate (Toprol Xl) 50 mg PO ONETIME ONE Stop: 05/15/20 21:38 Last Admin: 05/15/20 22:13 Dose: 50 mg Documented by: Olanzapine (Zyprexa) 5 mg PO ONETIME ONE Stop: 05/15/20 22:57 Last Admin: 05/15/20 23:15 Dose: 5 mg Documented by: Potassium Chloride (Klor-Con M20) 40 meq PO ONETIME ONE Stop: 05/17/20 10:01 Last Admin: 05/17/20 12:00 Dose: 40 meq Documented by: - Exam Quality Assessment: DVT Prophylaxis. No: Supplemental Oxygen, Urine Catheter General: Alert, Oriented, Cooperative, No Acute Distress HEENT: Pupils Equal, Pupils Reactive, Mucous Membr. Moist/[place] Neck: Supple, Trachea Midline Lungs: Clear to Auscultation, Normal Respiratory Effort Cardiovascular: Irregular Rhythm GI/Abdominal Exam: Normal Bowel Sounds, Soft, Non-Tender, No Distention (Male) Exam: Deferred Back Exam: Normal Inspection, Full Range of Motion Extremities: Pedal Edema, Leg Pain, Limited Range of Motion, Other (Erythema improving ) Skin: Warm, Dry, Intact Neurological: No New Focal Deficit Psy/Mental Status: Alert Sepsis Event Note - Evaluation Sepsis Screening Result: No Definite Risk - Focused Exam Vital Signs: Vital Signs Temp Pulse Resp BP Pulse Ox 05/18/20 08:02 98.1 F 72 20 107/56 L 96 05/18/20 01:18 97.9 F 74 16 130/73 96 - Problem List & Annotations (1) Cellulitis of left lower extremity SNOMED Code(s): 543858225 Code(s): L03.116 - CELLULITIS OF LEFT LOWER LIMB Status: Acute Priority: High Current Visit: Yes (2) Chronic atrial fibrillation with RVR SNOMED Code(s): 581519350, [id number] Code(s): I48.20 - CHRONIC ATRIAL FIBRILLATION, UNSPECIFIED Status: Resolved Priority: High Current Visit: Yes (3) Dependent edema SNOMED Code(s): 629355016 Code(s): R60.9 - EDEMA, UNSPECIFIED Status: Acute Priority: High Current Visit: Yes (4) Leukocytosis SNOMED Code(s): 915738473, 449541272 Code(s): D72.829 - ELEVATED WHITE BLOOD CELL COUNT, UNSPECIFIED Status: Acute Priority: High Current Visit: Yes Qualifiers: Leukocytosis type: unspecified Qualified Code(s): D72.829 - Elevated white blood cell count, unspecified (5) Morbid obesity SNOMED Code(s): 895180687 Code(s): E66.01 - MORBID (SEVERE) OBESITY DUE TO EXCESS CALORIES Status: Chronic Priority: Medium Current Visit: Yes (6) Tachycardia SNOMED Code(s): 7984281 Code(s): R00.0 - TACHYCARDIA, UNSPECIFIED Status: Resolved Priority: High Current Visit: Yes (7) Failure to thrive in adult SNOMED Code(s): 386288622 Code(s): R62.7 - ADULT FAILURE TO THRIVE Status: Chronic Priority: Medium Current Visit: Yes (8) Atrial fibrillation SNOMED Code(s): 30056537 Code(s): I48.91 - UNSPECIFIED ATRIAL FIBRILLATION Status: Chronic Priority: Medium Current Visit: No Qualifiers: Atrial fibrillation type: unspecified Qualified Code(s): I48.91 - Unspecified atrial fibrillation (9) Chronic back pain SNOMED Code(s): 273359250 Code(s): M54.9 - DORSALGIA, UNSPECIFIED; G89.29 - OTHER CHRONIC PAIN Status: Chronic Priority: Medium Current Visit: No Qualifiers: Back pain location: back pain in unspecified location Back pain laterality: unspecified Qualified Code(s): M54.9 - Dorsalgia, unspecified; G89.29 - Other chronic pain (10) Hypertension SNOMED Code(s): 55259138 Code(s): I10 - ESSENTIAL (PRIMARY) HYPERTENSION Status: Chronic Priority: Medium Current Visit: No Qualifiers: Hypertension type: unspecified Qualified Code(s): I10 - Essential (primary) hypertension (11) Hypokalemia SNOMED Code(s): 39259252 Code(s): E87.6 - HYPOKALEMIA Status: Acute Priority: High Current Visit: Yes Onset Date: ~03/14/20 - Problem List Review Problem List Initiated/Reviewed/Updated: Yes - My Orders Last 24 Hours: My Active Orders 05/17/20 12:39 Consult to Case Management/Laundry Helper [CONS] Routine - Assessment Assessment:: ASSESSMENT ON ADMISSION - 05/16/20 - Brought in from alf due to new onset fever - Tachycardic on admission--> given 10mg IV Cardizem - ED physician found area around thigh scar fluctuating--> US ruled out abscess and DVT - CXR with mild cardiomegaly, basilar atelectasis in both lower lung askew most notable left lower lung base. No pneumonia - Lab results - White blood cell count 16.97 with 92% neutrophils no bands cells reported. Hemoglobin is 15.2 with hematocrit of 46.5. Platelet count is 246,000. - PT is 13.2 INR is elevated at 1.24 with a PTT of 32. - Na 139, K 3.6, Cl 102, bicarb 29, GFR >60, glucose 163, LA 1.8, Ca 9.2, Mag 2.2 - Normal LFTs - CRP 21.3 - UA trace of occult blood and protein, 2.0 urobilinogen, negative leukocyte esterase, micro negative for RBC and WBC - COVID 19 negative - Extensive subcutaneous edema of entire LLE on US - Still in a fib despite Cardizem --> rate between 105-195 05/17/2020 -Mild improvement to erythema -Rate now controlled -Remains confused and quite paranoid -Labs -WBC down to 9.5 from 16.97 -Potassium down to 3.4 from 3.7. 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4; HR 72-95; BP 131-107/69-48; O2 Saturations 98-93% -Likely discharge tomorrow, 05/19/20 pending continued improvement - Plan Plan:: Cellulitis of left lower extremity Chronic LE edema - Continue Rocephin and vancomycin - Trend temperature - Panculture if febrile - Continue Furosemide Chronic atrial fibrillation with RVR - Continue Xarelto - Has gone several days with rate controlled well - discontinue Telemetry - Diltiazem 30PO Q12h Hypertension - Continue home Losartan - PRN Hydralazine History of psychotic episode - Continue home Olanzapine Hypokalemia - BID 40mEq potassium today - Resume home supplementation tomorrow PCP: Dr. Drake PROPHYLAXIS DVT- Home Xarelto GI- not indicated CODE STATUS: DNR DISPOSITION: Patient will be admitted on IV antibiotics and rate control medications. Discharge likely tomorrow pending continued improvement.
[2020-05-18] MEDS: Potassium Chloride 20 MEQ Tab.ER PO SCH ×2 (10:57→23:25)
[2020-05-18] MEDS: Losartan 25 MG Tab PO SCH (23:25)
[2020-05-18] MEDS: cefTRIAXone 2 GM in Sodium Chloride 0.9% 100 ML IV SCH (23:27)
[2020-05-19] MEDS: Vancomycin 1 GM, Vancomycin 500 MG in Sodium Chloride 0.9% 500 ML IV SCH (04:49)
[2020-05-19] MEDS: Furosemide 40 MG Tab PO SCH ×2 (05:06→14:17)
[2020-05-19] MEDS ORDERED: Potassium Chloride 20 MEQ Tab.ER PO SCH (09:00)
[2020-05-19] MEDS: Cholecalciferol (Vitamin D3) 5,000 UNIT Tab PO SCH (09:30)
[2020-05-19] MEDS: OLANZapine 5 MG Tab PO SCH (09:30)
[2020-05-19] MEDS: Rivaroxaban 10 MG Tab PO SCH (09:30)
[2020-05-19] MEDS: Nystatin Topical Powder 15 GM Bottle TOP SCH (09:31)
[2020-05-19] MEDS: Diltiazem IR 30 MG Tab PO SCH (09:31)
--- NOTE | 2020-05-19 10:16 | PCM.DCSUM1 ---
Discharge Summary - Hospital Course HPI Initial Comments: 80-year-old male from [facility] in [place], [place] presents to the ED per ambulance from the same city. History is that of acute onset of a fever noted by staff today. Also be appreciated that the left lower extremity is markedly erythematous and diffusely tender to touch. Patient has a history of chronic severe dependent edema and is currently on Lasix 40 in the morning and 1020 mg in the p.m. History from the patient is difficult to ascertain as he is a very poor historian. Answers to questions from the patient are unreliable. Patient is definitely febrile with a temperature reported 37.6 by nursing staff. He has a history of recent diagnosis of atrial fibrillation with RVR in January of this year and has chronic hypertension. He is also on Xarelto 20 mg once daily due to the A. fib. He comments that the left leg is perhaps more tender than normal. He denies fever or chills. Again very poor historian. Patient used to walk with a cane. Appears that he is so disabled at this point time and he is non-ambulatory. Prone to falls. Also remote history of malignant melanoma but not clear where the biopsy was done but I suspect it was the medial aspect of the left thigh. Diagnosis: Stroke: No - Discharge Data Discharge Date: 05/19/20 Discharge Disposition: DC/Tfer to SNF 03 Condition: Good - Referral to Home Health Primary Care Physician: PCP None - Discharge Diagnosis/Problem(s) (1) Tachycardia SNOMED Code(s): 2714098 ICD Code: R00.0 - TACHYCARDIA, UNSPECIFIED Status: Resolved Priority: High Current Visit: Yes (2) Leukocytosis SNOMED Code(s): 321670793, 658612071 ICD Code: D72.829 - ELEVATED WHITE BLOOD CELL COUNT, UNSPECIFIED Status: Acute Priority: High Current Visit: Yes Qualifiers: Leukocytosis type: unspecified Qualified Code(s): D72.829 - Elevated white blood cell count, unspecified (3) Morbid obesity SNOMED Code(s): 722011369 ICD Code: E66.01 - MORBID (SEVERE) OBESITY DUE TO EXCESS CALORIES Status: Chronic Priority: Medium Current Visit: Yes (4) Hypertension SNOMED Code(s): 88978838 ICD Code: I10 - ESSENTIAL (PRIMARY) HYPERTENSION Status: Chronic Priority: Medium Current Visit: No Qualifiers: Hypertension type: unspecified Qualified Code(s): I10 - Essential (primary) hypertension (5) Failure to thrive in adult SNOMED Code(s): 750365510 ICD Code: R62.7 - ADULT FAILURE TO THRIVE Status: Chronic Priority: Medium Current Visit: Yes (6) Dependent edema SNOMED Code(s): 904620201 ICD Code: R60.9 - EDEMA, UNSPECIFIED Status: Acute Priority: High Current Visit: Yes (7) Chronic back pain SNOMED Code(s): 911077807 ICD Code: M54.9 - DORSALGIA, UNSPECIFIED; G89.29 - OTHER CHRONIC PAIN Status: Chronic Priority: Medium Current Visit: No Qualifiers: Back pain location: back pain in unspecified location Back pain laterality: unspecified Qualified Code(s): M54.9 - Dorsalgia, unspecified; G89.29 - Other chronic pain (8) Chronic atrial fibrillation with RVR SNOMED Code(s): 016971695, 596496310564209 ICD Code: I48.20 - CHRONIC ATRIAL FIBRILLATION, UNSPECIFIED Status: Resolved Priority: High Current Visit: Yes (9) Cellulitis of left lower extremity SNOMED Code(s): 501317577 ICD Code: L03.116 - CELLULITIS OF LEFT LOWER LIMB Status: Acute Priority: High Current Visit: Yes - Patient Summary/Data Hospital Course: ASSESSMENT ON ADMISSION - 05/16/20 - Brought in from [facility] due to new onset fever - Tachycardic on admission--> given 10mg IV Cardizem - ED physician found area around thigh scar fluctuating--> US ruled out abscess and DVT - CXR with mild cardiomegaly, basilar atelectasis in both lower lung askew most notable left lower lung base. No pneumonia - Lab results - White blood cell count 16.97 with 92% neutrophils no bands cells reported. Hemoglobin is 15.2 with hematocrit of 46.5. Platelet count is 246,000. - PT is 13.2 INR is elevated at 1.24 with a PTT of 32. - Na 139, K 3.6, Cl 102, bicarb 29, GFR >60, glucose 163, LA 1.8, Ca 9.2, Mag 2.2 - Normal LFTs - CRP 21.3 - UA trace of occult blood and protein, 2.0 urobilinogen, negative leukocyte esterase, micro negative for RBC and WBC - COVID 19 negative - Extensive subcutaneous edema of entire LLE on US - Still in a fib despite Cardizem --> rate between 105-195 05/17/2020 -Mild improvement to erythema -Rate now controlled -Remains confused and quite paranoid -Labs -WBC down to 9.5 from 16.97 -Potassium down to 3.4 from 3.7. -Blood glucose stable at 112 -Day 3 Rocephin and day 2 vancomycin -Last BM 05/16 -Glutin free diet - mate ship discussing home diet plan with SNF -Blood cultures negative -Tmax 98.8 05/18/2020 -Patient remains in A-flutter rhythm with rate controlled well - telemetry discontinued -Remains confused but pleasant and talkative today -Has been a fernanda lift -PT recommending SNF with PT -Last BM yesterday (05/17/20) -Day 4 Rocephin and day 3 vancomycin -Will require 14 days treatment for cellulitis -Blood cultures remain negative -Labs: -WBC 9.93 -Neutrophils 80.2% -Normal smear -Sodium 139 -Potassium 3.5 -GFR greater than 60 -Supplement potassium PO 40mEq BID today -Resume home PO potassium supplementation tomorrow -Vital signs: Tmax 98.4; HR 72-95; BP 131-107/69-48; O2 Saturations 98-93% -Likely discharge tomorrow, 05/19/20 pending continued improvement PLAN - Continue Rocephin and vancomycin - Trend temperature - Panculture if febrile - Continue Furosemide - Continue Xarelto - Has gone several days with rate controlled well - discontinue Telemetry - Diltiazem 30PO Q12h - Continue home Losartan - PRN Hydralazine - Continue home Olanzapine - BID 40mEq potassium today - Resume home supplementation tomorrow 05/19/20 - Slept well - New results - WBC down from 9.93 to 8.78 - No bands - DD down from 1.73 to 0.93 - Na down from 133 to 132 - CO2 down from 33 to 30 - K up from 4.5 to 5.4 - CRP down from 2.8 to 2.5 - VS trends - BP: 107-137/56-82 - Tmax: 98.4 - HR: 72-95x' - SatO2 > 94% on room air - Afebrile since admission - VS stable - Rocephin day 5 and vancomycin day 4 - Transition to PO Keflex and Bactrim to complete 10 days - Patient Instructions Diet: Usual Diet as Tolerated Activity: As Tolerated - Discharge Plan *PRESCRIPTION DRUG MONITORING PROGRAM REVIEWED*: Not Applicable *COPY OF PRESCRIPTION DRUG MONITORING REPORT IN PATIENT DAVINA: Not Applicable Prescriptions/Med Rec: Sulfamethoxazole/Trimethoprim [Bactrim Ds Tablet] 1 each PO BID #20 tablet cephALEXin [Keflex] 500 mg PO QID #40 capsule Home Medications: Home Meds Potassium Chloride [Klor-Con M20] 20 meq PO DAILY 03/11/20 [History] Cholecalciferol (Vitamin D3) [Vitamin D3] 5,000 unit PO DAILY tablet 03/23/20 [Rx] Losartan [Cozaar] 25 mg PO DAILY #30 tab 03/23/20 [Rx] Nystatin [Nystop] 0 gm TOP BID bottle 03/23/20 [Rx] Rivaroxaban [Xarelto] 20 mg PO DAILY tablet 03/23/20 [Rx] OLANZapine [ZyPREXA] 5 mg PO BID 05/15/20 [History] Diltiazem IR [Cardizem] 30 mg PO Q12HR tablet 05/19/20 [Rx] Furosemide [Lasix] 40 mg PO BIDDIURETIC tablet 05/19/20 [Rx] Sulfamethoxazole/Trimethoprim [Bactrim Ds Tablet] 1 each PO BID #20 tablet 05/19/20 [Rx] cephALEXin [Keflex] 500 mg PO QID #40 capsule 05/19/20 [Rx] Oxygen Therapy Mode: Room Air Patient Handouts: Heart Failure Action Plan, Sepsis, Diagnosis, Adult, Heart Failure, Diagnosis Forms: ED Department Discharge Referrals: PCP,Unknown [Ordering Only Provider] - (please call primary care provider and schedule a follow up appointment for within one week from today.) - Discharge Summary/Plan Comment DC Time >30 min.: Yes - General Info Date of Service: 05/19/20 Subjective Update: Slept through the night Tolerating diet Still confused but no agitation - Patient Data Vitals - Most Recent: Last Vital Signs Temp 98.4 F 05/19/20 09:18 Pulse 89 05/19/20 09:18 Resp 20 09/05/20 09:18 BP 126/59 L 05/19/20 09:18 Pulse Ox 96 05/19/20 09:18 Weight - Most Recent: 146.873 kg Comments:: PHYSICAL EXAM CONFOUNDED BY BODY HABITUS - Exam General: Reports: Alert, Cooperative, No Acute Distress. Denies: Oriented HEENT: Reports: Pupils Equal, Mucous Membr. Moist/Gillespie Neck: Reports: Supple Lungs: Reports: Decreased Breath Sounds. Denies: Crackles, Rales, Rhonchi, Rub, Stridor, Wheezing Cardiovascular: Reports: Regular Rate, Regular Rhythm. Denies: Murmurs, Gallops, Rubs GI/Abdominal Exam: Distended. No: Guarding, Rigid, Rebound, Tender Extremities: Other (edema mild improvements, erythema significantly improved) Neurological: Reports: No New Focal Deficit
== END 2020-05-19 15:30 | DRG 603 ==
LOC: JD.ED 20:41 → JD.MS 05-16 08:33
PROVIDERS: ADMIT Internal Medicine; ATTEND Internal Medicine
DX: L03.116 Cellulitis of left lower limb (principal); I48.20 Chronic atrial fibrillation, unspecified; Z68.41 Body mass index [BMI] 40.0-44.9, adult; R62.7 Adult failure to thrive; R60.9 Edema, unspecified; I11.0 Hypertensive heart disease with heart failure; I50.9 Heart failure, unspecified; M54.9 Dorsalgia, unspecified; Z66 Do not resuscitate; Z87.440 Personal history of urinary (tract) infections; Z85.820 Personal history of malignant melanoma of skin; Z98.890 Other specified postprocedural states; G89.29 Other chronic pain; E66.01 Morbid (severe) obesity due to excess calories; Z91.02 Food additives allergy status; Z20.828 Contact with and (suspected) exposure to other viral communicable diseases; H54.7 Unspecified visual loss; E66.9 Obesity, unspecified; E53.8 Deficiency of other specified B group vitamins; E87.6 Hypokalemia; Z79.899 Other long term (current) drug therapy; Z79.01 Long term (current) use of anticoagulants; Z88.1 Allergy status to other antibiotic agents; Z91.012 Allergy to eggs; Z91.018 Allergy to other foods; Z87.442 Personal history of urinary calculi; Z90.89 Acquired absence of other organs
CPT/HCPCS: 36415; 71045; 80053; 81001; 82962; 83605; 83735; 83880; 84484; 85007; 85027; 85610; 85652; 85730; 86140; 87040 ×2; 93005; 93971; A9270 ×3; J0696; J2060; J3370; J3490; J7030; J7040; J7050; U0002; 80048; 80202; 84100; 85025; 87641; 93010; 96361; 96365; 96375; 97110-GP; 97162-GP; 97167-GO; 97530-GO; 97530-GP; 99285; 99285-25

== ENCOUNTER 2025-08-03 07:42 | Inpatient (IN) | payer MEDICARE, BC ==
[2025-08-03 08:20] LABS: BASOPHILS ABSOLUTE AUTO 0.0 K/mm3 (0.0-0.2); BASOPHILS PERCENT AUTO 0.2 % (0.0-1.0); EOSINOPHILS ABSOLUTE AUTO 0.0 K/mm3 (0.0-0.4); EOSINOPHILS PERCENT AUTO 0.2 % (0.0-6.0); IMMATURE GRAN ABSOLUTE AUTO 0.11 K/mm3 (0.00-0.05); IMMATURE GRAN PERCENT AUTO 0.6 % (0.0-0.4); LYMPHOCYTES ABSOLUTE AUTO 1.3 K/mm3 (1.0-4.8); LYMPHOCYTES PERCENT AUTO 6.9 % (24.0-44.0); MEAN PLATELET VOLUME 9.7 fl (9.4-12.4); MONOCYTES ABSOLUTE AUTO 1.6 K/mm3 (0.0-0.8); MONOCYTES PERCENT AUTO 8.6 % (0.0-8.0); NEUTROPHILS ABSOLUTE AUTO 15.5 K/mm3 (1.8-7.7); NEUTROPHILS PERCENT AUTO 83.5 % (41.0-71.0); NRBC ABSOLUTE 0.00 (0.00-0.02); NRBC PERCENT 0.0 % (0.0-0.2); PLATELET COUNT,PLT 394 K/mm3 (150-400); RED BLOOD CELL COUNT 5.78 M/mm3 (4.52-5.90); WHITE BLOOD CELL COUNT,WBC 18.56 K/mm3 (3.9-11.3)
[2025-08-03 08:51] LABS: A/G RATIO 0.7 (1-2); ALANINE AMINOTRANSFERASE,ALT 53.0 U/L (16-63); ASPARTATE AMNIOTRANSFERASE,AST 41.0 U/L (15-37); BILIRUBIN TOTAL 1.5 mg/dL (0.2-1.0); BLOOD UREA NITROGEN,BUN 16.0 mg/dL (7-18); CARBON DIOXIDE,CO2 28.0 mEq/L (21-32); CHLORIDE,CL 104.0 mEq/L (98-107); CREATININE 1.0 mg/dL (0.7-1.3); EST CRCL DRUG DOSING (CG) 62.14 mL/min; ESTIMATED GFR 74.0 mL/min (>60); GLUCOSE RANDOM 171.0 mg/dL (70-99); POTASSIUM,K 3.6 mEq/L (3.5-5.1); PROTEIN TOTAL,TP 7.3 g/dl (6.4-8.2); SODIUM,NA 141.0 mEq/L (136-145); TROPONIN I HIGH SENSITIVITY 8.0 pg/mL (<=76)
[2025-08-03] MEDS: Sodium Chloride 0.9% 10 ML Syringe FLUSH PRN (11:04)
[2025-08-03] MEDS: cefTRIAXone 1 GM in Water For Injection, Sterile 10 ML IVPUSH ONE (11:04)
[2025-08-03 11:36] LABS: LACTIC ACID 2.0 mmol/L (0.4-2.0)
[2025-08-03 14:47] LABS: APPEARANCE,URINE CLEAR (Clear); GLUCOSE,URINE NEGATIVE (Negative); OCCULT BLOOD,URINE 3+ (Negative)
[2025-08-03 14:54] LABS: EPITHELIAL CELLS,URINE 0-5 /hpf (0-5)
[2025-08-03] MEDS ORDERED: Ondansetron 4 MG Tab.DIS PO PRN (14:59)
[2025-08-03] MEDS ORDERED: Ondansetron 4 MG/2 ML SDV IV PRN (14:59)
[2025-08-03] MEDS ORDERED: cefTRIAXone 2 GM in Water For Injection, Sterile 20 ML IVPUSH SCH (15:15)
[2025-08-03] MEDS: Insulin Lispro 100 Unit/ML 3 ML KwikPen SUBCUT SCH (18:12)
[2025-08-03] MEDS ORDERED: Nystatin Topical Powder 15 GM Bottle TOP SCH ×2 (21:00)
[2025-08-03] MEDS: Nystatin Topical Powder 15 GM Bottle TOP SCH (22:12)
[2025-08-04] MEDS: Potassium Chloride 20 MEQ Tab.ER PO SCH (10:05)
[2025-08-04] MEDS: cefTRIAXone 2 GM in Water For Injection, Sterile 20 ML IVPUSH SCH (10:05)
[2025-08-04 13:06] LABS: BASOPHILS ABSOLUTE AUTO 0.1 K/mm3 (0.0-0.2); BASOPHILS PERCENT AUTO 0.4 % (0.0-1.0); EOSINOPHILS ABSOLUTE AUTO 0.3 K/mm3 (0.0-0.4); EOSINOPHILS PERCENT AUTO 1.9 % (0.0-6.0); IMMATURE GRAN ABSOLUTE AUTO 0.07 K/mm3 (0.00-0.05); IMMATURE GRAN PERCENT AUTO 0.5 % (0.0-0.4); LYMPHOCYTES ABSOLUTE AUTO 1.2 K/mm3 (1.0-4.8); LYMPHOCYTES PERCENT AUTO 8.8 % (24.0-44.0); MEAN PLATELET VOLUME 9.9 fl (9.4-12.4); MONOCYTES ABSOLUTE AUTO 0.7 K/mm3 (0.0-0.8); MONOCYTES PERCENT AUTO 5.4 % (0.0-8.0); NEUTROPHILS ABSOLUTE AUTO 11.1 K/mm3 (1.8-7.7); NEUTROPHILS PERCENT AUTO 83.0 % (41.0-71.0); NRBC ABSOLUTE 0.00 (0.00-0.02); NRBC PERCENT 0.0 % (0.0-0.2); PLATELET COUNT,PLT 374 K/mm3 (150-400); RED BLOOD CELL COUNT 5.55 M/mm3 (4.52-5.90); WHITE BLOOD CELL COUNT,WBC 13.42 K/mm3 (3.9-11.3)
[2025-08-04 15:47] LABS: BLOOD UREA NITROGEN,BUN 16.0 mg/dL (7-18); CARBON DIOXIDE,CO2 26.0 mEq/L (21-32); CHLORIDE,CL 98.0 mEq/L (98-107); CREATININE 1.1 mg/dL (0.7-1.3); EST CRCL DRUG DOSING (CG) 54.87 mL/min; ESTIMATED GFR 66.0 mL/min (>60); GLUCOSE RANDOM 193.0 mg/dL (70-99); LACTATE DEHYDROGENASE,LDH 352.0 U/L (85-227); POTASSIUM,K 3.8 mEq/L (3.5-5.1); SODIUM,NA 138.0 mEq/L (136-145)
[2025-08-04] MEDS: Furosemide 40 MG/4 ML VIAL IVPUSH STA (17:30)
[2025-08-05 06:10] LABS: BASOPHILS ABSOLUTE AUTO 0.1 K/mm3 (0.0-0.2); BASOPHILS PERCENT AUTO 0.6 % (0.0-1.0); EOSINOPHILS ABSOLUTE AUTO 0.5 K/mm3 (0.0-0.4); EOSINOPHILS PERCENT AUTO 3.2 % (0.0-6.0); IMMATURE GRAN ABSOLUTE AUTO 0.13 K/mm3 (0.00-0.05); IMMATURE GRAN PERCENT AUTO 0.9 % (0.0-0.4); LYMPHOCYTES ABSOLUTE AUTO 1.5 K/mm3 (1.0-4.8); LYMPHOCYTES PERCENT AUTO 10.2 % (24.0-44.0); MEAN PLATELET VOLUME 10.0 fl (9.4-12.4); MONOCYTES ABSOLUTE AUTO 1.2 K/mm3 (0.0-0.8); MONOCYTES PERCENT AUTO 8.3 % (0.0-8.0); NEUTROPHILS ABSOLUTE AUTO 11.1 K/mm3 (1.8-7.7); NEUTROPHILS PERCENT AUTO 76.8 % (41.0-71.0); NRBC ABSOLUTE 0.00 (0.00-0.02); NRBC PERCENT 0.0 % (0.0-0.2); PLATELET COUNT,PLT 377 K/mm3 (150-400); RED BLOOD CELL COUNT 5.12 M/mm3 (4.52-5.90); WHITE BLOOD CELL COUNT,WBC 14.44 K/mm3 (3.9-11.3)
[2025-08-05 06:24] LABS: BLOOD UREA NITROGEN,BUN 20.0 mg/dL (7-18); CARBON DIOXIDE,CO2 30.0 mEq/L (21-32); CHLORIDE,CL 97.0 mEq/L (98-107); CREATININE 0.9 mg/dL (0.7-1.3); EST CRCL DRUG DOSING (CG) 67.06 mL/min; ESTIMATED GFR 84.0 mL/min (>60); GLUCOSE RANDOM 137.0 mg/dL (70-99); POTASSIUM,K 3.3 mEq/L (3.5-5.1); SODIUM,NA 135.0 mEq/L (136-145)
[2025-08-05] MEDS: Heparin Sodium 5,000 Units/ML Vial SUBCUT SCH (08:34)
[2025-08-06 05:26] LABS: BASOPHILS ABSOLUTE AUTO 0.1 K/mm3 (0.0-0.2); BASOPHILS PERCENT AUTO 0.6 % (0.0-1.0); EOSINOPHILS ABSOLUTE AUTO 0.5 K/mm3 (0.0-0.4); EOSINOPHILS PERCENT AUTO 3.8 % (0.0-6.0); IMMATURE GRAN ABSOLUTE AUTO 0.12 K/mm3 (0.00-0.05); IMMATURE GRAN PERCENT AUTO 1.0 % (0.0-0.4); LYMPHOCYTES ABSOLUTE AUTO 1.6 K/mm3 (1.0-4.8); LYMPHOCYTES PERCENT AUTO 13.6 % (24.0-44.0); MEAN PLATELET VOLUME 9.7 fl (9.4-12.4); MONOCYTES ABSOLUTE AUTO 1.0 K/mm3 (0.0-0.8); MONOCYTES PERCENT AUTO 8.4 % (0.0-8.0); NEUTROPHILS ABSOLUTE AUTO 8.5 K/mm3 (1.8-7.7); NEUTROPHILS PERCENT AUTO 72.6 % (41.0-71.0); NRBC ABSOLUTE 0.00 (0.00-0.02); NRBC PERCENT 0.0 % (0.0-0.2); PLATELET COUNT,PLT 413 K/mm3 (150-400); RED BLOOD CELL COUNT 5.26 M/mm3 (4.52-5.90); WHITE BLOOD CELL COUNT,WBC 11.77 K/mm3 (3.9-11.3)
[2025-08-06 05:42] LABS: BLOOD UREA NITROGEN,BUN 20.0 mg/dL (7-18); CARBON DIOXIDE,CO2 28.0 mEq/L (21-32); CHLORIDE,CL 99.0 mEq/L (98-107); CREATININE 1.0 mg/dL (0.7-1.3); EST CRCL DRUG DOSING (CG) 60.36 mL/min; ESTIMATED GFR 74.0 mL/min (>60); GLUCOSE RANDOM 152.0 mg/dL (70-99); POTASSIUM,K 3.5 mEq/L (3.5-5.1); SODIUM,NA 136.0 mEq/L (136-145)
[2025-08-06] MEDS ORDERED: Sodium Chloride 0.9% 10 ML Syringe FLUSH PRN (10:31)
[2025-08-06] MEDS ORDERED: Ondansetron 4 MG/2 ML SDV IVPUSH PRN (10:31)
[2025-08-06] MEDS ORDERED: fentaNYL 100 MCG/2 ML SDV IVPUSH PRN (10:31)
[2025-08-06] MEDS: Lactated Ringers 1,000 ML IV SCH (12:11)
[2025-08-06] MEDS ORDERED: Propofol 200 MG/20 ML SDV ONE (14:34)
[2025-08-06] MEDS ORDERED: Phenylephrine 1% 10 MG/ML SDV ONE (15:41)
[2025-08-06] MEDS ORDERED: ePHEDrine 50 MG/ML SDV ONE (15:51)
[2025-08-06 17:32] LABS: BODY FLUID TYPE THORACENTESIS FLUID
[2025-08-06 17:40] LABS: MONONUCLEAR, BODY FLUID 75.4 % (0.0-0.0); POLYMORPHONUCLEAR, BODY FLUID 24.6 % (0.0-0.0)
[2025-08-06 17:57] LABS: GLUCOSE,BODY FLUID 127 mg/dL; PROTEIN,BODY FLUID 4.6 gm/dl
[2025-08-06 18:11] LABS: SITE,BODY FLUID PLEURAL
[2025-08-06 18:12] LABS: VOLUME BODY FLUID 23 ML
[2025-08-06 18:13] LABS: APPEARANCE,BODY FLUID TURBID; COLOR,BODY FLUID RED
[2025-08-06 18:14] LABS: WBC BODY FLUID 1037 /uL (0-0)
[2025-08-06] MEDS: Sodium Chloride 0.9% 10 ML Syringe FLUSH SCH (20:38)
[2025-08-07 05:48] LABS: BASOPHILS ABSOLUTE AUTO 0.1 K/mm3 (0.0-0.2); BASOPHILS PERCENT AUTO 0.5 % (0.0-1.0); EOSINOPHILS ABSOLUTE AUTO 0.4 K/mm3 (0.0-0.4); EOSINOPHILS PERCENT AUTO 2.7 % (0.0-6.0); IMMATURE GRAN ABSOLUTE AUTO 0.10 K/mm3 (0.00-0.05); IMMATURE GRAN PERCENT AUTO 0.8 % (0.0-0.4); LYMPHOCYTES ABSOLUTE AUTO 1.4 K/mm3 (1.0-4.8); LYMPHOCYTES PERCENT AUTO 10.4 % (24.0-44.0); MEAN PLATELET VOLUME 9.4 fl (9.4-12.4); MONOCYTES ABSOLUTE AUTO 1.2 K/mm3 (0.0-0.8); MONOCYTES PERCENT AUTO 8.9 % (0.0-8.0); NEUTROPHILS ABSOLUTE AUTO 10.2 K/mm3 (1.8-7.7); NEUTROPHILS PERCENT AUTO 76.7 % (41.0-71.0); NRBC ABSOLUTE 0.00 (0.00-0.02); NRBC PERCENT 0.0 % (0.0-0.2); PLATELET COUNT,PLT 372 K/mm3 (150-400); RED BLOOD CELL COUNT 5.04 M/mm3 (4.52-5.90); WHITE BLOOD CELL COUNT,WBC 13.29 K/mm3 (3.9-11.3)
[2025-08-07 06:06] LABS: BLOOD UREA NITROGEN,BUN 13.0 mg/dL (7-18); CARBON DIOXIDE,CO2 30.0 mEq/L (21-32); CHLORIDE,CL 100.0 mEq/L (98-107); CREATININE 0.8 mg/dL (0.7-1.3); EST CRCL DRUG DOSING (CG) 75.44 mL/min; ESTIMATED GFR 87.0 mL/min (>60); GLUCOSE RANDOM 128.0 mg/dL (70-99); POTASSIUM,K 3.6 mEq/L (3.5-5.1); SODIUM,NA 138.0 mEq/L (136-145)
[2025-08-08 06:00] LABS: BASOPHILS ABSOLUTE AUTO 0.1 K/mm3 (0.0-0.2); BASOPHILS PERCENT AUTO 0.5 % (0.0-1.0); EOSINOPHILS ABSOLUTE AUTO 0.3 K/mm3 (0.0-0.4); EOSINOPHILS PERCENT AUTO 2.7 % (0.0-6.0); IMMATURE GRAN ABSOLUTE AUTO 0.13 K/mm3 (0.00-0.05); IMMATURE GRAN PERCENT AUTO 1.0 % (0.0-0.4); LYMPHOCYTES ABSOLUTE AUTO 1.2 K/mm3 (1.0-4.8); LYMPHOCYTES PERCENT AUTO 9.5 % (24.0-44.0); MEAN PLATELET VOLUME 9.9 fl (9.4-12.4); MONOCYTES ABSOLUTE AUTO 1.3 K/mm3 (0.0-0.8); MONOCYTES PERCENT AUTO 10.3 % (0.0-8.0); NEUTROPHILS ABSOLUTE AUTO 9.6 K/mm3 (1.8-7.7); NEUTROPHILS PERCENT AUTO 76.0 % (41.0-71.0); NRBC ABSOLUTE 0.00 (0.00-0.02); NRBC PERCENT 0.0 % (0.0-0.2); PLATELET COUNT,PLT 424 K/mm3 (150-400); RED BLOOD CELL COUNT 5.07 M/mm3 (4.52-5.90); WHITE BLOOD CELL COUNT,WBC 12.57 K/mm3 (3.9-11.3)
[2025-08-08 06:18] LABS: BLOOD UREA NITROGEN,BUN 10.0 mg/dL (7-18); CARBON DIOXIDE,CO2 31.0 mEq/L (21-32); CHLORIDE,CL 100.0 mEq/L (98-107); CREATININE 0.9 mg/dL (0.7-1.3); EST CRCL DRUG DOSING (CG) 67.06 mL/min; ESTIMATED GFR 84.0 mL/min (>60); GLUCOSE RANDOM 133.0 mg/dL (70-99); POTASSIUM,K 3.5 mEq/L (3.5-5.1); SODIUM,NA 134.0 mEq/L (136-145)
[2025-08-09 05:54] LABS: MEAN PLATELET VOLUME 9.4 fl (9.4-12.4); NRBC ABSOLUTE 0.00 (0.00-0.02); NRBC PERCENT 0.0 % (0.0-0.2); PLATELET COUNT,PLT 418 K/mm3 (150-400); RED BLOOD CELL COUNT 5.11 M/mm3 (4.52-5.90); WHITE BLOOD CELL COUNT,WBC 14.24 K/mm3 (3.9-11.3)
[2025-08-09 06:15] LABS: A/G RATIO 0.6 (1-2); ALANINE AMINOTRANSFERASE,ALT 44.0 U/L (16-63); ASPARTATE AMNIOTRANSFERASE,AST 33.0 U/L (15-37); BILIRUBIN TOTAL 0.6 mg/dL (0.2-1.0); BLOOD UREA NITROGEN,BUN 14.0 mg/dL (7-18); CARBON DIOXIDE,CO2 28.0 mEq/L (21-32); CHLORIDE,CL 99.0 mEq/L (98-107); CREATININE 0.9 mg/dL (0.7-1.3); EST CRCL DRUG DOSING (CG) 67.06 mL/min; ESTIMATED GFR 84.0 mL/min (>60); GLUCOSE RANDOM 140.0 mg/dL (70-99); POTASSIUM,K 3.6 mEq/L (3.5-5.1); PROTEIN TOTAL,TP 6.1 g/dl (6.4-8.2); SODIUM,NA 136.0 mEq/L (136-145)
== END 2025-08-09 10:38 | DRG 871 ==
LOC: JD.ED 07:42 → JD.MS 14:59
PROVIDERS: ADMIT Hospitalist; ATTEND Internal Medicine
PROC: 0W993ZZ Drainage of Right Pleural Cavity, Percutaneous Approach (ICD-10-PCS; principal; 2025-08-03)
PROC: 3E03329 Introduction of Other Anti-infective into Peripheral Vein, Percutaneous Approach (ICD-10-PCS; principal; 2025-08-03)
DX: A41.9 Sepsis, unspecified organism (principal); I50.33 Acute on chronic diastolic (congestive) heart failure; J18.9 Pneumonia, unspecified organism; F23 Brief psychotic disorder; I48.20 Chronic atrial fibrillation, unspecified; J91.8 Pleural effusion in other conditions classified elsewhere; I11.0 Hypertensive heart disease with heart failure; Z66 Do not resuscitate; E66.01 Morbid (severe) obesity due to excess calories; H54.7 Unspecified visual loss; R73.9 Hyperglycemia, unspecified; R09.02 Hypoxemia; M54.9 Dorsalgia, unspecified; G89.29 Other chronic pain; F03.90 Unspecified dementia, unspecified severity, without behavioral disturbance, psychotic disturbance, mood disturbance, and anxiety; E53.8 Deficiency of other specified B group vitamins; Z85.820 Personal history of malignant melanoma of skin; Z90.49 Acquired absence of other specified parts of digestive tract; Z98.890 Other specified postprocedural states; J90 Pleural effusion, not elsewhere classified; Z68.38 Body mass index [BMI] 38.0-38.9, adult; I10 Essential (primary) hypertension; E66.9 Obesity, unspecified; Z88.8 Allergy status to other drugs, medicaments and biological substances; Z87.442 Personal history of urinary calculi; Z86.718 Personal history of other venous thrombosis and embolism; Z88.1 Allergy status to other antibiotic agents; Z91.048 Other nonmedicinal substance allergy status; Z91.0120 Allergy to eggs, unspecified; Z68.29 Body mass index [BMI] 29.0-29.9, adult; Z79.899 Other long term (current) drug therapy
CPT/HCPCS: 36415; 71045; 71250; 80053; 81001; 83605; 83690; 83735; 83880; 84484 ×2; 85025; 87040 ×2; 93005; 96374; 99285; C1758; J0696; 00524; 80048; 82945; 82947; 83615; 83986; 84157; 84478; 85027; 86140; 87205; 89050; 93010; 93306; 94760; 94761; 97162-GP; 97165-GO; 99100; 99223; 99232; A4216; A9270-GY; J1644; J1938; J2003; J2371; J2704; J3480; J3490; J7120